=== PATIENT | female | born 1955 | race Caucasian/White ===

== ENCOUNTER → 2017-07-31 06:27 | Outpatient (CLI) | payer OTHER, SELFPAY ==
--- NOTE | 2017-07-31 10:40 | STRESSREP ---
Stress Test Report Exercise myocardial perfusion stress test. 61-year-old lady with a history of shortness of breath. Medications atorvastatin statin benazepril Stress protocol: Resting EKG demonstrates normal sinus rhythm with a rate of 71 bpm. Resting blood pressure is 130/84 mmHg. Patient exercised according to regular Augie protocol for total duration of 5 minutes and 30 seconds completing 2 minutes and 30 seconds to stage II of the Augie protocol the maximum heart rate attained was 1 36 bpm is 86% maximum predicted heart rate maximum workload attained was 7 metabolic equivalents. At rest there were no ST or T-wave changes no ischemia at peak exercise no ST or T-wave changes were noticed ischemia. No clinical angina was noted the test was terminated due to nausea. Resting blood pressure 730/84 with a peak blood pressure 180/76 rate pressure product was 24,000. Myocardial perfusion protocol. 11.3 mCi of technetium 99 sestamibi was injected at rest. She did exercised according to regular Augie protocol for total duration of 5-1/2 minutes. The maximum workload attained was 7 metabolic equivalents. At peak exercise 33.7 mCi of technetium 99 sestamibi was injected stress images were obtained stress and rest images were reconstructed and compared in the short axis vertical and horizontal Gated images were also obtained Perfusion SPECT analysis. Review of the stress images demonstrate normal uptake of tracer noted in all areas of the myocardium. The resting images demonstrate normal uptake of tracer noted in all areas of the myocardium. No areas of reversibility are noted suggest ischemia. Gated SPECT analysis. The gated ejection fraction is noted over 78%. Conclusion: Exercise myocardial perfusion stress test with no evidence of ischemia at a moderate workload. No clinical angina noted no ischemia present.
== END ==
PROVIDERS: Family Provider Family Medicine Geriatric Medicine; PCP Family Medicine Geriatric Medicine; Visit Provider Internal Medicine Cardiovascular Disease
DX: R07.9 Chest pain, unspecified (principal); G47.33 Obstructive sleep apnea (adult) (pediatric); E78.5 Hyperlipidemia, unspecified; I10 Essential (primary) hypertension; R94.31 Abnormal electrocardiogram [ECG] [EKG]
CPT/HCPCS: 78452; 93017; A9500; A4216

== ENCOUNTER → 2017-08-08 15:54 | Outpatient (CLI) | payer OTHER, SELFPAY ==
[2017-08-08 17:30] VITALS: BMI 32.8
== END ==
PROVIDERS: Family Provider Family Medicine Geriatric Medicine; PCP Family Medicine Geriatric Medicine; Visit Provider Nurse Practitioner Acute Care
DX: R20.2 Paresthesia of skin (principal); R06.83 Snoring; R53.83 Other fatigue
CPT/HCPCS: 98960; G0463

== ENCOUNTER → 2017-09-18 12:01 | Outpatient (CLI) | payer OTHER, SELFPAY ==
[2017-08-08 17:30] VITALS: BMI 32.8
[2017-09-18 17:23] LABS: Absolute Lymphocyte Count 1.75 X10^3/ul (0.83-4.51); Absolute Neutrophil Count 4.5 X10^3/uL (2.0-7.7); Basophil# 0.02 X10^3/uL; Basophil% 0.3 % (0-1); Eosinophil# 0.12 X10^3/uL; Eosinophils% 1.7 % (0-5); Hematocrit 41.3 % (37-47); Hemoglobin 14.6 g/dl (12.0-15.0); Lymphocyte # 1.75 X10^3/ul (4.0); Lymphocyte % 25.2 % (19-41); Mean Corp Hgb Conc 35.4 g/gl (32-36); Mean Corpuscular Hgb 32.6 pg (27.0-32.0); Mean Corpuscular Volume 92.2 fL (81-99); Mean Platelet Vol. 9.9 fl (6.2-12.0); Monocyte# 0.51 X10^3/uL; Monocyte% 7.3 % (0-10); Neutrophil # 4.54 X10^3/uL (2.7-7.7); Neutrophil % 65.4 % (47-70); POSITIVE COUNT NO; POSITIVE DIFFERENTIAL NO; POSITIVE MORPHOLOGY NO; Platelet Count 213 K/mm3 (150-450); RBC Distribution Width CV 11.5 % (11.6-14.6); RBC Distribution Width SD 38.6 fl (35.1-43.9); Red Blood Count 4.48 M/mm3 (4.2-5.4)
[2017-09-18 17:51] LABS: ALB/GLOB Ratio 1.2 RATIO (0.9-2.4); AST(SGOT) 25 U/L (15-37); Alanine Aminotransfer ALT/SGPT 41 U/L (13-56); Albumin, Serum 3.5 g/dL (3.2-5.0); Alkaline Phosphatase 68 U/L (45-117); Anion Gap 11 (5-15); BUN 16 mg/dL (7-18); BUN/Creat Ratio 18.8 RATIO (10-20); Calcium,Total 9.1 mg/dL (8.5-10.1); Chloride 107 mmol/L (98-107); Creatinine, Serum 0.85 mg/dL (0.55-1.02); EST Glomerular Filtration Rate 72 mL/min (>60); Est Glom Filt Rate - Afr Amer 87 mL/min (>60); Globulin 2.8 g/dL (2.2-4.2); Glucose 198 mg/dL (74-106); Potassium 4.3 mmol/L (3.5-5.1); Protein, Total 6.3 g/dL (6.4-8.2); Sodium Level 139 mmol/L (136-145); Thyroid Stim Hormone (TSH) 0.47 uIU/mL (0.358-3.74)
[2017-09-20 12:03] LABS: Hep C Antibodies <0.1 s/co ratio (0.0-0.9)
== END ==
PROVIDERS: Family Provider Family Medicine Geriatric Medicine; PCP Family Medicine Geriatric Medicine; Visit Provider Family Medicine Geriatric Medicine
DX: E11.9 Type 2 diabetes mellitus without complications (principal); I10 Essential (primary) hypertension; Z13.89 Encounter for screening for other disorder
CPT/HCPCS: 36415; 80053; 84443; 85025; 86803

== ENCOUNTER → 2017-11-04 17:43 | Outpatient (CLI) | payer OTHER, SELFPAY ==
[2017-08-08 17:30] VITALS: BMI 32.8
== END ==
PROVIDERS: Family Provider Family Medicine Geriatric Medicine; PCP Family Medicine Geriatric Medicine; Visit Provider Family Medicine Geriatric Medicine
DX: R50.9 Fever, unspecified (principal)
CPT/HCPCS: 87633

== ENCOUNTER → 2017-11-12 08:04 | Outpatient (CLI) | payer OTHER, SELFPAY ==
[2017-08-08 17:30] VITALS: BMI 32.8
--- NOTE | 2017-11-12 10:30 | NEURO ---
NCS and/or EMG Patient Report Ordering Doctor: Marlin Baez DATE OF SERVICE: 11/12/17 This is a bilateral lower extremity nerve conduction study in the left lower extremity EMG performed on this 62-year-old female with a history of insomnia for unclear reasons, sleep apnea, and restless leg syndrome. She also has pain in her left leg and hip. There is a history of diabetes, she indicates that her hemoglobin A1c is well controlled. Bilateral lower extremity sensory and motor nerve conduction studies performed. The sural sensory responses are preserved bilaterally. The common peroneal and tibial motor distal latencies, amplitudes, and conduction velocities are preserved bilaterally. The tibial and common peroneal F-wave latencies are bilaterally preserved. Tibial H reflexes are performed, and it is normal on the right, it is reduced on the left. Left lower extremity needle electromyography is performed. Muscles evaluated included the extensor digitorum brevis, abductor halitosis, medial gastrocnemius, anterior tibialis, vastus lateralis, and vastus medialis muscles. All muscles demonstrated normal insertional activity with absence of pathologic spontaneous activity. Motor unit potential recruitment pattern and amplitude was normal in all muscles tested. Impression: Normal EMG of the left lower extremity and nerve conduction study of the bilateral lower extremities.
--- NOTE | 2017-11-12 10:33 | NEURO_ITS ---
NCS and/or EMG Patient Report Ordering Doctor: Marlin Baez DATE OF SERVICE: 11/12/17 This is a bilateral lower extremity nerve conduction study in the left lower extremity EMG performed on this 62-year-old female with a history of insomnia for unclear reasons, sleep apnea, and restless leg syndrome. She also has pain in her left leg and hip. There is a history of diabetes, she indicates that her hemoglobin A1c is well controlled. Bilateral lower extremity sensory and motor nerve conduction studies performed. The sural sensory responses are preserved bilaterally. The common peroneal and tibial motor distal latencies, amplitudes, and conduction velocities are preserved bilaterally. The tibial and common peroneal F-wave latencies are bilaterally preserved. Tibial H reflexes are performed, and it is normal on the right, it is reduced on the left. Left lower extremity needle electromyography is performed. Muscles evaluated included the extensor digitorum brevis, abductor halitosis, medial gastrocnemius , anterior tibialis, vastus lateralis, and vastus medialis muscles. All muscles demonstrated normal insertional activity with absence of pathologic spontaneous activity. Motor unit potential recruitment pattern and amplitude was normal in all muscles tested. Impression: Normal EMG of the left lower extremity and nerve conduction study of the bilateral lower extremities.
== END ==
PROVIDERS: Family Provider Family Medicine Geriatric Medicine; PCP Family Medicine Geriatric Medicine; Visit Provider Nurse Practitioner Acute Care
DX: R20.2 Paresthesia of skin (principal); R53.83 Other fatigue; R06.83 Snoring
CPT/HCPCS: 95886; 95910

== ENCOUNTER → 2017-12-13 20:00 | Outpatient (CLI) | payer OTHER, SELFPAY ==
[2017-08-08 17:30] VITALS: BMI 32.8
== END ==
PROVIDERS: Family Provider Family Medicine Geriatric Medicine; PCP Family Medicine Geriatric Medicine; Visit Provider Nurse Practitioner Acute Care
DX: G47.33 Obstructive sleep apnea (adult) (pediatric) (principal)
CPT/HCPCS: 95811

== ENCOUNTER → 2017-12-31 15:56 | Outpatient (CLI) | payer OTHER, SELFPAY ==
[2017-08-08 17:30] VITALS: BMI 32.8
[2017-12-31 17:29] LABS: Absolute Neutrophil Count 4.9 X10^3/uL (2.0-7.7); Basophil# 0.02 X10^3/uL; Basophil% 0.3 % (0-1); Eosinophil# 0.08 X10^3/uL; Hemoglobin 13.8 g/dl (12.0-15.0); Lymphocyte % 28.2 % (19-41); Mean Corp Hgb Conc 32.9 g/gl (32-36); Mean Corpuscular Hgb 31.1 pg (27.0-32.0); Mean Corpuscular Volume 94.6 fL (81-99); Mean Platelet Vol. 9.6 fl (6.2-12.0); Monocyte# 0.62 X10^3/uL; Neutrophil # 4.86 X10^3/uL (2.7-7.7); Neutrophil % 62.4 % (47-70); Platelet Count 226 K/mm3 (150-450); RBC Distribution Width CV 12.3 % (11.6-14.6); Red Blood Count 4.44 M/mm3 (4.2-5.4); White Blood Count 7.8 K/mm3 (4.4-11.0)
[2017-12-31 17:33] LABS: POSITIVE COUNT NO; POSITIVE DIFFERENTIAL NO; POSITIVE MORPHOLOGY NO
[2017-12-31 17:43] LABS: ALB/GLOB Ratio 1.1 RATIO (0.9-2.4); AST(SGOT) 24 U/L (15-37); Alanine Aminotransfer ALT/SGPT 45 U/L (13-56); Albumin, Serum 3.4 g/dL (3.2-5.0); Alkaline Phosphatase 56 U/L (45-117); Anion Gap 8 (5-15); BUN 18 mg/dL (7-18); BUN/Creat Ratio 28.6 RATIO (10-20); Calcium,Total 8.9 mg/dL (8.5-10.1); Chloride 108 mmol/L (98-107); Creatinine, Serum 0.63 mg/dL (0.55-1.02); EST Glomerular Filtration Rate 102 mL/min (>60); Est Glom Filt Rate - Afr Amer 123 mL/min (>60); Glucose 118 mg/dL (74-106); Protein, Total 6.4 g/dL (6.4-8.2); Sodium Level 142 mmol/L (136-145); Thyroid Stim Hormone (TSH) 0.88 uIU/mL (0.358-3.74)
== END ==
PROVIDERS: Family Provider Family Medicine Geriatric Medicine; PCP Family Medicine Geriatric Medicine; Visit Provider Family Medicine Geriatric Medicine
DX: E11.9 Type 2 diabetes mellitus without complications (principal); I10 Essential (primary) hypertension
CPT/HCPCS: 36415; 80053; 84443; 85025

== ENCOUNTER → 2018-04-28 16:08 | Outpatient (CLI) | payer OTHER, SELFPAY ==
[2017-08-08 17:30] VITALS: BMI 32.8
[2018-02-17 15:55] VITALS: BMI 31.9
[2018-04-28 16:56] LABS: Absolute Neutrophil Count 3.8 X10^3/uL (2.0-7.7); Basophil# 0.02 X10^3/uL; Basophil% 0.3 % (0-1); Eosinophil# 0.12 X10^3/uL; Eosinophils% 1.9 % (0-5); Hematocrit 41.6 % (37-47); Hemoglobin 14.4 g/dl (12.0-15.0); Lymphocyte % 31.1 % (19-41); Mean Corp Hgb Conc 34.6 g/gl (32-36); Mean Corpuscular Hgb 32.1 pg (27.0-32.0); Mean Corpuscular Volume 92.7 fL (81-99); Mean Platelet Vol. 9.9 fl (6.2-12.0); Monocyte# 0.47 X10^3/uL; Monocyte% 7.3 % (0-10); Neutrophil # 3.81 X10^3/uL (2.7-7.7); Neutrophil % 59.2 % (47-70); Platelet Count 189 K/mm3 (150-450); RBC Distribution Width CV 11.9 % (11.6-14.6); RBC Distribution Width SD 39.8 fl (35.1-43.9); Red Blood Count 4.49 M/mm3 (4.2-5.4); White Blood Count 6.4 K/mm3 (4.4-11.0)
[2018-04-28 17:09] LABS: POSITIVE COUNT NO; POSITIVE DIFFERENTIAL NO; POSITIVE MORPHOLOGY NO
[2018-04-28 17:17] LABS: ALB/GLOB Ratio 1.2 RATIO (0.9-2.4); AST(SGOT) 18 U/L (15-37); Alanine Aminotransfer ALT/SGPT 41 U/L (13-56); Albumin, Serum 3.4 g/dL (3.2-5.0); Alkaline Phosphatase 63 U/L (45-117); Anion Gap 10 (5-15); BUN 24 mg/dL (7-18); BUN/Creat Ratio 27.4 RATIO (10-20); Calcium,Total 8.7 mg/dL (8.5-10.1); Chloride 107 mmol/L (98-107); Creatinine, Serum 0.88 mg/dL (0.55-1.02); EST Glomerular Filtration Rate 69 mL/min (>60); Est Glom Filt Rate - Afr Amer 84 mL/min (>60); Globulin 2.8 g/dL (2.2-4.2); Glucose 171 mg/dL (74-106); Potassium 4.2 mmol/L (3.5-5.1); Protein, Total 6.2 g/dL (6.4-8.2); Sodium Level 142 mmol/L (136-145); Thyroid Stim Hormone (TSH) 1.02 uIU/mL (0.358-3.74)
--- OUTSIDE RECORDS SUMMARY | 2018-06-15 01:04 | XMS RPT_ITS ---
:1955 Author Organization OHIP Support Name Relationship Address Phone GOOIN Unavailable [address] [phone] [place] [address] NOLT, ENRIQUE Unavailable [address] + [place] [address] SATIR, REZA Unavailable [address] + [place] [address] GOOIN Unavailable [address] [phone] [place] [address] NOLT, ENRIQUE Unavailable [address] + [place] [address] SATIR, REZA Unavailable [address] + [place] [address] GOOIN Unavailable [address] [phone] [place] [address] NOLT, ENRIQUE Unavailable [address] + [place] [address] SATIR, REZA Unavailable 1 + [place] [address] GOOIN Unavailable [address] [phone] [place] [address] NOLT, ENRIQUE Unavailable [address] + [place] [address] SATIR, REZA Unavailable 1 + [place] [address] GOOIN Unavailable [address] [phone] [place] [address] NOLT, ENRIQUE Unavailable [address] + [place] [address] SATIR REZA Unavailable Unavailable + [place] [address] GOOIN Unavailable [address] [phone] [place] [address] NOLT, ENRIQUE Unavailable [address] + [place] [address] REZA CARRILLO Unavailable Unavailable + [place] [address] GOOIN Unavailable [address] [phone] [place] [address] NOLT, ENRIQUE Unavailable [address] + [place] [address] REZA CARRILLO Unavailable Unavailable + [place] [address] GOOIN Unavailable [address] [phone] [place] [address] NOLT, ENRIQUE Unavailable [address] + [place] [address] GOOIN Unavailable [address] [phone] [place] [address] NOLT, ENRIQUE Unavailable [address] + [place] [address] REZA CARRILLO Unavailable Unavailable + [place] [address] GOOIN Unavailable [address] [phone] [place] [address] NOLT, ENRIQUE Unavailable [address] + [place] [address] GOOIN Unavailable [address] [phone] [place] [address] NOLT, ENRIQUE Unavailable [address] + [place] [address] GOOIN Unavailable [address] [phone] [place] [address] NOLT, ENRIQUE Unavailable [address] + [place] [address] GOOIN Unavailable [address] [phone] [place] [address] NOLT, ENRIQUE Unavailable [address] + [place] [address] GOOIN Unavailable [address] [phone] [place] [address] NOLT, ENRIQUE Unavailable [address] + [place] [address] GOOIN Unavailable [address] [phone] [place] [address] GOOIN Unavailable [address] [phone] [place] [address] NOLT, ENRIQUE Unavailable [address] + [place] [address] GOOIN Unavailable [address] [phone] [place] [address] NOLT, ENRIQUE Unavailable [address] + [place] [address] QUANMILADIS GUPTA Unavailable [address] + [place] [address] Care Team Providers Name Role Phone JANICE, JANNIE CHI Referring Unavailable Janice, Jannie Chi Attending Unavailable Janice, Jannie Chi Primary Care Unavailable Janice, Jannie Chi Attending Unavailable Janice, Jannie Chi Referring Unavailable Janice, Jannie Chi Primary Care Unavailable Janice, Jannie Chi Attending Unavailable Janice, Jannie Chi Referring Unavailable Janice, Jannie Chi Primary Care Unavailable Janice, Jannie Chi Attending Unavailable Janice, Jannie Chi Primary Care Unavailable Oseas Berman Attending Unavailable Janice, Jannie Chi Referring Unavailable Janice, Jannie Chi Primary Care Unavailable Oseas Berman Attending Unavailable Oseas Berman Referring Unavailable Janice, Jannie Chi Primary Care Unavailable NestorHoanga [employer]OCK AND WATCH ASSEMBLER-C Attending Unavailable Janice, Jannie Chi Primary Care Unavailable Augie Grimes Attending Unavailable Janice, Jannie Chi Referring Unavailable Janice, Jannie Chi Primary Care Unavailable Oseas Berman Attending Unavailable Shannon, Philip Referring Unavailable CornelioAugie brown Attending Unavailable Janice, Jannie Chi Referring Unavailable Janice, Jannie Chi Attending Unavailable Janice, Jannie Chi Primary Care Unavailable Janice, Jannie Chi Attending Unavailable Janice, Jannie Chi Referring Unavailable Janice, Jannie Chi Primary Care Unavailable NestorHoang burnhama CLOCK AND WATCH ASSEMBLER-C Attending Unavailable NestorHoanga CLOCK AND WATCH ASSEMBLER-C Referring Unavailable Jaince, Jannie Chi Primary Care Unavailable NestorHoanga CLOCK AND WATCH ASSEMBLER-C Attending Unavailable Janice, Jannie Chi Primary Care Unavailable Janice, Jannie Chi Attending Unavailable Janice, Jannie Chi Primary Care Unavailable Oseas Bermna Attending Unavailable Janice, Jannie Chi Referring Unavailable PROBLEMS PROBLEMS DATE TYPE CONDITION / CODE ATTENDING STATUS SOURCE 05/29/2018 Unknown R50.9 - Fever, Janice, Jannie Chi Active [place] unspecified / Community R50.9(ICD-10) Hospital Repository 05/15/2018 Unknown R19.7 - Diarrhea, Janice, Jannie Chi Active [facility] unspecified / Community R19.7(ICD-10) Hospital Repository 02/17/2018 Unknown E78.5 - Oseas Berman Active [place] Hyperlipidemia, Community unspecified / Hospital E78.5(ICD-10) Repository 11/12/2017 Unknown R20.2 - Paresthesia of Marlin Baez Active [facility] skin / R20.2(ICD-10) [facility] Repository 11/12/2017 Unknown R53.83 - Other fatigue NestorMarlin burnham Active [place] / R53.83(ICD-10) [facility] Repository 09/18/2017 Unknown I10 - Essential Janice, Jannie Chi Active [facility] (primary) hypertension Community / I10(ICD-10) Hospital Repository 09/18/2017 Unknown E11.9 - Type 2 Janice, Jannie Chi Active [place] diabetes mellitus [facility] without complications Hospital / E11.9(ICD-10) Repository 08/15/2017 Unknown G47.33 - Obstructive CornelioAugie brown Active [facility] sleep apnea (adult) Community (pediatric) / Hospital G47.33(ICD-10) Repository 08/15/2017 Unknown 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 / Community G47.61(ICD-10) Hospital Repository 08/15/2017 Unknown Z68.33 - Body mass Augie Grimes Active [facility] index (BMI) 33.0-33.9, [facility] adult / Z68.33(ICD-10) Hospital Repository 08/08/2017 Unknown R06.83 - Snoring / Marlin Baez Active [facility] R06.83(ICD-10) [facility] Repository 07/31/2017 Unknown R94.31 - Abnormal Oseas Berman Active [facility] electrocardiogram Community [ECG] [EKG] / Hospital R94.31(ICD-10) Repository 08/30/2017 Unknown R07.9 - Chest pain, Oseas Berman Active [facility] unspecified / Community R07.9(ICD-10) Hospital Repository 06/14/2017 Active Unknown / UNK(Unknown) NA Active [facility] Repository PROCEDURES PROCEDURES No Procedure Records FoundRESULTS RESULTS Observed: 05/29/2018 Status: F Source: [place] RESPIRATORY PANEL 5:13 PM [facility]LE[facility] REPOSITORY RP PANEL ADENOVIRUS Not Detected HUMAN METAPHNEUMO Not Detected INFLUENZA A Not Detected INFLUENZA A (SUBTYPE H1) Not Detected INFLUENZA A (SUBTYPE H3) Not Detected INFLUENZA B Not Detected PARAINFLUENZA 1 Not Detected PARAINFLUENZA 2 Not Detected PARAINFLUENZA 3 Not Detected PARAINFLUENZA 4 Not Detected RHINOVIRUS Not Detected RSV A Not Detected RSV B Not Detected NAAT METHOD Testing was performed using nucleic acid amplification Performed By: #### M100.638 #### [facility] [address] [place], [address] PROGRESS Observed: 05/25/2018 Status: COMPLETED Source: [place] 3:16 PM [facility] HNO ID: [id number] Author: Rosy (Jazmine) Rama Service: (none) Author Type: Nurse Practitioner Type: Progress Notes Filed: 05/25/2018 3:32 PM Note Text: Subjective The history is provided by the patient. No tail end rider was used. HPI Isabel Glass is a 62 year old female who presents today for CC of sinus pressure and congestion. This started with a sore throat and body aches. She has used coricidin HBP without relief. She works at [employer], co workers have been ill. She denies any custodial problems with sinuses. BP 122/88 Pulse 86 Temp 36.2 ?C (97.1 ?F) (Left Tympanic) Resp 20 Wt 81.6 kg (179 lb 12.8 oz) LMP 06/23/2005 SpO2 97% BMI 32.67 kg/m? 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 HENT: Positive for congestion and sinus pain. Negative for ear pain and sore throat. Post nasal drainage Respiratory: Positive for cough (mild ). Musculoskeletal: Negative for myalgias. Neurological: Negative for headaches. Objective Physical Exam Constitutional: She is well-developed, well-nourished, and in no distress. HENT: Head: Normocephalic and atraumatic. Right Ear: Tympanic membrane, external ear and ear canal normal. Tympanic membrane is not erythematous, not retracted and not bulging. No middle ear effusion. Left Ear: Tympanic membrane and ear canal normal. Tympanic membrane is not erythematous, not retracted and not bulging. No middle ear effusion. Nose: Mucosal edema and rhinorrhea present. Right sinus exhibits maxillary sinus tenderness and frontal sinus tenderness. Left sinus exhibits maxillary sinus tenderness and frontal sinus tenderness. Mouth/Throat: Uvula is midline and mucous membranes are normal. Posterior oropharyngeal erythema present. No oropharyngeal exudate, posterior oropharyngeal edema or tonsillar abscesses. A dry harsh cough was noted during this encounter. Talking in full sentences. Handling secretions without drooling. Lips and nailbeds are pink without cyanosis. Pulmonary/Chest: Breath sounds normal. She has no decreased breath sounds. She has no wheezes. She has no rhonchi. She has no rales. Lymphadenopathy: Head (right side): No submental, no submandibular and no tonsillar adenopathy present. Head (left side): No submental, no submandibular and no tonsillar adenopathy present. She has no cervical adenopathy. Neurological: She is alert. Skin: Skin is warm and dry. Psychiatric: Affect normal. Nursing note and vitals reviewed. ASSESSMENT/PLAN: 1. URI with cough and congestion - ICD9: 465.9, ICD10: J06.9 - Discussed viral etiology and rationale for treatment. Rest, increase water intake Tylenol as needed for fever or pain. Salt water gargles, chloraseptic spray or lozenges as needed for sore throat. Nasal spray as needed Cool mist humidifier at night A cold normally lasts 7-10 days. If your symptoms are lasting longer, develop fever, or worsening by that time instead of improving then return to clinic or follow up with PCP for re-evaluation. Tylenol (generic acetaminophen) 500 mg-2 tabs every 8 hrs. as needed for fever and aches -Mucinex (generic is fine) 1200 mg twice daily to help with cough and to thin out mucus Flonase 1 spray each nostril two times a day. * Seek medical care immediately, call 911, go to ER if you have chest pain, difficulty breathing, shortness of breath, inability to swallow. Diagnosis and treatment plan were discussed and questions were answered to the patient's satisfaction. Pt acknowledged understanding of concepts and follow up plan. Specific signs and symptoms that would indicate the need for higher level of care were discussed in detail warranting prompt ER evaluation. Rosy Ontiveros APRN.CNP CNOV Observed: 05/25/2018 Status: COMPLETED Source: [place] 3:15 PM [facility] REPOSITORY Office Visit ([facility]) ISABEL GLASS ([id number]) 1955 F CHT Date Time Provider Department 05/25/18 3:15 PM ROSY ONTIVEROS (JAZMINE) [facility] During your visit today, we recorded the following information about you: Temperature Pulse Respiration Blood pressure 97.1 degrees 86/minute 20/minute 122/88 Weight 81.6 kg Rosy Ontiveros APRN.CNP 05/25/2018 3:32 PM Signed Subjective The history is provided by the patient. No tail end rider was used. [facility] Isabel Richardson Quan is a 62 year old female who presents today for CC of sinus pressure and congestion. This started with a sore throat and body aches. She has used coricidin HBP without relief. She works at [employer], co workers have been ill. She denies any custodial problems with sinuses. BP 122/88 Pulse 86 Temp 36.2 ?C (97.1 ?F) (Left Tympanic) Resp 20 Wt 81.6 kg (179 lb 12.8 oz) LMP 06/23/2005 SpO2 97% BMI 32.67 kg/m? 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 HENT: Positive for congestion and sinus pain. Negative for ear pain and sore throat. Post nasal drainage Respiratory: Positive for cough (mild ). Musculoskeletal: Negative for myalgias. Neurological: Negative for headaches. Objective Physical Exam Constitutional: She is well-developed, well-nourished, and in no distress. HENT: Head: Normocephalic and atraumatic. Right Ear: Tympanic membrane, external ear and ear canal normal. Tympanic membrane is not erythematous, not retracted and not bulging. No middle ear effusion. Left Ear: Tympanic membrane and ear canal normal. Tympanic membrane is not erythematous, not retracted and not bulging. No middle ear effusion. Nose: Mucosal edema and rhinorrhea present. Right sinus exhibits maxillary sinus tenderness and frontal sinus tenderness. Left sinus exhibits maxillary sinus tenderness and frontal sinus tenderness. Mouth/Throat: Uvula is midline and mucous membranes are normal. Posterior oropharyngeal erythema present. No oropharyngeal exudate, posterior oropharyngeal edema or tonsillar abscesses. A dry harsh cough was noted during this encounter. Talking in full sentences. Handling secretions without drooling. Lips and nailbeds are pink without cyanosis. Pulmonary/Chest: Breath sounds normal. She has no decreased breath sounds. She has no wheezes. She has no rhonchi. She has no rales. Lymphadenopathy: Head (right side): No submental, no submandibular and no tonsillar adenopathy present. Head (left side): No submental, no submandibular and no tonsillar adenopathy present. She has no cervical adenopathy. Neurological: She is alert. Skin: Skin is warm and dry. Psychiatric: Affect normal. Nursing note and vitals reviewed. ASSESSMENT/PLAN: 1. URI with cough and congestion - ICD9: 465.9, ICD10: J06.9 - Discussed viral etiology and rationale for treatment. Rest, increase water intake Tylenol as needed for fever or pain. Salt water gargles, chloraseptic spray or lozenges as needed for sore throat. Nasal spray as needed Cool mist humidifier at night A cold normally lasts 7-10 days. If your symptoms are lasting longer, develop fever, or worsening by that time instead of improving then return to clinic or follow up with PCP for re-evaluation. Tylenol (generic acetaminophen) 500 mg-2 tabs every 8 hrs. as needed for fever and aches -Mucinex (generic is fine) 1200 mg twice daily to help with cough and to thin out mucus Flonase 1 spray each nostril two times a day. * Seek medical care immediately, call 911, go to ER if you have chest pain, difficulty breathing, shortness of breath, inability to swallow. Diagnosis and treatment plan were discussed and questions were answered to the patient's satisfaction. Pt acknowledged understanding of concepts and follow up plan. Specific signs and symptoms that would indicate the need for higher level of care were discussed in detail warranting prompt ER evaluation. Rosy Ontiveros APRN.JAZMINE Ontiveros APRN.CNP 05/25/2018 3:22 PM Signed ASSESSMENT/PLAN: 1. URI with cough and congestion - ICD9: 465.9, ICD10: J06.9 - Discussed viral etiology and rationale for treatment. Rest, increase water intake Tylenol as needed for fever or pain. Salt water gargles, chloraseptic spray or lozenges as needed for sore throat. Nasal spray as needed Cool mist humidifier at night A cold normally lasts 7-10 days. If your symptoms are lasting longer, develop fever, or worsening by that time instead of improving then return to clinic or follow up with PCP for re-evaluation. Tylenol (generic acetaminophen) 500 mg-2 tabs every 8 hrs. as needed for fever and aches -Mucinex (generic is fine) 1200 mg twice daily to help with cough and to thin out mucus Flonase 1 spray each nostril two times a day. * Seek medical care immediately, call 911, go to ER if you have chest pain, difficulty breathing, shortness of breath, inability to swallow. Referring Provider: SELF [[id number]] Allergies As of Date: 05/25/2018 Noted Allergy Reaction AMOXICILLIN 05/29/2005 LATEX 05/29/2005 Comments: became raw when she had a port for chemo, is not sensitive normally to gloves Date Reviewed: 05/25/2018 Reviewed by: Rosy ([facility]) Rama - Fully Assessed Reason for Visit: Sinusitis [127] Cmt: x 5 days Primary Visit Diagnosis:URI with cough and congestion [J06.9] Order(s):benzonatate (TESSALON PERLE) 100 mg capsuleTake 1- 2 capsules tid prnDisp: 40 capsuleRfl: 0 guaiFENesin (MUCINEX) 600 mg 12 hr tabletTake 2 tablets by mouth twice daily.Disp: 24 tabletRfl: 0 fluticasone (FLONASE) 50 mcg/actuation nasal sprayUse 2 Sprays in each nostril once daily. Rinse mouth after use.Disp: 1 BottleRfl: 0 Prescriptions as of 05/25/2018 Sig: METFORMIN ORAL Take 1,000 mg by mouth twice * D-HIST D ORAL Take 1 capsule by mouth once * FISH OIL ORAL Take 1 capsule by mouth once * CHOLECALCIFEROL (VITAMIN D3) * Take by mouth once daily. AMLODIPINE 5 MG-ATORVASTATIN * Take 1 tablet by mouth once d* EYE DROPS OPHTHALMIC Use 2 Drops in eyes once reymundo* ATORVASTATIN 40 MG TABLET Take 40 mg by mouth once reymunod* DOXYCYCLINE HYCLATE 50 MG CAP* Take 50 mg by mouth twice wilberto* CINNAMON ORAL Take 2,000 mg by mouth twice * * DICYCLOMINE 10 MG CAPSULE Take 1 capsule by mouth befor* * COMPOUNDED PRESCRIPTION Take 1 tablet by mouth once d* * CHOLECALCIFEROL (VITAMIN D3) * Take 1,000 Units by mouth onc* * MULTIVITAMIN TABLET Take 1 tablet by mouth once d* * CYANOCOBALAMIN (VIT B-12) 1,0* Take one(1) tablet daily. * VITAMIN C 500 MG TABLET Take one(2) tablet daily. * LOTREL 5 MG-10 MG CAPSULE Take one(1) tablet daily. 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*INVALID FOR*05/11/2016 Acute gastritis without mention of hemorrhage [*INVALID FOR*11/08/2011 Nonspecific abnormal finding in stool contents *INVALID FOR*05/11/2016 Abnormal mammogram, unspecified [R92.8] INVALID FOR*11/08/2011 Closed fracture of one or more phalanges of surinder*INVALID FOR*05/11/2016 Pain in limb [M79.609] INVALID FOR*05/11/2016 GENERAL OSTEOARTHROSIS [M15.9] INVALID FOR* Urinary incontinence, stress INVALID FOR*05/11/2016 History of malignant neoplasm of colon [Z85.038]INVALID FOR* Type 2 diabetes mellitus [E11.9] INVALID FOR* Osteopenia [M85.80] INVALID FOR* Other instructions from your clinician: ASSESSMENT/PLAN: 1. URI with cough and congestion - ICD9: 465.9, ICD10: J06.9 - Discussed viral etiology and rationale for treatment. Rest, increase water intake Tylenol as needed for fever or pain. Salt water gargles, chloraseptic spray or lozenges as needed for sore throat. Nasal spray as needed Cool mist humidifier at night A cold normally lasts 7-10 days. If your symptoms are lasting longer, develop fever, or worsening by that time instead of improving then return to clinic or follow up with PCP for re-evaluation. Tylenol (generic acetaminophen) 500 mg-2 tabs every 8 hrs. as needed for fever and aches -Mucinex (generic is fine) 1200 mg twice daily to help with cough and to thin out mucus Flonase 1 spray each nostril two times a day. * Seek medical care immediately, call 911, go to ER if you have chest pain, difficulty breathing, shortness of breath, inability to swallow. Prescriptions ordered this encounter Disp Refills Start End BENZONATATE 100 MG CAPSULE 40 c* 0 05/25/2018 Sig: Take 1-2 capsules tid prn GUAIFENESIN ER 600 MG TABLET, EXTEND* 24 t* 0 05/25/2018 Route: ORAL Sig: Take 2 tablets by mouth twice daily. FLUTICASONE 50 MCG/ACTUATION NASAL S* 1 Nacho* 0 05/25/2018 Route: EACH NOSTRIL Sig: Use 2 Sprays in each nostril once daily. Rinse mouth after use. Encounter Status:Closed by ROSY ONTIVEROS CNP on 05/25/18 ABD INC DECUB Observed: 05/15/2018 Status: F Source: [place] AND/OR ERECT 4:31 PM [facility] REPOSITORY [facility] [place] [address] Abd Inc Decub and/or Erect MR#: [id number] Acct: [id number] Name: ISABEL GLASS Rep #: [id number] : 1955 F 62 From: Barney Wright MD PCP: Jannie Dewey MD, Chi Status: REG CLI Study: Abd Inc Decub and/or Erect Date of Exam: 05/15/18 Exam# [id number] Ordering Dr: Jannie Dewey MD STUDY: X-RAY - ABDOMEN/PELVIS REASON FOR EXAM: Female, 62 years old. Diarrhea TECHNIQUE: 4 views COMPARISON: August 13, 2015 FINDINGS: There are degenerative changes involving the left hip and lower lumbosacral spine. There are no abnormal calcifications in the expected locations of the kidneys. There is no bowel distention or free intraperitoneal air. RAD/Abd Inc Decub and/or Erect IMPRESSION: No acute findings in the abdomen. Degenerative changes of the left hip and the lower lumbosacral spine Electronically Signed: Barney Wright MD at 6:14 EST Tel , Service support , CC: Jannie Dewey MD [employer] Teacher: Signed CBC W/DIFF, AUTOMATED Collected: 04/28/2018 Status: F Source: [place] 4:10 PM [facility] REPOSITORY TYPE CODE TESTS RESULT OUT OF RANGE REFERENCE UNITS LAB L100.1000 4.4-11.0 K/mm3 Normal WBC 6.4 LAB L100.1200 4.2-5.4 M/mm3 Normal RBC 4.49 LAB L100.1300 12.0-15.0 g/dl Normal HGB 14.4 LAB L100.1400 37-47 % Normal HCT 41.6 LAB L100.1500 81-99 fL Normal MCV 92.7 LAB L100.1600 27.0-32.0 pg High MCH 32.1 LAB L100.1700 32-36 g/gl Normal MCHC 34.6 LAB L100.1810 11.6-14.6 % Normal RDW CV 11.9 LAB L100.1820 35.1-43.9 fl Normal RDW SD 39.8 LAB L100.1900 150-450 K/mm3 Normal PLT 189 LAB L100.2000 6.2-12.0 fl Normal MPV 9.9 LAB L100.2100 47-70 % Normal NEUT% 59.2 LAB L100.2200 19-41 % Normal LY% 31.1 LAB L100.2300 0-10 % Normal MONO% 7.3 LAB L100.2400 0-5 % Normal EO% 1.9 LAB L100.2500 0-1 % Normal BASO% 0.3 LAB L100.2550 0.0-0.9 % Normal IM GRAN % 0.200 Result Comment: IG% - Immature Granulocytes (promyelocytes, myelocytes and metamyelocytes) > 1% indicates that a LEFT SHIFT is Present. LAB L100.2620 2.0-7.7 X10 3/uL Normal Absolute Neut 3.8 LAB L100.2720 0.83-4.51 X10 3/ul Normal Absolute Lymph 2.00 Performed By: #### L100.0100 #### [facility] [address] [place], [address] COMPREHENSIVE METABOLIC Collected: 04/28/2018 Status: F Source: [facility] 4:10 PM [facility] REPOSITORY TYPE CODE TESTS RESULT OUT OF RANGE REFERENCE UNITS LAB L501.0100 74-106 mg/dL High GLU 171 Result Comment: Fasting Glucose result greater than or equal to 126 mg/dL suggests DIABETES MELLITUS per A.D.A. criteria. Please note revised GLUCOSE reference range effective 2017. LAB L501.1000 7-18 mg/dL High BUN 24 LAB L501.1100 0.55-1.02 mg/dL Normal CREAT,SERUM 0.88 Result Comment: The validity of the calculated GFR AND GFRAA in patients over 70 years has not been determined. Clinical correlation is essential. LAB L501.1110 >60 mL/min Normal EST GFR 69 Result Comment: Non- GFR Calc LAB L501.1115 >60 mL/min Normal EST GFR - AA 84 Result Comment: GFR Calc LAB L501.1300 10-20 RATIO High BUN/CRE 27.4 LAB L501.1500 6.4-8.2 g/dL Low T PROT 6.2 LAB L501.1800 3.2-5.0 g/dL Normal ALB 3.4 LAB L501.1950 2.2-4.2 g/dL Normal GLOB 2.8 LAB L501.2000 0.9-2.4 RATIO Normal A/G 1.2 LAB L501.2200 8.5-10.1 mg/dL CA Normal 8.7 LAB L501.4100 15-37 U/L Normal AST 18 LAB L501.4305 45-117 U/L Normal ALK P 63 LAB L501.4405 13-56 U/L Normal ALT 41 LAB L501.4600 0.20-1.00 mg/dL T Normal BILI 0.70 LAB L501.5300 136-145 mmol/L NA Normal 142 LAB L501.5600 3.5-5.1 mmol/L K Normal 4.2 LAB L501.5900 98-107 mmol/L CL Normal 107 LAB L501.6100 21.0-32.0 mmol/L Normal CO2 25.0 LAB L501.6200 5-15 Normal GAP 10 Performed By: #### L500.4050, L501.9520 #### [facility] [address], [address] THYROID STIM HORMONE Collected: 04/28/2018 Status: F Source: ITA (TSH) 4:10 PM [facility] REPOSITORY TYPE CODE TESTS RESULT OUT OF RANGE REFERENCE UNITS LAB L501.9520 0.358-3.74 uIU/mL Normal TSH 1.02 Performed By: #### L500.4050, L501.9520 #### [facility] [address] [place], [address] CARDIOLOGY VISIT Observed: 02/17/2018 Status: F Source: ITA REPORT 4:08 PM [facility] REPOSITORY [facility] [address] [place] [address] OFFICE VISIT Date of Service: 02/17/18 MR#: [id number] Acct: [id number] Name: ISABEL GLASS Rep #: [id number] : 1955 Provider: Oseas Berman MD Age/Sex: 62/F [place] [facility] [place] Signed HPI HPI Chief Complaint: Routine f/u Details: Mrs. Glass is a very pleasant 62-year-old borderline diabetic female with history of hypertension, hypercholesterolemia, nonsmoker, on current medications for blood pressure and cholesterol, no previous known cardiac disease. She has a positive family history of coronary artery disease and an older brother who presented with a myocardial infarction in his early 60s. 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 However when she gets home and while she is standing only, she gets sharp knifelike atypical chest pain which originates in her left side of her chest and then radiates to the right breast. This lasts for approximately 1 minute's time, is nonradiating, and has no associated nausea, vomiting, shortness of breath, left neck pain or left arm pain. She has had no change in her exercise capacity. Patient recently had been helping her mother recover from a perforated ulcer which was compensated by several months of convalescence. Patient also states that she does not feel any better with her current BiPAP settings. Dr. Canela has left [facility] and requested guidance on BiPAP maintenance. I referred patient Dr. Grimes for her BiPAP maintenance. In addition she had an episode of left lower extremity edema apparently ultrasound 2 showed no evidence of DVT. She is wearing SOURAV hose stockings which are controlling her edema. patient underwent a stress echocardiogram on 06/16/14 which was negative for inducible ischemia. In addition she underwent a 2-D echo with Doppler 05/12/14 showed an EF of 65% and stage I diastolic dysfunction. Patient has a strong positive family history of coronary disease in multiple first-degree relatives. On 07/31/17 the patient underwent a repeat stress/MPI which was negative for inducible ischemia at adequate workload. She denies any chest pain, angina, shortness of breath or dyspnea on exertion. She is taking and tolerating her medicines well. Apparently she is waiting for a modified nose mask for her CPAP but has not heard yet back from pulmonary. In our office today her blood pressure is 130/70 pulse is 64 and regular. Her physical exam is as below. She has mild obesity. Her EKG as of 05/17/14 demonstrates normal sinus rhythm and left Fort axis, no previous myocardial infarction. An echocardiogram dated 05/12/14 demonstrated an EF of 65%, stage I diastolic dysfunction, RVSP of 10 mmHg, and negative intracavitary gradient with Valsalva. Her lipids as of 04/26/14 showed an HDL of 47 and an LDL of 66. Lipids as of 12/12/16 showed an HDL of 36 and an LDL of 19. Intake Vital Signs02/17/18 Height 5 ft 4 in 02/17/18 Weight: 186 lb 02/17/18 Body Mass Index (BMI) 31.9 02/17/18 Blood Pressure 130/70 H Intake Visit Reasons: 6 M FU Allergies amoxicillin Allergy (Mild, Verified 02/17/18 15:58) aspirin [From [employer] Aspirin] Allergy (Mild, Verified 02/17/18 15:58) Latex, Natural Rubber Allergy (Mild, Verified 02/17/18 15:58) Medications Lactobacillus acidophilus capsule 100 mg PO QDAY 05/03/17 [History Confirmed 02/17/18] atorvastatin 40 mg tablet 40 mg PO QDAY 05/03/17 [History Confirmed 02/17/18] benazepril 10 mg tablet 10 mg PO QDAY 05/03/17 [History Confirmed 02/17/18] cinnamon bark 500 mg capsule mg PO 05/03/17 [History Confirmed 02/17/18] glucosamine-chondroitin 250 mg-200 mg tablet 1 tab PO QAM tab 05/03/17 [History Confirmed 02/17/18] magnesium oxide 400 mg capsule 400 mg PO QDAY cap 05/03/17 [History Confirmed 02/17/18] mecobalamin (vitamin B12) 1,000 mcg disintegrating tablet,sublingual 1,000 mcg SUBLINGUAL QDAY 05/03/17 [History Confirmed 02/17/18] metformin 1,000 mg tablet 1,000 mg PO BID 05/03/17 [History Confirmed 02/17/18] multivitamin,ec-xuee-ojgpmodb tablet 1 tab PO QDAY 05/03/17 [History Confirmed 02/17/18] vitamin E 200 unit capsule 200 unit PO QDAY 05/03/17 [History Confirmed 02/17/18] doxycycline hyclate 100 mg capsule 100 mg PO QDAY PRN cap 07/15/17 [History Confirmed 02/17/18] pramipexole 0.25 mg tablet 0.25 mg PO TID #90 tab 08/15/17 [Rx Confirmed 02/17/18] diclofenac potassium 50 mg tablet 50 mg PO BID 02/13/18 [History Confirmed 02/17/18] cholecalciferol (vitamin D3) 1,000 unit capsule 2,000 unit PO DAILY cap 02/17/18 [History Confirmed 02/17/18] potassium 99 mg tablet 99 mg PO QDAY tab 02/17/18 [History Confirmed 02/17/18] [facility] Medical History Diabetes mellitus, type II (Chronic) History of colon cancer (Resolved) Chest pain, unspecified (Chronic) Abnormal electrocardiogram (Chronic) Hypertension (Chronic) Hyperlipidemia (Chronic) BMI 33.0-33.9,adult (Chronic) Daytime somnolence (Chronic) Obstructive sleep apnea (Chronic) Periodic limb movement disorder (Chronic) Surgical History Hx of breast biopsy (Resolved) History of bladder suspension procedure (Resolved) History of tubal ligation (Resolved) History of colectomy (Resolved) H/O arthroscopy of left knee (Resolved) History of carpal tunnel release of both wrists (Resolved) History of hysterectomy (Resolved) Family History Sister ZACHERY (obstructive sleep apnea) Brother , Age 62 from [place] CAD (coronary artery disease), Onset Age: 61 PCI and stents Myocardial infarction Father Pacemaker Cardiomyopathy Brother , of colon cancer Colon cancer Social History Smoking Status: Never smoker second hand exposure: No alcohol intake: current alcohol intake frequency: holidays/special occasions only Alcohol type: other substance use type: does not use caffeine: Yes (2/day) what type of physical activity do you participate in: none ROS Const Const: Negative for fatigue, weakness, body ache, fever(s), headache(s), chills, frequent falls, night sweats, daytime sleepiness, difficulty sleeping, excessive sweating, weight gain, weight loss, increased appetite, poor appetite, anorexia or other Eyes Eyes: Negative for blind spots, loss of peripheral vision, transient loss of vision, blurry vision, change in vision, double vision, floaters, tunnel vision or other ENT ENT: Negative for headache(s), dizziness, hearing loss, tinnitus, Nosebleed/epistaxis, balance problems, post nasal drip, lip swelling, tongue swelling, bleeding gums, hoarseness, neck pain, dry mouth or other Cardio Chest Pain: No Resp Respiratory: Negative for SOB with activity, SOB at rest, SOB orthopnea\SOB lying down, Coughing up blood/hemoptysis, chest congestion, pain on inspiration, snoring, stridor, wheezing, crackles, paroxysmal nocturnal dyspnea or other GI GI: Negative nausea, vomiting, heartburn, constipation, belching, bloating, cramping, vomiting blood/hematemesis, bright, red blood in stools, black,tarry stools, loose stools, Difficulty Swallowing or other : Negative for hematuria, frequent nighttime urination/ nocturia, erectile dysfunction or abnormal vaginal bleeding Musc Musc: Negative for balance problems, muscle aches/ myalgia, muscle weakness or joint pain Skin Skin: Negative redness, non-healing lesions, rash, unusual bruising, skin ulcer, wounds, jaundice or other Neuro Neuro: Negative for weakness, headache(s), frequent falls, blurry vision, double vision, dizziness, lightheadedness, near syncope, syncope, orthostatic symptoms, confusion, memory loss, restless legs, vertigo, seizures, lack of coordination or other Vu Hematologic/Lymphatic: Negative for easy bleeding, easy bruising, enlarged lymph nodes or other Endo Endo: Negative for fatigue, excessive sweating, cold intolerance, heat intolerance, flushing, increased thirst/drinking, increased hunger, hair loss, hair growth or other Psych Psych: Negative for anxiety, depression, thoughts of harming anyone, thoughts of harming yourself, visual hallucinations, panic attacks or audible hallucinations Allergy Allergy/Immunology: Negative for lip swelling, Negative for tongue swelling, Negative for rash, Negative for throat swelling, Negative for hives Cardiology Exam Const Appearance: cooperative, healthy appearing and no acute distress Nutritional Appearance: well nourished Orientation: alert, oriented x3 and oriented to person Head Head: normal to inspection, atraumatic and normocephalic Nose: external nose normal Face and Sinus: face symmetric Mouth: oral mucosae normal Eyes General: appearance normal, both eyes and all related structures Eyelids: eyelids normal Conjunctivae: conjunctivae normal Pupils: PERRL and normal by confrontation EOM: EOM intact bilaterally Neck Neck: normal visual inspection and full ROM Carotids: normal carotid upstroke Chest Chest inspection: normal inspection of the chest Auscultation: Bilateral: Clear to Auscultation Cardio Palpation: normal PMI Rate: regular rate Rhythm: regular rhythm Heart sounds: S1 normal and S2 normal GI GI: normal to inspection, no hepatosplenomegaly and bowel sounds present Neuro General: alert, oriented x3, awake, CN's II-XI intact bilaterally and moves all extremities Skin Skin: no rashes or lesions noted Extremities Pulses: Normal: Right Femoral Pulse, Left Femoral Pulse, Right Dorsalis Pedis Pulse, Left Dorsalis Pedis Pulse, Right Posterior Tibial Pulse, Left Posterior Tibial Pulse, Right Radial Pulse, Left Radial Pulse Lower Extremity Edema: None: Bilateral Psych Psychological: normal affect Assessment AND Plan 1. Hyperlipidemia E78.5 Plan 1. Hyperlipidemia: Her LDL and HDL cholesterol are at goal. Continue Lipitor. Her stress test is negative for inducible ischemia and she is asymptomatic at this time. No indication for any additional testing. I advised the patient to contact pulmonary to determine whether she is entitled to a special mask to assist with her obstructive sleep apnea. The patient is voiced understanding and will agree to do so. 2. Return office in 6 months. This note was generated using a voice recognition system and there may be incorrect words, spelling or punctuation that were not noted when reviewing the office note prior to saving. Plan Detail Other Medications Discontinued: C,E,zinc,copper 31-lcpos9m-whs 250-5-1 mg (Ocuvite Adult 50 Plus) Disco1 cap PO DAILY ntinued Reason: Pt no longer taking Follow Up +6M (Berman) Coding Level of Care Code Off vis,est,level 3 Diagnoses Hyperlipidemia E78.5 Coding Level of Care Code Off vis,est,level 3 Diagnoses Hyperlipidemia E78.5 02/17/18 1608 <Electronically signed by Oseas Berman MD> Date Oseas Berman MD Cosigner Signature: Date (if applicable) CC: Jannie Dewey MD CBC W/DIFF, AUTOMATED Collected: 12/31/2017 Status: F Source: ITA 3:57 PM [facility] REPOSITORY TYPE CODE TESTS RESULT OUT OF RANGE REFERENCE UNITS LAB L100.1000 4.4-11.0 K/mm3 Normal WBC 7.8 LAB L100.1200 4.2-5.4 M/mm3 Normal RBC 4.44 LAB L100.1300 12.0-15.0 g/dl Normal HGB 13.8 LAB L100.1400 37-47 % Normal HCT 42.0 LAB L100.1500 81-99 fL Normal MCV 94.6 LAB L100.1600 27.0-32.0 pg Normal MCH 31.1 LAB L100.1700 32-36 g/gl Normal MCHC 32.9 LAB L100.1810 11.6-14.6 % Normal RDW CV 12.3 LAB L100.1820 35.1-43.9 fl Normal RDW SD 42.0 LAB L100.1900 150-450 K/mm3 Normal PLT 226 LAB L100.2000 6.2-12.0 fl Normal MPV 9.6 LAB L100.2100 47-70 % Normal NEUT% 62.4 LAB L100.2200 19-41 % Normal LY% 28.2 LAB L100.2300 0-10 % Normal MONO% 8.0 LAB L100.2400 0-5 % Normal EO% 1.0 LAB L100.2500 0-1 % Normal BASO% 0.3 LAB L100.2550 0.0-0.9 % Normal IM GRAN % 0.100 Result Comment: IG% - Immature Granulocytes (promyelocytes, myelocytes and metamyelocytes) > 1% indicates that a LEFT SHIFT is Present. LAB L100.2620 2.0-7.7 X10 3/uL Normal Absolute Neut 4.9 LAB L100.2720 0.83-4.51 X10 3/ul Normal Absolute Lymph 2.20 Performed By: #### L100.0100 #### [facility] [address] [place], [address] COMPREHENSIVE METABOLIC Collected: 12/31/2017 Status: F Source: ITA FRANCO 3:57 PM [facility] REPOSITORY TYPE CODE TESTS RESULT OUT OF RANGE REFERENCE UNITS LAB L501.0100 74-106 mg/dL High GLU 118 Result Comment: Fasting Glucose result from 100 to 125 mg/dL suggests IMPAIRED HOMEOSTASIS per A.D.A. criteria. Please note revised GLUCOSE reference range effective 2017. LAB L501.1000 7-18 mg/dL Normal BUN 18 LAB L501.1100 0.55-1.02 mg/dL Normal CREAT,SERUM 0.63 Result Comment: The validity of the calculated GFR AND GFRAA in patients over 70 years has not been determined. Clinical correlation is essential. LAB L501.1110 >60 mL/min Normal EST GFR 102 Result Comment: Non- GFR Calc LAB L501.1115 >60 mL/min Normal EST GFR - AA 123 Result Comment: GFR Calc LAB L501.1300 10-20 RATIO High BUN/CRE 28.6 LAB L501.1500 6.4-8.2 g/dL T Normal PROT 6.4 LAB L501.1800 3.2-5.0 g/dL Normal ALB 3.4 LAB L501.1950 2.2-4.2 g/dL Normal GLOB 3.0 LAB L501.2000 0.9-2.4 RATIO Normal A/G 1.1 LAB L501.2200 8.5-10.1 mg/dL CA Normal 8.9 LAB L501.4100 15-37 U/L Normal AST 24 LAB L501.4305 45-117 U/L Normal ALK P 56 LAB L501.4405 13-56 U/L Normal ALT 45 LAB L501.4600 0.20-1.00 mg/dL T Normal BILI 0.80 LAB L501.5300 136-145 mmol/L NA Normal 142 LAB L501.5600 3.5-5.1 mmol/L K Normal 4.0 LAB L501.5900 98-107 mmol/L High CL 108 LAB L501.6100 21.0-32.0 mmol/L Normal CO2 26.0 LAB L501.6200 5-15 Normal GAP 8 Performed By: #### L500.4050, L501.9520 #### [facility] [address] [place], [address] THYROID STIM HORMONE Collected: 12/31/2017 Status: F Source: ITA (TSH) 3:57 PM [facility] REPOSITORY TYPE CODE TESTS RESULT OUT OF RANGE REFERENCE UNITS LAB L501.9520 0.358-3.74 uIU/mL Normal TSH 0.88 Performed By: #### L500.4050, L501.9520 #### [facility] [address] [place], [address] NCS AND/OR EMG Observed: 11/12/2017 Status: F Source: WALKER PATIENT 10:38 AM [facility] REPOSITORY [facility] Pulmonary Services/Neurology [address] [place] [address] MR#: [id number] Acct: [id number] Name: ISABEL GLASS Rep #: [id number] : 1955 62 From: Richard Chavez MD Referring Dr: Marlin Baez NP Status: REG CLI Ordering Dr: Date: Location: [facility] Sex: F C NCS and/or EMG Patient Report Ordering Doctor: Marlin Baez DATE OF SERVICE: 11/12/17 This is a bilateral lower extremity nerve conduction study in the left lower extremity EMG performed on this 62-year-old female with a history of insomnia for unclear reasons, sleep apnea, and restless leg syndrome. She also has pain in her left leg and hip. There is a history of diabetes, she indicates that her hemoglobin A1c is well controlled. Bilateral lower extremity sensory and motor nerve conduction studies performed. The sural sensory responses are preserved bilaterally. The common peroneal and tibial motor distal latencies, amplitudes, and conduction velocities are preserved bilaterally. The tibial and common peroneal F-wave latencies are bilaterally preserved. Tibial H reflexes are performed, and it is normal on the right, it is reduced on the left. Left lower extremity needle electromyography is performed. Muscles evaluated included the extensor digitorum brevis, abductor halitosis, medial gastrocnemius, anterior tibialis, vastus lateralis, and vastus medialis muscles. All muscles demonstrated normal insertional activity with absence of pathologic spontaneous activity. Motor unit potential recruitment pattern and amplitude was normal in all muscles tested. Impression: Normal EMG of the left lower extremity and nerve conduction study of the bilateral lower extremities. 11/12/17 1038 <Electronically signed by Richard Chavez MD> Date Richard Chavez MD CC: SALOMÓN Baez; Richard Chavez MD; Jannie Dewey MD Date Dictated: 11/12/17 1030 Date Transcribed: 11/12/17 1030 [employer] Teacher: NF Signed Observed: 11/04/2017 Status: F Source: WALKER RESPIRATORY PANEL 5:47 PM [facility] MOLECULAR REPOSITORY RP PANEL Normal Reference Range = Not Detected RESULTS CALLED TO /NURSE LINE 11/05/17 1101 Hermelinda Flores. Copy of report sent to Infection Control Printer [id number] 11/05/17 1104 DCANNON. ADENOVIRUS Not Detected HUMAN METAPHNEUMO Not Detected INFLUENZA A Not Detected INFLUENZA A (SUBTYPE H1) Not Detected INFLUENZA A (SUBTYPE H3) Not Detected INFLUENZA B Not Detected PARAINFLUENZA 1 Not Detected PARAINFLUENZA 2 Not Detected PARAINFLUENZA 3 Not Detected PARAINFLUENZA 4 Not Detected RHINOVIRUS Positive for RHINOVIRUS by NAAT technology RSV A Not Detected RSV B Not Detected NAAT METHOD Testing was performed using nucleic acid amplification ORGANISM 1: RHINOVIRUS Performed By: #### M100.638 #### [facility] [address] [place], [address] CBC W/DIFF, AUTOMATED Collected: 09/18/2017 Status: F Source: WALKER 3:50 PM [facility] REPOSITORY TYPE CODE TESTS RESULT OUT OF RANGE REFERENCE UNITS LAB L100.1000 4.4-11.0 K/mm3 Normal WBC 7.0 LAB L100.1200 4.2-5.4 M/mm3 Normal RBC 4.48 LAB L100.1300 12.0-15.0 g/dl Normal HGB 14.6 LAB L100.1400 37-47 % Normal HCT 41.3 LAB L100.1500 81-99 fL Normal MCV 92.2 LAB L100.1600 27.0-32.0 pg High MCH 32.6 LAB L100.1700 32-36 g/gl Normal MCHC 35.4 LAB L100.1810 11.6-14.6 % Low RDW CV 11.5 LAB L100.1820 35.1-43.9 fl Normal RDW SD 38.6 LAB L100.1900 150-450 K/mm3 Normal PLT 213 LAB L100.2000 6.2-12.0 fl Normal MPV 9.9 LAB L100.2100 47-70 % Normal NEUT% 65.4 LAB L100.2200 19-41 % Normal LY% 25.2 LAB L100.2300 0-10 % Normal MONO% 7.3 LAB L100.2400 0-5 % Normal EO% 1.7 LAB L100.2500 0-1 % Normal BASO% 0.3 LAB L100.2550 0.0-0.9 % Normal IM GRAN % 0.100 Result Comment: IG% - Immature Granulocytes (promyelocytes, myelocytes and metamyelocytes) > 1% indicates that a LEFT SHIFT is Present. LAB L100.2620 2.0-7.7 X10 3/uL Normal Absolute Neut 4.5 LAB L100.2720 0.83-4.51 X10 3/ul Normal Absolute Lymph 1.75 Performed By: #### L100.0100 #### [facility] [address] [place], [address] COMPREHENSIVE METABOLIC Collected: 09/18/2017 Status: F Source: [facility] 3:50 PM [facility] REPOSITORY TYPE CODE TESTS RESULT OUT OF RANGE REFERENCE UNITS LAB L501.0100 74-106 mg/dL High GLU 198 Result Comment: Fasting Glucose result greater than or equal to 126 mg/dL suggests DIABETES MELLITUS per A.D.A. criteria. Please note revised GLUCOSE reference range effective 2017. LAB L501.1000 7-18 mg/dL Normal BUN 16 LAB L501.1100 0.55-1.02 mg/dL Normal CREAT,SERUM 0.85 Result Comment: The validity of the calculated GFR AND GFRAA in patients over 70 years has not been determined. Clinical correlation is essential. LAB L501.1110 >60 mL/min Normal EST GFR 72 Result Comment: Non- GFR Calc LAB L501.1115 >60 mL/min Normal EST GFR - AA 87 Result Comment: GFR Calc LAB L501.1300 10-20 RATIO Normal BUN/CRE 18.8 LAB L501.1500 6.4-8.2 g/dL Low T PROT 6.3 LAB L501.1800 3.2-5.0 g/dL Normal ALB 3.5 LAB L501.1950 2.2-4.2 g/dL Normal GLOB 2.8 LAB L501.2000 0.9-2.4 RATIO Normal A/G 1.2 LAB L501.2200 8.5-10.1 mg/dL CA Normal 9.1 LAB L501.4100 15-37 U/L Normal AST 25 LAB L501.4305 45-117 U/L Normal ALK P 68 LAB L501.4405 13-56 U/L Normal ALT 41 LAB L501.4600 0.20-1.00 mg/dL T Normal BILI 0.90 LAB L501.5300 136-145 mmol/L NA Normal 139 LAB L501.5600 3.5-5.1 mmol/L K Normal 4.3 LAB L501.5900 98-107 mmol/L CL Normal 107 LAB L501.6100 21.0-32.0 mmol/L Normal CO2 21.0 LAB L501.6200 5-15 Normal GAP 11 Performed By: #### L500.4050, L501.9520 #### [facility] [address] [place], [address] THYROID STIM HORMONE Collected: 09/18/2017 Status: F Source: ITA (TSH) 3:50 PM [facility] REPOSITORY TYPE CODE TESTS RESULT OUT OF RANGE REFERENCE UNITS LAB L501.9520 0.358-3.74 uIU/mL Normal TSH 0.47 Performed By: #### L500.4050, L501.9520 #### [facility] [address] [place], [address] HEPATITIS C ANTIBODIES Collected: 09/18/2017 Status: F Source: WALKER 3:50 PM [facility] REPOSITORY TYPE CODE TESTS RESULT OUT OF RANGE REFERENCE UNITS LAB L3100.0650 0.0-0.9 s/co ratio Normal HEP C AB <0.1 Result Comment: Negative: < 0.8 Indeterminate: 0.8 - 0.9 Positive: > 0.9 The CDC recommends that a positive HCV antibody result be followed up with a HCV Nucleic Acid Amplification test (407269). Performed at: [facility] [address] [id number] [employer] Administrator: Darin Clarke PhD, Phone: [phone] Performed By: #### L3100.0625 #### [facility] (refer to report for specific site) refer to report for address and phone number PULMONARY VISIT REPORT Observed: 08/15/2017 Status: F Source: ITA 7:28 AM [facility] REPOSITORY [facility] [address] [place] [address] OFFICE VISIT Date of Service: 08/15/17 MR#: [id number] Acct: [id number] Name: ISABEL GLASS Rep #: [id number] : 1955 Provider: Augie Grimes MD Age/Sex: 61/F Location: [facility] [place].[facility] Status: Signed Assessment AND Plan 1. ZACHERY (obstructive sleep apnea) G47.33 Plan Compliance report is not available for review. Patient does report that she is using her water reservoir every evening just 5 hours of use. This may indicate significant leak. Patient has had CPAP education classes in the past that have not resulted in significant improvement in daytime hypersomnolence. Patient has also been initiated on Mirapex therapy to help with restless legs, which also has not resulted in significant improvement in daytime fatigue. Narcolepsy would be a consideration, but patient is not reporting any drop attacks. Patient would need a repeat titration to ensure adequate control of her obstructive sleep apnea followed by a multiple sleep latency test. This will be ordered. Patient understands that if narcolepsy is found, she will likely require a referral to a sleep specialist. Repeat titration study with possible multiple sleep latency test. Orders Orders: 2. Periodic limb movement disorder G47.61 Plan Patient's iron studies were within normal limits at the last visit. Patient has been placed on Mirapex therapy with little response in overall condition. Patient has elected to stay on Mirapex for now. We will continue to monitor clinically. Refill of Mirapex therapy Medications New: 3. BMI 33.0-33.9,adult Z68.33 Plan Yemi discussion with patient about the role of weight loss and the overall disease plan of care. Patient voiced understanding, but has no plans for active weight loss at this time. Encourage weight loss Plan Detail Follow Up 3 Months (BWA) HPI 3 M FU: Chief Complaint: Fatigue Details: Patient is a 61-year-old female, currently in the care of Dr. Dewey, who presents for evaluation secondary to fatigue. Patient does report that she had a stress test from her manager deli to see if the fatigue was secondary to coronary artery disease. This had come back negative. Patient has had iron studies that are within normal limits and therefore was initiated on Mirapex therapy. Patient states that she has been using her Mirapex, but this has resulted in a weird feeling in my left leg at night. Patient states that she can take a muscle relaxer with some improvement. Patient is also taken her Mirapex early with good response. Patient continues to report significant fatigue during the day. Patient states that she readily falls asleep while on the phone and in the middle of conversations. Patient states that she can fall asleep within seconds of sitting down on the couch following work. Patient does not report significantly strenuous work. Patient denies hypnagogic hallucinations or drop attacks. Patient does report that she has been using her BiPAP 5-6 hours per night. Patient uses [facility] for her BiPAP, so a compliance report is not available for review to assess leak or residual AHI. Patient denies any pain at the interface site or a perception of significant leak leading to decreased effectiveness. Patient does report that her water reservoir on his BiPAP is typically empty at the end of the night. Intake Vital Signs08/15/17 Height 5 ft 4 in 08/15/17 Weight: 87.543 kg Intake Visit Reasons: 3 M FU Chief Complaint: Routine f/u Allergies amoxicillin Allergy (Mild, Verified 07/15/17 15:47) aspirin [From Ar Aspirin] Allergy (Mild, Verified 07/15/17 15:47) Latex, Natural Rubber Allergy (Mild, Verified 07/15/17 15:47) Medications Lactobacillus acidophilus capsule 100 mg PO QDAY 05/03/17 [History Confirmed 07/15/17] atorvastatin 40 mg tablet 40 mg PO QDAY 05/03/17 [History Confirmed 07/15/17] benazepril 10 mg tablet 10 mg PO QDAY 05/03/17 [History Confirmed 07/15/17] cholecalciferol (vitamin D3) 1,000 unit capsule 1,000 unit PO ONCE 05/03/17 [History Confirmed 07/15/17] cinnamon bark 500 mg capsule mg PO 05/03/17 [History Confirmed 07/15/17] glucosamine-chondroitin 250 mg-200 mg tablet 1 tab PO QAM tab 05/03/17 [History Confirmed 07/15/17] magnesium oxide 400 mg capsule 400 mg PO QDAY cap 05/03/17 [History Confirmed 07/15/17] mecobalamin (vitamin B12) 1,000 mcg disintegrating tablet,sublingual 1,000 mcg SUBLINGUAL QDAY 05/03/17 [History Confirmed 07/15/17] metformin 1,000 mg tablet 1,000 mg PO BID 05/03/17 [History Confirmed 07/15/17] multivitamin,yh-ddac-nttrgmub tablet 1 tab PO QDAY 05/03/17 [History Confirmed 07/15/17] potassium 99 mg tablet 10 meq PO QDAY 05/03/17 [History Confirmed 07/15/17] vitamin E 200 unit capsule 200 unit PO QDAY 05/03/17 [History Confirmed 07/15/17] doxycycline hyclate 100 mg capsule 100 mg PO QDAY PRN cap 07/15/17 [History Confirmed 07/15/17] pramipexole 0.25 mg tablet 0.25 mg PO TID #90 tab 08/15/17 [Rx Confirmed 08/15/17] PFSH Medical History History of colon cancer (Resolved) Chest pain, unspecified (Chronic) Abnormal electrocardiogram (Chronic) Hypertension (Chronic) Hyperlipidemia (Chronic) Diabetes mellitus (Chronic) BMI 33.0-33.9,adult (Chronic) Daytime somnolence (Chronic) Obstructive sleep apnea (Chronic) Periodic limb movement disorder (Chronic) Surgical History Hx of breast biopsy (Resolved) History of bladder suspension procedure (Resolved) History of tubal ligation (Resolved) History of colectomy (Resolved) H/O arthroscopy of left knee (Suspected) History of carpal tunnel release of both wrists (Resolved) Family History Sister ZACHERY (obstructive sleep apnea) Brother Heart disease [place] Father Heart disease Brother Colon cancer Social History Smoking Status: Never smoker second hand exposure: No alcohol intake: current alcohol intake frequency: holidays/special occasions only Alcohol type: other substance use type: does not use caffeine: Yes (2/day) what type of physical activity do you participate in: none Review of Systems Const CONSTITUTIONAL: Positive night sweats and fatigue; negative anorexia, body ache, chills, daytime sleepiness, fever(s), oral thrush, stops breathing during sleep, weight loss, sleeping in chair, weight loss, weight gain, frequent colds, seasonal allergies, other, headache(s) or orthopnea EETM Ear Nose Throat Mouth: Positive hearing normal, dry mouth in morning and nasal discharge; negative hard of hearing, hoarseness, change in vision, itchy eyes, eye pain, swallowing Difficulty, ear pain, nose bleed, headache(s), mouth pain, nasal congestion, post nasal drip, sinus pain, sinus pressure, sore throat or other Cardio Cardiovascular: Negative chest pain, chest pain at rest, chest pain with activity, irregular heart rhythm, edema, shortness of breath when lying down, palpitations, murmur or other Resp Respiratory: Positive as per HPI; negative shortness of breath, pain with cough, wheezing, chest congestion, cough, chest tightness, pain on inspiration, inhalers, increase use of rescue inhalers, snoring, apnea or other Gastro Gastrointestional: Negative bloody stools, change in appetite, difficulty swallowing, reflux, hematemesis, melena stool, loose stool, constipation or other Genitourinary: Negative blood in urine, nocturia, pain with urination or other Musc Musculoskeletal: Negative body pain, back pain, neck pain or other Skin/Breast Skin/Breast: Negative dry skin, itching, rash, unusual bruising, breast lump or other Neuro Neurological: Negative restless legs, confusion, weakness or other Psych Psychocological: Negative abnormal sleep pattern, anxiety, thoughts of hurting self/others, hopelessness or other Lymph Lymphatic: Negative easy bleeding, easy bruising, swollen lymph nodes or other Exam Const Constitutional: Positive conversant, cooperative, in no acute respiratory distress, healthy appearing, well developed, well nourished, good hygiene and obese Head Head: Positive normocephalic and atraumatic; negative cyanosis of lips/distal nose, microcephalic or macrocephalic Eyes Eye: Positive clear conjunctiva; negative nystagmus or scleral abnormality Ears Ear: Positive hearing normal and external ears normal; negative hard of hearing Nose Nose: Positive external nose normal, septum normal and no nasal discharge; negative epistaxis or nasal polyp Mouth Mouth: Positive oral mucosae normal, no lesions, good dentition and crowded posterior oropharynx; negative post nasal drip or oral thrush present Mallampati Score: III: Mallampati Score Neck Neck: Positive normal visual inspection, thick neck, full ROM, trachea midline and female neck greater than 37 cm (15 in); negative lymphadenopathy or JVD Chest Wall Chest: Positive normal inspection of the chest; negative increased A/P diameter, symmetric chest movement, crepitus or tenderness Resp lung sounds: Positive clear to auscultation, good air exchange and normal expiratory time; negative wheezes, rhonchi, rales, wheeze present on forced exhalation or dullness to percussion Cardio Cardiac: Positive regular rate, regular rhythm, S1 normal and S2 normal; negative murmur, rub or gallop GI GI: Positive obese, normal to inspection and normal bowel sounds; negative distended or ascites Genitourinary: Positive deferred Musc Musculoskeletal: Positive steady gait and ROM normal; negative using an assistive device for ambulation, kyphosis or scoliosis Skin Pulmonary Skin Exam: Positive intact; negative rash, lesion, ulcers or dermal atrophy Pulses Pulse: Yes radial pulses present Extremities Extremities: Yes capillary refill normal, No clubbing, No cyanosis, No edema, No stasis dermatitis Neuro Neurologic: Yes conversant, Yes no focal neuro deficits, Yes cooperative, Yes normal cognition, Yes normal coordination, Yes understands questions, Yes normal concentration Lymph Lymphatic: No lymphadenopathy Psych Appearance: Positive grossly normal Mental Status: Positive mental status grossly normal Mood: Positive congruent mood Affect: Positive normal affect Coding Level of Care Code Off vis,est,level 3 Diagnoses ZACHERY (obstructive sleep apnea) G47.33 Periodic limb movement disorder G47.61 BMI 33.0-33.9,adult Z68.33 08/15/17 0728 <Electronically signed by Augie Grimes MD> Date Augie Grimes MD Cosigner Signature: Date (if applicable) CC: Jannie Dewey MD STRESS REPORT Observed: 07/31/2017 Status: F Source: [place] 10:46 AM [facility] REPOSITORY [facility] Cardiovascular Services [address] [place] [address] [place] [address] MR#: [id number] Acct: [id number] Name: ISABEL GLASS Rep #: [id number] : 1955 61 From: Philip Ortega MD Primary Care: Jannie Dewey MD, Chi Status: REG CLI Ordering Dr: Sex: F C Stress Test Report Exercise myocardial perfusion stress test. 61-year-old lady with a history of shortness of breath. Medications atorvastatin statin benazepril Stress protocol: Resting EKG demonstrates normal sinus rhythm with a rate of 71 bpm. Resting blood pressure is 130/84 mmHg. Patient exercised according to regular Augie protocol for total duration of 5 minutes and 30 seconds completing 2 minutes and 30 seconds to stage II of the Augie protocol the maximum heart rate attained was 1 36 bpm is 86% maximum predicted heart rate maximum workload attained was 7 metabolic equivalents. At rest there were no ST or T-wave changes no ischemia at peak exercise no ST or T-wave changes were noticed ischemia. No clinical angina was noted the test was terminated due to nausea. Resting blood pressure 730/84 with a peak blood pressure 180/76 rate pressure product was 24,000. Myocardial perfusion protocol. 11.3 mCi of technetium 99 sestamibi was injected at rest. She did exercised according to regular Augie protocol for total duration of 5-1/2 minutes. The maximum workload attained was 7 metabolic equivalents. At peak exercise 33.7 mCi of technetium 99 sestamibi was injected stress images were obtained stress and rest images were reconstructed and compared in the short axis vertical and horizontal Gated images were also obtained Perfusion SPECT analysis. Review of the stress images demonstrate normal uptake of tracer noted in all areas of the myocardium. The resting images demonstrate normal uptake of tracer noted in all areas of the myocardium. No areas of reversibility are noted suggest ischemia. Gated SPECT analysis. The gated ejection fraction is noted over 78%. Conclusion: Exercise myocardial perfusion stress test with no evidence of ischemia at a moderate workload. No clinical angina noted no ischemia present. 07/31/17 1046 <Electronically signed by Philip Ortega MD> Date Philip Ortega MD CC: Oseas Berman MD; Jannie Dewey MD Date Dictated: 07/31/171039 Date Transcribed: 07/31/171039 [employer] Teacher: [place] Signed CARDIOLOGY VISIT Observed: 07/15/2017 Status: F Source: [place]ALK[place] REPORT 4:07 PM [facility] REPOSITORY [facility] [address] [place] [address]. [address] [place] [address] OFFICE VISIT Date of Service: 07/15/17 MR#: [id number] Acct: [id number] Name: ISABEL GLASS Rep #: [id number] : 1955 Provider: Oseas Berman MD Age/Sex: 61/F [place] [facility] [place] Signed HPI HPI Chief Complaint: Routine f/u Details: HPI referring physician: Dr. Mares Mrs. Glass is a very pleasant 61-year-old borderline diabetic female with history of hypertension, hypercholesterolemia, nonsmoker, on current medications for blood pressure and cholesterol, no previous known cardiac disease. She has a positive family history of coronary artery disease and an older brother who presented with a myocardial infarction in his early 60s. 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 However when she gets home and while she is standing only, she gets sharp knifelike atypical chest pain which originates in her left side of her chest and then radiates to the right breast. This lasts for approximately 1 minute's time, is nonradiating, and has no associated nausea, vomiting, shortness of breath, left neck pain or left arm pain. She has had no change in her exercise capacity. Patient recently has been helping her mother recover from a perforated ulcer which was compensated by several months of convalescence. Patient also states that she does not feel any better with her current BiPAP settings. Dr. Canela has left town and requested guidance on BiPAP maintenance. I referred patient Dr. Grimes for her BiPAP maintenance. In addition she had an episode of left lower extremity edema apparently ultrasound 2 showed no evidence of DVT. She is wearing SOURAV hose stockings which are controlling her edema. patient underwent a stress echocardiogram on 06/16/14 which was negative for inducible ischemia. In addition she underwent a 2-D echo with Doppler 05/12/14 showed an EF of 65% and stage I diastolic dysfunction. At all of the above, compliance with BiPAP, antihypertensive medications, the patient's main complaint is dyspnea on exertion, substernal chest pressure, and fatigue. Patient has a strong positive family history of coronary disease in multiple first- degree relatives. In our office today her blood pressure is 130/78 pulse is 92 and regular. Her physical exam is as below. She has mild obesity. Her EKG as of 05/17/14 demonstrates normal sinus rhythm and left Fort axis, no previous myocardial infarction. An echocardiogram dated 05/12/14 demonstrated an EF of 65%, stage I diastolic dysfunction, RVSP of 10 mmHg, and negative intracavitary gradient with Valsalva. Her lipids as of 04/26/14 showed an HDL of 47 and an LDL of 66. Lipids as of 12/12/16 showed an HDL of 36 and an LDL of 19. Intake Vital Signs07/15/17 Height 5 ft 4 in Intake Visit Reasons: 6 M FU Allergies amoxicillin Allergy (Mild, Verified 07/15/17 15:47) aspirin [From Ar Aspirin] Allergy (Mild, Verified 07/15/17 15:47) Latex, Natural Rubber Allergy (Mild, Verified 07/15/17 15:47) Medications Lactobacillus acidophilus capsule 100 mg PO QDAY 05/03/17 [History Confirmed 07/15/17] atorvastatin 40 mg tablet 40 mg PO QDAY 05/03/17 [History Confirmed 07/15/17] benazepril 10 mg tablet 10 mg PO QDAY 05/03/17 [History Confirmed 07/15/17] cholecalciferol (vitamin D3) 1,000 unit capsule 1,000 unit PO ONCE 05/03/17 [History Confirmed 07/15/17] cinnamon bark 500 mg capsule mg PO 05/03/17 [History Confirmed 07/15/17] glucosamine-chondroitin 250 mg-200 mg tablet 1 tab PO QAM tab 05/03/17 [History Confirmed 07/15/17] magnesium oxide 400 mg capsule 400 mg PO QDAY cap 05/03/17 [History Confirmed 07/15/17] mecobalamin (vitamin B12) 1,000 mcg disintegrating tablet,sublingual 1,000 mcg SUBLINGUAL QDAY 05/03/17 [History Confirmed 07/15/17] metformin 1,000 mg tablet 1,000 mg PO BID 05/03/17 [History Confirmed 07/15/17] multivitamin,xv-rzza-vwksgxye tablet 1 tab PO QDAY 05/03/17 [History Confirmed 07/15/17] potassium 99 mg tablet 10 meq PO QDAY 05/03/17 [History Confirmed 07/15/17] pramipexole 0.25 mg tablet 0.25 mg PO TID 05/03/17 [History Confirmed 07/15/17] vitamin E 200 unit capsule 200 unit PO QDAY 05/03/17 [History Confirmed 07/15/17] doxycycline hyclate 100 mg capsule 100 mg PO QDAY PRN cap 07/15/17 [History Confirmed 07/15/17] PFSH Medical History History of colon cancer (Resolved) Chest pain, unspecified (Chronic) Abnormal electrocardiogram (Chronic) Hypertension (Chronic) Hyperlipidemia (Chronic) Diabetes mellitus (Chronic) BMI 33.0-33.9,adult (Chronic) Daytime somnolence (Chronic) Obstructive sleep apnea (Chronic) Periodic limb movement disorder (Chronic) Surgical History Hx of breast biopsy (Resolved) History of bladder suspension procedure (Resolved) History of tubal ligation (Resolved) History of colectomy (Resolved) H/O arthroscopy of left knee (Suspected) History of carpal tunnel release of both wrists (Resolved) Family History Sister ZACHERY (obstructive sleep apnea) Brother Heart disease [place] Father Heart disease Brother Colon cancer Social History Smoking Status: Never smoker second hand exposure: No alcohol intake: current alcohol intake frequency: holidays/special occasions only Alcohol type: other substance use type: does not use caffeine: Yes (2/day) what type of physical activity do you participate in: none ROS Const Const: Positive for fatigue; negative for weakness, difficulty sleeping, frequent falls, headache(s) or excessive sweating Eyes Eyes: Negative for loss of peripheral vision, transient loss of vision, blurry vision or double vision ENT ENT: Negative for Nosebleed/epistaxis, balance problems, dizziness or headache(s) Cardio Chest Pain: No Edema: None Muscle aches with walking: None Resp Respiratory: Negative for SOB with activity, SOB at rest, SOB orthopnea\SOB lying down or paroxysmal nocturnal dyspnea Additional Details: BI-PAP GI GI: Negative nausea or heartburn : Negative for hematuria Musc Musc: Negative for muscle aches/ myalgia, muscle weakness, joint pain or balance problems Skin Skin: Negative non-healing lesions, unusual bruising or rash Neuro Neuro: Positive for restless legs; negative for blurry vision, dizziness, lightheadedness, orthostatic symptoms, double vision, weakness, frequent falls or headache(s) Vu Hematologic/Lymphatic: Negative for easy bruising Endo Endo: Positive for fatigue; negative for excessive sweating or increased thirst/drinking Psych Psych: Negative for anxiety or depression Allergy Allergy/Immunology: Negative for hives, Negative for rash Cardiology Exam Const Appearance: cooperative, healthy appearing and no acute distress Nutritional Appearance: well nourished Orientation: alert, oriented x3 and oriented to person Head Head: normal to inspection, atraumatic and normocephalic Nose: external nose normal Face and Sinus: face symmetric Mouth: oral mucosae normal Eyes General: appearance normal, both eyes and all related structures Eyelids: eyelids normal Conjunctivae: conjunctivae normal Pupils: PERRL and normal by confrontation EOM: EOM intact bilaterally Neck Neck: normal visual inspection and full ROM Carotids: normal carotid upstroke Chest Chest inspection: normal inspection of the chest Auscultation: Bilateral: Clear to Auscultation Cardio Palpation: normal PMI Rate: regular rate Rhythm: regular rhythm Heart sounds: S1 normal and S2 normal GI GI: normal to inspection, no hepatosplenomegaly and bowel sounds present Neuro General: alert, oriented x3, awake, CN's II-XI intact bilaterally and moves all extremities Skin Skin: no rashes or lesions noted Extremities Pulses: Normal: Right Femoral Pulse, Left Femoral Pulse, Right Dorsalis Pedis Pulse, Left Dorsalis Pedis Pulse, Right Posterior Tibial Pulse, Left Posterior Tibial Pulse, Right Radial Pulse, Left Radial Pulse Lower Extremity Edema: None: Bilateral Psych Psychological: normal affect Assessment AND Plan 1. Chest pain, unspecified R07.9 Plan 1. Chest pain: The patient's symptoms are more concerning for dyspnea on exertion and shortness of breath which may be an anginal equivalent although the patient does occasionally have chest pain. This is her best efforts to optimize her blood pressure, she still continues to have fatigue and dyspnea on exertion. Given her strong positive family history of coronary disease I recommend that she undergo a treadmill/MPI to determine if she has any significant ischemia. If her stress test is even weekly abnormal and have a low threshold to proceed with left heart catheterization. Unfortunately she is allergic to baby aspirin. She would require Plavix twice daily if any intervention is reviewed required. In the meantime she will continue benazepril. Orders Orders: 2. Hyperlipidemia E78.5 Plan 2. Hyperlipidemia: Her LDL and HDL cholesterol are at goal. Continue Lipitor. Orders Orders: 3. Obstructive sleep apnea G47.33 Plan 3. Obstructive sleep apnea: The patient has teamed up with Dr. Grimes and is compliant with her BiPAP. Despite her BiPAP she still continues to have symptoms of dyspnea on exertion and fatigue. Stress test pending. 4. Return office in 6 months. This note was generated using a voice recognition system and there may be incorrect words, spelling or punctuation that were not noted when reviewing the office note prior to saving. Orders Orders: Plan Detail Other Orders Orders: Follow Up 6 Months ([place]) Coding Level of Care Code Off vis,est,level 3 Diagnoses Chest pain, unspecified R07.9 Hyperlipidemia E78.5 Obstructive sleep apnea G47.33 Coding Level of Care Code Off vis,est,level 3 Diagnoses Chest pain, unspecified R07.9 Hyperlipidemia E78.5 Obstructive sleep apnea G47.33 07/15/17 1607 <Electronically signed by Oseas Berman MD> Date Oseas Kraft Signature: Date (if applicable) CC: CNCO Observed: 06/14/2017 Status: COMPLETED Source: [place] 4:36 PM [facility] REPOSITORY HNO ID: [id number] Author: Mammography Coordinator Service: (none) Author Type: Physician Type: Letter Filed: 06/17/2017 11:34 PM Note Text: June 14, 2017 PID: [id number] Isabel Glass [address] [place] [address] Dear Ms. Glass, We are pleased to inform you that the results of your recent breast imaging exam on 06/14/2017 are normal. Early detection of cancer is very important. We also understand recommendations regarding breast cancer screening are controversial. Please discuss with your primary care provider which strategy is best for you and whether a mammogram is right for you. Your imaging studies and report will be kept on file at [facility] as part of your permanent medical record and are available for your continuing care. Thank you for allowing us to help in meeting your health care needs. Sincerely, Dr. Díaz Interpreting Radiologist [facility] (Normal over 40) [facility] SCREENING Observed: 06/14/2017 Status: F Source: [place] 4:13 PM [facility] REPOSITORY * * *Final Report* * * DATE OF EXAM: Jun 14 2017 4:13PM [facility] 0581 - [facility] SCREENING / PROCEDURE REASON: SCREENING MAMMOGRAM * * * * Physician Interpretation * * * * RESULT: #[id number] - [facility] SCREENING BILATERAL DIGITAL SCREENING MAMMOGRAM WITH CAD: 06/14/2017 HISTORY: Screening Mammogram\ Screening Mammogram - patient reports NO breast symptoms /priors available for comparison /SEE TECH NOTE. RESULT: TECHNIQUE: The study was acquired using full field digital technology and interpreted from soft copy. Current study was also evaluated with a Computer Aided Detection (CAD). Comparison is made to exams dated: 06/12/2016 mammogram - [facility], 05/11/2016 mammogram, and 01/27/2015 mammogram - [facility]. The tissue of both breasts is predominantly fatty. No significant masses, calcifications, or other findings are seen in either breast. There has been no significant interval change. IMPRESSION: NEGATIVE There is no mammographic evidence of malignancy.A 1 year screening mammogram is recommended. Denise Díaz M.D., jr/mary:06/14/2017 16:36:15 [employer]: Randi DEGROOT (R)(Mariela), [facility] letter sent: Normal over 40 Mammogram BI-RADS: 1 Negative [employer] Teacher: Mary Transcribe Date/Time: Jun 14 2017 4:14P Dictated by: DENISE DÍAZ MD This examination was interpreted and the report reviewed and electronically signed by: DENISE DÍAZ MD on Jun 14 2017 4:36PM EST [id number] CBC W/DIFF, AUTOMATED Collected: 06/13/2017 Status: F Source: [place] 4:14 PM [facility] REPOSITORY TYPE CODE TESTS RESULT OUT OF RANGE REFERENCE UNITS LAB L100.1000 4.4-11.0 K/mm3 Normal WBC 7.3 LAB L100.1200 4.2-5.4 M/mm3 Normal RBC 4.25 LAB L100.1300 12.0-15.0 g/dl Normal HGB 13.6 LAB L100.1400 37-47 % Normal HCT 39.4 LAB L100.1500 81-99 fL Normal MCV 92.7 LAB L100.1600 27.0-32.0 pg Normal MCH 32.0 LAB L100.1700 32-36 g/gl Normal MCHC 34.5 LAB L100.1810 11.6-14.6 % Normal RDW CV 12.0 LAB L100.1820 35.1-43.9 fl Normal RDW SD 40.4 LAB L100.1900 150-450 K/mm3 Normal PLT 181 LAB L100.2000 6.2-12.0 fl Normal MPV 9.8 LAB L100.2100 47-70 % Normal NEUT% 53.6 LAB L100.2200 19-41 % Normal LY% 37.0 LAB L100.2300 0-10 % Normal MONO% 7.1 LAB L100.2400 0-5 % Normal EO% 1.9 LAB L100.2500 0-1 % Normal BASO% 0.3 LAB L100.2550 0.0-0.9 % Normal IM GRAN % 0.100 Result Comment: IG% - Immature Granulocytes (promyelocytes, myelocytes and metamyelocytes) > 1% indicates that a LEFT SHIFT is Present. LAB L100.2620 2.0-7.7 X10 3/uL Normal Absolute Neut 3.9 LAB L100.2720 0.83-4.51 X10 3/ul Normal Absolute Lymph 2.70 Performed By: #### L100.0100 #### [facility] [address] [place], [place], [address] COMPREHENSIVE METABOLIC Collected: 06/13/2017 Status: F Source: [facility] 4:14 PM [facility] REPOSITORY TYPE CODE TESTS RESULT OUT OF RANGE REFERENCE UNITS LAB L501.0100 70-110 mg/dL High GLU 128 Result Comment: Fasting Glucose result greater than or equal to 126 mg/dL suggests DIABETES MELLITUS per A.D.A. criteria. LAB L501.1000 7-18 mg/dL High BUN 19 LAB L501.1100 0.55-1.02 mg/dL Normal CREAT,SERUM 0.71 Result Comment: The validity of the calculated GFR AND GFRAA in patients over 70 years has not been determined. Clinical correlation is essential. LAB L501.1110 >60 mL/min Normal EST GFR 89 Result Comment: Non- GFR Calc LAB L501.1115 >60 mL/min Normal EST GFR - AA 108 Result Comment: GFR Calc LAB L501.1300 10-20 RATIO High BUN/CRE 26.9 LAB L501.1500 6.4-8.2 g/dL Low T PROT 6.0 LAB L501.1800 3.4-5.0 g/dL Normal ALB 3.4 Result Comment: Please note revised Albumin AND Globulin reference range effective 2017. LAB L501.1950 2.2-4.2 g/dL Normal GLOB 2.6 LAB L501.2000 0.9-2.4 RATIO Normal A/G 1.3 LAB L501.2200 8.5-10.1 mg/dL Normal CA 8.7 LAB L501.4100 15-37 U/L Normal AST 22 LAB L501.4305 45-117 U/L Normal ALK P 67 LAB L501.4405 12-78 U/L Normal ALT 39 LAB L501.4600 0.20-1.00 mg/dL Normal T BILI 0.70 LAB L501.5300 136-145 mmol/L Normal NA 139 LAB L501.5600 3.5-5.1 mmol/L Normal K 4.1 LAB L501.5900 98-107 mmol/L Normal CL 103 LAB L501.6100 21.0-32.0 mmol/L Normal CO2 28.0 LAB L501.6200 5-15 Normal GAP 8 Performed By: #### L500.4050, L501.9520 #### [facility] [address] [place], [address] THYROID STIM HORMONE Collected: 06/13/2017 Status: F Source: [facility] ([facility]) 4:14 PM [facility] REPOSITORY TYPE CODE TESTS RESULT OUT OF RANGE REFERENCE UNITS LAB L501.9520 0.358-3.74 uIU/mL Normal TSH 0.71 Performed By: #### L500.4050, L501.9520 #### [facility] [address] [place], [address] ALLERGIES ALLERGIES DATE TYPE / CODE NAME / CODE REACTION SEVERITY SOURCE 02/17/2018 Drug Latex, Natural [place] Allergy/416 Rubber/[id number]( [facility] 007089[facility] Repository 02/17/2018 Drug aspirin/[id number] [place] Allergy/416 (RXNORM) [facility] 341746([facility] ED CT) Repository 02/17/2018 Drug amoxicillin/H42447 [place] Allergy/416 3675(RXNORM) [facility] 351166([facility] ED CT) Repository 05/29/2005 DRUG AMOXICILLIN [facility] INGREDI/[address] [place] 160637([facility] ED CT) 05/29/2005 Environ/420 LATEX [facility] 003095([facility] ED CT) Repository ENCOUNTERS ENCOUNTERS ADMIT/DISCHARGE ACCOUNT ADMITTING ENCOUNTER LOCATION SOURCE NUMBER CLASS 05/29/2018 [id number] Ambulatory [facility] ing:PSN Repository 05/25/2018/05/26/19 [id number] Ambulatory [address] Repository 05/15/2018 [id number] Ambulatory [facility] ing:RAD Repository 04/28/2018 [id number] Ambulatory [facility] Hospital ing:POLAB3 Repository 02/17/2018/02/18/20 [id number] Ambulatory BMSBuilding:B [place] [address] [facility] Repository 12/31/2017 [id number] Ambulatory [facility] Hospital ing:POLAB3 Repository 12/13/2017 [id number] Ambulatory [facility] ing:SL Repository 11/12/2017 [id number] Ambulatory [facility] Hospital ing:PSN Repository 11/06/2017 [id number] Ambulatory BMSBuilding:B [place] [facility] Repository 11/04/2017 [id number] Ambulatory [facility] ing:PSN Repository 09/18/2017 [id number] Ambulatory [facility] Hospital ing:POLAB3 Repository 08/15/2017/08/16/19 [id number] Ambulatory BMSBuilding:B [place] [address] [facility] Hospital Repository 08/08/2017 [id number] Ambulatory [facility] Hospital ing:SL Repository 07/31/2017 [id number] Ambulatory [facility] Hospital ing:[facility]S Repository 07/31/2017 [id number] Ambulatory BMSBuilding:[place] [facility] Hospital Repository 07/15/2017/07/15/19 [id number] Ambulatory BMSBuilding:B [place] [address] [facility] Repository 06/14/2017/06/14/19 [id number] Ambulatory [address] Repository 06/13/2017 [id number] Ambulatory [facility] Hospital ing:POLAB3 Repository PAYERS PAYERS ENCOUNTER GUARANTOR PAYER SUBSCRIBER SOURCE 05/29/2018 [place] K Primary [place] [id number] Insurance:SUMMA STUTZDOB: [facility] CAREPolicy Number: [id number], [place] [id number] Repository 56[address]Gxg: (330) Date:3111-41-40LK [phone] (HP) [place] [address]HR: 05/29/2018 Secondary NOT GIVENUNK [place] Insurance:SELF PAY [facility] Number: Effective Repository Date:2018-05-29 05/15/2018 ISABEL K Primary ISABEL K [place] [id number] Insurance:SUMMA STUTZDOB: [facility] CAREPolicy Number: [id number], [place] [id number] Repository [address]Pmt: (330) Date:0278-06-47YA [phone] (HP) [address] [address]QD: 05/15/2018 Secondary NOT GIVENUNK [place] Insurance:SELF PAY [facility] Number: Effective Repository Date:2018-05-15 04/28/2018 ISABEL K Primary IS[place]EL [place] [id number] Insurance:SUMMA STUTZDOB: [facility] Number: [id number], [place] [id number] Repository [address]Heq: (330) Date:3631-31-89WG [phone] (HP) [address] [place] [address]HY: 04/28/2018 Secondary NOT GIVENUNK [place] Insurance:SELF PAY [facility] Number: Effective Repository Date:2018-04-28 02/17/2018 ISABEL K Primary ISABEL K [place] [id number] Insurance:SUMMA STUTZDOB: [facility] Number: [id number], [place] [id number] Repository [address]Igw: (330) Date:6035-54-53RN [phone] (HP) [address] [address]VY: 02/17/2018 Secondary NOT GIVENUNK [place] Insurance:SELF PAY [facility] Number: Effective Repository Date:2018-02-17 12/31/2017 ISABEL K Primary [place] [id number] Insurance:SUMMA STUTZDOB: [facility] CAREPolicy Number: [id number], [place] [id number] Repository [address]Ndq: (330) Date:7047-59-58EI [phone] (HP) [address] [address]BB: 12/31/2017 Secondary NOT GIVENUNK [place] Insurance:SELF PAY [facility] Number: Effective Repository Date:2017-12-31 12/13/2017 ISABEL K Primary ISABEL K [place] [id number] Insurance:SUMMA STUTZDOB: [facility] Number: [id number], [place] [id number] Repository [address]Yop: (330) Date:4525-87-30SG [phone] (HP) [place] [address]HX: 12/13/2017 Secondary NOT GIVENUNK [place] Insurance:SELF PAY [facility] Number: Effective Repository Date:2017-11-19 11/12/2017 ISABEL K Primary ISABEL K [place] [id number] Insurance:SUMMA STUTZDOB: [facility] Number: [id number], [place] [id number] Repository [address]Ame: (330) Date:2946-20-89WK [phone] (HP) [place] [address]AX: 11/12/2017 Secondary NOT GIVENUNK [place] Insurance:SELF PAY [facility] Number: Effective Repository Date:2017-07-30 11/06/2017 ISABEL K Primary [place] [id number] Insurance:SUMMA STUTZDOB: [facility] CAREPolicy Number: [id number], [place] [id number] Repository [address]Sqh: (330) Date:9778-85-67VC [phone] (HP) [address] [address]PN: 11/06/2017 Secondary NOT GIVENUNK [place] Insurance:SELF PAY [facility] Number: Effective Repository Date:2017-08-15 11/04/2017 ISABEL K Primary ISABEL K [place] [id number] Insurance:SUMMA STUTZDOB: [facility] CAREPolicy Number: [id number], [place] [id number] Repository [address]Wen: (330) Date:8041-95-02CE [phone] (HP) [address] [address]SK: 11/04/2017 Secondary NOT GIVENUNK [place] Insurance:SELF PAY [facility] Number: Effective Repository Date:2017-11-04 09/18/2017 ISABEL K Primary ISABEL [place] [id number] Insurance:SUMMA STUTZDOB: [facility] Number: [id number], [place] [id number] Repository [address]Uzh: (330) Date:1650-32-06PP [phone] (HP) [address] [address]KJ: 09/18/2017 Secondary NOT GIVENUNK [place] Insurance:SELF PAY [facility] Number: Effective Repository Date:2017-09-18 08/15/2017 ISABEL K Primary ISABEL K [place] [id number] Insurance:SUMMA STUTZDOB: [facility] Number: [id number], [place] [id number] Repository [address]Ekn: (330) Date:9279-28-84IO [phone] (HP) [address] [address]GN: 08/15/2017 Secondary NOT GIVENUNK [place] Insurance:SELF PAY [facility] Number: Effective Repository Date:2017-08-13 08/08/2017 ISABEL K Primary ISABEL [place] [id number] Insurance:SUMMA STUTZDOB: [facility] Number: [id number], [place] [id number] Repository [address]Tds: (330) Date:4587-04-20AQ [phone] (HP) [address] [address]JH: 08/08/2017 Secondary NOT GIVENUNK [place] Insurance:SELF PAY [facility] Number: Effective Repository Date:2017-07-30 07/31/2017 ISABEL K Primary IS[place] [id number] Insurance:SUMMA STUTZDOB: [facility] Number: [id number], [place] [id number] Repository [address]Avd: (330) Date:3649-81-77YL [phone] (HP) [address] [facility] [place] [address]XT: 07/31/2017 Secondary NOT GIVENUNK [place] Insurance:SELF PAY [facility] Number: Effective Repository Date:2017-07-15 07/31/2017 ISABEL K Primary ISABEL K [place] [id number] Insurance:SUMMA STUTZDOB: [facility] Number: [id number], [place] [id number] Repository [address]Wgn: (330) Date:5571-42-76YP [phone] (HP) [address] [address]NZ: 07/31/2017 Secondary NOT GIVENUNK [place] Insurance:SELF PAY [facility] Number: Effective Repository Date:2017-07-31 07/15/2017 ISABEL K Primary ISABEL K [place] [id number] Insurance[facility] Number: [id number], [place] [id number] Repository [address]Udu: (330) Date:7115-76-42UV [phone] () [address] [address]UF: 07/15/2017 Secondary NOT GIVENUNK [place] Insurance:SELF PAY [facility] Number: Effective Repository Date:2017-04-25 06/13/2017 ISABEL K Primary ISABEL K [place] [id number] [facility] Number: [id number], [place] [id number] Repository [address]Eio: (330) Date:0689-94-27RR [phone] () [address] [address]XI: 06/13/2017 Secondary NOT GIVENUNK [place] Insurance:SELF PAY [facility] Number: Effective Repository Date:2017-06-13
== END ==
PROVIDERS: Family Provider Family Medicine Geriatric Medicine; PCP Family Medicine Geriatric Medicine; Visit Provider Family Medicine Geriatric Medicine
DX: E11.9 Type 2 diabetes mellitus without complications (principal); I10 Essential (primary) hypertension
CPT/HCPCS: 36415; 80053; 84443; 85025

== ENCOUNTER → 2018-05-15 15:59 | Outpatient (CLI) | payer OTHER, SELFPAY ==
[2017-08-08 17:30] VITALS: BMI 32.8
[2018-02-17 15:55] VITALS: BMI 31.9
--- NOTE | 2018-05-15 16:40 | RAD_ITS ---
STUDY: X-RAY - ABDOMEN/PELVIS REASON FOR EXAM: Female, 62 years old. Diarrhea TECHNIQUE: 4 views COMPARISON: August 13, 2015 FINDINGS: There are degenerative changes involving the left hip and lower lumbosacral spine. There are no abnormal calcifications in the expected locations of the kidneys. There is no bowel distention or free intraperitoneal air. RAD/Abd Inc Decub and/or Erect IMPRESSION: No acute findings in the abdomen. Degenerative changes of the left hip and the lower lumbosacral spine Electronically Signed: Barney Wright MD at 6:14 EST Tel , Service support ,
== END ==
PROVIDERS: Family Provider Family Medicine Geriatric Medicine; PCP Family Medicine Geriatric Medicine; Referring Provider Family Medicine Geriatric Medicine; Visit Provider Family Medicine Geriatric Medicine
DX: R19.7 Diarrhea, unspecified (principal)
CPT/HCPCS: 74019

== ENCOUNTER → 2018-05-29 17:08 | Outpatient (CLI) | payer OTHER, SELFPAY ==
[2017-08-08 17:30] VITALS: BMI 32.8
[2018-02-17 15:55] VITALS: BMI 31.9
== END ==
PROVIDERS: Family Provider Family Medicine Geriatric Medicine; PCP Family Medicine Geriatric Medicine; Referring Provider Family Medicine Geriatric Medicine; Visit Provider Family Medicine Geriatric Medicine
DX: R50.9 Fever, unspecified (principal)
CPT/HCPCS: 87633

== ENCOUNTER → 2018-07-30 16:43 | Outpatient (CLI) | payer OTHER, SELFPAY ==
[2017-08-08 17:30] VITALS: BMI 32.8
[2018-02-17 15:55] VITALS: BMI 31.9
[2018-07-30 17:21] LABS: Absolute Lymphocyte Count 2.28 X10^3/ul (0.83-4.51); Absolute Neutrophil Count 5.1 X10^3/uL (2.0-7.7); Basophil# 0.03 X10^3/uL; Basophil% 0.4 % (0-1); Eosinophil# 0.32 X10^3/uL; Eosinophils% 3.8 % (0-5); Hematocrit 40.8 % (37-47); Hemoglobin 13.8 g/dl (12.0-15.0); Lymphocyte # 2.28 X10^3/ul (4.0); Lymphocyte % 27.3 % (19-41); Mean Corp Hgb Conc 33.8 g/gl (32-36); Mean Corpuscular Hgb 32.5 pg (27.0-32.0); Mean Corpuscular Volume 96.2 fL (81-99); Mean Platelet Vol. 9.5 fl (6.2-12.0); Monocyte# 0.61 X10^3/uL; Monocyte% 7.3 % (0-10); Neutrophil # 5.09 X10^3/uL (2.7-7.7); Neutrophil % 61.1 % (47-70); Platelet Count 197 K/mm3 (150-450); RBC Distribution Width CV 12.3 % (11.6-14.6); RBC Distribution Width SD 42.9 fl (35.1-43.9); Red Blood Count 4.24 M/mm3 (4.2-5.4); White Blood Count 8.3 K/mm3 (4.4-11.0)
[2018-07-30 17:22] LABS: POSITIVE COUNT NO; POSITIVE DIFFERENTIAL NO; POSITIVE MORPHOLOGY NO
[2018-07-30 17:41] LABS: ALB/GLOB Ratio 1.4 RATIO (0.9-2.4); AST(SGOT) 18 U/L (15-37); Alanine Aminotransfer ALT/SGPT 44 U/L (13-56); Albumin, Serum 3.3 g/dL (3.2-5.0); Alkaline Phosphatase 53 U/L (45-117); Anion Gap 7 (5-15); BUN 20 mg/dL (7-18); BUN/Creat Ratio 26.7 RATIO (10-20); Calcium,Total 9.2 mg/dL (8.5-10.1); Chloride 104 mmol/L (98-107); Creatinine, Serum 0.75 mg/dL (0.55-1.02); EST Glomerular Filtration Rate 83 mL/min (>60); Est Glom Filt Rate - Afr Amer 100 mL/min (>60); Globulin 2.4 g/dL (2.2-4.2); Glucose 140 mg/dL (74-106); Protein, Total 5.7 g/dL (6.4-8.2); Sodium Level 139 mmol/L (136-145); Thyroid Stim Hormone (TSH) 0.67 uIU/mL (0.358-3.74)
== END ==
PROVIDERS: Family Provider Family Medicine Geriatric Medicine; PCP Family Medicine Geriatric Medicine; Visit Provider Family Medicine Geriatric Medicine
DX: E11.9 Type 2 diabetes mellitus without complications (principal); I10 Essential (primary) hypertension
CPT/HCPCS: 36415; 80053; 84443; 85025

== ENCOUNTER → 2018-09-23 | Outpatient (CLI) | payer OTHER, MEDICAID, SELFPAY ==
[2017-08-08 17:30] VITALS: BMI 32.8
[2018-09-04 16:06] VITALS: BMI 31.6
--- NOTE | 2018-09-23 13:35 | STEWCON_ITS ---
Reason For Study: DYSPNEA/SOB Stress Results Protocol: Stress Echocardiogram Maximum Predicted HR: 156 bpm Target HR: 133 bpm % Maximum Predicted HR: 81 % DurationHeart Rate Stage (mm:ss) (bpm) BP Comment BASELINE 79 118/70DILUTED DEFINITY 4 CC USED AUGIE PROTOCOL- STAGE 1 3:00 111 126/74 AUGIE PROTOCOL- STAGE 2 3:00 122 146/82 AUGIE PROTOCOL- STAGE 3 1:30 126 / FATIGUE, SL SOB RECOVERY 93 124/78 Stress Duration: 7:30 mm:ss Maximum Stress HR: 126 bpm Baseline Echocardiogram Findings The estimated ejection fraction is 65 %. Stress Echo Wall motion Data Resting WM Intermediate WM Stress WM Resting Wall Motion Wall Motion Stress No regional wall motion No regional wall motion abnormalities noted. abnormalities noted. EKG Data The baseline ECG displays normal sinus rhythm. The patient exercised according to the regular Augie protocol for a total duration of 7:30. The maximum heart rate attained was 126 beats per minute. This was 80% of maximum predicted heart rate. The patient exercised into stage 3 of the Augie protocol. During stress, there were no ST or T wave changes noted to suggest ischemia. No clinical angina was noted. No arrhythmias noted. Interpretation Summary The estimated ejection fraction is 65 %. Normal, adequate, treadmill echocardiogram. Negative for ischemia by EKG and echocardiographic criteria. No anginal symptoms noted. No arrhythmias noted. Appropriate blood pressure response to exercise. Below average exercise capacity for age. Although the patient did not reach target heart rate he had an adequate rate pressure product of 17,812. Decreased sensitivity due to poor echo windows requiring Definity agent. Final LVEF is 75%. Test terminated due to fatigue. No complications. The study was technically difficult. Contrast injection was performed. Ordering Physician: Cullen^Oseas^^^ Referring Physician: Oseas Berman Performed By: Yovana Esparza, RDCS, RVT
== END | disposition home or self-care (01) ==
LOC: CVS 13:34
PROVIDERS: Family Provider Family Medicine Geriatric Medicine; PCP Family Medicine Geriatric Medicine; Referring Provider Internal Medicine Cardiovascular Disease; Visit Provider Internal Medicine Cardiovascular Disease
DX: R07.9 Chest pain, unspecified (principal); E78.5 Hyperlipidemia, unspecified; R06.09 Other forms of dyspnea
CPT/HCPCS: 93017; 93350; Q9957; A4216; C8928

== ENCOUNTER → 2018-09-24 | Outpatient (CLI) | payer OTHER, MEDICAID, SELFPAY ==
[2017-08-08 17:30] VITALS: BMI 32.8
[2018-09-04 16:06] VITALS: BMI 31.6
[2018-09-24 16:59] LABS: Absolute Lymphocyte Count 2.06 X10^3/ul (0.83-4.51); Absolute Neutrophil Count 3.1 X10^3/uL (2.0-7.7); Basophil# 0.03 X10^3/uL; Basophil% 0.5 % (0-1); Eosinophil# 0.25 X10^3/uL; Eosinophils% 4.2 % (0-5); Hematocrit 39.9 % (37-47); Hemoglobin 13.5 g/dl (12.0-15.0); Lymphocyte # 2.06 X10^3/ul (4.0); Lymphocyte % 34.7 % (19-41); Mean Corp Hgb Conc 33.8 g/gl (32-36); Mean Corpuscular Hgb 32.1 pg (27.0-32.0); Mean Corpuscular Volume 94.8 fL (81-99); Mean Platelet Vol. 9.7 fl (6.2-12.0); Monocyte# 0.54 X10^3/uL; Monocyte% 9.1 % (0-10); Neutrophil # 3.06 X10^3/uL (2.7-7.7); Neutrophil % 51.5 % (47-70); Platelet Count 192 K/mm3 (150-450); RBC Distribution Width CV 11.9 % (11.6-14.6); RBC Distribution Width SD 40.7 fl (35.1-43.9); Red Blood Count 4.21 M/mm3 (4.2-5.4); White Blood Count 5.9 K/mm3 (4.4-11.0)
[2018-09-24 17:00] LABS: POSITIVE COUNT NO; POSITIVE DIFFERENTIAL NO; POSITIVE MORPHOLOGY NO
[2018-09-24 17:34] LABS: Vitamin D,25 Hydroxy 20.9 ng/mL (29.95-100.01)
[2018-09-24 17:35] LABS: ALB/GLOB Ratio 1.4 RATIO (0.9-2.4); AST(SGOT) 22 U/L (15-37); Alanine Aminotransfer ALT/SGPT 41 U/L (13-56); Albumin, Serum 3.7 g/dL (3.2-5.0); Alkaline Phosphatase 57 U/L (45-117); Anion Gap 3 (5-15); BUN 24 mg/dL (7-18); BUN/Creat Ratio 22.9 RATIO (10-20); Calcium,Total 8.9 mg/dL (8.5-10.1); Chloride 108 mmol/L (98-107); Creatinine, Serum 1.05 mg/dL (0.55-1.02); EST Glomerular Filtration Rate 56 mL/min (>60); Est Glom Filt Rate - Afr Amer 68 mL/min (>60); Globulin 2.7 g/dL (2.2-4.2); Glucose 150 mg/dL (74-106); Potassium 5.2 mmol/L (3.5-5.1); Protein, Total 6.4 g/dL (6.4-8.2); Sodium Level 136 mmol/L (136-145); Thyroid Stim Hormone (TSH) 0.63 uIU/mL (0.358-3.74)
== END | disposition home or self-care (01) ==
LOC: POLAB3 16:27
PROVIDERS: Family Provider Family Medicine Geriatric Medicine; PCP Family Medicine Geriatric Medicine; Visit Provider Family Medicine Geriatric Medicine
DX: E11.9 Type 2 diabetes mellitus without complications (principal); E55.9 Vitamin D deficiency, unspecified; I10 Essential (primary) hypertension
CPT/HCPCS: 36415; 80053; 82306; 84443; 85025

== ENCOUNTER → 2018-10-01 | Outpatient (CLI) | payer OTHER, MEDICAID, SELFPAY ==
[2017-08-08 17:30] VITALS: BMI 32.8
[2018-09-04 16:06] VITALS: BMI 31.6
[2018-10-01 16:58] LABS: Anion Gap 6 (5-15); BUN 20 mg/dL (7-18); Calcium,Total 8.6 mg/dL (8.5-10.1); Chloride 110 mmol/L (98-107); Creatinine, Serum 0.91 mg/dL (0.55-1.02); EST Glomerular Filtration Rate 66 mL/min (>60); Est Glom Filt Rate - Afr Amer 80 mL/min (>60); Glucose 160 mg/dL (74-106); Potassium 4.2 mmol/L (3.5-5.1); Sodium Level 141 mmol/L (136-145)
== END | disposition home or self-care (01) ==
LOC: POLAB3 15:48
PROVIDERS: Family Provider Family Medicine Geriatric Medicine; PCP Family Medicine Geriatric Medicine; Visit Provider Family Medicine Geriatric Medicine
DX: E87.6 Hypokalemia (principal)
CPT/HCPCS: 36415; 80048

== ENCOUNTER → 2018-12-23 | Outpatient (CLI) | payer OTHER, SELFPAY ==
[2017-08-08 17:30] VITALS: BMI 32.8
[2018-09-04 16:06] VITALS: BMI 31.6
[2018-12-23 17:22] LABS: Absolute Lymphocyte Count 2.17 X10^3/uL (0.83-4.51); Absolute Neutrophil Count 4.9 X10^3/uL (2.0-7.7); Basophil# 0.04 X10^3/uL; Basophil% 0.5 % (0-1); Eosinophil# 0.14 X10^3/uL; Eosinophils% 1.8 % (0-5); Hematocrit 45.1 % (37-47); Hemoglobin 15.2 g/dL (12.0-15.0); Lymphocyte # 2.17 X10^3/ul (4.0); Lymphocyte % 27.7 % (19-41); Mean Corp Hgb Conc 33.7 g/dL (32-36); Mean Corpuscular Hgb 31.1 pg (27.0-32.0); Mean Corpuscular Volume 92.2 fL (81-99); Mean Platelet Vol. 9.8 fl (6.2-12.0); Monocyte% 7.7 % (0-10); NRBC Flagged by Analyzer 0 % (0-5); Neutrophil # 4.87 X10^3/uL (2.7-7.7); Neutrophil % 62.2 % (47-70); Platelet Count 213 K/mm3 (150-450); RBC Distribution Width CV 11.5 % (11.6-14.6); RBC Distribution Width SD 38.7 fl (35.1-43.9); Red Blood Count 4.89 M/mm3 (4.2-5.4); White Blood Count 7.8 K/mm3 (4.4-11.0)
--- NOTE | 2018-12-23 17:25 | RAD_ITS ---
STUDY: X-RAY - ABDOMEN/PELVIS REASON FOR EXAM: Female, 63 years old. Abdominal pain, constipation TECHNIQUE: AP supine and upright views of the abdomen and pelvis. COMPARISON: None. FINDINGS: Normal visualized lung bases. There is an unremarkable bowel gas pattern. There is no demonstrated free abdominal air. The visualized liver, spleen and kidneys are grossly normal in size and morphology. Normal soft tissue structures. Normal visualized osseous structures. RAD/Abd Inc Decub and/or Erect IMPRESSION: Normal x-ray examination of the abdomen and pelvis. Electronically Signed: Bola Helms MD at 8:45 EDT Tel , Service support ,
[2018-12-23 17:32] LABS: ALB/GLOB Ratio 1.2 RATIO (0.9-2.4); AST(SGOT) 22 U/L (15-37); Alanine Aminotransfer ALT/SGPT 44 U/L (13-56); Albumin, Serum 3.8 g/dL (3.2-5.0); Alkaline Phosphatase 78 U/L (45-117); Anion Gap 9 (5-15); BUN 29 mg/dL (7-18); BUN/Creat Ratio 33.6 RATIO (10-20); Calcium,Total 9.5 mg/dL (8.5-10.1); Chloride 105 mmol/L (98-107); Creatinine, Serum 0.86 mg/dL (0.55-1.02); EST Glomerular Filtration Rate 70 mL/min (>60); Est Glom Filt Rate - Afr Amer 85 mL/min (>60); Globulin 3.2 g/dL (2.2-4.2); Glucose 141 mg/dL (74-106); Potassium 4.4 mmol/L (3.5-5.1); Sodium Level 140 mmol/L (136-145); Thyroid Stim Hormone (TSH) 0.62 uIU/mL (0.358-3.74)
== END | disposition home or self-care (01) ==
PROVIDERS: Family Provider Family Medicine Geriatric Medicine; PCP Family Medicine Geriatric Medicine; Referring Provider Family Medicine Geriatric Medicine; Visit Provider Family Medicine Geriatric Medicine
DX: K59.00 Constipation, unspecified (principal); E11.9 Type 2 diabetes mellitus without complications; I10 Essential (primary) hypertension
CPT/HCPCS: 36415; 74019; 80053; 84443; 85025

== ENCOUNTER → 2019-03-24 16:45 | Outpatient (CLI) | payer OTHER, SELFPAY ==
[2017-08-08 17:30] VITALS: BMI 32.8
[2018-09-04 16:06] VITALS: BMI 31.6
[2019-03-24 17:54] LABS: Absolute Lymphocyte Count 2.39 X10^3/uL (0.83-4.51); Basophil# 0.04 X10^3/uL; Basophil% 0.5 % (0-1); Eosinophil# 0.18 X10^3/uL; Eosinophils% 2.2 % (0-5); Hematocrit 38.4 % (37-47); Hemoglobin 13.1 g/dL (12.0-15.0); Lymphocyte # 2.39 X10^3/ul (4.0); Mean Corp Hgb Conc 34.1 g/dL (32-36); Mean Corpuscular Volume 96.7 fL (81-99); Mean Platelet Vol. 9.9 fl (6.2-12.0); Monocyte# 0.61 X10^3/uL; Monocyte% 7.4 % (0-10); NRBC Flagged by Analyzer 0 % (0-5); Neutrophil # 4.99 X10^3/uL (2.7-7.7); Neutrophil % 60.5 % (47-70); Platelet Count 198 K/mm3 (150-450); RBC Distribution Width CV 11.9 % (11.6-14.6); RBC Distribution Width SD 41.8 fl (35.1-43.9); Red Blood Count 3.97 M/mm3 (4.2-5.4); White Blood Count 8.2 K/mm3 (4.4-11.0)
[2019-03-24 18:10] LABS: Vitamin D,25 Hydroxy 19.3 ng/mL (29.95-100.01)
[2019-03-24 18:15] LABS: ALB/GLOB Ratio 1.3 RATIO (0.9-2.4); AST(SGOT) 21 U/L (15-37); Alanine Aminotransfer ALT/SGPT 42 U/L (13-56); Albumin, Serum 3.6 g/dL (3.2-5.0); Alkaline Phosphatase 74 U/L (45-117); Anion Gap 7 (5-15); BUN 19 mg/dL (7-18); BUN/Creat Ratio 22.9 RATIO (10-20); Calcium,Total 9.1 mg/dL (8.5-10.1); Chloride 108 mmol/L (98-107); Creatinine, Serum 0.83 mg/dL (0.55-1.02); EST Glomerular Filtration Rate 73 mL/min (>60); Est Glom Filt Rate - Afr Amer 89 mL/min (>60); Globulin 2.7 g/dL (2.2-4.2); Glucose 110 mg/dL (74-106); Potassium 4.3 mmol/L (3.5-5.1); Protein, Total 6.3 g/dL (6.4-8.2); Sodium Level 140 mmol/L (136-145); Thyroid Stim Hormone (TSH) 0.69 uIU/mL (0.358-3.74)
== END ==
PROVIDERS: Family Provider Family Medicine Geriatric Medicine; PCP Family Medicine Geriatric Medicine; Visit Provider Family Medicine Geriatric Medicine
DX: E11.9 Type 2 diabetes mellitus without complications (principal); E55.9 Vitamin D deficiency, unspecified; I10 Essential (primary) hypertension
CPT/HCPCS: 36415; 80053; 82306; 84443; 85025

== ENCOUNTER 2019-05-01 06:27 | Day surgery (SDC) | payer OTHER, MEDICAID, SELFPAY ==
[2017-08-08 17:30] VITALS: BMI 32.8
[2018-09-04 16:06] VITALS: BMI 31.6
[2019-03-30 15:56] VITALS: BMI 30.5
[2019-05-01] VITALS (7 sets, daily range): BP systolic 94–126; BP diastolic 54–105; PULSE 68–80; RESP 16; TEMP 36.1–36.6; O2SAT 86–100; BMI 31.8
[2019-05-01 07:01] LABS: Bedside Glucose 147 mg/dL (70-110)
[2019-05-01] MEDS: Lactated Ringers 1,000 ML 100 ML IV (07:18)
--- NOTE | 2019-05-01 07:30 | COLBX_PTH ---
PATIENT: ROSENDO GLASS LOC: EN U#:[id number] AGE/SX: 63/F ROOM: RE05/01/[address]: Dr. Edwar Clifton MD : 1955 BED: DIS: 05/01/2019 SPEC #: [id number] RECD: 05/01/19 12:25 STATUS: SEBASTIÁN ARIELLA #: [id number] DANIA: 05/01/19 07:[address]: Edwar Clifton DEPT: SURGICAL PATHOLOGY RECD BY: Omar Lane ENTERED: 05/01/19 13:55 SP TYPE: COLON BX OTHR DR: Dr. Nish Dewey MD Tissues: A - Rectum, NOS B - Rectum, NOS C - Rectum, NOS D - Rectum, NOS Procedures: Surgery Specimen Level IV HEADER OPERATION: Colonoscopy - open access (MOD) PRE-OP DIAGNOSIS: Screening TISSUE SUBMITTED: A - Rectal polyp biopsy #1, B - Rectal polyp biopsy #2, C - Rectal polyp biopsy?#3, D - Rectal polyp biopsy #4 MICROSCOPIC DIAGNOSIS A. Rectal polyp biopsy #1: A fragment of colonic mucosa with focal hyperplastic changes. B. Rectal polyp biopsy #2: A fragment of colonic mucosa with focal hyperplastic changes. C. Rectal polyp biopsy #3: Fragments of hyperplastic polyp. D. Rectal polyp biopsy #4: Fragments of hyperplastic polyp. SJ:karine 05/04/19 COMMENT Please make reference to previous specimen ([id number]) right colon with diagnosis of well differentiated adenocarcinoma. MICROSCOPIC DESCRIPTION Slides are reviewed. GROSS DESCRIPTION A - Received in fixative is one container labeled with the patient's name and designated rectal polyp biopsy #1. The specimen consists of one irregular fragment of light alexander soft tissue that measures 0.5 x 0.3 x 0.1 cm. The specimen is totally submitted in one cassette. B - Received in fixative is one container labeled with the patient's name and designated rectal polyp biopsy #2. The specimen consists of one irregular fragment of light alexander soft tissue that measures 0.3 x 0.2 x 0.1 cm. The specimen is totally submitted in one cassette. C - Received in fixative is one container labeled with the patient's name and designated rectal polyp biopsy #3. The specimen consists of two irregular fragments of light alexander soft tissue that in aggregate measure 0.7 x 0.3 x 0.1 cm. The specimen is totally submitted in one cassette. D - Received in fixative is one container labeled with the patient's name and designated rectal polyp biopsy #4. The specimen consists of two irregular fragments of light alexander soft tissue that in aggregate measure 0.5 x 0.2 x 0.1 cm. The specimen is totally submitted in one cassette. / AM:karine 05/01/19 TC:1 CPT: 44678 x4
--- NOTE | 2019-05-01 07:55 | HP.PCM_ITS ---
Problem List (1) Personal history of colonic polyps Status: Acute History of Present Illness Date of Admission: 05/01/19 The patient is a 63 year old F who has a personal history of colon polyps. She is not exactly sure when she had a previous colonoscopy. Somewhere between 3 a nd 5 years ago. She states that she has become diabetic type II in the interim. She has had a intentional 20 pound weight loss. She denies abdominal pain. No bright red blood per rectum or melena. She does use seat apnea support. Past Medical History Past Medical History (Chronic Problems): Chronic Problems (Last Updated 03/30/19 @ 15:57 by Yamilex Mendoza) Hypertension (Chronic) Hyperlipidemia (Chronic) BMI 33.0-33.9,adult (Chronic) Medical History: Medical History (Last Updated 03/30/19 @ 15:57 by Yamilex Mendoza) Hypertension (Chronic) I10 Hyperlipidemia (Chronic) E78.5 BMI 33.0-33.9,adult (Chronic) Z68.33 Daytime somnolence R40.0 Diabetes mellitus, type II E11.9 Obstructive sleep apnea G47.33 Periodic limb movement disorder G47.61 Chest pain, unspecified (Resolved) R07.9 History of colon cancer Z85.038 History of hysterectomy Z90.710 Abnormal electrocardiogram (Inactive) R94.31 Allergies amoxicillin Allergy (Mild, Verified 05/01/19 06:51) aspirin [From Ar Aspirin] Allergy (Mild, Verified 05/01/19 06:51) Latex, Natural Rubber Allergy (Mild, Verified 05/01/19 06:51) Home Medications: Ambulatory Orders Medication Instructions Recorded Lactobacillus acidophilus capsule 100 mg PO QDAY 05/03/17 atorvastatin 40 mg tablet 40 mg PO QDAY 05/03/17 benazepril 10 mg tablet 10 mg PO QDAY 05/03/17 cinnamon bark 500 mg capsule 1,000 mg PO DAILY 05/03/17 glucosamine-chondroitin 250 mg-200 1 tab PO QAM tab 05/03/17 mg tablet magnesium 400 mg (as magnesium 400 mg PO QDAY cap 05/03/17 oxide) capsule metformin 1,000 mg tablet 1,000 mg PO BID 05/03/17 multivitamin,gq-fxow-ibkzsiaa 1 tab PO QDAY 05/03/17 tablet vitamin E 200 unit capsule 200 unit PO QDAY 05/03/17 doxycycline hyclate 100 mg capsule 100 mg PO QDAY PRN cap 07/15/17 pramipexole 0.25 mg tablet 0.25 mg PO TID #90 tab 08/15/17 diclofenac potassium 50 mg tablet 50 mg PO BID 02/13/18 coenzyme Q10 100 mg capsule 100 mg PO DAILY 03/30/19 Surgical History: Surgical History (Last Reviewed 03/30/19 @ 15:57 by Yamilex Mendoza) H/O arthroscopy of left knee Z98.890 History of bladder suspension procedure Z92.89 History of carpal tunnel release of both wrists Z98.890 History of colectomy Z98.890, Z90.49 History of tubal ligation Z98.51 Hx of breast biopsy Z98.890 Smoking Status: Never smoker Tobacco Use: Non-smoker Review of Systems Constitutional: Denies: Anorexia HEENT: Denies: Difficulty Swallowing Cardiovascular: Denies: Chest Pain Respiratory: Denies: Cough Gastrointestinal: Denies: Abdominal Pain Endocrine: Reports: Change in Body Habitus, - - Intentional 20 pound weight loss VTE Information - Inpt Only VTE Present on Admission: No Patient Problems: Active and Suspected Problems (Last Updated 03/30/19 @ 15:57 by Yamilex Mendoza) Personal history of colonic polyps (Acute) - Physical Exam Vitals/I&O's: Vital Signs Temp Pulse Resp BP Pulse Ox 97.0 F L 77 16 122/86 H 97 05/01/19 06:52 05/01/19 06:52 05/01/19 06:52 05/01/19 06:52 05/01/19 06:52 Oxygen Delivery Method Room Air Weight: 173 lb 15.115 oz Body Mass Index (BMI) 31.8 General: Alert, Oriented x3, Cooperative, No apparent distress HEENT: Atraumatic Oral: Moist Mucosa Lungs: Clear to auscultation, Normal air movement Abdomen: Bowel Sounds Present, Soft, Non Tender Psych/Mental Status: Normal Affect Laboratory Results 05/01/19 06:57: POC Glucose 147 H Current Medications Lactated Ringer's () 1,000 mls @ 100 mls/hr IV .Q10H [place] Last Admin: 05/01/19 07:18 Dose: 100 mls/hr Documented by: Assessment/Plan All Active Problems (Last Updated 03/30/19 @ 15:57 by Yamilex Mendoza) Personal history of colonic polyps (Acute) Chest pain, unspecified (Resolved) The patient presents via open access today. I recommend to her a surveillance colonoscopy with possible biopsy or polypectomy is indicated. She has had an opportunity to ask and have questions answered. We will proceed as noted. Edwar Clifton M.D., F.A.C.S.
--- NOTE | 2019-05-01 08:24 | OP.COLON_ITS ---
Patient Name: Isabel Davies Procedure Date: 05/01/2019 7:56 AM Date of : 1955 Age: 63 Procedure: Colonoscopy Indications: High risk colon cancer surveillance: Personal history of colonic polyps Providers: Edwar Clifton MD Referring MD: Nish Dewey MD Medicines: Midazolam 3.5 mg IV, Meperidine 100 mg IV Patient Profile: Last Colonoscopy: 5 years ago. Complications: No immediate complications. Procedure: Pre-Anesthesia Assessment: - Prior to the procedure, a History and Physical was performed, and patient medications and allergies were reviewed. The patient's tolerance of previous anesthesia was also reviewed. The risks and benefits of the procedure and the sedation options and risks were discussed with the patient. All questions were answered, and informed consent was obtained. Prior Anticoagulants: The patient has taken no previous anticoagulant or antiplatelet agents. ASA Grade Assessment: II - A patient with mild systemic disease. After reviewing the risks and benefits, the patient was deemed in satisfactory condition to undergo the procedure. After I obtained informed consent, the scope was passed under direct vision. Throughout the procedure, the patient's blood pressure, pulse, and oxygen saturations were monitored continuously. The Colonoscope was introduced through the anus and advanced to the ileocolonic anastomosis. The colonoscopy was performed without difficulty. The patient tolerated the procedure well. The quality of the bowel preparation was good. Ileocolonic anastomosis were photographed. Moderate Sedation: Moderate (conscious) sedation was personally administered by the endoscopist. The following parameters were monitored: oxygen saturation, heart rate, blood pressure, and response to care. Total physician intraservice time was 15 minutes. Scope In: 8:03:54 AM Scope Withdrawal Time 0 hours 9 minutes 49 seconds Scope Out: 8:18:32 AM Total Procedure Duration Time 0 hours 14 minutes 38 seconds Findings: The digital rectal exam findings include non-thrombosed external hemorrhoids, non-thrombosed internal hemorrhoids and internal hemorrhoids that prolapse with straining, but spontaneously regress to the resting position (Grade II). There was evidence of a prior end-to-end ileo-colonic anastomosis at the hepatic flexure. This was patent and was characterized by healthy appearing mucosa. Four sessile polyps were found in the rectum. The polyps were small in size. These polyps were removed with a cold biopsy forceps. Resection and retrieval were complete. Impression: - Non-thrombosed external hemorrhoids, non-thrombosed internal hemorrhoids and internal hemorrhoids that prolapse with straining, but spontaneously regress to the resting position (Grade II) found on digital rectal exam. - Patent end-to-end ileo-colonic anastomosis, characterized by healthy appearing mucosa. - Four small polyps in the rectum, removed with a cold biopsy forceps. Resected and retrieved. Recommendation: - Await pathology results. - Repeat colonoscopy in 5 years for surveillance. - Telephone my office for pathology results in 1 week. - Continue present medications. Procedure Code(s): --- Professional --- 33701, Colonoscopy, flexible; with biopsy, single or multiple 15624, 59, Moderate sedation services provided by the same physician or other qualified health pediatric critical care nurse performing the diagnostic or therapeutic service that the sedation supports, requiring the presence of an independent trained observer to assist in the monitoring of the patient's level of consciousness and physiological status; initial 15 minutes of intraservice time, patient age 5 years or older Diagnosis Code(s): --- Professional --- Z86.010, Personal history of colonic polyps K64.1, Second degree hemorrhoids K64.4, Residual hemorrhoidal skin tags Z98.0, Intestinal bypass and anastomosis status K62.1, Rectal polyp CPT copyright 2017 [employer]. All rights reserved. The codes documented in this report are preliminary and upon fireworks assembler review may be revised to meet current compliance requirements. Edwar Clifton MD 05/01/2019 8:24:07 AM This report has been signed electronically. Number of Addenda: 0 Note Initiated On: 05/01/2019 7:56 AM
== END 2019-05-01 09:25 | disposition home or self-care (01) ==
LOC: EN 06:27 → AC 06:28
PROVIDERS: Family Provider Family Medicine Geriatric Medicine; PCP Family Medicine Geriatric Medicine; Referring Provider Family Medicine Geriatric Medicine; Visit Provider Surgery
PROC: 0DJD8ZZ Inspection of Lower Intestinal Tract, Via Natural or Artificial Opening Endoscopic (ICD-10-PCS; CPT 45378; principal; 2019-05-01 07:25)
DX: K62.1 Rectal polyp (principal); K64.1 Second degree hemorrhoids; K64.4 Residual hemorrhoidal skin tags; Z98.0 Intestinal bypass and anastomosis status; Z86.010 Personal history of colon polyps; I10 Essential (primary) hypertension; E78.5 Hyperlipidemia, unspecified; E11.9 Type 2 diabetes mellitus without complications; G47.33 Obstructive sleep apnea (adult) (pediatric); G47.61 Periodic limb movement disorder; Z85.038 Personal history of other malignant neoplasm of large intestine; Z90.49 Acquired absence of other specified parts of digestive tract; Z79.84 Long term (current) use of oral hypoglycemic drugs; Z79.899 Other long term (current) drug therapy
CPT/HCPCS: 45380; 82962; 88305; 99152; 99153; J7120

== ENCOUNTER → 2019-05-27 16:07 | Outpatient (CLI) | payer OTHER, MEDICAID, SELFPAY ==
[2019-05-07 15:40] VITALS: BMI 32.8
[2019-05-19 13:05] VITALS: BMI 31.8
--- NOTE | 2019-05-27 16:09 | MRI_ITS ---
STUDY: MR PELVIS WITH T WITHOUT CONTRAST REASON FOR EXAM: Female, 63 years old. LEFT BUTTOCK MASS marked with beads TECHNIQUE: Standardized fat and water weighted pulse sequences were obtained in all 3 orthogonal planes, pre-and post contrast administration. iv Dotarem 15cc was administered for the contrast portion of the examination. COMPARISON: None. FINDINGS: Normal urinary bladder. Visualized hollow viscus structures are unremarkable. There is no pelvic fluid. There is no pelvic mass lesion or lymphadenopathy. Normal visualized pelvic arteries. There are degenerative changes of the bilateral hips and sacroiliac joints. No bone marrow edema identified. Grade 1 spondylolisthesis of L4-L5 is due to facet arthropathy. There is a least moderate degree of canal narrowing (image 29 series 9). In the posterior left buttock subcutaneous fat, there is an oval-shaped T2 bright, T1 dark collection measuring 2.3 x 1.7 x 2.6 cm with at least one intracystic septation (coronal image 6 of series 5). There is moderate amount of adjacent edema/stranding. Following IV contrast, there is moderate intensity enhancement involving the collection wall (image 11 series 10). MRI/Pelvis W/WO Contrast IMPRESSION: 1. 2.3 x 1.7 x 2.6 cm peripherally enhancing, mildly septated fluid collection of the left buttock with adjacent stranding. Differential considerations include small hematoma (correlate with history of injury/surgery/injection) or abscess. Collection should be easily amenable to aspiration. 2. Degenerative changes of the lumbar spine with acquired canal narrowing. 3. No pelvic adenopathy or bone marrow edema. Electronically Signed: Herb Oates MD ([place]) at 8:35 EST , Service support ,
[2019-05-27 17:45] LABS: CREATININE FINGERSTICK 0.6 mg/dL (0.55-1.02); EGFR FINGERSTICK > 60.0000 mL/min (>60)
== END ==
PROVIDERS: Family Provider Family Medicine Geriatric Medicine; PCP Family Medicine Geriatric Medicine; Referring Provider Surgery; Visit Provider Surgery
DX: R22.42 Localized swelling, mass and lump, left lower limb (principal)
CPT/HCPCS: 72197; A9575

== ENCOUNTER → 2019-05-29 16:47 | Outpatient (CLI) | payer OTHER, SELFPAY ==
[2019-05-07 15:40] VITALS: BMI 32.8
[2019-05-29 16:22] VITALS: BMI 31.8
== END ==
PROVIDERS: Family Provider Family Medicine Geriatric Medicine; PCP Family Medicine Geriatric Medicine; Referring Provider Surgery; Visit Provider Surgery
DX: R22.42 Localized swelling, mass and lump, left lower limb (principal)
CPT/HCPCS: 87070; 87205

== ENCOUNTER → 2019-06-23 16:39 | Outpatient (CLI) | payer OTHER, MEDICAID, SELFPAY ==
[2019-05-07 15:40] VITALS: BMI 32.8
[2019-05-29 16:22] VITALS: BMI 31.8
[2019-06-23 17:47] LABS: Absolute Lymphocyte Count 2.12 X10^3/uL (0.83-4.51); Absolute Neutrophil Count 4.8 X10^3/uL (2.0-7.7); Basophil# 0.03 X10^3/uL; Basophil% 0.4 % (0-1); Eosinophil# 0.23 X10^3/uL; Hematocrit 40.4 % (37-47); Hemoglobin 13.6 g/dL (12.0-15.0); Lymphocyte # 2.12 X10^3/ul (4.0); Lymphocyte % 27.2 % (19-41); Mean Corp Hgb Conc 33.7 g/dL (32-36); Mean Corpuscular Hgb 31.8 pg (27.0-32.0); Mean Corpuscular Volume 94.4 fL (81-99); Monocyte# 0.56 X10^3/uL; Monocyte% 7.2 % (0-10); NRBC Flagged by Analyzer 0 % (0-5); Neutrophil # 4.83 X10^3/uL (2.7-7.7); Neutrophil % 62.1 % (47-70); Platelet Count 182 K/mm3 (150-450); RBC Distribution Width CV 11.6 % (11.6-14.6); RBC Distribution Width SD 39.9 fl (35.1-43.9); Red Blood Count 4.28 M/mm3 (4.2-5.4); White Blood Count 7.8 K/mm3 (4.4-11.0)
[2019-06-23 17:52] LABS: ALB/GLOB Ratio 1.2 RATIO (0.9-2.4); AST(SGOT) 22 U/L (15-37); Alanine Aminotransfer ALT/SGPT 44 U/L (13-56); Albumin, Serum 3.6 g/dL (3.2-5.0); Alkaline Phosphatase 86 U/L (45-117); Anion Gap 3 (5-15); BUN 24 mg/dL (7-18); BUN/Creat Ratio 26.5 RATIO (10-20); Calcium,Total 9.4 mg/dL (8.5-10.1); Chloride 105 mmol/L (98-107); Creatinine, Serum 0.91 mg/dL (0.55-1.02); EST Glomerular Filtration Rate 66 mL/min (>60); Est Glom Filt Rate - Afr Amer 80 mL/min (>60); Glucose 155 mg/dL (74-106); Potassium 4.6 mmol/L (3.5-5.1); Protein, Total 6.6 g/dL (6.4-8.2); Sodium Level 137 mmol/L (136-145); Thyroid Stim Hormone (TSH) 0.57 uIU/mL (0.358-3.74)
== END ==
PROVIDERS: PCP Family Medicine Geriatric Medicine; Visit Provider Family Medicine Geriatric Medicine
DX: E11.9 Type 2 diabetes mellitus without complications (principal); I10 Essential (primary) hypertension
CPT/HCPCS: 36415; 80053; 84443; 85025

== ENCOUNTER → 2019-07-30 17:03 | Outpatient (CLI) | payer OTHER, MEDICAID, SELFPAY ==
[2019-05-07 15:40] VITALS: BMI 32.8
[2019-05-29 16:22] VITALS: BMI 31.8
== END ==
PROVIDERS: PCP Family Medicine Geriatric Medicine; Referring Provider Family Medicine Geriatric Medicine; Visit Provider Family Medicine Geriatric Medicine
DX: R68.83 Chills (without fever) (principal)
CPT/HCPCS: 87633

== ENCOUNTER → 2019-09-29 15:55 | Outpatient (CLI) | payer MEDICARE, SELFPAY ==
[2019-05-07 15:40] VITALS: BMI 32.8
[2019-05-29 16:22] VITALS: BMI 31.8
[2019-09-29 17:32] LABS: Vitamin D,25 Hydroxy 28.8 ng/mL
[2019-09-29 17:34] LABS: Absolute Lymphocyte Count 2.09 X10^3/uL (0.83-4.51); Absolute Neutrophil Count 6.5 X10^3/uL (2.0-7.7); Basophil# 0.04 X10^3/uL; Basophil% 0.4 % (0-1); Eosinophil# 0.17 X10^3/uL; Eosinophils% 1.8 % (0-5); Hemoglobin 13.4 g/dL (12.0-15.0); Lymphocyte # 2.09 X10^3/ul (4.0); Lymphocyte % 21.8 % (19-41); Mean Corp Hgb Conc 33.5 g/dL (32-36); Mean Corpuscular Hgb 32.3 pg (27.0-32.0); Mean Corpuscular Volume 96.4 fL (81-99); Mean Platelet Vol. 9.6 fl (6.2-12.0); Monocyte# 0.77 X10^3/uL; NRBC Flagged by Analyzer 0 % (0-5); Neutrophil # 6.48 X10^3/uL (2.7-7.7); Neutrophil % 67.6 % (47-70); Platelet Count 199 K/mm3 (150-450); RBC Distribution Width SD 41.9 fl (35.1-43.9); Red Blood Count 4.15 M/mm3 (4.2-5.4); White Blood Count 9.6 K/mm3 (4.4-11.0)
[2019-09-29 17:42] LABS: ALB/GLOB Ratio 1.2 RATIO (0.9-2.4); AST(SGOT) 38 U/L (15-37); Alanine Aminotransfer ALT/SGPT 70 U/L (13-56); Albumin, Serum 3.6 g/dL (3.2-5.0); Alkaline Phosphatase 78 U/L (45-117); Anion Gap 9 (5-15); BUN 26 mg/dL (7-18); BUN/Creat Ratio 27.8 RATIO (10-20); Calcium,Total 9.2 mg/dL (8.5-10.1); Chloride 105 mmol/L (98-107); Creatinine, Serum 0.94 mg/dL (0.55-1.02); EST Glomerular Filtration Rate 64 mL/min (>60); Est Glom Filt Rate - Afr Amer 77 mL/min (>60); Glucose 121 mg/dL (74-106); Potassium 4.7 mmol/L (3.5-5.1); Protein, Total 6.6 g/dL (6.4-8.2); Sodium Level 139 mmol/L (136-145); Thyroid Stim Hormone (TSH) 0.88 uIU/mL (0.358-3.74)
== END ==
PROVIDERS: PCP Family Medicine Geriatric Medicine; Visit Provider Family Medicine Geriatric Medicine
DX: E11.9 Type 2 diabetes mellitus without complications (principal); E55.9 Vitamin D deficiency, unspecified; I10 Essential (primary) hypertension
CPT/HCPCS: 36415; 80053; 82306; 84443; 85025

== ENCOUNTER → 2019-10-22 16:03 | Outpatient (CLI) | payer MEDICARE, SELFPAY ==
[2019-05-07 15:40] VITALS: BMI 32.8
[2019-05-29 16:22] VITALS: BMI 31.8
--- NOTE | 2019-10-22 16:12 | BD_ITS ---
STUDY: DUAL ENERGY X-RAY ABSORPTIOMETRY / DXA REASON FOR EXAM: Female, 64 years old. 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 COMPARISON: Comparison is made with prior study dated February 08, 2009. FINDINGS: Lumbar Spine (L1-L4): g/cm2 (0.935) / T-score (-2.0) / Z-score (-0.4) Findings are suggestive of osteopenia with a moderate fracture risk. Left Femur Total: g/cm2 (0.807) / T-score (-1.6) / Z-score (-0.4) Left Femoral Neck: g/cm2 (0.769) / T-score (-1.9) / Z-score (-0.5) Right Femur Total: g/cm2 (0.870) / T-score (-1.1) / Z-score (0.1) Right Femoral Neck: g/cm2 (0.758) / T-score (-2.0) / Z-score (-0.6) The T-Scores on the most recent prior examination were: Lumbar Spine (L1-L4): There has been worsening of bone density since the previous examination. Left Femur Total: which represents a worsening of 22.3%. Right Femur Total: which represents a worsening of 18.6%. BD/Dexa Bone Density Study IMPRESSION: The patient is considered osteopenic as outlined below according to World [place] Organization (WHO) criteria with a moderate fracture risk. There has been worsening of bone density since the previous examination. Reference Information: The T-score is the number of standard deviations above or below the standard which is normal for young adults at their peak bone mineral density. The World Health Organization (WHO) interprets the T-scores as follows: Above -1 Normal bone density Between -1 and -2.5 Osteopenia Equal to / or below -2.5 Osteoporosis As a practical clinical guideline, osteopenia may be graded as follows: Mild -1 through -1.5 Moderate -1.6 through -2.0 Severe -2.1 through -2.4 The Z-score is the number of standard deviations above or below age-matched controls. A Z-score of less than -1.5 would be considered abnormal. References: 1. NIH Osteoporosis and Related Bone Diseases http://www.osteo.org 2. International Society for Clinical Densitometry http://www.iscd.org 3. National Osteoporosis Foundation http://www.nof.org Electronically Signed: Isael Rizzo, at 10:07 EDT , Service support ,
== END ==
PROVIDERS: PCP Family Medicine Geriatric Medicine; Referring Provider Family Medicine Geriatric Medicine; Visit Provider Family Medicine Geriatric Medicine
DX: Z78.0 Asymptomatic menopausal state (principal)
CPT/HCPCS: 77080

== ENCOUNTER → 2019-10-28 16:17 | Outpatient (CLI) | payer MEDICARE, SELFPAY ==
[2019-05-07 15:40] VITALS: BMI 32.8
[2019-05-29 16:22] VITALS: BMI 31.8
[2019-10-28 17:22] LABS: ALB/GLOB Ratio 1.1 RATIO (0.9-2.4); AST(SGOT) 15 U/L (15-37); Alanine Aminotransfer ALT/SGPT 34 U/L (13-56); Albumin, Serum 3.2 g/dL (3.2-5.0); Alkaline Phosphatase 58 U/L (45-117); Anion Gap 7 (5-15); BUN 24 mg/dL (7-18); BUN/Creat Ratio 24.5 RATIO (10-20); Calcium,Total 8.7 mg/dL (8.5-10.1); Chloride 106 mmol/L (98-107); Creatinine, Serum 0.98 mg/dL (0.55-1.02); EST Glomerular Filtration Rate 61 mL/min (>60); Est Glom Filt Rate - Afr Amer 73 mL/min (>60); Globulin 2.8 g/dL (2.2-4.2); Glucose 131 mg/dL (74-106); Potassium 4.4 mmol/L (3.5-5.1); Sodium Level 137 mmol/L (136-145)
== END ==
PROVIDERS: PCP Family Medicine Geriatric Medicine; Visit Provider Family Medicine Geriatric Medicine
DX: R74.8 Abnormal levels of other serum enzymes (principal)
CPT/HCPCS: 36415; 80053

== ENCOUNTER → 2019-12-08 06:01 | Outpatient (CLI) | payer MEDICARE, SELFPAY ==
[2019-05-07 15:40] VITALS: BMI 32.8
[2019-05-29 16:22] VITALS: BMI 31.8
[2019-12-08 06:57] LABS: AST(SGOT) 20 U/L (15-37); Alanine Aminotransfer ALT/SGPT 33 U/L (13-56); Albumin, Serum 3.5 g/dL (3.2-5.0); Alkaline Phosphatase 79 U/L (45-117); Bilirubin, Direct 0.11 mg/dL (0.00-0.30); Cholesterol 196 mg/dL (200); High Density Lipoprotein 43 mg/dL; Protein, Total 6.5 g/dL (6.4-8.2); Triglycerides 306 mg/dL; Very Low Density Lipoprotein 61 mg/dL (5-40)
== END ==
PROVIDERS: PCP Family Medicine Geriatric Medicine; Referring Provider Internal Medicine Cardiovascular Disease; Visit Provider Internal Medicine Cardiovascular Disease
DX: E78.5 Hyperlipidemia, unspecified (principal)
CPT/HCPCS: 36415; 80061; 80076

== ENCOUNTER → 2019-12-28 15:58 | Outpatient (CLI) | payer MEDICARE, SELFPAY ==
[2019-05-07 15:40] VITALS: BMI 32.8
[2019-12-08 15:49] VITALS: BMI 31.8
[2019-12-28 16:52] LABS: Absolute Lymphocyte Count 1.86 X10^3/uL (0.83-4.51); Absolute Neutrophil Count 2.7 X10^3/uL (2.0-7.7); Basophil# 0.02 X10^3/uL; Basophil% 0.4 % (0-1); Eosinophil# 0.18 X10^3/uL; Eosinophils% 3.4 % (0-5); Hematocrit 39.3 % (37-47); Hemoglobin 13.3 g/dL (12.0-15.0); Lymphocyte # 1.86 X10^3/ul (4.0); Lymphocyte % 34.8 % (19-41); Mean Corp Hgb Conc 33.8 g/dL (32-36); Mean Corpuscular Hgb 32.2 pg (27.0-32.0); Mean Corpuscular Volume 95.2 fL (81-99); Monocyte# 0.59 X10^3/uL; NRBC Flagged by Analyzer 0 % (0-5); Neutrophil # 2.67 X10^3/uL (2.7-7.7); Platelet Count 238 K/mm3 (150-450); RBC Distribution Width CV 11.4 % (11.6-14.6); RBC Distribution Width SD 39.2 fl (35.1-43.9); Red Blood Count 4.13 M/mm3 (4.2-5.4); White Blood Count 5.3 K/mm3 (4.4-11.0)
[2019-12-28 17:19] LABS: ALB/GLOB Ratio 1.2 RATIO (0.9-2.4); AST(SGOT) 17 U/L (15-37); Alanine Aminotransfer ALT/SGPT 34 U/L (13-56); Albumin, Serum 3.7 g/dL (3.2-5.0); Alkaline Phosphatase 84 U/L (45-117); Anion Gap 8 (5-15); BUN 32 mg/dL (7-18); BUN/Creat Ratio 31.4 RATIO (10-20); Calcium,Total 9.2 mg/dL (8.5-10.1); Chloride 108 mmol/L (98-107); Creatinine, Serum 1.02 mg/dL (0.55-1.02); EST Glomerular Filtration Rate 58 mL/min (>60); Est Glom Filt Rate - Afr Amer 70 mL/min (>60); Glucose 115 mg/dL (74-106); Potassium 4.8 mmol/L (3.5-5.1); Protein, Total 6.7 g/dL (6.4-8.2); Sodium Level 139 mmol/L (136-145); Thyroid Stim Hormone (TSH) 1.01 uIU/mL (0.358-3.74)
[2019-12-28 18:15] LABS: Vitamin D,25 Hydroxy 32.8 ng/mL
== END ==
PROVIDERS: PCP Family Medicine Geriatric Medicine; Visit Provider Family Medicine Geriatric Medicine
DX: E11.9 Type 2 diabetes mellitus without complications (principal); E55.9 Vitamin D deficiency, unspecified; I10 Essential (primary) hypertension
CPT/HCPCS: 36415; 80053; 82306; 84443; 85025

== ENCOUNTER → 2020-03-28 16:55 | Outpatient (CLI) | payer MEDICARE, SELFPAY ==
[2019-05-07 15:40] VITALS: BMI 32.8
[2019-12-08 15:49] VITALS: BMI 31.8
[2020-03-28 17:45] LABS: Absolute Lymphocyte Count 2.61 X10^3/uL (0.83-4.51); Absolute Neutrophil Count 4.8 X10^3/uL (2.0-7.7); Basophil# 0.04 X10^3/uL; Basophil% 0.5 % (0-1); Eosinophil# 0.15 X10^3/uL; Eosinophils% 1.8 % (0-5); Hematocrit 42.2 % (37-47); Hemoglobin 13.7 g/dL (12.0-15.0); Lymphocyte # 2.61 X10^3/ul (4.0); Lymphocyte % 31.7 % (19-41); Mean Corp Hgb Conc 32.5 g/dL (32-36); Mean Corpuscular Hgb 31.3 pg (27.0-32.0); Mean Corpuscular Volume 96.3 fL (81-99); Mean Platelet Vol. 9.5 fl (6.2-12.0); Monocyte# 0.57 X10^3/uL; Monocyte% 6.9 % (0-10); NRBC Flagged by Analyzer 0 % (0-5); Neutrophil # 4.83 X10^3/uL (2.7-7.7); Neutrophil % 58.7 % (47-70); Platelet Count 193 K/mm3 (150-450); RBC Distribution Width CV 11.8 % (11.6-14.6); RBC Distribution Width SD 42.1 fl (35.1-43.9); Red Blood Count 4.38 M/mm3 (4.2-5.4); White Blood Count 8.2 K/mm3 (4.4-11.0)
[2020-03-28 18:18] LABS: Vitamin D,25 Hydroxy 25.3 ng/mL
[2020-03-28 18:25] LABS: ALB/GLOB Ratio 1.3 RATIO (0.9-2.4); AST(SGOT) 21 U/L (15-37); Alanine Aminotransfer ALT/SGPT 35 U/L (13-56); Albumin, Serum 3.7 g/dL (3.2-5.0); Alkaline Phosphatase 79 U/L (45-117); Anion Gap 6 (5-15); BUN 18 mg/dL (7-18); BUN/Creat Ratio 22.8 RATIO (10-20); Calcium,Total 9.3 mg/dL (8.5-10.1); Chloride 104 mmol/L (98-107); Creatinine, Serum 0.79 mg/dL (0.55-1.02); EST Glomerular Filtration Rate 78 mL/min (>60); Est Glom Filt Rate - Afr Amer 94 mL/min (>60); Globulin 2.9 g/dL (2.2-4.2); Glucose 122 mg/dL (74-106); Potassium 4.6 mmol/L (3.5-5.1); Protein, Total 6.6 g/dL (6.4-8.2); Sodium Level 138 mmol/L (136-145); Thyroid Stim Hormone (TSH) 1.36 uIU/mL (0.358-3.74)
== END ==
PROVIDERS: PCP Family Medicine Geriatric Medicine; Referring Provider Family Medicine Geriatric Medicine; Visit Provider Family Medicine Geriatric Medicine
DX: I10 Essential (primary) hypertension (principal); E11.9 Type 2 diabetes mellitus without complications; E55.9 Vitamin D deficiency, unspecified
CPT/HCPCS: 36415; 80053; 82306; 84443; 85025

== ENCOUNTER → 2020-06-27 14:09 | Outpatient (CLI) | payer MEDICARE, SELFPAY ==
[2019-05-07 15:40] VITALS: BMI 32.8
[2019-12-08 15:49] VITALS: BMI 31.8
[2020-06-27 16:49] LABS: Absolute Lymphocyte Count 2.28 X10^3/uL (0.83-4.51); Absolute Neutrophil Count 4.6 X10^3/uL (2.0-7.7); Basophil# 0.04 X10^3/uL; Basophil% 0.5 % (0-1); Eosinophil# 0.22 X10^3/uL; Eosinophils% 2.8 % (0-5); Hematocrit 37.9 % (37-47); Hemoglobin 12.8 g/dL (12.0-15.0); Lymphocyte # 2.28 X10^3/ul (4.0); Lymphocyte % 29.4 % (19-41); Mean Corp Hgb Conc 33.8 g/dL (32-36); Mean Corpuscular Volume 91.8 fL (81-99); Mean Platelet Vol. 9.8 fl (6.2-12.0); Monocyte# 0.64 X10^3/uL; Monocyte% 8.2 % (0-10); NRBC Flagged by Analyzer 0 % (0-5); Neutrophil # 4.56 X10^3/uL (2.7-7.7); Neutrophil % 58.8 % (47-70); Platelet Count 198 K/mm3 (150-450); RBC Distribution Width CV 11.8 % (11.6-14.6); RBC Distribution Width SD 38.7 fl (35.1-43.9); Red Blood Count 4.13 M/mm3 (4.2-5.4); White Blood Count 7.8 K/mm3 (4.4-11.0)
[2020-06-27 17:11] LABS: Vitamin D,25 Hydroxy 20.7 ng/mL
[2020-06-27 17:20] LABS: ALB/GLOB Ratio 1.3 RATIO (0.9-2.4); AST(SGOT) 22 U/L (15-37); Alanine Aminotransfer ALT/SGPT 38 U/L (13-56); Albumin, Serum 3.8 g/dL (3.2-5.0); Alkaline Phosphatase 80 U/L (45-117); Anion Gap 5 (5-15); BUN 19 mg/dL (7-18); Calcium,Total 9.4 mg/dL (8.5-10.1); Chloride 106 mmol/L (98-107); Creatinine, Serum 0.95 mg/dL (0.55-1.02); EST Glomerular Filtration Rate 63 mL/min (>60); Est Glom Filt Rate - Afr Amer 76 mL/min (>60); Glucose 170 mg/dL (74-106); Potassium 4.2 mmol/L (3.5-5.1); Protein, Total 6.8 g/dL (6.4-8.2); Sodium Level 138 mmol/L (136-145)
== END ==
PROVIDERS: PCP Family Medicine Geriatric Medicine; Visit Provider Family Medicine Geriatric Medicine
DX: E11.9 Type 2 diabetes mellitus without complications (principal); E55.9 Vitamin D deficiency, unspecified; I10 Essential (primary) hypertension
CPT/HCPCS: 36415; 80053; 82306; 84443; 85025

== ENCOUNTER → 2020-10-03 16:25 | Outpatient (CLI) | payer MEDICARE, SELFPAY ==
[2019-05-07 15:40] VITALS: BMI 32.8
[2019-12-08 15:49] VITALS: BMI 31.8
[2020-10-03 16:47] LABS: Absolute Lymphocyte Count 2.66 X10^3/uL (0.83-4.51); Absolute Neutrophil Count 4.3 X10^3/uL (2.0-7.7); Basophil# 0.04 X10^3/uL; Basophil% 0.5 % (0-1); Eosinophil# 0.15 X10^3/uL; Eosinophils% 1.9 % (0-5); Hematocrit 41.5 % (37-47); Hemoglobin 13.9 g/dL (12.0-15.0); Lymphocyte # 2.66 X10^3/ul (0.83-4.51); Lymphocyte % 33.8 % (19-41); Mean Corp Hgb Conc 33.5 g/dL (32-36); Mean Corpuscular Hgb 30.3 pg (27.0-32.0); Mean Corpuscular Volume 90.6 fL (81-99); Mean Platelet Vol. 9.8 fl (6.2-12.0); Monocyte# 0.67 X10^3/uL; Monocyte% 8.5 % (0-10); NRBC Flagged by Analyzer 0 % (0-5); Neutrophil # 4.32 X10^3/uL (2.7-7.7); Platelet Count 234 K/mm3 (150-450); RBC Distribution Width CV 11.8 % (11.6-14.6); RBC Distribution Width SD 38.8 fl (35.1-43.9); Red Blood Count 4.58 M/mm3 (4.2-5.4); White Blood Count 7.9 K/mm3 (4.4-11.0)
[2020-10-03 17:09] LABS: ALB/GLOB Ratio 1.2 RATIO (0.9-2.4); AST(SGOT) 20 U/L (15-37); Alanine Aminotransfer ALT/SGPT 39 U/L (13-56); Albumin, Serum 3.8 g/dL (3.2-5.0); Alkaline Phosphatase 92 U/L (45-117); Anion Gap 9 (5-15); BUN 24 mg/dL (7-18); BUN/Creat Ratio 25.2 RATIO (10-20); Calcium,Total 9.3 mg/dL (8.5-10.1); Chloride 103 mmol/L (98-107); Creatinine, Serum 0.95 mg/dL (0.55-1.02); EST Glomerular Filtration Rate 62 mL/min (>60); Est Glom Filt Rate - Afr Amer 75 mL/min (>60); Globulin 3.3 g/dL (2.2-4.2); Glucose 157 mg/dL (74-106); Potassium 4.2 mmol/L (3.5-5.1); Protein, Total 7.1 g/dL (6.4-8.2); Sodium Level 135 mmol/L (136-145); Thyroid Stim Hormone (TSH) 1.18 uIU/mL (0.358-3.74)
[2020-10-03 19:01] LABS: Vitamin D,25 Hydroxy 21.4 ng/mL
== END ==
PROVIDERS: PCP Family Medicine Geriatric Medicine; Visit Provider Family Medicine Geriatric Medicine
DX: E11.9 Type 2 diabetes mellitus without complications (principal); E55.9 Vitamin D deficiency, unspecified; I10 Essential (primary) hypertension
CPT/HCPCS: 36415; 80053; 82306; 84443; 85025

== ENCOUNTER → 2020-11-25 09:47 | Outpatient (CLI) | payer MEDICARE, SELFPAY ==
[2019-05-07 15:40] VITALS: BMI 32.8
[2019-12-08 15:49] VITALS: BMI 31.8
--- NOTE | 2020-11-25 09:51 | BI_ITS ---
MAMMOGRAPHY - BILATERAL SCREENING REASON FOR EXAM: Female, 65 years old. Routine annual screening examination. PERTINENT HISTORY: Non-contributory. Remote left excisional breast biopsy. TECHNIQUE: Digital bilateral breast nadege (3D mammographic acquisition) in the CC and MLO projections. 2-D mediolateral oblique (MLO) and craniocaudad (CC) views of both breasts were obtained. CAD: Full Field Digital Mammography with Computer Added Detection was performed. COMPARISON: Comparison is made with prior outside study dated 11/28/2018. FINDINGS: Breast Composition: The breasts are almost entirely fatty. There are no dominant masses or suspicious calcifications. No other significant abnormalities are identified. There has been no significant change since the prior study. BI/SCRN MAMM (CAD)W/NADEGE BILAT IMPRESSION: Stable bilateral screening mammogram. Yearly follow-up mammogram recommended. (A) ASSESSMENT CATEGORY: BIRADS Category 1: Negative. A letter regarding these results will be sent to the patient by the facility within 30 days. Approximately 10% of breast cancers are not detected by mammography. A normal mammogram should not delay biopsy of a clinically suspicious abnormality. [id number] Electronically Signed: Isael Rizzo MD at 10:44 EDT , Service support ,
== END ==
PROVIDERS: PCP Family Medicine Geriatric Medicine; Referring Provider Family Medicine Geriatric Medicine; Visit Provider Family Medicine Geriatric Medicine
DX: Z12.31 Encounter for screening mammogram for malignant neoplasm of breast (principal)
CPT/HCPCS: 77063; 77067

== ENCOUNTER → 2021-01-04 14:01 | Outpatient (CLI) | payer MEDICARE, SELFPAY ==
[2019-05-07 15:40] VITALS: BMI 32.8
[2021-01-04 17:15] LABS: Absolute Lymphocyte Count 1.71 X10^3/uL (0.83-4.51); Absolute Neutrophil Count 4.1 X10^3/uL (2.0-7.7); Basophil# 0.03 X10^3/uL; Basophil% 0.5 % (0-1); Eosinophil# 0.21 X10^3/uL; Eosinophils% 3.2 % (0-5); Hematocrit 41.4 % (37-47); Hemoglobin 13.5 g/dL (12.0-15.0); Lymphocyte # 1.71 X10^3/ul (0.83-4.51); Lymphocyte % 25.9 % (19-41); Mean Corp Hgb Conc 32.6 g/dL (32-36); Mean Corpuscular Hgb 29.9 pg (27.0-32.0); Mean Corpuscular Volume 91.8 fL (81-99); Mean Platelet Vol. 10.3 fl (6.2-12.0); Monocyte# 0.52 X10^3/uL; Monocyte% 7.9 % (0-10); NRBC Flagged by Analyzer 0 % (0-5); Neutrophil # 4.12 X10^3/uL (2.7-7.7); Neutrophil % 62.3 % (47-70); Platelet Count 228 K/mm3 (150-450); RBC Distribution Width CV 12.3 % (11.6-14.6); RBC Distribution Width SD 41.3 fl (35.1-43.9); Red Blood Count 4.51 M/mm3 (4.2-5.4); White Blood Count 6.6 K/mm3 (4.4-11.0)
[2021-01-04 17:39] LABS: ALB/GLOB Ratio 1.2 RATIO (0.9-2.4); AST(SGOT) 19 U/L (15-37); Alanine Aminotransfer ALT/SGPT 46 U/L (13-56); Albumin, Serum 3.8 g/dL (3.2-5.0); Alkaline Phosphatase 102 U/L (45-117); Anion Gap 7 (5-15); BUN 12 mg/dL (7-18); Calcium,Total 9.2 mg/dL (8.5-10.1); Chloride 107 mmol/L (98-107); EST Glomerular Filtration Rate 59 mL/min (>60); Est Glom Filt Rate - Afr Amer 71 mL/min (>60); Globulin 3.1 g/dL (2.2-4.2); Glucose 183 mg/dL (74-106); Potassium 4.6 mmol/L (3.5-5.1); Protein, Total 6.9 g/dL (6.4-8.2); Sodium Level 139 mmol/L (136-145); Thyroid Stim Hormone (TSH) 0.82 uIU/mL (0.358-3.74)
== END ==
PROVIDERS: PCP Family Medicine Geriatric Medicine; Visit Provider Family Medicine Geriatric Medicine
DX: E11.9 Type 2 diabetes mellitus without complications (principal); E55.9 Vitamin D deficiency, unspecified; I10 Essential (primary) hypertension
CPT/HCPCS: 36415; 80053; 82306; 84443; 85025

== ENCOUNTER → 2021-04-04 14:13 | Outpatient (CLI) | payer MEDICARE, SELFPAY ==
[2019-05-07 15:40] VITALS: BMI 32.8
[2021-04-04 17:22] LABS: Absolute Lymphocyte Count 2.48 X10^3/uL (0.83-4.51); Absolute Neutrophil Count 6.1 X10^3/uL (2.0-7.7); Basophil# 0.04 X10^3/uL; Basophil% 0.4 % (0-1); Eosinophils% 3.1 % (0-5); Hematocrit 38.4 % (37-47); Hemoglobin 12.7 g/dL (12.0-15.0); Lymphocyte # 2.48 X10^3/ul (0.83-4.51); Lymphocyte % 25.8 % (19-41); Mean Corp Hgb Conc 33.1 g/dL (32-36); Mean Corpuscular Hgb 30.6 pg (27.0-32.0); Mean Corpuscular Volume 92.5 fL (81-99); Mean Platelet Vol. 10.5 fl (6.2-12.0); Monocyte# 0.71 X10^3/uL; Monocyte% 7.4 % (0-10); NRBC Flagged by Analyzer 0 % (0-5); Neutrophil # 6.05 X10^3/uL (2.7-7.7); Platelet Count 225 K/mm3 (150-450); RBC Distribution Width CV 13.2 % (11.6-14.6); Red Blood Count 4.15 M/mm3 (4.2-5.4); White Blood Count 9.6 K/mm3 (4.4-11.0)
[2021-04-04 17:43] LABS: AST(SGOT) 15 U/L (15-37); Alanine Aminotransfer ALT/SGPT 34 U/L (13-56); Albumin, Serum 3.5 g/dL (3.2-5.0); Alkaline Phosphatase 84 U/L (45-117); Anion Gap 7 (5-15); BUN 22 mg/dL (7-18); BUN/Creat Ratio 29.5 RATIO (10-20); Calcium,Total 9.4 mg/dL (8.5-10.1); Chloride 106 mmol/L (98-107); Creatinine, Serum 0.75 mg/dL (0.55-1.02); EST Glomerular Filtration Rate 82 mL/min (>60); Est Glom Filt Rate - Afr Amer 100 mL/min (>60); Globulin 3.4 g/dL (2.2-4.2); Glucose 122 mg/dL (74-106); Potassium 4.3 mmol/L (3.5-5.1); Protein, Total 6.9 g/dL (6.4-8.2); Sodium Level 137 mmol/L (136-145); Thyroid Stim Hormone (TSH) 0.85 uIU/mL (0.358-3.74)
[2021-04-04 17:50] LABS: Vitamin D,25 Hydroxy 21.6 ng/mL
== END ==
PROVIDERS: PCP Family Medicine Geriatric Medicine; Visit Provider Family Medicine Geriatric Medicine
DX: E11.9 Type 2 diabetes mellitus without complications (principal); E55.9 Vitamin D deficiency, unspecified; I10 Essential (primary) hypertension
CPT/HCPCS: 36415; 80053; 82306; 84443; 85025

== ENCOUNTER 2021-07-05 14:00 | Outpatient (CLI) | payer MEDICARE, SELFPAY ==
[2019-05-07 15:40] VITALS: BMI 32.8
[2021-07-05 15:32] LABS: Absolute Lymphocyte Count 1.73 X10^3/uL (0.83-4.51); Absolute Neutrophil Count 3.8 X10^3/uL (2.0-7.7); Basophil# 0.03 X10^3/uL; Basophil% 0.5 % (0-1); Eosinophil# 0.21 X10^3/uL; Eosinophils% 3.3 % (0-5); Hematocrit 41.5 % (37-47); Hemoglobin 14.1 g/dL (12.0-15.0); Lymphocyte # 1.73 X10^3/ul (0.83-4.51); Lymphocyte % 27.5 % (19-41); Mean Corpuscular Hgb 31.5 pg (27.0-32.0); Mean Corpuscular Volume 92.8 fL (81-99); Monocyte# 0.47 X10^3/uL; Monocyte% 7.5 % (0-10); NRBC Flagged by Analyzer 0 % (0-5); Neutrophil # 3.82 X10^3/uL (2.7-7.7); Neutrophil % 60.7 % (47-70); Platelet Count 191 K/mm3 (150-450); RBC Distribution Width CV 12.5 % (11.6-14.6); RBC Distribution Width SD 42.5 fl (35.1-43.9); Red Blood Count 4.47 M/mm3 (4.2-5.4); White Blood Count 6.3 K/mm3 (4.4-11.0)
[2021-07-05 15:44] LABS: Vitamin D,25 Hydroxy 18.9 ng/mL
[2021-07-05 15:55] LABS: ALB/GLOB Ratio 1.2 RATIO (0.9-2.4); AST(SGOT) 17 U/L (15-37); Alanine Aminotransfer ALT/SGPT 33 U/L (13-56); Albumin, Serum 3.6 g/dL (3.2-5.0); Alkaline Phosphatase 87 U/L (45-117); Anion Gap 5 (5-15); BUN 24 mg/dL (7-18); BUN/Creat Ratio 24.1 RATIO (10-20); Calcium,Total 9.1 mg/dL (8.5-10.1); Chloride 112 mmol/L (98-107); Creatinine, Serum 0.99 mg/dL (0.55-1.02); EST Glomerular Filtration Rate 59 mL/min (>60); Est Glom Filt Rate - Afr Amer 72 mL/min (>60); Globulin 3.1 g/dL (2.2-4.2); Glucose 169 mg/dL (74-106); Potassium 4.4 mmol/L (3.5-5.1); Protein, Total 6.7 g/dL (6.4-8.2); Sodium Level 142 mmol/L (136-145); Thyroid Stim Hormone (TSH) 0.75 uIU/mL (0.358-3.74)
== END 2021-07-05 23:59 | disposition home or self-care (01) ==
LOC: POLAB3 14:02
PROVIDERS: PCP Family Medicine Geriatric Medicine; Visit Provider Family Medicine Geriatric Medicine
DX: E11.65 Type 2 diabetes mellitus with hyperglycemia (principal); E55.9 Vitamin D deficiency, unspecified; I10 Essential (primary) hypertension
CPT/HCPCS: 36415; 80053; 82306; 84443; 85025

== ENCOUNTER → 2021-10-23 | Outpatient (CLI) | payer MEDICARE, SELFPAY ==
[2019-05-07 15:40] VITALS: BMI 32.8
[2021-10-23 13:32] LABS: Absolute Lymphocyte Count 2.08 X10^3/uL (0.83-4.51); Absolute Neutrophil Count 3.5 X10^3/uL (2.0-7.7); Basophil# 0.04 X10^3/uL; Basophil% 0.6 % (0-1); Eosinophil# 0.24 X10^3/uL; Eosinophils% 3.7 % (0-5); Hemoglobin 13.4 g/dL (12.0-15.0); Lymphocyte # 2.08 X10^3/ul (0.83-4.51); Lymphocyte % 32.2 % (19-41); Mean Corp Hgb Conc 32.7 g/dL (32-36); Mean Corpuscular Hgb 30.7 pg (27.0-32.0); Mean Platelet Vol. 10.1 fl (6.2-12.0); Monocyte# 0.58 X10^3/uL; NRBC Flagged by Analyzer 0 % (0-5); Neutrophil % 54.2 % (47-70); Platelet Count 189 K/mm3 (150-450); RBC Distribution Width CV 12.2 % (11.6-14.6); RBC Distribution Width SD 42.2 fl (35.1-43.9); Red Blood Count 4.36 M/mm3 (4.2-5.4); White Blood Count 6.5 K/mm3 (4.4-11.0)
[2021-10-23 14:31] LABS: ALB/GLOB Ratio 1.3 RATIO (0.9-2.4); AST(SGOT) 24 U/L (15-37); Alanine Aminotransfer ALT/SGPT 37 U/L (13-56); Alkaline Phosphatase 92 U/L (45-117); Anion Gap 4 (5-15); BUN 24 mg/dL (7-18); BUN/Creat Ratio 27.9 RATIO (10-20); Calcium,Total 9.3 mg/dL (8.5-10.1); Chloride 106 mmol/L (98-107); Creatinine, Serum 0.86 mg/dL (0.55-1.02); EST Glomerular Filtration Rate 70 mL/min (>60); Est Glom Filt Rate - Afr Amer 85 mL/min (>60); Globulin 3.1 g/dL (2.2-4.2); Glucose 163 mg/dL (74-106); Potassium 4.5 mmol/L (3.5-5.1); Protein, Total 7.1 g/dL (6.4-8.2); Sodium Level 137 mmol/L (136-145); Thyroid Stim Hormone (TSH) 0.71 uIU/mL (0.358-3.74)
== END | disposition home or self-care (01) ==
LOC: LAB 12:34
PROVIDERS: PCP Family Medicine Geriatric Medicine; Referring Provider Family Medicine Geriatric Medicine; Visit Provider Family Medicine Geriatric Medicine
DX: I10 Essential (primary) hypertension (principal); E11.9 Type 2 diabetes mellitus without complications; E55.9 Vitamin D deficiency, unspecified
CPT/HCPCS: 36415; 80053; 82306; 84443; 85025

== ENCOUNTER → 2021-11-27 | Outpatient (CLI) | payer MEDICARE, SELFPAY ==
[2019-05-07 15:40] VITALS: BMI 32.8
--- NOTE | 2021-11-27 09:27 | BI_ITS ---
MAMMOGRAPHY - BILATERAL SCREENING REASON FOR EXAM: Female, 66 years old. Routine annual screening examination. PERTINENT HISTORY: Non-contributory. Prior left excisional breast biopsy. TECHNIQUE: Digital bilateral breast nadege (3D mammographic acquisition) in the CC and MLO projections. 2-D mediolateral oblique (MLO) and craniocaudad (CC) views of both breasts were obtained. CAD: Full Field Digital Mammography with Computer Added Detection was performed. COMPARISON: Comparison is made with prior study dated 11/25/2020 FINDINGS: Breast Composition: The breasts are almost entirely fatty. There are no dominant masses or suspicious calcifications. No other significant abnormalities are identified. There has been no significant change since the prior study. BI/SCRN MAMM (CAD)W/NADEGE BILAT IMPRESSION: Stable bilateral screening mammogram. Yearly follow-up mammogram recommended. (A) ASSESSMENT CATEGORY: BIRADS Category 1: Negative. A letter regarding these results will be sent to the patient by the facility within 30 days. Approximately 10% of breast cancers are not detected by mammography. A normal mammogram should not delay biopsy of a clinically suspicious abnormality. [id number] Electronically Signed: Isael Rizzo MD at 10:42 EDT ,
== END | disposition home or self-care (01) ==
LOC: OPBI 09:26
PROVIDERS: PCP Family Medicine Geriatric Medicine; Referring Provider Family Medicine Geriatric Medicine; Visit Provider Family Medicine Geriatric Medicine
DX: Z12.31 Encounter for screening mammogram for malignant neoplasm of breast (principal)
CPT/HCPCS: 77063; 77067

== ENCOUNTER → 2021-12-27 | Outpatient (CLI) | payer MEDICARE, MEDICAID, SELFPAY ==
[2019-05-07 15:40] VITALS: BMI 32.8
--- NOTE | 2021-12-27 06:53 | ECHOD_ITS ---
Reason For Study: HTN Procedure This was a 2D Doppler, Color Flow transthoracic echocardiogram. The exam was of adequate technical quality. Exam performed in department. Left Ventricle Normal LV size. Left ventricular systolic function is normal. The estimated ejection fraction is 65 %. No evidence for diastolic dysfunction. No regional wall motion abnormalities noted. Right Ventricle Normal RV size. Normal systolic function. Atria The left atrium is mildly enlarged. Normal right atrium. No doppler evidence for ASD. Mitral Valve There is no mitral annular calcification. Normal mitral valve. Mild-Moderate (1-2+) mitral valve insufficiency. Tricuspid Valve Normal tricuspid valve. Trivial tricuspid valve insufficiency. Unable to estimate RV systolic pressure due to insufficient tricuspid regurgitant envelope. Aortic Valve Trisinus/trileaflet aortic valve. Mild focal aortic valve calcification. Mild (1+) aortic valve insufficiency. Pulmonic Valve The pulmonic valve is not well visualized. Trivial pulmonic valve insufficiency. Great Vessels Normal sized aortic root. Pericardium/Pleural No pericardial effusion. MMode/2D Measurements & Calculations LVIDd: 4.1 cm IVSd: 1.2 cm Ao root diam: 2.9 cm LVIDs: 3.0 cm LVPWd: 0.99 cm FS: 26.2 % LAV(MOD-bp): 46.2 ml LVAd ap4: 21.2 cm2 SV(MOD-sp4): 37.2 ml LAV(MOD-bp) Indexed: 25.6 ml/m2 LVLd ap4: 7.3 cm LAV(MOD-sp2): 35.6 ml EDV(MOD-sp4): 49.8 ml LAV(MOD-sp4): 45.7 ml EDV(sp4-el): 52.2 ml LVAs ap4: 9.5 cm2 LVLs ap4: 6.0 cm ESV(MOD-sp4): 12.5 ml ESV(sp4-el): 12.9 ml EF(MOD-sp4): 74.8 % EF(sp4-el): 75.3 % SV(sp4-el): 39.3 ml LA A4 area: 19.4 cm2 LA dimension(2D): 4.5 cm RA A4 area: 18.8 cm2 Time Measurements MV dec time: 0.20 sec Doppler Measurements & Calculations MV E max jose d: 114.1 cm/sec Lat Peak E' Jose D: 9.0 cm/sec Med Peak E' Jose D: 9.6 cm/sec MV A max jose d: 96.3 cm/sec E/E' lat: 12.7 E/E' med: 11.9 MV E/A: 1.2 MV V2 max: 125.4 cm/sec Ao V2 max: 194.7 cm/sec MV max P.3 mmHg MV dec slope: 579.4 cm/sec2 Ao max P.2 mmHg MV V2 mean: 61.1 cm/sec Ao V2 mean: 128.7 cm/sec MV mean P.0 mmHg Ao mean P.7 mmHg MV V2 VTI: 39.4 cm Ao V2 VTI: 48.5 cm LV V1 max: 112.7 cm/sec PA V2 max: 101.1 cm/sec LV V1 max P.1 mmHg PA max PG (full): 1.0 mmHg LV V1 mean P.0 mmHg PA V2 mean: 78.9 cm/sec LV V1 mean: 82.4 cm/sec LV V1 VTI: 29.5 cm ECHO/Echo Complete Interpretation Summary Left ventricular systolic function is normal. The estimated ejection fraction is 65 %. The left atrium is mildly enlarged. Mild-Moderate (1-2+) mitral valve insufficiency. Trivial tricuspid valve insufficiency. Mild focal aortic valve calcification. Trivial pulmonic valve insufficiency. Unable to estimate RV systolic pressure due to insufficient tricuspid regurgita nt envelope. No evidence for diastolic dysfunction. Ordering Physician: Blake Huggins Referring Physician: Blake Huggins Performed By: Evelia Parrish RCS
--- NOTE | 2021-12-27 09:58 | STRESSREP ---
Stress Test Report Date: 12-27-2021 Procedure: Exercise tolerance test/imaging study Indications: Fatigue; hyperlipidemia; hypertension; diabetes mellitus Consent: Per the patient Procedure: The patient exercised on a Augie protocol for 6 minutes completing Stage II achieving a peak heart rate of 164 bpm (107% predicted maximal heart rate) with a peak blood pressure 210/70 mmHg and a peak MET capacity of 7 METs. The baseline ECG demonstrated sinus bradycardia. The peak exercise ECG demonstrated somatic/motion artifact with no obvious ECG changes. There was a rare PAC during recovery. The functional capacity was considered good. There was no complaint of chest discomfort during exercise or recovery. The examination was discontinued secondary to dyspnea and fatigue. Impression: 1. Technically adequate (percent predicted maximal heart rate greater than 85%) exercise tolerance test 2. Peak exercise ECG with somatic/motion artifact with no obvious ECG changes 3. There was a rare PAC during recovery 4. Nuclear images pending Myocardial perfusion imaging study: Technique: The patient was injected with 11.8 mCi of technetium 99m Cardiolite and subsequently rest SPECT Cardiolite nuclear imaging was obtained in the horizontal long, vertical long, and short axis views. The patient exercised on a Augie protocol for 6 minutes completing Stage II achieving a peak heart rate of 164 bpm (107% predicted maximal heart rate) with a peak blood pressure 210/70 mmHg and a peak MET capacity of 7 METs. The patient was injected with 33.6 mCi of technetium 99m Cardiolite and subsequently stress SPECT Cardiolite nuclear imaging was obtained in the horizontal long, vertical long, and short axis views. A gated Cardiolite study at peak stress was obtained. Interpretation: Rest and stress SPECT Cardiolite nuclear imaging status post realignment, normalization, and attenuation correction, demonstrates the appearance of relative uniform tracer uptake and myocardial perfusion appearing within normal limits. There is end systolic thickening and brightening. The gated Cardiolite study demonstrates myocardial thickening and inward wall motion. The reported LVEF is 75%. Impression: 1. Rest and stress SPECT Cardiolite nuclear imaging demonstrate relative uniform tracer uptake and myocardial perfusion appearing within normal limits. 2. The gated Cardiolite study reports an LVEF of 75%. This note was generated with [employer] software. It may contain incorrect words, spelling, and punctuation that were not noted in checking the note before signing.
== END | disposition home or self-care (01) ==
PROVIDERS: PCP Family Medicine Geriatric Medicine; Referring Provider Internal Medicine Cardiovascular Disease; Visit Provider Internal Medicine Cardiovascular Disease
DX: R94.31 Abnormal electrocardiogram [ECG] [EKG] (principal); I10 Essential (primary) hypertension
CPT/HCPCS: 78452; 93017; 93306; A9500; A4216

== ENCOUNTER 2022-04-24 10:28 | Outpatient (CLI) | payer MEDICARE, MEDICAID, SELFPAY ==
[2019-05-07 15:40] VITALS: BMI 32.8
[2022-04-24 13:14] LABS: Absolute Lymphocyte Count 2.37 X10^3/uL (0.83-4.51); Absolute Neutrophil Count 4.3 X10^3/uL (2.0-7.7); Basophil# 0.03 X10^3/uL; Basophil% 0.4 % (0-1); Eosinophil# 0.22 X10^3/uL; Eosinophils% 2.9 % (0-5); Hemoglobin 14.7 g/dL (12.0-15.0); Lymphocyte # 2.37 X10^3/ul (0.83-4.51); Lymphocyte % 31.4 % (19-41); Mean Corp Hgb Conc 33.4 g/dL (32-36); Mean Corpuscular Hgb 31.3 pg (27.0-32.0); Mean Corpuscular Volume 93.8 fL (81-99); Monocyte# 0.58 X10^3/uL; Monocyte% 7.7 % (0-10); NRBC Flagged by Analyzer 0 % (0-5); Neutrophil # 4.32 X10^3/uL (2.7-7.7); Neutrophil % 57.3 % (47-70); Platelet Count 194 K/mm3 (150-450); RBC Distribution Width CV 11.8 % (11.6-14.6); RBC Distribution Width SD 40.2 fl (35.1-43.9); Red Blood Count 4.69 M/mm3 (4.2-5.4); White Blood Count 7.5 K/mm3 (4.4-11.0)
[2022-04-24 13:29] LABS: Vitamin D,25 Hydroxy 20.7 ng/mL
[2022-04-24 13:44] LABS: ALB/GLOB Ratio 1.3 RATIO (0.9-2.4); AST(SGOT) 16 U/L (15-37); Alanine Aminotransfer ALT/SGPT 36 U/L (13-56); Albumin, Serum 3.9 g/dL (3.2-5.0); Alkaline Phosphatase 88 U/L (45-117); Anion Gap 5 (5-15); BUN 30 mg/dL (7-18); BUN/Creat Ratio 37.7 RATIO (10-20); Calcium,Total 10.2 mg/dL (8.5-10.1); Chloride 104 mmol/L (98-107); EST Glomerular Filtration Rate 77 mL/min (>60); Est Glom Filt Rate - Afr Amer 93 mL/min (>60); Glucose 199 mg/dL (74-106); Potassium 4.1 mmol/L (3.5-5.1); Protein, Total 6.9 g/dL (6.4-8.2); Sodium Level 137 mmol/L (136-145); Thyroid Stim Hormone (TSH) 2.07 uIU/mL (0.358-3.74)
== END 2022-04-24 23:59 | disposition home or self-care (01) ==
LOC: POLAB3 10:31
PROVIDERS: PCP Family Medicine Geriatric Medicine; Visit Provider Family Medicine Geriatric Medicine
DX: I10 Essential (primary) hypertension (principal); E11.65 Type 2 diabetes mellitus with hyperglycemia; E55.9 Vitamin D deficiency, unspecified
CPT/HCPCS: 36415; 80053; 82306; 84443; 85025

== ENCOUNTER → 2022-07-16 | Outpatient (CLI) | payer MEDICARE, SELFPAY ==
[2019-05-07 15:40] VITALS: BMI 32.8
== END | disposition home or self-care (01) ==
LOC: PSN 11:48
PROVIDERS: PCP Family Medicine Geriatric Medicine; Referring Provider Family Medicine Geriatric Medicine; Visit Provider Family Medicine Geriatric Medicine
DX: R68.83 Chills (without fever) (principal)
CPT/HCPCS: 87635; 87804; 87807; C9803; U0003; U0005

== ENCOUNTER → 2022-10-26 | Outpatient (CLI) | payer MEDICARE, SELFPAY ==
[2019-05-07 15:40] VITALS: BMI 32.8
[2022-10-26 17:06] LABS: Amphetamine Urine VISTA NEGATIVE (<1000 ng/mL); Barbiturate Urine VISTA NEGATIVE (< 200 ng/mL); Benzodiazepine Urine VISTA NEGATIVE (< 200 ng/mL); Cocaine Urine VISTA NEGATIVE (< 300 ng/mL); Ecstacy Urine VISTA NEGATIVE (< 500 ng/mL); Methadone Urine VISTA NEGATIVE (< 300 ng/mL); PCP Urine VISTA NEGATIVE (< 25 ng/mL); THC Urine VISTA NEGATIVE (< 50 ng/mL); Vista UDS pH Range 4
== END | disposition home or self-care (01) ==
LOC: LAB 15:40
PROVIDERS: PCP Family Medicine Geriatric Medicine; Visit Provider Internal Medicine Pulmonary Disease
DX: G47.10 Hypersomnia, unspecified (principal)
CPT/HCPCS: 80307

== ENCOUNTER → 2022-10-29 | Outpatient (CLI) | payer MEDICARE, SELFPAY ==
[2019-05-07 15:40] VITALS: BMI 32.8
[2022-10-29 10:29] LABS: Bacteria 0 SEEN /hpf (None Seen); Mucous, Urine 0 SEEN /hpf (<or=2+); Red Blood Cells-Urine 0 SEEN /hpf (0-5)
[2022-10-29 10:52] LABS: Absolute Lymphocyte Count 1.79 X10^3/uL (0.83-4.51); Absolute Neutrophil Count 3.7 X10^3/uL (2.0-7.7); Basophil# 0.04 X10^3/uL; Basophil% 0.6 % (0-1); Eosinophil# 0.33 X10^3/uL; Eosinophils% 5.1 % (0-5); Hematocrit 40.5 % (37-47); Hemoglobin 13.4 g/dL (12.0-15.0); Lymphocyte # 1.79 X10^3/ul (0.83-4.51); Lymphocyte % 27.8 % (19-41); Mean Corp Hgb Conc 33.1 g/dL (32-36); Mean Corpuscular Hgb 32.9 pg (27.0-32.0); Mean Corpuscular Volume 99.5 fL (81-99); Mean Platelet Vol. 9.6 fl (6.2-12.0); Monocyte# 0.57 X10^3/uL; Monocyte% 8.8 % (0-10); NRBC Flagged by Analyzer 0 % (0-5); Neutrophil % 57.4 % (47-70); Platelet Count 160 K/mm3 (150-450); RBC Distribution Width CV 12.5 % (11.6-14.6); RBC Distribution Width SD 45.8 fl (35.1-43.9); Red Blood Count 4.07 M/mm3 (4.2-5.4); White Blood Count 6.5 K/mm3 (4.4-11.0)
[2022-10-29 11:07] LABS: Color, Urine Yellow (Yellow); Glucose, Dipstick Normal (Normal); Ketone-Dipstick Negative (Negative); Leukocyte Esterase-Dipstick 500 /ul (Negative); Nitrite-Dipstick Negative (Negative); Occult Blood-Urine Negative /ul (Negative); Protein-Dipstick 15 mg/dl (Negative); Specific Gravity, Urine 1.025 (1.002-1.030); Urine Bilirubin Dipstick Negative (Negative); Urine Clarity Sl. Cloudy (Clear); Urine Urobilinogen Normal (Normal)
[2022-10-29 11:22] LABS: Vitamin D,25 Hydroxy 43.6 ng/mL
[2022-10-29 11:24] LABS: Squamous Epithelial Cells - UA 0-5 SEEN /hpf (5-10); White Blood Cells 25-50 SEEN /hpf (0-5)
[2022-10-29 11:26] LABS: ALB/GLOB Ratio 1.3 RATIO (0.9-2.4); AST(SGOT) 21 U/L (15-37); Alanine Aminotransfer ALT/SGPT 45 U/L (13-56); Albumin, Serum 3.8 g/dL (3.2-5.0); Alkaline Phosphatase 91 U/L (45-117); Anion Gap 5 (5-15); BUN 29 mg/dL (7-18); BUN/Creat Ratio 29.9 RATIO (10-20); Calcium,Total 9.3 mg/dL (8.5-10.1); Chloride 112 mmol/L (98-107); Creatinine, Serum 0.97 mg/dL (0.55-1.02); EST Glomerular Filtration Rate 61 mL/min (>60); Est Glom Filt Rate - Afr Amer 73 mL/min (>60); Globulin 2.9 g/dL (2.2-4.2); Glucose 215 mg/dL (74-106); Potassium 4.8 mmol/L (3.5-5.1); Protein, Total 6.7 g/dL (6.4-8.2); Sodium Level 140 mmol/L (136-145)
== END | disposition home or self-care (01) ==
LOC: LAB 10:23
PROVIDERS: PCP Family Medicine Geriatric Medicine; Referring Provider Family Medicine Geriatric Medicine; Visit Provider Family Medicine Geriatric Medicine
DX: E11.65 Type 2 diabetes mellitus with hyperglycemia (principal); I10 Essential (primary) hypertension; E55.9 Vitamin D deficiency, unspecified
CPT/HCPCS: 36415; 80053; 81001; 82306; 84443; 85025

== ENCOUNTER → 2022-12-14 | Outpatient (CLI) | payer MEDICARE, SELFPAY ==
[2019-05-07 15:40] VITALS: BMI 32.8
[2022-12-14 09:53] LABS: Microalbumin,Random Urine 6.9 mg/L (NO RANGE EST.); Microalbumin:Creatinine Ratio 12.9 mg/g CRE (<30 mg/g CRE)
[2022-12-14 09:56] LABS: Cholesterol 131 mg/dL (200); High Density Lipoprotein 35 mg/dL; Triglycerides 378 mg/dL; Very Low Density Lipoprotein 76 mg/dL (5-40)
== END | disposition home or self-care (01) ==
LOC: LAB 08:36
PROVIDERS: PCP Family Medicine; Referring Provider Nurse Practitioner Family; Visit Provider Nurse Practitioner Family
DX: E11.9 Type 2 diabetes mellitus without complications (principal); E78.5 Hyperlipidemia, unspecified
CPT/HCPCS: 36415; 80061; 82043; 82570

== ENCOUNTER → 2023-02-05 | Outpatient (CLI) | payer MEDICARE, SELFPAY ==
[2019-05-07 15:40] VITALS: BMI 32.8
[2023-02-05 17:46] LABS: Absolute Lymphocyte Count 1.93 X10^3/uL (0.83-4.51); Basophil# 0.03 X10^3/uL; Basophil% 0.4 % (0-1); Eosinophils% 2.6 % (0-5); Hematocrit 40.3 % (37-47); Hemoglobin 13.7 g/dL (12.0-15.0); Lymphocyte # 1.93 X10^3/ul (0.83-4.51); Lymphocyte % 24.9 % (19-41); Mean Corpuscular Hgb 32.9 pg (27.0-32.0); Mean Corpuscular Volume 96.9 fL (81-99); Mean Platelet Vol. 10.2 fl (6.2-12.0); Monocyte# 0.58 X10^3/uL; Monocyte% 7.5 % (0-10); NRBC Flagged by Analyzer 0 % (0-5); Neutrophil # 4.98 X10^3/uL (2.7-7.7); Neutrophil % 64.2 % (47-70); Platelet Count 197 K/mm3 (150-450); RBC Distribution Width CV 11.6 % (11.6-14.6); RBC Distribution Width SD 41.1 fl (35.1-43.9); Red Blood Count 4.16 M/mm3 (4.2-5.4); White Blood Count 7.8 K/mm3 (4.4-11.0)
[2023-02-05 18:09] LABS: Erythrocyte Sedimentation Rate 4 mm/hr (0-30)
[2023-02-05 18:33] LABS: Vitamin B12 1555 pg/mL (211-911)
[2023-02-05 19:14] LABS: ALB/GLOB Ratio 1.2 RATIO (0.9-2.4); AST(SGOT) 28 U/L (15-37); Alanine Aminotransfer ALT/SGPT 55 U/L (13-56); Albumin, Serum 3.8 g/dL (3.2-5.0); Alkaline Phosphatase 112 U/L (45-117); Anion Gap 9 (5-15); BUN 21 mg/dL (7-18); BUN/Creat Ratio 23.4 RATIO (10-20); CRP < 2.90 mg/L (0.0-3.0); Chloride 108 mmol/L (98-107); EST Glomerular Filtration Rate 66 mL/min (>60); Est Glom Filt Rate - Afr Amer 80 mL/min (>60); Ferritin 71 ng/mL (8-252); Globulin 3.2 g/dL (2.2-4.2); Glucose 143 mg/dL (74-106); Potassium 4.5 mmol/L (3.5-5.1); Sodium Level 138 mmol/L (136-145); Thyroid Stim Hormone (TSH) 0.67 uIU/mL (0.358-3.74)
[2023-02-07 12:09] LABS: ANTINUCLEAR ANTIBODIES DIRECT Negative (Negative)
== END | disposition home or self-care (01) ==
LOC: MFPLAB 14:48
PROVIDERS: PCP Family Medicine; Visit Provider Family Medicine
DX: R53.83 Other fatigue (principal); E11.69 Type 2 diabetes mellitus with other specified complication; G25.81 Restless legs syndrome
CPT/HCPCS: 36415; 80053; 82607; 82728; 82746; 84443; 85025; 85652; 86038; 86140

== ENCOUNTER → 2023-07-30 | Outpatient (CLI) | payer MEDICARE, SELFPAY ==
[2019-05-07 15:40] VITALS: BMI 32.8
[2023-07-30 18:51] LABS: ALB/GLOB Ratio 1.1 RATIO (0.9-2.4); AST(SGOT) 17 U/L (15-37); Alanine Aminotransfer ALT/SGPT 30 U/L (13-56); Albumin, Serum 3.6 g/dL (3.2-5.0); Alkaline Phosphatase 69 U/L (45-117); Anion Gap 7 (5-15); BUN 20 mg/dL (7-18); BUN/Creat Ratio 21.5 RATIO (10-20); Chloride 111 mmol/L (98-107); Creatinine, Serum 0.93 mg/dL (0.55-1.02); EST Glomerular Filtration Rate 64 mL/min (>60); Est Glom Filt Rate - Afr Amer 77 mL/min (>60); Ferritin 49 ng/mL (8-252); Globulin 3.2 g/dL (2.2-4.2); Glucose 149 mg/dL (74-106); Potassium 4.4 mmol/L (3.5-5.1); Protein, Total 6.8 g/dL (6.4-8.2); Sodium Level 139 mmol/L (136-145)
[2023-07-30 20:59] LABS: Hemoglobin A1c 6.8 % (3.8-5.6)
== END | disposition home or self-care (01) ==
LOC: MFPLAB 09:37
PROVIDERS: PCP Family Medicine; Visit Provider Family Medicine
DX: Z52.008 Unspecified donor, other blood (principal); E11.69 Type 2 diabetes mellitus with other specified complication
CPT/HCPCS: 36415; 80053; 82728; 83036

== ENCOUNTER → 2023-12-30 | Outpatient (CLI) | payer MEDICARE, SELFPAY ==
[2019-05-07 15:40] VITALS: BMI 32.8
[2023-12-30 10:01] LABS: Absolute Lymphocyte Count 2.11 X10^3/uL (0.83-4.51); Absolute Neutrophil Count 4.3 X10^3/uL (2.0-7.7); Basophil# 0.03 X10^3/uL; Basophil% 0.4 % (0-1); Eosinophil# 0.29 X10^3/uL; Eosinophils% 3.9 % (0-5); Hematocrit 37.7 % (37-47); Hemoglobin 12.7 g/dL (12.0-15.0); Lymphocyte # 2.11 X10^3/ul (0.83-4.51); Lymphocyte % 28.7 % (19-41); Mean Corp Hgb Conc 33.7 g/dL (32-36); Mean Corpuscular Volume 97.9 fL (81-99); Mean Platelet Vol. 9.8 fl (6.2-12.0); Monocyte% 8.2 % (0-10); NRBC Flagged by Analyzer 0 % (0-5); Neutrophil # 4.29 X10^3/uL (2.7-7.7); Neutrophil % 58.4 % (47-70); Platelet Count 170 K/mm3 (150-450); RBC Distribution Width SD 46.1 fl (35.1-43.9); Red Blood Count 3.85 M/mm3 (4.2-5.4); White Blood Count 7.4 K/mm3 (4.4-11.0)
[2023-12-30 10:24] LABS: Microalbumin,Random Urine 62.4 mg/L (NO RANGE EST.)
[2023-12-30 10:37] LABS: Vitamin D,25 Hydroxy 47.9 ng/mL
[2023-12-30 10:38] LABS: Cholesterol 109 mg/dL (200); High Density Lipoprotein 39 mg/dL; Thyroid Stim Hormone (TSH) 2.28 uIU/mL (0.358-3.74); Triglycerides 313 mg/dL; Very Low Density Lipoprotein 63 mg/dL (5-40)
[2023-12-30 11:55] LABS: ALB/GLOB Ratio 1.2 RATIO (0.9-2.4); AST(SGOT) 37 U/L (15-37); Alanine Aminotransfer ALT/SGPT 43 U/L (13-56); Albumin, Serum 3.6 g/dL (3.2-5.0); Alkaline Phosphatase 56 U/L (45-117); Anion Gap 7 (5-15); BUN 22 mg/dL (7-18); BUN/Creat Ratio 22.8 RATIO (10-20); Calcium,Total 9.5 mg/dL (8.5-10.1); Chloride 108 mmol/L (98-107); Creatinine, Serum 0.96 mg/dL (0.55-1.02); EST Glomerular Filtration Rate 61 mL/min (>60); Est Glom Filt Rate - Afr Amer 74 mL/min (>60); Ferritin 77 ng/mL (8-252); Globulin 2.9 g/dL (2.2-4.2); Glucose 146 mg/dL (74-106); Potassium 4.3 mmol/L (3.5-5.1); Protein, Total 6.5 g/dL (6.4-8.2); Sodium Level 138 mmol/L (136-145)
== END | disposition home or self-care (01) ==
PROVIDERS: PCP Family Medicine; Referring Provider Nurse Practitioner Family; Visit Provider Nurse Practitioner Family
DX: G25.81 Restless legs syndrome (principal); E11.69 Type 2 diabetes mellitus with other specified complication; E11.65 Type 2 diabetes mellitus with hyperglycemia; E55.9 Vitamin D deficiency, unspecified
CPT/HCPCS: 36415; 80053; 80061; 82043; 82306; 82570; 82728; 83036; 84443; 85025

== ENCOUNTER → 2024-04-08 | Outpatient (CLI) | payer MEDICARE, SELFPAY ==
[2019-05-07 15:40] VITALS: BMI 32.8
== END | disposition home or self-care (01) ==
LOC: OPBD 09:48
PROVIDERS: PCP Family Medicine; Referring Provider Family Medicine; Visit Provider Family Medicine
DX: Z12.31 Encounter for screening mammogram for malignant neoplasm of breast (principal); N95.9 Unspecified menopausal and perimenopausal disorder
CPT/HCPCS: 77063; 77067; 77080

== ENCOUNTER 2024-04-24 06:18 | Day surgery (SDC) | payer MEDICARE, SELFPAY ==
[2019-05-07 15:40] VITALS: BMI 32.8
[2024-04-24] VITALS (8 sets, daily range): BP systolic 100–136; BP diastolic 59–87; PULSE 82–105; RESP 16–18; TEMP 36.1–36.3; O2SAT 94–99; BMI 27.8
--- NOTE | 2024-04-24 | COLBX_PTH ---
PATIENT: ROSENDO GLASS LOC: EN U#:[id number] AGE/SX: 68/F ROOM: RE04/24/[address]: Dr. Michael Whaley MD : 1955 BED: DIS: 04/24/2024 SPEC #: [id number] RECD: 04/24/24 12:27 STATUS: SEBASTIÁN KRISHNAN #: [id number] DANIA: 04/24/24 00:[address]: Michael Whaley DEPT: SURGICAL PATHOLOGY RECD BY: Reymundo Murguia ENTERED: 04/24/24 12:28 SP TYPE: COLON BX OTHR DR: Dr. Chintan Saucedo MD Tissues: A - Transverse colon B - Rectum, NOS Procedures: Surgery Specimen Level IV HEADER OPERATION: Colonoscopy PRE-OP DIAGNOSIS: Personal history of colonic polyps TISSUE SUBMITTED: A- Transverse colon polyp, B- Rectal polyp MICROSCOPIC DIAGNOSIS A. Transverse colon polyp, biopsy: Fragments of inflammatory polyp. B. Rectal polyp, biopsy: Inflammatory polyp. AM. 04/27/2024 MICROSCOPIC DESCRIPTION Slides are reviewed. GROSS DESCRIPTION A. Received in fixative is one container labeled with the patient's name and designated Transverse colon polyps. The specimen consists of two irregular fragments of light alexander soft tissue that in aggregate measure 0.9 x 0.6 x 0.1 cm. The specimen is totally submitted in one cassette. B. Received in fixative is one container labeled with the patient's name and designated Rectal polyp. The specimen consists of one irregular fragment of light alexander soft tissue that measures 0.5 x 0.5 x 0.1 cm. The specimen is totally submitted in one cassette. AM. 04/24/2024 TC:5 CPT:[id number]
--- NOTE | 2024-04-24 07:10 | H&P.OPEN ---
HPI - General HPI Narrative ROSENDO GLASS, is a 68 F who presents for surveillance colonoscopy. Her last colonoscopy was in 2019. She had 2 polyps removed. She has a history of colon cancer and had a partial colectomy in 1998. Patient also has family history of colon cancer in her brother and FAP in her brother and sister. Patient also had countless polyps at one time requiring colectomy. Currently the patient denies any abdominal pain or blood in the stool. [facility] Medical History (Updated 04/23/24 @ 09:59 by Jabier Walker) Wears glasses History of echocardiogram History of stress test Cardiology follow-up encounter ZACHERY treated with BiPAP Family history of malignant neoplasm of colon in relative diagnosed when younger than 50 years of age Essential hypertension Diabetes mellitus type II, controlled Hematoma Mass of soft tissue of left lower extremity Diabetes mellitus, type II History of colon cancer Chest pain, unspecified Abnormal electrocardiogram Hyperlipidemia BMI 33.0-33.9,adult Daytime somnolence Obstructive sleep apnea Periodic limb movement disorder Home Medications ?Medication ?Instructions ?Recorded ?Last Taken ?Type benazepril 10 mg tablet 10 mg PO QDAY 05/03/17 05/01/19 History cinnamon bark 500 mg capsule 1,000 mg PO DAILY 05/03/17 Unknown History (Cinnamon) magnesium oxide 400 mg PO QDAY 05/03/17 Unknown History multivitamin,ub-mcvk-kzntqbio 1 tab PO QDAY 05/03/17 Unknown History (Complete Multivitamin tablet) doxycycline hyclate 100 mg capsule 100 mg PO QDAY PRN FACE BREAKOUT 07/15/17 Unknown History hyzqkrbg-svv-LG 200 mcg-vit K 15 2 tab PO DAILY 11/22/21 Unknown History mcg-lycope 150 ujy-mqpdfx-boht tablet (Ocuvite Eye Plus Multi) cholecalciferol (vitamin D3) 50 50 mcg PO DAILY #90 caps 07/09/22 Unknown Rx mcg (2,000 unit) capsule lactobacillus combination no.9 4 4,000 mmu cells PO DAILY 07/09/22 Unknown History billion cell capsule (Adult 50 Plus Probiotic) blood-glucose sensor (FreeStyle #2 ea 07/11/22 Unknown Rx Brennan 3 Sensor device) coenzyme Q10 100 mg capsule (Co 600 mg PO DAILY 07/25/22 Unknown History Q-10) elderberry fruit 350 mg capsule 350 mg PO DAILY 07/25/22 04/22/24 History methylphenidate HCl 20 mg biphasic 20 mg PO DAILY 07/01/23 Unknown History 50-50 capsule,extended release blood sugar diagnostic (Accu-Chek #100 ea 07/31/23 Unknown Rx SmartView Test Strips) lysine 500 mg tablet 1,000 mg PO DAILY 12/30/23 Unknown History metformin 1,000 mg tablet 1,000 mg PO BID #180 tabs 02/24/24 Unknown Rx ascorbic acid (vitamin C) 500 mg 1,000 mg PO DAILY 03/10/24 Unknown History tablet biotin 400 mcg tablet 400 mcg PO DAILY 03/10/24 Unknown History carboxymethylcellulose sodium 1 % 1 drp ophthalmic (eye) BID 03/10/24 Unknown History eye liquid gel drops (Refresh Liquigel) coffee extract 100 mg-phosphatidyl 1 cap PO DAILY 03/10/24 Unknown History serine 100 mg capsule (Neuriva Original) cyanocobalamin (vitamin B-12) 1,000 mcg PO QDAY 03/10/24 Unknown History 1,000 mcg tablet (Vitamin B-12) diclofenac potassium 50 mg tablet 50 mg PO BID PRN pain 03/10/24 Unknown History ferrous sulfate 325 mg (65 mg 325 mg PO QDAY 03/10/24 04/15/24 History iron) tablet (FeroSul) nystatin 100,000 unit/gram topical 1 applic topical BID PRN REDNESS 03/10/24 Unknown History ointment psyllium husk 0.4 gram capsule 0.8 g PO DAILY 03/10/24 04/22/24 History (Metamucil) atorvastatin 10 mg tablet 10 mg PO MOWEFR 03/30/24 Unknown History semaglutide 1 mg/dose (4 mg/3 mL) 1 mg (0.75 mL) subcut QWEEK #3 mL 03/30/24 04/13/24 Rx subcutaneous pen injector (Ozempic) ketotifen fumarate 0.025 % (0.035 1 drp EACH EYE BID 04/23/24 Unknown History %) eye drops (Allergy Eye (ketotifen)) Allergy/AdvReac Type Severity Reaction Status Date / Time amoxicillin Allergy Mild YEAST Verified 04/24/24 06:48 aspirin (From Ar Aspirin) Allergy Mild Bleeding Verified 04/24/24 06:48 Latex, Natural Rubber Allergy Mild RASH Verified 04/24/24 06:48 Family History Sister ZACHERY (obstructive sleep apnea) Brother , Age 62 from [place] CAD (coronary artery disease), Onset Age: 61 PCI and stents Myocardial infarction Father Pacemaker Cardiomyopathy Brother , of colon cancer Colon cancer, Onset Age: 33 at 36yrs Surgical History (Updated 04/23/24 @ 09:59 by Jabier Walker) Hx of appendectomy History of hysterectomy Hx of breast biopsy History of bladder suspension procedure History of tubal ligation History of colectomy H/O arthroscopy of left knee History of carpal tunnel release of both wrists Social History household members: none current occupational status: retired Smoking Status: Never smoker second hand exposure: No alcohol intake: current alcohol intake frequency: holidays/special occasions only Alcohol type: other substance use type: does not use caffeine: Yes (2/day) what type of physical activity do you participate in: none Past Medical/Surgical History Planned Operation Planned Operative Procedure(s): COLONOSCOPY S.O.S: No Previous Hospitalizations/Surgeries HX Hospitalizations: No HX of Surgeries: HYSTERECTOMY COLON CA-COLECTOMY KNEE CTR KAREEN PORT INSERTED THEN D/C'D Any Problems With Anesthesia: No You/Your Family Experience Fever (Hyperthermia) With Anes: No Cholinesterase deficiency: No Cardiovascular Hx Chest Pain within Last 2 months: No Hx of Irregular Heartbeat and/or Afib: No Hx Heart Attack: No Hx Congestive Heart Failure: No Hx Rheumatic Fever: No Hx Hypertension: Yes (CONTROLLED WITH MEDS) Hx Internal Defibrillator: No Hx Pacemaker: No Hx Cardiac Catheterization: No Hx Cardiac Surgery/Stents/Etc.: No Hx Stress Test: Yes (STRESS ECHO 2019, ECHO 2014) Hx Pain in Legs when Walking/Leg Cramps: Yes Respiratory Chronic Cough: No HX of Shortness of Breath: No Hoarseness: No Hx Chronic Obstructive Pulmonary Disease (COPD): No Hx Asthma: No Hx Emphysema: No Hx Sleep Apnea: Yes CPAP: No BIPAP: Yes Hx Respiratory Tract Infection/Cold (presently): No Result (for STOP score): Positive Hx Smoking: Yes Smoking Status: Never smoker Gastrointestinal Controlled With Meds: No Hx Gastrointestinal Disorders: Yes (IBS) Hx Gastrointestinal Bleed: Yes Hx Ulcer: Yes Hx Hiatal Hernia: No Difficulty Chewing/Swallowing: No Special diet followed at home: No Hx Unplanned Weight Loss of 20#: No HX Unplanned Weight Gain of 20#: No Neurological Hx Seizures: No HX Syncope/Blackout Spells/Unconsciousness: No Hx Transient Ischemic Attacks (TIA): No Hx Multiple Sclerosis: No Hx Parkinson's Disease: No Hx Head/Neck Injury: No Hx Headaches: No Hx Back Injury/Pain: Yes Recent Onset of Speech Difficulty: No Restless Legs: Yes Does patient have nerve stimulator: No Blood Disorder Hx Leukemia: No Bleeding Tendencies: No Hx Deep Vein Thrombosis: No Hx High Cholesterol: Yes (ON MED) Blood Transmitted Disease: No Hx Hepatitis: No Hx Cirrhosis: No Hx Anemia: No Hx Blood Disorders: No Reproduction Is Patient Lactating: No Hx Hysterectomy: Yes Hx Tubal Ligation: No Are You Post Menopause: Yes Genitourinary Hx Renal Disease: No Musculoskeletal Hx Arthritis: Yes Hx Rheumatoid Arthritis: No Hx Gout: No Recent Onset of an Orthopedic Problem: No Endocrine Hx Diabetes: Yes Insulin: No Thyroid Disease: No Hx Steroid Therapy: No Psycho/Social Hx Substance Use: No Hx Alcohol Use: No Hx Anxiety: No Hx Depression: No Mental Illness: No Hx Dementia: No Miscellaneous Hx Cancer: Yes (COLON) Recent Exposure to Contagious Disease: No Hx of C-Diff: No Any Loose Teeth: No Allergies amoxicillin Allergy (Mild, Verified 04/24/24 06:48) YEAST Yeast infection aspirin (From Ar Aspirin) Allergy (Mild, Verified 04/24/24 06:48) Bleeding Bleeding ulcers Latex, Natural Rubber Allergy (Mild, Verified 04/24/24 06:48) RASH Discharge After D/C, Where Do you Plan to Go: Return Home From the PAT History Number of Risk Factors: 6 Vital Signs Vital Signs Vital Signs: 04/24/24 06:51 04/24/24 06:51 Temperature 96.9 F L Temperature Source Temporal Pulse Rate 105 H Respiratory Rate 16 Respiratory Pattern Normal Blood Pressure 136/87 H Blood Pressure Mean 103 Blood Pressure Source Monitor Blood Pressure Position Sitting Blood Pressure Location Left Arm Pulse Ox 99 Oxygen Delivery Method Room Air Weight Weight: 162 lb 7.691 oz Body Mass Index (BMI) 27.8 Physical Exam Const alert and oriented x3 HEENT normocephalic Eyes PERRL Resp normal respiratory effort and normal air movement Cardio regular rate and regular rhythm GI soft to palpation, non-tender and non-distended Extremity normal to inspection Assessment & Plan Assessment/Plan (1) Personal history of colonic polyps: PLAN: I explained endoscopy in detail to the patient. I explained the risks including but not limited to stroke or heart attack with anesthesia, perforation of the GI tract, bleeding, infection. I explained that any of these could necessitate further emergency surgery. The patient understands and all questions were answered sufficiently. The patient wishes to proceed with procedure. Michael Whaley MD Pager: [facility] [address] [place] [address], [address] [place] [address] Office: Surgery Risks - Colonoscopy Risks Include but are not Limited To: Risks include but are not limited to: Bleeding, perforation requiring further surgery, inability to complete colonoscopy requiring barium enema.
--- NOTE | 2024-04-24 07:12 | PRE.ANES_ITS ---
ASA Classification* ASA Classification ASA Classification: 3 Assessment & Plan Anesthesia* Anesthesia Assessment Anesthesia Assessment: Discussed sedation and/or anesthesia options, risks, benefits, and alternatives with patient/parents/legal guardian/POA. Questions invited. The patient/parents/legal guardian/POA seems to understand and agrees to proceed with anesthesia plan. Reviewed the physical assessment, medical history, allergy history and patient home medications list prior to surgery/procedure/anesthetic and documented any changes. Performed airway and anesthesia risk assessments. Anesthesia Type Anesthesia Type: MAC Anesthesia Focused Assessment* Temperature: 96.9 F Pulse Rate: 105 Blood Pressure: 136/87 Respiratory Rate: 16 Pulse Ox: 99 Airway Assessment Mouth opens: >3 cm Mallampati Score: II Focused Labs Anesthesia Preop lab: CBC WBC 7.4 K/mm3 (4.4-11.0) 12/30/23 09:06 RBC 3.85 M/mm3 (4.2-5.4) L 12/30/23 09:06 Hgb 12.7 g/dL (12.0-15.0) 12/30/23 09:06 Hct 37.7 % (37-47) 12/30/23 09:06 Plt Count 170 K/mm3 (150-450) 12/30/23 09:06 CHEMISTRY Potassium 4.3 mmol/L (3.5-5.1) 12/30/23 09:06 Sodium 138 mmol/L (136-145) 12/30/23 09:06 Magnesium 1.7 mg/dL (1.8-2.4) L 08/14/16 17:09 Phosphorus 3.4 mg/dL (2.5-4.9) 08/14/16 17:09 BUN 22 mg/dL (7-18) H 12/30/23 09:06 Creatinine 0.96 mg/dL (0.55-1.02) 12/30/23 09:06 Glucose 146 mg/dL (74-106) H 12/30/23 09:06 POC Glucose 147 mg/dL (70-110) H 05/01/19 06:57 TSH 2.28 uIU/mL (0.358-3.74) 12/30/23 09:06 COAG Pre-Assessment Diagnosis/Proposed Procedure Planned Operative Procedure(s): COLONOSCOPY Anesthesia History 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 When Was Last Pacemaker Check QUESTION #4 FULL TEXT: You/Your Family Experience fever (hyperthermia) with Anesthesia Last Oral Intake Last Oral intake: Last Oral Intake NPO since 03:00 04/24/24 06:51 Meds taken in AM with sips of No 04/24/24 06:51 water? Meds patient instructed to take am of surgery PONV PONV - industrial photographer: PONV - industrial photographer Female No 04/23/24 09:51 HX of Motion Sickness No 04/23/24 09:51 HX of N/V After Surgery No 04/23/24 09:51 Non-Smoker Yes 04/23/24 09:51 Duration of Surgery greater No 04/23/24 09:51 than 60 minutes Number of Risk Factors 1 04/23/24 09:51 PONV Score Low Risk 04/23/24 09:51 Height & Weight Height & Weight: Anesthesia: Height & Weight Height 5 ft 4 in 04/24/24 06:51 Weight: 73.7 kg 04/24/24 06:51 Body Mass Index (BMI) 27.8 04/24/24 06:51 Respiratory Assessment Respiratory Assessment - industrial photographer: Respiratory Tract Infection Hx - industrial photographer Hx Respiratory Tract Infection No 04/24/24 07:12 STOP Sleep Apnea STOP Sleep Apnea - industrial photographer: STOP Sleep Apnea - industrial photographer Hx Hypertension Yes: CONTROLLED WITH MEDS 04/24/24 07:12 Hx Sleep Apnea Yes 04/24/24 07:12 CPAP No 04/24/24 07:12 BIPAP Yes 04/24/24 07:12 Do you snore loudly (louder than talking or can be heard Do you often feel tired/ fatigued/ sleepy during daytime? Has anyone observed you stop breathing during sleep? STOP Results Positive 04/24/24 07:12 QUESTION #5 FULL TEXT : Do you snore loudly (louder than talking or can be heard through closed doors)? 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 Specify any problems Hx of Preganancy in last 3 No 04/23/24 09:51 Months Nurse Filling Out Transfusion [email or web address] 04/23/24 09:51 & Questions: Date: 04/23/24 04/23/24 09:51 Time: 09:53 04/23/24 09:51 Patient unable to answer at this time (ie. confused, unrespo /Reproduction History /Reproductive History - industrial photographer: /Reproductive Hx- industrial photographer Hx Now Gestational Age (in weeks): EDC: Hx Hx Para Hx Section SAB PFSH Medical History Wears glasses History of echocardiogram History of stress test Cardiology follow-up encounter ZACHERY treated with BiPAP Family history of malignant neoplasm of colon in relative diagnosed when younger than 50 years of age Essential hypertension Diabetes mellitus type II, controlled Hematoma Mass of soft tissue of left lower extremity Diabetes mellitus, type II History of colon cancer Chest pain, unspecified Abnormal electrocardiogram Hyperlipidemia BMI 33.0-33.9,adult Daytime somnolence Obstructive sleep apnea Periodic limb movement disorder Home Medications ?Medication ?Instructions ?Recorded ?Last Taken ?Type benazepril 10 mg tablet 10 mg PO QDAY 05/03/17 05/01/19 History cinnamon bark 500 mg capsule 1,000 mg PO DAILY 05/03/17 Unknown History (Cinnamon) magnesium oxide 400 mg PO QDAY 05/03/17 Unknown History multivitamin,lz-fgmk-ymdwidbu 1 tab PO QDAY 05/03/17 Unknown History (Complete Multivitamin tablet) doxycycline hyclate 100 mg capsule 100 mg PO QDAY PRN FACE BREAKOUT 07/15/17 Unknown History erijumhb-wfd-BO 200 mcg-vit K 15 2 tab PO DAILY 11/22/21 Unknown History mcg-lycope 150 vuv-wrpkvu-xipn tablet (Ocuvite Eye Plus Multi) cholecalciferol (vitamin D3) 50 50 mcg PO DAILY #90 caps 07/09/22 Unknown Rx mcg (2,000 unit) capsule lactobacillus combination no.9 4 4,000 mmu cells PO DAILY 07/09/22 Unknown History billion cell capsule (Adult 50 Plus Probiotic) blood-glucose sensor (FreeStyle #2 ea 07/11/22 Unknown Rx Brennan 3 Sensor device) coenzyme Q10 100 mg capsule (Co 600 mg PO DAILY 07/25/22 Unknown History Q-10) elderberry fruit 350 mg capsule 350 mg PO DAILY 07/25/22 04/22/24 History methylphenidate HCl 20 mg biphasic 20 mg PO DAILY 07/01/23 Unknown History 50-50 capsule,extended release blood sugar diagnostic (Accu-Chek #100 ea 07/31/23 Unknown Rx SmartView Test Strips) lysine 500 mg tablet 1,000 mg PO DAILY 12/30/23 Unknown History metformin 1,000 mg tablet 1,000 mg PO BID #180 tabs 02/24/24 Unknown Rx ascorbic acid (vitamin C) 500 mg 1,000 mg PO DAILY 03/10/24 Unknown History tablet biotin 400 mcg tablet 400 mcg PO DAILY 03/10/24 Unknown History carboxymethylcellulose sodium 1 % 1 drp ophthalmic (eye) BID 03/10/24 Unknown History eye liquid gel drops (Refresh Liquigel) coffee extract 100 mg-phosphatidyl 1 cap PO DAILY 03/10/24 Unknown History serine 100 mg capsule (Neuriva Original) cyanocobalamin (vitamin B-12) 1,000 mcg PO QDAY 03/10/24 Unknown History 1,000 mcg tablet (Vitamin B-12) diclofenac potassium 50 mg tablet 50 mg PO BID PRN pain 03/10/24 Unknown History ferrous sulfate 325 mg (65 mg 325 mg PO QDAY 03/10/24 04/15/24 History iron) tablet (FeroSul) nystatin 100,000 unit/gram topical 1 applic topical BID PRN REDNESS 03/10/24 Unknown History ointment psyllium husk 0.4 gram capsule 0.8 g PO DAILY 03/10/24 04/22/24 History (Metamucil) atorvastatin 10 mg tablet 10 mg PO MOWEFR 03/30/24 Unknown History semaglutide 1 mg/dose (4 mg/3 mL) 1 mg (0.75 mL) subcut QWEEK #3 mL 03/30/24 04/13/24 Rx subcutaneous pen injector (Ozempic) ketotifen fumarate 0.025 % (0.035 1 drp EACH EYE BID 04/23/24 Unknown History %) eye drops (Allergy Eye (ketotifen)) Allergy/AdvReac Type Severity Reaction Status Date / Time amoxicillin Allergy Mild YEAST Verified 04/24/24 06:48 aspirin (From Ar Aspirin) Allergy Mild Bleeding Verified 04/24/24 06:48 Latex, Natural Rubber Allergy Mild RASH Verified 04/24/24 06:48 Family History Sister ZACHERY (obstructive sleep apnea) Brother , Age 62 from [place] CAD (coronary artery disease), Onset Age: 61 PCI and stents Myocardial infarction Father Pacemaker Cardiomyopathy Brother , of colon cancer Colon cancer, Onset Age: 33 at 36yrs Surgical History Hx of appendectomy History of hysterectomy Hx of breast biopsy History of bladder suspension procedure History of tubal ligation History of colectomy H/O arthroscopy of left knee History of carpal tunnel release of both wrists Social History household members: none current occupational status: retired Smoking Status: Never smoker second hand exposure: No alcohol intake: current alcohol intake frequency: holidays/special occasions only Alcohol type: other substance use type: does not use caffeine: Yes (2/day) what type of physical activity do you participate in: none Review of Systems (Anesthesia) ROS Narrative System reviewed and no additional complaints, except as documented.
[2024-04-24 07:19] LABS: Bedside Glucose 198 mg/dL (74-106)
--- NOTE | 2024-04-24 07:51 | OP.CCLET_ITS ---
04/24/2024 Chintan Saucedo [address] [place] [address] Re : Colonoscopy procedure for Isabel Davies Dear Dr. Saucedo This procedure was performed on Wednesday, April 24, 2024. My impressions and recommendations are as follows: Impressions : - Three small polyps in the rectum and in the transverse colon, removed with a hot snare. Resected and retrieved. Recommendations : - Discharge patient to home. - Resume previous diet. - Continue present medications. - Await pathology results. - Repeat colonoscopy in 3 years for surveillance. My findings are described in the full procedure note, which is enclosed. If I can be of further assistance, please feel free to contact me at Doctor phone number(s): , Work: . Sincerely, Michael Whaley MD 04/24/2024 7:50:22 AM This report has been signed electronically.
--- NOTE | 2024-04-24 07:51 | OP.COLON_ITS ---
Patient Name: Isabel Davies Procedure Date: 04/24/2024 7:11 AM Date of : 1955 Age: 68 Procedure: Colonoscopy Indications: High risk colon cancer surveillance: Personal history of familial adenomatous polyposis Providers: Michael Whaley MD Referring MD: Chintan Saucedo Medicines: Propofol per Anesthesia Patient Profile: Last Colonoscopy: 5 years ago. Complications: No immediate complications. Estimated blood loss: Minimal. Procedure: Pre-Anesthesia Assessment: - Prior to the procedure, a History and Physical was performed, and patient medications and allergies were reviewed. The patient's tolerance of previous anesthesia was also reviewed. The risks and benefits of the procedure and the sedation options and risks were discussed with the patient. All questions were answered, and informed consent was obtained. Prior Anticoagulants: The patient has taken no anticoagulant or antiplatelet agents. After reviewing the risks and benefits, the patient was deemed in satisfactory condition to undergo the procedure. After I obtained informed consent, the scope was passed under direct vision. Throughout the procedure, the patient's blood pressure, pulse, and oxygen saturations were monitored continuously. The Colonoscope was introduced through the anus and advanced to the cecum, identified by appendiceal orifice and ileocecal valve. The colonoscopy was performed without difficulty. The patient tolerated the procedure well. The quality of the bowel preparation was adequate. Anatomical landmarks were photographed. Scope In: 7:27:49 AM Scope Withdrawal Time 0 hours 16 minutes 17 seconds Scope Out: 7:46:30 AM Total Procedure Duration Time 0 hours 18 minutes 41 seconds Findings: Three polyps were found in the rectum and transverse colon. The polyps were small in size. These polyps were removed with a hot snare. Resection and retrieval were complete. Impression: - Three small polyps in the rectum and in the transverse colon, removed with a hot snare. Resected and retrieved. Recommendation: - Discharge patient to home. - Resume previous diet. - Continue present medications. - Await pathology results. - Repeat colonoscopy in 3 years for surveillance. Procedure Code(s): --- Professional --- 25593, Colonoscopy, flexible; with removal of tumor(s), polyp(s), or other lesion(s) by snare technique Diagnosis Code(s): --- Professional --- Z86.010, Personal history of colonic polyps Z15.09, Genetic susceptibility to other malignant neoplasm D12.8, Benign neoplasm of rectum D12.3, Benign neoplasm of transverse colon (hepatic flexure or splenic flexure) CPT copyright 2021 [employer]. All rights reserved. The codes documented in this report are preliminary and upon bulkhead carpenter review may be revised to meet current compliance requirements. Michael Whaley MD 04/24/2024 7:50:22 AM This report has been signed electronically. Number of Addenda: 0 Note Initiated On: 04/24/2024 7:11 AM
--- NOTE | 2024-04-24 07:59 | PCM.POST.ANE ---
Anesthesia: Postop Eval I Current Vital Signs Temperature: 97.3 F Pulse Rate: 96 Blood Pressure: 120/77 Respiratory Rate: 16 Pulse Ox: 98 Oxygen Delivery Method: Room Air Assessment Airway patent: Yes Spontaneous unlabored respirations: Yes Mental status: Awake and Calm nausea: No Vomiting: No Anesthesia Complication: No Fluid Hydration Crystalloid volume administer (ml): 75 Total IV fluid infused: 75 Progress Note Anesthesia document: Postop Eval 1 completed: Yes
--- NOTE | 2024-04-24 08:09 | PCM.POSTANE2 ---
Anesthesia Postop Eval I Sum Postop Eval Completion status Anesthesia document: Postop Eval 1 completed: Yes Anesthesia Postop Eval I Summary Anesthesia Postop Eval I Summary: Anesthesia Postop Eval I: Assessment Summary Airway patent Yes 04/24/24 08:02 [email or web address] Spontaneous unlabored Yes 04/24/24 08:02 [email or web address] respirations Mental status Awake,Calm 04/24/24 08:02 [email or web address] nausea No 04/24/24 08:02 [email or web address] Vomiting No 04/24/24 08:02 [email or web address] Anesthesia Postop Eval I: Fluid Summary Crystalloid volume administer 75 04/24/24 08:02 [email or web address] (ml) Colloids volume administered ( ml) Blood Product volume administered (ml) Total IV fluid infused 75 04/24/24 08:02 [email or web address] Anesthesia Postop Eval I: Summary Notes Anesthesia Complication No 04/24/24 08:02 [email or web address] Anesthesia Complication Comment: Post-operative progress note Anesthesia: Postop Eval II Evaluation Mental status: Awake Pain Level: 0 nausea: No Vomiting: No
== END 2024-04-24 08:36 | disposition home or self-care (01) ==
LOC: EN 06:18 → AC 06:18
PROVIDERS: PCP Family Medicine; Referring Provider Family Medicine; Visit Provider Surgery
PROC: 0DJD8ZZ Inspection of Lower Intestinal Tract, Via Natural or Artificial Opening Endoscopic (ICD-10-PCS; CPT 45378; principal; 2024-04-24 07:25)
DX: Z12.11 Encounter for screening for malignant neoplasm of colon (principal); E11.9 Type 2 diabetes mellitus without complications; Z80.0 Family history of malignant neoplasm of digestive organs; Z90.49 Acquired absence of other specified parts of digestive tract; Z79.84 Long term (current) use of oral hypoglycemic drugs; Z79.85 Long-term (current) use of injectable non-insulin antidiabetic drugs; E78.5 Hyperlipidemia, unspecified; Z86.0100 Personal history of colon polyps, unspecified; I10 Essential (primary) hypertension; Z85.038 Personal history of other malignant neoplasm of large intestine; Z79.899 Other long term (current) drug therapy; K63.5 Polyp of colon; K62.1 Rectal polyp
CPT/HCPCS: 45385; 82962; 88305; A4216; J2405

== ENCOUNTER → 2024-06-17 | Outpatient (CLI) | payer MEDICARE, SELFPAY ==
[2019-05-07 15:40] VITALS: BMI 32.8
[2024-06-17 08:33] LABS: Absolute Lymphocyte Count 2.97 X10^3/uL (0.83-4.51); Absolute Neutrophil Count 5.3 X10^3/uL (2.0-7.7); Basophil# 0.05 X10^3/uL; Basophil% 0.5 % (0-1); Eosinophil# 0.17 X10^3/uL; Eosinophils% 1.8 % (0-5); Hematocrit 39.6 % (37-47); Hemoglobin 14.1 g/dL (12.0-15.0); Lymphocyte # 2.97 X10^3/ul (0.83-4.51); Lymphocyte % 32.1 % (19-41); Mean Corp Hgb Conc 35.6 g/dL (32-36); Mean Corpuscular Volume 92.7 fL (81-99); Mean Platelet Vol. 9.1 fl (6.2-12.0); Monocyte# 0.74 X10^3/uL; NRBC Flagged by Analyzer 0 % (0-5); Neutrophil # 5.26 X10^3/uL (2.7-7.7); Platelet Count 213 K/mm3 (150-450); RBC Distribution Width CV 11.7 % (11.6-14.6); RBC Distribution Width SD 39.3 fl (35.1-43.9); Red Blood Count 4.27 M/mm3 (4.2-5.4); White Blood Count 9.3 K/mm3 (4.4-11.0)
[2024-06-17 09:05] LABS: Vitamin B12 1485 pg/mL (211-911)
[2024-06-17 09:49] LABS: ALB/GLOB Ratio 1.1 RATIO (0.9-2.4); AST(SGOT) 15 U/L (15-37); Alanine Aminotransfer ALT/SGPT 29 U/L (13-56); Albumin, Serum 3.7 g/dL (3.2-5.0); Alkaline Phosphatase 68 U/L (45-117); Anion Gap 11 (5-15); BUN 23 mg/dL (7-18); BUN/Creat Ratio 27.3 RATIO (10-20); Calcium,Total 9.1 mg/dL (8.5-10.1); Chloride 105 mmol/L (98-107); Creatinine, Serum 0.84 mg/dL (0.55-1.02); EST Glomerular Filtration Rate 71 mL/min (>60); Est Glom Filt Rate - Afr Amer 86 mL/min (>60); Globulin 3.3 g/dL (2.2-4.2); Glucose 135 mg/dL (74-106); Potassium 4.7 mmol/L (3.5-5.1); Sodium Level 138 mmol/L (136-145)
[2024-06-17 13:42] LABS: Microalbumin:Creatinine Ratio 85.7 mg/g CRE (<30 mg/g CRE)
== END | disposition home or self-care (01) ==
PROVIDERS: PCP Family Medicine; Referring Provider Family Medicine; Visit Provider Family Medicine
DX: R53.83 Other fatigue (principal); E11.69 Type 2 diabetes mellitus with other specified complication
CPT/HCPCS: 36415; 80053; 82043; 82570; 82607; 82746; 85025

== ENCOUNTER → 2024-12-07 | Outpatient (CLI) | payer MEDICARE, SELFPAY ==
[2019-05-07 15:40] VITALS: BMI 32.8
[2024-12-07 10:42] LABS: Hematocrit 41.4 % (37-47); Hemoglobin 14.5 g/dL (12.0-15.0); Immature Granulocytes Count 0.020 X10^3/uL (0.0-0.0); Mean Corp Hgb Conc 35.0 g/dL (32-36); Mean Corpuscular Volume 96.1 fL (81-99); Mean Platelet Vol. 9.4 fl (6.2-12.0); NRBC Flagged by Analyzer 0 % (0-5); Platelet Count 179 K/mm3 (150-450); RBC Distribution Width CV 11.9 % (11.6-14.6); RBC Distribution Width SD 41.7 fl (35.1-43.9); Red Blood Count 4.31 M/mm3 (4.2-5.4); White Blood Count 7.3 K/mm3 (4.4-11.0)
[2024-12-07 12:02] LABS: AST(SGOT) 20 U/L (<=31); Alanine Aminotransfer ALT/SGPT 21 U/L (<=34); Albumin, Serum 4.5 g/dL (3.4-4.8); Alkaline Phosphatase 62 U/L (35-104); Anion Gap 14 (5-15); BUN 25 mg/dL (4-19); BUN/Creat Ratio 28.8 RATIO (10-20); Calcium,Total 9.9 mg/dL (7.6-11.0); Carbon Dioxide 20.8 mmol/L (21.0-32.0); Chloride 104 mmol/L (98-108); Cholesterol 141 mg/dL (<=200); Globulin 2.5 g/dL (2.2-4.2); Glucose 104 mg/dL (70-99); Potassium 4.4 mmol/L (3.3-5.1)
[2024-12-07 13:05] LABS: Creatinine, Urine (random) 153.00 mg/dL (28.00-217.00); Microalbumin,Random Urine 52.0 mg/L (<20 mg/L)
--- OUTSIDE RECORDS SUMMARY | 2024-12-07 19:32 | XMS RPT_ITS | CCD ---
Author Organization [facility] Care Team Providers Care Controlled [employer]razer Name Role Phone Koby, Isaias Y Unavailable Unavailable Boyle, Zamzam Unavailable Unavailable Lilli Luo Unavailable Unavailable Yensho OBSTETRICS AND GYNECOLOGY PROFESSOR, Pastora A Unavailable Unavailab le Jensen OBSTETRICS AND GYNECOLOGY PROFESSOR, Lilli Ruizin Unavailable Unavaila ble Yensho OBSTETRICS AND GYNECOLOGY PROFESSOR, Pastora A Unavailable Unavailab Dr. Nish Gillette Chi Primary Care Provider 1([facility])[phone] Maco, Dr. Nish Edge Referring Provider 1([facility])[phone] Blake Huggins Attending Provider 1([facility]) -[phone] Unavailable Unavailable Unavailable WINSTON WOODS Attending Unavailable WINSTON WOODS Admitting Unavailable Dr. Blake Huggins Referring Provider 1([facility]) -[phone] Dr. Blake Huggins Other Provider 1([facility])[phone] Nish Camacho Chi Primary Care Provider 1([facility])[phone] Dr. Blake Huggins Attending Provider 1([facility])[phone] Dr. Blake Huggins Referring Provider 1([facility])[phone] Dr. Blake Huggins Other Provider 1([facility])[phone] Nish Camacho Chi Primary Care Provider 1([facility])[phone] Dr. Nish Camacho Chi Referring Provider 1([facility])[phone] GERARD Orr Attending Provider 1([facility])[phone] Edita Foster Attending Provider Unavailable Dr. Nish Camacho Chi Primary Care Provider 1([facility])[phone] Dr. Nish Camacho Chi Referring Provider 1([facility])[phone] GERARD Orr Attending Provider Edita Foster Attending Provider Unavailable Dr. Blake Huggins Attending Provider Nish Camacho Chi Primary Care Provider NISH CAMACHO CHI Primary Care Unavailable Dr. Nish Camacho Chi Primary Care Provider Dr. Nish Camacho Chi Referring Provider GERARD Orr Attending Provider Dr. Chintan Saucedo Primary Care Provider Dr. Chintan Saucedo Referring Provider SALOMÓN Orr-Alden Ma Attending Provider Saucedo, Chintan Primary Care Unavailable Saucedo, Chintan Referring Unavailable Saucedo, Chintan Attending Unavailable Kirby, Francesca Referring Unavailable KirbyFrancesca Attending Unavailable Saucedo, Chintan Primary Care Unavailable KirbyFrancesca Attending Unavailable Saucedo, Chintan Primary Care Unavailable Saucedo, Chintan Referring Unavailable Saucedo, Chintan Referring Unavailable Francesca Orr Attending Unavailable Saucedo, Chintan Primary Care Unavailable Saucedo, Chintan Primary Care Unavailable Saucedo, Chintan Referring Unavailable Michael Whaley Attending Unavailable Saucedo, Chintan Primary Care Unavailable Saucedo, Chintan Referring Unavailable Michael Whaley Attending Unavailable Michael Whaley Consulting Unavailable Dea Elaine Attending Unavailable Saucedo, Chintan Primary Care Unavailable KirbyFrancesca Attending Unavailable Saucedo, Chintan Primary Care Unavailable Saucedo, Chintan Referring Unavailable Saucedo, Chintan Primary Care Unavailable Saucedo, Chintan Referring Unavailable Sacuedo, Chintan Attending Unavailable Allergies Allergy Classification Reported Allergen(s) Allergy Type Date of Onset Reaction(s) Facility (20 sources) Amoxicillin; Translations: [AMOXICILLIN] Drug Allergy 6 yeast infection [facility] Work Phone: (2 sources) Aspirin Drug Allergy 5 bleeding ulcers [facility] Work Phone: (2 sources) Latex rubber gloves drug allergy 5 skin gets raw [facility] Work Phone: (11 sources) Aspirin; Translations: [ASPIRIN] Drug Allergy 5 Other: See Comments [facility] (9 sources) natural latex rubber; Translations: [Latex, Natural Rubber] Allergy to substance 9 [facility] (3 sources) Latex; Translations: [LATEX] Propensity to adverse reactions 6 [facility] Work Phone: (1 source) Aspirin Drug Allergy 5 [facility] Repository Medications Current Medications Medication Drug Class(es) Dates Sig (Normalized) Sig (Original) ascorbic acid 500 mg oral tablet (17 sources) Vitamin C Start: 11-22-2021 take 500 mg by mouth once daily Ascorbic Acid (Vitamin C) Active 500 MG PO DAILY November 22, 2021 12:00am Start: 12-05-2009 End: 02-11-2017 take 500 mg by mouth once daily Ascorbic Acid (Vitamin C) Active 500 MG PO DAILY November 22, 2021 12:00am Comment on above: Take one(2) tablet d aily. benazepril hydrochloride 10 mg oral tablet (18 sources) Angiotensin Converting Enzyme Inhibitor Start: 12-27-2016 benazepril (LOTENSIN) 10 mg tablet q 24 HR. 0 12/27/2016 Active Start: 12-27-2016 take 1 tablet by florencio th once daily benazepril 10 mg tablet Active 10 MG PO daily May 03, 2017 1:00am Comment on above: q 24 HR. Blood-Glucose Sensor (Freestyle Brennan 3 Sensor) device (8 sources) Start: 07-11-2022 Blood-Glucose Sensor (Freestyle Brennan 3 Sensor) device Active 0 .Route 2 July 11, 2022 1:00am 1 sensor q 14 days Start: 07-11-2022 Blood-Glucose Sensor (Freestyle Brennan 3 Sensor) device Active 0 .Route 2 July 11, 2022 12:00am 1 sensor q 14 days Start: 07-09-2022 End: 07-09-2022 Blood-Glucose Sensor (Freest yle Brennan 3 Sensor) device Discontinued 0 .Route 2 July 09, 2022 1:00am July 09, 2022 4:32pm 1 sensor q 14 days Start: 07-09-2022 End: 07-09-2022 Blood-Glucose Sensor (Freest yle Brennan 3 Sensor) device Discontinued 0 .Route 2 July 09, 2022 12:00am February 20th, 2023 3:32pm 1 sensor q 14 days cholecalciferol 0.05 mg oral capsule (20 sources) Vitamin D Start: 07-09-2022 take 50 ug by mouth once daily Cholecalciferol (Vitamin D3) Active 50 MCG PO DAILY July 09, 2022 1:00am Start: 07-09-2022 End: 07-25-2022 take 1250 ug by mouth every week Cholecalciferol (Vitamin D3) Discontinued 1250 MCG PO EVERY WEEK July 09, 2022 1:00am July 25, 2022 2:04pm Start: 02-13-2018 End: 02-17-2018 take 2000 [IU] by mouth twice daily Cholecalciferol (Vitamin D3) Discontinued 2000 UNIT PO TWICE A DAY February 13, 2018 5:44pm February 17, 2018 4:00pm Start: 05-03-2017 End: 02-13-2018 take 1000 [IU] by mouth once Cholecalciferol (Vitamin D3) Discontinued 1000 UNIT PO ONCE May 03, 2017 1:00am February 13, 2018 5:47pm Start: 02-11-2017 take 2 tablets by mo uth once daily VITAMIN D3 2000 UNIT CAPS Two tablets by mouth daily CHOLECALCIFEROL [id number] Augie Grimes take 1 capsule by mo uth once daily Cholecalciferol, Vitamin D3, (VITAMIN D) 1,000 unit ORAL Cap Take 1,000 Units by mouth once daily. 0 Active Cholecalciferol, Vitamin D3, 2,000 unit cap Take by mouth once daily. 0 Active Comment on above: Take 1,000 Units by mouth once daily. Take by mouth once d aily. Wrtwkl-Ghwlbbex-Tyb eroxide Dis (Neuriva De-Stress) 100-200-10 mg capsule (7 sources) Start: 07-25-2022 take 1 capsule by mouth once daily Vyodob-Tkwroysl-Tz peroxide Dis (Neuriva De-Stress) 100-200-10 mg capsule Active 1 CAP PO DAILY July 25, 2022 2:05pm Start: 07-09-2022 End: 07-25-2022 Qivmlx-Fzogqayp-Kalxmfgrzk D is (Neuriva De-Stress) 100-200-10 mg capsule Discontinued CAP PO July 09, 2022 1:00am July 25, 2022 2:07pm Start: 07-09-2022 Coffee-Theanin e-Superoxide Dis (Neuriva De-Stress) 100-200-10 mg capsule Active CAP PO July 09, 2022 12:00am dexamethasone 1 mg/ml / neomycin 3.5 mg/ml / polymyxin b 20633 unt/ml ophthalmic suspension (1 source) Aminoglycoside Antibacterial, Polymyxin-class Antibacterial, Corticosteroid take 1 drop(s) into the eye(s) three times daily qjfggsnm-reulavvoq-qrenwmtx 3.5 mg/mL-10,000 unit/mL-0.1% eye drops INSTILL 1 DROP INTO RIGHT EYE THREE TIMES DAILY FOR 10 DAYS active doxycycline hyclate 100 mg oral capsule (20 sources) Tetracycline-class Drug Start : 07-15 take 100 mg by mouth once daily Doxycycline Hyclate Active 100 MG PO daily July 15, 2017 1:00am Start: 05-25-2014 take 1 tablet by florencio once daily DOXYCYCLINE HYCLATE 50 MG CAPS One tablet by mouth daily DOXYCYCLINE HYCLATE [id number] Yamilex Mendoza RN Start: 05-25-2014 DOXYCYCLINE HY CLATE 100 MG TABS One tablet by mouth twice DOXYCYCLINE HYCLATE [id number] Augie Grimes take 1 capsule by mo [facility] twice daily as needed doxycycline 50 mg capsule Take 50 mg by mouth twice daily. as needed 0 Active Comment on above: Take 50 mg by mouth twice daily. as needed ELDERBERRY FRUIT (7 sources) Start: 07-25-2022 take 350 mg by mouth once daily Elderberry Fruit Active 350 MG PO DAILY July 25, 2022 2:06pm Start: 07-09-2022 End: 07-25-2022 Elderberry Fruit Discontinue d MG PO July 09, 2022 1:00am July 25, 2022 2:07pm Start: 07-09-2022 Elderberry Fru it Active MG PO July 09, 2022 12:00am hydrOXYzine hydrochloride 25 mg oral tablet (1 source) Antihistamine Start: 12-20-2021 take 1 tablet by mouth four times daily as needed hydroxyzine HCl 25 mg tablet Take 1 tablet 4 times a day by oral route as needed. 12/20/2021 active Lactobacillus Combination No.9 (Adult 50 Plus Probiotic) 4 billion cell capsule (4 sources) Start: 07-09-2022 take 4 capsules by mouth once daily Lactobacillus Combination No.9 (Adult 50 Plus Probiotic) 4 billion cell capsule Active 4000 MMU CELLS PO DAILY July 09, 2022 1:00am administer with a meal Start: 07-09-2022 take 4 capsules by m outh once daily Lactobacillus Combination No.9 (Adult 50 Plus Probiotic) 4 billion cell capsule Active 4000 MMU CELLS PO DAILY July 09, 2022 12:00am administer with a meal lysine 500 mg oral tablet (10 sources) Start: 07-25-2022 take 1000 mg by mouth once daily Lysine Active 1000 MG PO DAILY July 25, 2022 2:06pm Start: 11-22-2021 End: 07-25-2022 take 500 mg by mouth once daily Lysine Discontinued 500 MG PO DAILY November 22, 2021 12:00am July 25, 2022 2:07pm magnesium oxide 400 mg oral capsule (10 sources) Start: 05-03-2017 take 1 capsule by mouth once daily magnesium oxide 400 mg capsule Active 400 MG PO daily May 03, 2017 1:00am Comment on above: Magnesium Oxide magn esium oxide 400 mg capsule 400 MG PO daily May 03, 2017 Active 05-03-2017 [facility] ([id number]) metFORMIN hydrochloride 1000 mg oral tablet (20 sources) Biguanide Start: 06-13-2015 End: 03-18-2023 take 1000 mg by mouth twice daily Metformin Active 1000 MG PO TWICE A DAY March 18, 2023 9:50am Start: 06-13-2015 take 2 tablets by mo [facility] once daily METFORMIN HCL 500 MG TABS Two tablets by mouth daily METFORMIN HCL [id number] Oseas Berman MD Comment on above: Take 1,000 mg by florencio twice daily. 50/50 release 24 hr methylphenidate hydrochloride 20 mg extended release oral capsule (1 source) Central Nervous System Stimulant Start: 2023 take 20 mg by mouth once daily Methylphenidate Hcl Active 20 MG PO DAILY July 01, 2023 1:00am methylPREDNISolone 125 mg injection (1 source) Corticosteroid Start: 2021 Solu-Medrol (PF) 125 mg/2 mL solution for injection Take 125 mg by injection route. 12/20/2021 active multivitamin,cx-wihd-khat rals tablet (8 sources) Start: 2016 take 1 tablet by mouth once daily multivitamin,tx-iron- minerals tablet Active 1 TABLET PO daily May 03, 2017 10:44am Start: 05-03-2017 take 1 tablet by florencio once daily multivitamin,lz-hlic-usuqcmnz tablet Act cynthia 1 TABLET PO daily May 03, 2017 12:00am Start: 05-03-2017 take 1 tablet by florencio once daily multivitamin,gi-pqcf-rrbkioaj tablet Act cynthia 1 TABLET PO daily May 03, 2017 1:00am Nd-Om-Bx-Vit I-Mdkyt-Ivho-Zeax (Ocuvite Eye Plus Multi) 200-15-150 mcg tablet (7 sources) Start: 11-22-2021 take 2 tablets by mouth once daily Zz-Zi-Ml-Vit I-Hgtnl-Xety-Zeax (Ocuvite Eye Plus Multi) 200-15-150 mcg tablet Active 2 TABLET PO DAILY November 21, 2021 11:00pm administer with a meal and a large glass of water Start: 11-22-2021 take 2 tablets by mo [facility] once daily Jk-Ms-Ax-Vit A-Iknyv-Iwqe-Zeax (Ocuvite Eye Plus Multi) 200-15-150 mcg tablet Active 2 TABLET PO DAILY November 22, 2021 12:00am administer with a meal and a large glass of water predniSONE 10 mg oral tablet (1 source) Start: 12-20-2021 take 6 tablets by mouth once daily, then take 4 tablets by mouth once daily, then take 2 tablets by mouth once daily prednisone 10 mg tablet 6 TABS PO QD X 7 DAYS, 4 TAB PO QD X 7 DAYS, 2 TAB PO QD X 7 DAYS 12/20/2021 active Turmeric-Turmeric Root Extract (8 sources) Start: 12-08-2019 Turmeric-Turme kylah Root Extract Active CAP PO December 08, 2019 3:56pm Start: 12-08-2019 End: 11-22-2021 Turmeric-Turmeric Root Extra ct Discontinued CAP PO December 07, 2019 11:00pm November 22, 2021 2:30pm Start: 12-08-2019 End: 11-22-2021 Turmeric-Turmeric Root Extra ct Discontinued CAP PO December 08, 2019 12:00am November 22, 2021 3:30pm ubidecarenone 100 mg oral ca psule (11 sources) Start: 07-25-2022 Coenzyme Q10 ( Co Q-10) 100 mg capsule Active 600 MG PO DAILY July 25, 2022 2:05pm Start: 03-30-2019 End: 07-25-2022 Coenzyme Q10 (Co Q-10) 100 m g capsule Discontinued 100 MG PO DAILY March 30, 2019 1:00am July 25, 2022 2:07pm Completed/Discontinued Medications Medication Drug Class(es) Dates Sig (Normalized) Sig (Original) amLODIPine 5 mg / atorvastatin 10 mg oral tablet (2 sources) Dihydropyridine Calcium Channel Elayne, HMG-CoA Reductase Inhibitor take 1 tablet by mouth once daily amLODIPine-Atorva statin 5-10 mg per tablet Take 1 tablet by mouth once daily. 0 Active Comment on above: Take 1 tablet by florencio th once daily. amLODIPine 5 mg / benazepril hydrochloride 10 mg oral capsule (13 sources) Dihydropyridine Calcium Channel Elayne, Angiotensin Converting Enzyme Inhibitor Start: 11-14-2005 End: 12-27-2016 LOTREL 5 MG-10 MG CAP Take one(1) tablet daily. 0 11/14/2005 Active Comment on above: Take one(1) tablet d aily. atorvastatin 40 mg oral tablet (20 sources) HMG-CoA Reductase Inhibitor Start: 03-18-2023 End: 03-18-2023 take 40 mg by mouth every other day Atorvastatin Discontinued 40 MG PO .qod March 18, 2023 9:36am March 18, 2023 9:49am Start: 03-18-2023 take 20 mg by mouth once daily Atorvastatin Active 20 MG PO DAILY 90 March 18, 2023 12:00am Start: 11-22-2021 End: 03-18-2023 take 40 mg by mouth at bedtime Atorvastatin Discontinu ed 40 MG PO AT BEDTIME November 22, 2021 12:00am March 18, 2023 9:36am Start: 05-25-2014 End: 10-26-2019 take 40 mg by mouth once daily Atorvastatin Discontinu ed 40 MG PO daily May 03, 2017 1:00am October 26, 2019 9:19am Comment on above: Take 40 mg by mouth once daily. benzonatate 100 mg oral capsule (4 sources) Non-narcotic Antitussive Start: take 2 capsules by mouth three times daily as needed benzonatate (TESSALON PERLE) 100 mg capsule Indications: URI with cough and congestion Take 2 capsules by mouth three times daily as needed. 30 capsule 0 09/21/2018 Active Start: 05-25-2018 benzonatate (T ESSALON PERLE) 100 mg capsule Take 1-2 capsules tid prn 40 capsule 0 05/25/2018 Active Comment on above: Take 1-2 capsules ti d prn Take 2 capsules by m outh three times daily as needed. C,E,Zinc,Copper 28-[id number] (Ocuvite Adult 50 Plus) 250-5-1 mg capsule (8 sources) Start: 02-13-2018 End: 02-17-2018 C,E,Zinc,Copper 14-[id number]-Khf (Ocuvite Adult 50 Plus) 250-5-1 mg capsule Discontinued 1 CAP PO DAILY February 13, 2018 5:46pm February 17, 2018 4:01pm Start: 02-13-2018 End: 02-17-2018 C,E,Zinc,Copper 45-Kdjwl1n-T ut (Ocuvite Adult 50 Plus) 250-5-1 mg capsule Discontinued 1 CAP PO DAILY February 12, 2018 11:00pm February 17, 2018 3:01pm Start: 02-13-2018 End: 02-17-2018 C,E,Zinc,Copper 73-Fwhjt3y-E ut (Ocuvite Adult 50 Plus) 250-5-1 mg capsule Discontinued 1 CAP PO DAILY February 13, 2018 12:00am February 17, 2018 4:01pm Calcium Carbonate (12 sources) Start: 05-31-2014 End: 06-13-2015 CALCIUM CARBONATE TABS 750mg daily CALCIUM CARBONATE TABS [id number] Oseas Berman MD Start: 05-31-2014 CALCIUM CARBON ATE TABS 750mg daily CALCIUM CARBONATE TABS [id number] Oseas Berman MD chondroitin sulfates 200 mg / glucosamine hydrochloride 250 mg oral tablet (14 sources) Start: 05-03-2017 End: 12-08-2019 take 1 tablet by mouth once daily in the morning glucosamine-chondroitin 250 mg-200 mg tablet Discontinued 1 TABLET PO EVERY MORNING May 03, 2017 1:00am December 08, 2019 3:56pm Start: 05-31-2014 take 1 tablet by florencio th once daily OSTEO BI-FLEX REGULAR STRENGTH TABS One tablet by mouth daily GLUCOSAMINE-CHONDROITIN TABS [id number] Oseas Berman MD cinnamon bark 500 mg oral capsule (20 sources) Start: 05-03-2017 End: 07-25-2022 take 1 capsule by mouth once daily Cinnamon Bark (Cinnamon) 500 mg capsule Discontinued 500 MG PO DAILY July 09, 2022 1:00am July 25, 2022 2:05pm Start: 05-31-2014 take 1 tablet by florencio th once daily CINNAMON 500 MG CAPS One tablet by mouth daily CINNAMON [id number] Oseas Berman MD Start: 05-31-2014 take 4 capsules by m out twice daily CINNAMON 500 MG CAPS 4 capsults PO twice daily CINNAMON [id number] Augie Grimes take 2000 mg by mout h twice daily CINNAMON BARK (CINNAMON ORAL) Take 2,000 mg by mouth twice daily. 0 Active Comment on above: Take 2,000 mg by florencio th twice daily. COMPOUNDED PRESCRIPTION (2 sources) Start: 1 take 1 tablet by mouth once daily COMPOUNDED PRESCRIPTION Take 1 tablet by mouth once daily. Coq 10 600mg 0 08/11/2010 Active Comment on above: Take 1 tablet by florencio th once daily. Coq 10 600mg Cranberry (15 sources) Non-Standardized Food Allergenic Extract, Non-Standardized Plant Allergenic Extract Start: 2 End: 3 take 400 mg by mouth once daily Cranberry Discontinued 400 MG PO DAILY November 22, 2021 12:00am July 25, 2022 2:06pm administer with a meal Start: 11-22-2021 take 400 mg by mouth once reymundo y Cranberry Active 400 MG PO DAILY November 21, 2021 11:00pm administer with a meal Start: 11-22-2021 take 400 mg by mouth once reymundo y Cranberry Active 400 MG PO DAILY November 22, 2021 12:00am administer with a meal Start: 06-13-2015 End: 02-11-2017 take 1 tablet by mouth once daily CRANBERRY CAPS One tablet by mouth daily CRANBERRY CAPS [id number] Augie Grimes DEXCHLORPH/P-EPHED HC/METHSCOP (D-HIST D ORAL) (2 sources) take 1 capsule by mouth once daily DEXCHLORPH/P-EPHED HC/METHSCOP (D-HIST D ORAL) Take 1 capsule by mouth once daily. 0 Active Comment on above: Take 1 capsule by mo [facility] once daily. diclofenac potassium 50 mg oral tablet (19 sources) Nonsteroidal Anti-inflammatory Drug Start: 2017 End: 2021 take 50 mg by mouth twice daily Diclofenac Potassium Discontinued 50 MG PO TWICE A DAY February 13, 2018 12:00am November 22, 2021 3:30pm Start: 02-11-2017 End: 07-15-2017 take 50 mg by mouth twice daily Diclofenac Sodium Discontinued 50 MG PO TWICE A DAY May 03, 2017 1:00am July 15, 2017 4:50pm dicyclomine hydrochloride 10 mg oral capsule (2 sources) Anticholinergic Start: 07-18-2011 take 1 capsule by mouth at bedtime, then take 1 capsule by mouth at bedtime dicyclomine (BENTYL) 10 mg ORAL capsule Indications: Abdominal pain, left lower quadrant Take 1 capsule by mouth before meals and at bedtime. TAKE ONE (1) PO BEFORE MEALS AND AT BEDTIME 120 capsule 2 07/18/2011 Active Comment on above: Take 1 capsule by mo [facility] before meals and at bedtime. TAKE ONE (1) PO BEFORE MEALS AND AT BEDTIME DOCOSAHEXANOIC ACID/EPA (FISH OIL ORAL) (2 sources) take 1 capsule by mouth once daily DOCOSAHEXANOIC ACID/EPA (FISH OIL ORAL) Take 1 capsule by mouth once daily. omega red 0 Active Comment on above: Take 1 capsule by [facility] once daily. omega red Fish Oils (8 sources) Start: 05-31-2014 End: 02-11-2017 take 1 tablet by mouth once daily FISH OIL CAPS One tablet by mouth daily OMEGA-3 FATTY ACIDS CAPS [id number] Augie Grimes Start: 05-31-2014 take 1 tablet by florencio once daily FISH OIL CAPS One tablet by mouth daily OMEGA-3 FATTY ACIDS CAPS [id number] Oseas Berman MD Flash Glucose Sensor (Freest yle Brennan 2 Sensor) kit (4 sources) Start: 07-09-2022 End: 07-11-2022 Flash Glucose Sensor (Freest yle Brennan 2 Sensor) kit Discontinued 0 .Route 2 July 09, 2022 1:00am July 11, 2022 12:05pm 1 sensor q 14 days Start: 07-09-2022 End: 07-11-2022 Flash Glucose Sensor (Freest yle Brennan 2 Sensor) kit Discontinued 0 .Route 2 July 09, 2022 12:00am July 11, 2022 11:05am 1 sensor q 14 days fluticasone propionate 0.05 mg/actuat metered dose nasal spray (4 sources) Corticosteroid Start: 05-25-2018 take 2 spray(s) by mouth once daily fluticasone (FLONASE) 50 mcg/actuation nasal spray Indications: URI with cough and congestion Use 2 Sprays in each nostril once daily. Rinse mouth after use. 1 Bottle 0 09/21/2018 Active Comment on above: Use 2 Sprays in each nostril once daily. Rinse mouth after use. garlic preparation 400 mg oral tablet (12 sources) Non-Standardized Food Allergenic Extract Start: 05-31-2014 End: 06-13-2015 take 1 tablet by mouth once daily GARLIC 400 MG TABS One tablet by mouth daily GARLIC-CALCIUM [id number] Oseas Berman MD gemfibrozil 600 mg oral tablet (8 sources) Peroxisome Proliferator Receptor alpha Agonist Start: 10-26-2019 End: 11-22-2021 take 600 mg by mouth twice daily Gemfibrozil Discontinued 600 MG PO TWICE A DAY 60 October 26, 2019 12:00am November 22, 2021 3:30pm 12 hr guaiFENesin 600 mg extended release oral tablet (2 sources) Start: 05-25-2018 take 2 tablets by mouth twice daily guaiFENesin (MUCINEX) 600 mg 12 hr tablet Take 2 tablets by mouth twice daily. 24 tablet 0 05/25/2018 Active Comment on above: Take 2 tablets by [facility] twice daily. lactobacillus acidophilus 100 mg oral capsule (16 sources) Start: 05-03-2017 End: 11-22-2021 take 100 mg by mouth once daily Lactobacillus Acidophilus Discontinued 100 MG PO daily May 03, 2017 1:00am November 22, 2021 3:30pm Start: 05-31-2014 Lactobacillus acidophilus (ACIDOPHILUS ORAL) Lactobacillus acidophilus Lactobacillus Acidophilus 100 MG PO daily May 03, 2017 Active 05-03-2017 [facility] ([id number]) 0 05/31/2014 Active Start: 05-31-2014 take 1 tablet by florencio th once daily ACIDOPHILUS CAPS One tablet by mouth daily LACTOBACILLUS CAPS [id number] Oseas Berman MD Comment on above: Lactobacillus acidop hilus Lactobacillus Acidophilus 100 MG PO daily May 03, 2017 Active 05-03-2017 [facility] ([id number]) Magnesium (6 sources) Start: 5 take 1 tablet by mouth once daily MAGNESIUM CAPS with zinc One tablet by mouth daily MAGNESIUM CAPS [id number] Oseas Berman MD mecobalamin 1 mg sublingual tablet (8 sources) Start: 7 End: 9 Mecobalamin (Vitamin B12) Discontinued 1000 MCG SL daily May 03, 2017 1:00am March 30, 2019 5:05pm meloxicam 7.5 mg oral tablet (20 sources) Nonsteroidal Anti-inflammatory Drug Start: 5 End: 7 take 1 tablet by mouth once daily MELOXICAM 7.5 MG TABS One tablet by mouth daily MELOXICAM [id number] Oseas Berman MD take 2 tablets by mouth once wilberto ly meloxicam 7.5 mg tablet TAKE 2 TABLETS BY MOUTH ONCE DAILY active MULTIPLE VITAMIN (8 sources) Start: 05-31-2014 take 1 tablet by mouth once daily MULTIVITAMINS TABS One tablet by mouth daily MULTIPLE VITAMIN Augie Grimes Start: 05-31-2014 take 1 tablet by florencio th once daily MULTIVITAMINS TABS One tablet by mouth daily MULTIPLE VITAMIN Oseas Berman MD MULTIPLE VITAMINS-MINERALS (2 sources) Start: 02-11-2017 take 1 tablet by mouth once daily OCUVITE ADULT 50+ CAPS One tablet by mouth daily MULTIPLE VITAMINS-MINERALS [id number] Augie Grimes multivitamin ORAL tablet (2 sources) take 1 tablet by mouth once daily multivitamin ORAL tablet Take 1 tablet by mouth once daily. 0 Active Comment on above: Take 1 tablet by florencio once daily. omeprazole 20 mg delayed release oral capsule (12 sources) Proton Pump Inhibitor Start: 05-25-2014 End: 06-18-2016 take 1 tablet by mouth once daily OMEPRAZOLE 20 MG CPDR One tablet by mouth daily OMEPRAZOLE [id number] Yamilex Mendoza RN potassium gluconate 2.5 meq oral tablet (8 sources) Start: 05-03-2017 End: 02-17-2018 take 10 mEq by mouth once daily Potassium Discontinued 10 MEQ PO daily May 03, 2017 1:00am February 17, 2018 4:00pm potassium,chelated 99 mg oral tablet (6 sources) Start: 05-31-2014 take 1 tablet by mouth once daily as needed POTASSIUM 99 MG TABS One tablet by mouth daily as needed POTASSIUM [id number] Osesa Berman MD pramipexole dihydrochloride 0.25 mg oral tablet (18 sources) Nonergot Dopamine Agonist Start: 05-03-2017 End: 12-08-2019 take 1 tablet by mouth three times daily Pramipexole (Mirapex) 0.25 mg tablet Discontinued 0.25 MG PO THREE TIMES A DAY August 15, 2017 7:17am December 08, 2019 3:57pm Start: 02-11-2017 MIRAPEX 0.25 M G TABS 1 tablet PO prior to sleep PRAMIPEXOLE DIHYDROCHLORIDE [id number] Augie Grimes TETRAHYDROZOLINE HCL/ZN SULF (EYE DROPS OPHTHALMIC) (2 sources) take 2 drop(s) into the eye(s) once daily TETRAHYDROZOLINE HCL/ZN SULF (EYE DROPS OPHTHALMIC) Use 2 Drops in eyes once daily. both eyes 0 Active Comment on above: Use 2 Drops in eyes once daily. both eyes traMADol hydrochloride 50 mg oral tablet (7 sources) Opioid Agonist Start: 12-28-19 17 End: 02-12-20 17 take 1 tablet by mouth once daily TRAMADOL HCL 50 MG TABS One tablet by mouth daily TRAMADOL HCL [id number] Zamzam Boyle vitamin b 12 1 mg oral tablet (10 sources) Vitamin B12 Start: 05-31-19 15 take 3 tablets by mouth once daily VITAMIN B-12 1000 MCG TABS Three tablets by mouth daily CYANOCOBALAMIN [id number] Augie Grimes Start: 12-05-2009 CYANOCOBALAMIN 1,000 MCG TAB Take one(1) tablet daily. 0 12/05/2009 Active Comment on above: Take one(1) tablet d aily. vitamin e 90 mg oral capsule (14 sources) Start: 05-03-2017 End: 11-22-2021 take 200 [IU] by mouth once daily Vitamin E Discontinued 200 UNIT PO daily May 03, 2017 1:00am November 22, 2021 3:30pm Start: 05-31-2014 take 1 tablet by florencio th once daily VITAMIN E 400 UNIT CAPS One tablet by mouth daily VITAMIN E [id number] Oseas Berman MD Problems Active Problems Problem Classification Problem Date Documented Date Episodic/Chronic Allergic reactions (2 sources) Contact dermatitis due to poison qasim; Translations: [Unspecified contact dermatitis due to plants, except food] Onset: 12-20-2021 Resolved: 12-20-2021 Episodic Diabetes mellitus with complications (1 source) Type 2 diabetes mellitus with hyperglycemia; Translations: [Type 2 diabetes mellitus with hyperglycemia] Onset: 08-12-2024 Chronic Diabetes mellitus without complication (20 sources) Diabetes mellitus; Translations: [Type 2 diabetes mellitus] Onset: 11-11-2012 05-25-2014 Chronic Disorders of lipid metabolism (19 sources) Hyperlipidemia; Translations: [Hyperlipidemia, unspecified] Onset: 05-25-2014 05-25-2014 Chronic Essential hypertension (19 sources) Hypertensive disorder; Translations: [Essential hypertension] Onset: 05-25-2014 05-25-2014 Chronic Genitourinary symptoms and ill-defined conditions (1 source) Proteinuria, unspecified; Translations: [Proteinuria, unspecified] Onset: 08-12-2024 Episodic Heart valve disorders (4 sources) Mitral valve regurgitation; Translations: [Nonrheumatic mitral (valve) insufficiency] 07-25-2022 Chronic Malaise and fatigue (10 sources) Fatigue; Translations: [Other fatigue] Onset: 07-03-2024 Episodic Nonspecific chest pain (14 sources) Chest pain, unspecified; Translations: [Chest pain] Onset: 05-25-2014 05-25-2014 Episodic Nutritional deficiencies (7 sources) Vitamin D deficiency; Translations: [Vitamin D deficiency, unspecified] Onset: 08-12-2024 07-09-2022 Chronic Osteoarthritis (2 sources) Degenerative joint disease involving multiple joints; Translations: [Polyosteoarthritis, unspecified] Onset: 06-04-2007 06-04-2007 Chronic Other and unspecified benign neoplasm (8 sources) History of polyp of colon; Translations: [Personal history of colonic polyps] 05-01-2019 Episodic Other connective tissue disease (8 sources) Mass of soft tissue of left lower limb; Translations: [Other specified soft tissue disorders] 05-19-2019 Episodic Other hereditary and degenerative nervous system conditions (1 source) Restless legs syndrome; Translations: [Restless legs syndrome] Onset: 01-22-2024 Chronic Other injuries and conditions due to external causes (8 sources) Hematoma; Translations: [Other injury of unspecified body region, initial encounter] 05-29-2019 Episodic Other nutritional; endocrine; and metabolic disorders (6 sources) Body mass index (BMI) 31.0-31.9, adult; Translations: [Body mass index (BMI) 31.0-31.9, adult] Onset: 05-31-2014 05-31-2014 Chronic Other nutritional; endocrine; and metabolic disorders (5 sources) Body mass index (BMI) 33.0-33.9, adult; Translations: [Body mass index (BMI) 33.0-33.9, adult] Onset: 05-31-2014 12-27-2016 Chronic Other nutritional; endocrine; and metabolic disorders (8 sources) Body mass index 30+ - obesity; Translations: [Body mass index (BMI) 33.0-33.9, adult] 07-09-2022 Chronic Other nutritional; endocrine; and metabolic disorders (2 sources) Obese class I; Translations: [Obesity, unspecified] 12-12-2022 Chronic Other nutritional; endocrine; and metabolic disorders (1 source) Obesity, unspecified; Translations: [Obesity, unspecified] 12-12-2022 Chronic Other nutritional; endocrine; and metabolic disorders (4 sources) Body mass index 25-29 - overweight; Translations: [Overweight] 07-09-2022 Episodic Other nutritional; endocrine; and metabolic disorders (4 sources) Overweight; Translations: [Overweight] Onset: 08-12-2024 07-09-2022 Episodic Other screening for suspected conditions (not mental disorders or infectious disease) (16 sources) Electrocardiogram abnormal; Translations: [Abnormal electrocardiogram [ECG] [EKG]] Onset: 05-25-2014 05-25-2014 Episodic Residual codes; unclassified (2 sources) Periodic limb movement disorder; Translations: [Periodic limb movement disorder] Onset: 02-11-2017 02-11-2017 Chronic Residual codes; unclassified (2 sources) Obstructive sleep apnea of adult; Translations: [Obstructive sleep apnea (adult) (pediatric)] Onset: 02-11-2017 02-11-2017 Chronic Past or Other Problems Problem Classification Problem Date Documented Da te Episodic/Chronic Cancer of colon (2 sources) History of malignant neoplasm of colon; Translations: [Personal history of other malignant neoplasm of large intestine] Onset: 11-08-2011 11-08-2011 Episodic Coma; stupor; and brain damage (6 sources) Daytime somnolence; Translations: [Somnolence] Onset: 06-13-2015 06-13-2015 Episodic Other bone disease and musculoskeletal deformities (2 sources) Osteopenia; Translations: [Other specified disorders of bone density and structure, unspecified site] Onset: 11-25-2013 11-25-2013 Episodic Results Test Name Value Interpretation Reference Range Facility Endocrinology Visit Reporton 07-01-2024 Endocrinology Visit Report [facility] [address] [facility] [address] [place] [address] OFFICE VISIT Date of Service: 07/01/24 MR#: [id number] Acct: [id number] Name: ISABEL GLASS Rep #: [id number] : 1955 Provider: GERARD evans Age/Sex: 68/F Location: [facility] [place] Status: Signed Intake Vital Signs 03/30/24 09:41 04/24/24 06:51 07/01/24 10:06 Height 5 ft 4 in 5 ft 4 in 5 ft 4 in Weight: 167 lb BMI 28.6 BP 146/84 H Blood Pressure Location Lt brachial Position Sitting Pulse 94 Pulse Source Monitor Pulse Oximetry (%) 97 Oxygen Delivery Method room air Intake Visit Reasons: 3 M FU Chief Complaint: f/u diabetes 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: No Accompanied by: Self Is patient in pain?: No Allergies amoxicillin Allergy (Mild, Verified 07/01/24 10:05) YEAST aspirin (From Ar Aspirin) Allergy (Mild, Verified 07/01/24 10:05) Bleeding Latex, Natural Rubber Allergy (Mild, Verified 07/01/24 10:05) RASH Medications ???Medication ???Instructions ???Recorded ???Confirmed ???Type benazepril 10 mg tablet 10 mg PO QDAY 05/03/17 07/01/24 Hi story cinnamon bark 500 mg capsule 1,000 mg PO DAILY 05/03/17 5 History (Cinnamon) magnesium oxide 400 mg PO QDAY 05/03/17 07/01/24 H istory multivitamin,tx-iron-min erals 1 tab PO QDAY 05/03/17 07/01/24 Hi story (Complete Multivitamin tablet) doxycycline hyclate 100 mg capsule 100 mg PO QDAY PRN FACE BREAKOUT 07/15/17 07/01/24 History uwrtueed-bhg-RQ 200 mcg-vit K 15 2 tab PO DAILY 11/22/21 07/01/24 H istory mcg-lycope 150 xzn-lryvho-jxkf tablet (Ocuvite Eye Plus Multi) cholecalciferol (vitamin D3) 50 50 mcg PO DAILY #90 caps 07/09/22 07/01/24 Rx mcg (2,000 unit) capsule lactobacillus combination no.9 4 4,000 mmu cells PO DAILY 07/09/22 07/01/24 History billion cell capsule (Adult 50 Plus Probiotic) blood-glucose sensor (FreeStyle #2 ea 07/11/22 07/01/24 Rx Brennan 3 Sensor device) coenzyme Q10 100 mg capsule (Co 600 mg PO DAILY 07/25/22 07/01/24 History Q-10) elderberry fruit 350 mg capsule 350 mg PO DAILY 07/25/22 07/01/24 History methylphenidate HCl 20 mg biphasic 20 mg PO DAILY 07/01/23 07/01/24 History 50-50 capsule,extended release blood sugar diagnostic (Accu-Chek #100 ea 07/31/23 07/01/24 Rx SmartView Test Strips) lysine 500 mg tablet 1,000 mg PO DAILY 12/30/23 5 History ascorbic acid (vitamin C) 500 mg 1,000 mg PO DAILY 03/10/24 5 History tablet biotin 400 mcg tablet 400 mcg PO DAILY 03/10/24 07/01/24 History carboxymethylcellulose sodium 1 % 1 drp ophthalmic (eye) BID 07/01/24 History eye liquid gel drops (Refresh Liquigel) coffee extract 100 mg-phosphatidyl 1 cap PO DAILY 03/10/24 07/01/24 History serine 100 mg capsule (Neuriva Original) cyanocobalamin (vitamin B-12) 1,000 mcg PO QDAY 03/10/24 5 History 1,000 mcg tablet (Vitamin B-12) diclofenac potassium 50 mg tablet 50 mg PO BID PRN pain 03/10/24 History ferrous sulfate 325 mg (65 mg 325 mg PO QDAY 03/10/24 07/01/24 H istory iron) tablet (FeroSul) nystatin 100,000 unit/gram topical 1 applic topical BID PRN REDNESS 03/10/24 07/01/24 History ointment psyllium husk 0.4 gram capsule 0.8 g PO DAILY 03/10/24 07/01/24 H istory (Metamucil) ketotifen fumarate 0.025 % (0.035 1 drp EACH EYE BID 04/23/2407/01 History %) eye drops (Allergy Eye (ketotifen)) metformin 1,000 mg tablet 1,000 mg PO BID #180 tabs 07/01/24 07/01/24 Rx rosuvastatin 10 mg tablet 10 mg PO 3XW 07/01/24 07/01/24 His tory semaglutide 2 mg/dose (8 mg/3 mL) 2 mg (0.75 mL) subcut QWEEK #3 mL 07/01/24 07/01/24 Rx subcutaneous pen injector (Ozempic) Have you fallen in the past year?: No PFSH Medical History Wears glasses History of echocardiogram History of stress test Cardiology follow-up encounter ZACHERY treated with BiPAP Family history of malignant neoplasm of colon in relative diagnosed when younger than 50 years of age Essential hypertension Diabetes mellitus type II, controlled Hematoma Mass of soft tissue of left lower extremity Diabetes mellitus, type II History of colon cancer Chest pain, unspecified Abnormal electrocardiogram Hyperlipidemia BMI 33.0-33.9,adult Daytime somnolence Obstructive sleep apnea Periodic limb movement disorder Surgical History Hx of appendectomy History of hysterectomy Hx of breast biopsy History of bladder suspension procedure History of tubal ligation History of colectomy H/O arthroscopy of left knee History of carpal tunnel release of both wrists Family Histo (more content not included)... Normal [facility] CBC W/Diff, Automatedon 05-21 Absolute Lymph 2.97 X10 3/uL Normal 0.83-4.51 [facility] Comment on above: Order Comment: Order Date: 06/08/24Order Info: 0184-1 - CBCD Performed By: #### L 502.0250, L100.0100, L500.4050, L503.0105, L506.0250 ####[facility] [address] [place], [address] Absolute Neut 5.3 X10 3/uL Normal 2.0-7.7 [facility] Comment on above: Order Comment: Order Date: 06/08/24Order Info: 0184-1 - CBCD Performed By: #### L 502.0250, L100.0100, L500.4050, L503.0105, L506.0250 ####[facility] [address] [place], [address] Basophils/100 WBC (Bld) 0.5 % Normal 0-1 [facility] Comment on above: Order Comment: Order Date: 06/08/24Order Info: 0184-1 - CBCD Performed By: #### L 502.0250, L100.0100, L500.4050, L503.0105, L506.0250 ####[facility] [address] [place], [address] Eosinophils/100 WBC (Bld) 1.8 % Normal 0-5 [facility] Comment on above: Order Comment: Order Date: 06/08/24Order Info: 0184-1 - CBCD Performed By: #### L 502.0250, L100.0100, L500.4050, L503.0105, L506.0250 ####[facility] [address] [place], [address] Erythrocyte distribution width (RBC) [Ratio] 11.7 % Normal 11.6-14.6 [facility] Comment on above: Order Comment: Order Date: 06/08/24Order Info: 0184-1 - CBCD Performed By: #### L 502.0250, L100.0100, L500.4050, L503.0105, L506.0250 ####[facility] [address] [place], [address] Hematocrit (Bld) [Volume fraction] 39.6 % Normal 37-47 [facility] Comment on above: Order Comment: Order Date: 06/08/24Order Info: 0184-1 - CBCD Performed By: #### L 502.0250, L100.0100, L500.4050, L503.0105, L506.0250 ####[facility] [address] [facility] [place], [address] Hemoglobin (Bld) [Mass/Vol] 14.1 g/dL Normal 12.0-15.0 [facility] Comment on above: Order Comment: Order Date: 06/08/24Order Info: 0184-1 - CBCD Performed By: #### L 502.0250, L100.0100, L500.4050, L503.0105, L506.0250 ####[facility] [address] [place], [address] IG% 0.600 Normal 0.0-0.9 [facility] Comment on above: Order Comment: Order Date: 06/08/24Order Info: 0184-1 - CBCD Result Comment: IG% - Immature Granulocytes (promyelocytes, myelocytes and metamyelocytes) > 1% indicates that a LEFT SHIFT is Present. Performed By: #### L 502.0250, L100.0100, L500.4050, L503.0105, L506.0250 ####[facility] [address] [place], [address] Lymphocytes/100 WBC (Bld) 32.1 % Normal 19-41 [facility] Comment on above: Order Comment: Order Date: 06/08/24Order Info: 0184-1 - CBCD Performed By: #### L 502.0250, L100.0100, L500.4050, L503.0105, L506.0250 ####[facility] [address] [place], [address] MCH (RBC) [Entitic mass] 33.0 pg High 27.0-32.0 [facility] Comment on above: Order Comment: Order Date: 06/08/24Order Info: 0184-1 - CBCD Performed By: #### L 502.0250, L100.0100, L500.4050, L503.0105, L506.0250 ####[facility] [address] [place], [address] MCHC (RBC) [Mass/Vol] 35.6 g/dL Normal 32-36 [facility] Comment on above: Order Comment: Order Date: 06/08/24Order Info: 0184-1 - CBCD Performed By: #### L 502.0250, L100.0100, L500.4050, L503.0105, L506.0250 ####[facility] [address] [place], [address] MCV (RBC) [Entitic vol] 92.7 fL Normal 81-[address] [facility] Comment on above: Order Comment: Order Date: 06/08/24Order Info: 0184-1 - CBCD Performed By: #### L 502.0250, L100.0100, L500.4050, L503.0105, L506.0250 ####[facility] [address] [place], [address] Monocytes/100 WBC (Bld) 8.0 % Normal 0-[address] [facility] Comment on above: Order Comment: Order Date: 06/08/24Order Info: 0184-1 - CBCD Performed By: #### L 502.0250, L100.0100, L500.4050, L503.0105, L506.0250 ####[facility] [address] [place], [address] Neutrophils/100 WBC (Bld) 57.0 % Normal 47-70 [facility] Comment on above: Order Comment: Order Date: 06/08/24Order Info: 0184-1 - CBCD Performed By: #### L 502.0250, L100.0100, L500.4050, L503.0105, L506.0250 ####[facility] [address] [place], [address] Nucleated RBC (Bld) [#/Vol] 0 10*3/uL Normal 0-5 [facility] Comment on above: Order Comment: Order Date: 06/08/24Order Info: 0184-1 - CBCD Performed By: #### L 502.0250, L100.0100, L500.4050, L503.0105, L506.0250 ####[facility] [address] [place], [address] Platelet mean volume (Bld) [Entitic vol] 9.1 fL Normal 6.2-12.0 [facility] Comment on above: Order Comment: Order Date: 06/08/24Order Info: 0184-1 - CBCD Performed By: #### L 502.0250, L100.0100, L500.4050, L503.0105, L506.0250 ####[facility] [address] [place], [address] Platelets (Bld) [#/Vol] 213 10*3/uL Normal 150-450 [facility] Comment on above: Order Comment: Order Date: 06/08/24Order Info: 0184-1 - CBCD Performed By: #### L 502.0250, L100.0100, L500.4050, L503.0105, L506.0250 ####[facility] [address] [place], [address] RBC (Bld) [#/Vol] 4.27 10*6/uL Normal 4.2-5.4 [facility] Comment on above: Order Comment: Order Date: 06/08/24Order Info: 0184-1 - CBCD Performed By: #### L 502.0250, L100.0100, L500.4050, L503.0105, L506.0250 ####[facility] [address] [place], [address] RDW SD 39.3 fl Normal 35.1-43.9 [facility] Comment on above: Order Comment: Order Date: 06/08/24Order Info: 0184-1 - CBCD Performed By: #### L 502.0250, L100.0100, L500.4050, L503.0105, L506.0250 ####[facility] [address] [place], [address] WBC (Bld) [#/Vol] 9.3 10*3/uL Normal 4.4-11.0 [facility] Comment on above: Order Comment: Order Date: 06/08/24Order Info: 0184-1 - CBCD Performed By: #### L 502.0250, L100.0100, L500.4050, L503.0105, L506.0250 ####[facility] [address] [place], [address] Comprehensive Metabolic Prof ilon 06-17-2024 Albumin [Mass/Vol] 3.7 g/dL Normal 3.2-5.0 [facility] Comment on above: Order Comment: Order Date: 06/08/24Order Info: [id number] - CMPOrder Info: [id number] - FOLSN Performed By: #### L 502.0250, L100.0100, L500.4050, L503.0105, L506.0250 ####[facility] [address] [place], [address] Albumin/Globulin [Mass ratio] 1.1 {ratio} Normal 0.9-2.4 [facility] Comment on above: Order Comment: Order Date: 06/08/24Order Info: [id number] - CMPOrder Info: [id number] - FOLSN Performed By: #### L 502.0250, L100.0100, L500.4050, L503.0105, L506.0250 ####[facility] [address] [place], [address] ALK P 68 U/L Normal 45-117 [facility] Comment on above: Order Comment: Order Date: 06/08/24Order Info: [id number] - CMPOrder Info: [id number] - FOLSN Performed By: #### L 502.0250, L100.0100, L500.4050, L503.0105, L506.0250 ####[facility] [address] [place], [address] ALT [Catalytic activity/Vol] 29 U/L Normal 13-56 [facility] Comment on above: Order Comment: Order Date: 06/08/24Order Info: [id number] - CMPOrder Info: [id number] - FOLSN Performed By: #### L 502.0250, L100.0100, L500.4050, L503.0105, L506.0250 ####[facility] [address] [place], [address] AST [Catalytic activity/Vol] 15 U/L Normal 15-37 [facility] Comment on above: Order Comment: Order Date: 06/08/24Order Info: [id number] - CMPOrder Info: [id number] - FOLSN Performed By: #### L 502.0250, L100.0100, L500.4050, L503.0105, L506.0250 ####[facility] [address] [place], [address] Bilirubin [Mass/Vol] 0.80 mg/dL Normal 0.20-1.00 [facility] Comment on above: Order Comment: Order Date: 06/08/24Order Info: [id number] - CMPOrder Info: [id number] - FOLSN Result Comment: For patients on eltrombopag therapy, use of Dimension [place] TBIL is not recommended. Performed By: #### L 502.0250, L100.0100, L500.4050, L503.0105, L506.0250 ####[facility] [address] [place], [address] BUN/CRE 27.3 RATIO High 10-20 [facility] Comment on above: Order Comment: Order Date: 06/08/24Order Info: [id number] - CMPOrder Info: 228- - FOLSN Performed By: #### L 502.0250, L100.0100, L500.4050, L503.0105, L506.0250 ####[facility] [address] [place], [address] CA,Total 9.1 mg/dL Normal 8.5-10.1 [facility] Comment on above: Order Comment: Order Date: 06/08/24Order Info: [id number] - CMPOrder Info: [id number] - FOLSN Performed By: #### L 502.0250, L100.0100, L500.4050, L503.0105, L506.0250 ####[facility] [address] [place], [address] Chloride [Moles/Vol] 105 mmol/L Normal 98-107 [facility] Comment on above: Order Comment: Order Date: 06/08/24Order Info: [id number] - CMPOrder Info: [id number] - FOLSN Performed By: #### L 502.0250, L100.0100, L500.4050, L503.0105, L506.0250 ####[facility] [address] [place], [address] CO2 [Moles/Vol] 23.0 mmol/L Normal 21.0-32.0 [facility] Comment on above: Order Comment: Order Date: 06/08/24Order Info: [id number] - CMPOrder Info: [id number] - FOLSN Performed By: #### L 502.0250, L100.0100, L500.4050, L503.0105, L506.0250 ####[facility] [address] [place], [address] Creatinine [Mass/Vol] 0.84 mg/dL Normal 0.55-1.02 [facility] Comment on above: Order Comment: Order Date: 06/08/24Order Info: [id number] - CMPOrder Info: [id number] - FOLSN Result Comment: The validity of the calculated GFR GFRAA in patients over 70 years has not been determined. Clinical correlation is essential. Performed By: #### L 502.0250, L100.0100, L500.4050, L503.0105, L506.0250 ####[facility] [address] [place], [address] EST GFR - AA 86 mL/min Normal >60 [facility] Comment on above: Order Comment: Order Date: 06/08/24Order Info: [id number] - CMPOrder Info: [id number] - FOLSN Result Comment: Afri can [place] GFR Calc Performed By: #### L 502.0250, L100.0100, L500.4050, L503.0105, L506.0250 ####[facility] [address] [place], [place], [address] GAP 11 Normal 5-15 [facility] Comment on above: Order Comment: Order Date: 06/08/24Order Info: [id number] - CMPOrder Info: [id number] - FOLSN Performed By: #### L 502.0250, L100.0100, L500.4050, L503.0105, L506.0250 ####[facility] [address] [place], [address] GFR/1.73 sq M.predicted among non-blacks MDRD (S/P/Bld) [Vol rate/Area] 71 mL/min/{1.73_m2} Normal >60 [facility] Comment on above: Order Comment: Order Date: 06/08/24Order Info: [id number] - CMPOrder Info: [id number] - FOLSN Result Comment: Non- GFR Calc Performed By: #### L 502.0250, L100.0100, L500.4050, L503.0105, L506.0250 ####[facility] [address] [place], [address] Globulin (S) [Mass/Vol] 3.3 g/dL Normal 2.2-4.2 [facility] Comment on above: Order Comment: Order Date: 06/08/24Order Info: [id number] - CMPOrder Info: [id number] - FOLSN Performed By: #### L 502.0250, L100.0100, L500.4050, L503.0105, L506.0250 ####[facility] [address] [place], [address] Glucose [Mass/Vol] 135 mg/dL High 74-106 [facility] Comment on above: Order Comment: Order Date: 06/08/24Order Info: 0786-1 - CMPOrder Info: 2288 - FOLSN Result Comment: Fast ing Glucose result greater than or equal to 126 mg/dL suggests DIABETES MELLITUS per A.D.A. criteria. Performed By: #### L 502.0250, L100.0100, L500.4050, L503.0105, L506.0250 ####[facility] [address] [place], [address] Potassium [Moles/Vol] 4.7 mmol/L Normal 3.5-5.1 [facility] Comment on above: Order Comment: Order Date: 06/08/24Order Info: 0786-1 - CMPOrder Info: 228-8 - FOLSN Performed By: #### L 502.0250, L100.0100, L500.4050, L503.0105, L506.0250 ####[facility] [address] [place], [address] Sodium [Moles/Vol] 138 mmol/L Normal 136-145 [facility] Comment on above: Order Comment: Order Date: 06/08/24Order Info: 0786-1 - CMPOrder Info: 8 - FOLSN Performed By: #### L 502.0250, L100.0100, L500.4050, L503.0105, L506.0250 ####[facility] [address] [place], [address] T PROT 7.0 g/dL Normal 6.4-8.2 [facility] Comment on above: Order Comment: Order Date: 06/08/24Order Info: 0786-1 - CMPOrder Info: 2288 - FOLSN Performed By: #### L 502.0250, L100.0100, L500.4050, L503.0105, L506.0250 ####[facility] [address] [place], [address] Urea nitrogen [Mass/Vol] 23 mg/dL High 7-18 [facility] Comment on above: Order Comment: Order Date: 06/08/24Order Info: 0786-1 - CMPOrder Info: 228-8 - FOLSN Performed By: #### L 502.0250, L100.0100, L500.4050, L503.0105, L506.0250 ####[facility] [address] [place], [address] Folates, (Folic Acid)on 05-21 FOLATES 37.10 ng/mL Normal 3.1-55.4 [facility] Comment on above: Order Comment: Order Date: 06/08/24Order Info: 0786-1 - CMPOrder Info: 2284-8 - FOLSN Performed By: #### L 502.0250, L100.0100, L500.4050, L503.0105, L506.0250 ####[facility] [address] [place], [address] Microalb:Creat Ratio,Random URon 06-17-2024 Creatinine [Mass/Vol] 105.00 mg/dL Normal NO RAN GE EST. [facility] Comment on above: Order Comment: Order Date: 06/08/24Order Info: 2161-8 - CREATUOrder Info: 0779-1 - MIACREOrder Info: 98199-6 - ALBU Performed By: #### L 502.0250, L100.0100, L500.4050, L503.0105, L506.0250 ####[facility] [address] [place], [address] MALB:CRE 85.7 mg/g CRE High <30 mg/g CRE [facility] Comment on above: Order Comment: Order Date: 06/08/24Order Info: 2161-8 - CREATUOrder Info: 0779-1 - MIACREOrder Info: 14245-2 - ALBU Performed By: #### L 502.0250, L100.0100, L500.4050, L503.0105, L506.0250 ####[facility] [address] [place], [address] MICROALBUMIN,UR 90.0 mg/L Normal NO RANGE EST. [facility] Comment on above: Order Comment: Order Date: 06/08/24Order Info: 2161-8 - CREATUOrder Info: 0779-1 - MIACREOrder Info: 92893-6 - ALBU Performed By: #### L 502.0250, L100.0100, L500.4050, L503.0105, L506.0250 ####[facility] [address] [place], [address] Vitamin B12on 06-17-2024 Cobalamin (Vitamin B12) [Mass/Vol] 1485 pg/mL High 211-911 [facility] Comment on above: Order Comment: Order Date: 06/08/24Order Info: 2132-9 - B12 Performed By: #### L 502.0250, L100.0100, L500.4050, L503.0105, L506.0250 ####[facility] [address] [place], [address] Bedside Glucoseon 04-24-2024 FINGERSTICK GLU 198 mg/dL High 74-106 [facility] Comment on above: Result Comment: AMIRAH VALERIO OF PATIENT CARE PER NURSING PROTOCOL Performed By: #### L 501.080 #### [facility] Laboratory [address] [place], [address] Colonoscopy Reporton 024 Colonoscopy Report [facility] Medical Records Department [address] [place] [address] Colonoscopy Report MR#: [id number] Acct: [id number] Name: ISABEL GLASS Rep #: [id number] : 1955 68 From: Michael Whaley MD PCP: Dr. Chintan Saucedo MD Status:[facility] Patient Name: Isabel Glass Procedure Date: 04/24/2024 7:11 AM Date of : 1955 Age: 68 Procedure: Colonoscopy Indications: High risk colon cancer surveillance: Personal history of familial adenomatous polyposis Providers: Michael Whaley MD Referring MD: Chintan Saucedo Medicines: Propofol per Anesthesia Patient Profile: Last Colonoscopy: 5 years ago. Complications: No immediate complications. Estimated blood loss: Minimal. Procedure: Pre-Anesthesia Assessment: - Prior to the procedure, a History and Physical was performed, and patient medications and allergies were reviewed. The patient's tolerance of previous anesthesia was also reviewed. The risks and benefits of the procedure and the sedation options and risks were discussed with the patient. All questions were answered, and informed consent was obtained. Prior Anticoagulants: The patient has taken no anticoagulant or antiplatelet agents. After reviewing the risks and benefits, the patient was deemed in satisfactory condition to undergo the procedure. After I obtained informed consent, the scope was passed under direct vision. Throughout the procedure, the patient's blood pressure, pulse, and oxygen saturations were monitored continuously. The Colonoscope was introduced through the anus and advanced to the cecum, identified by appendiceal orifice and ileocecal valve. The colonoscopy was performed without difficulty. The patient tolerated the procedure well. The quality of the bowel preparation was adequate. Anatomical landmarks were photographed. Scope In: 7:27:49 AM Scope Withdrawal Time 0 hours 16 minutes 17 seconds Scope Out: 7:46:30 AM Total Procedure Duration Time 0 hours 18 minutes 41 seconds Findings: Three polyps were found in the rectum and transverse colon. The polyps were small in size. These polyps were removed with a hot snare. Resection and retrieval were complete. Impression: - Three small polyps in the rectum and in the transverse colon, removed with a hot snare. Resected and retrieved. Recommendation: - Discharge patient to home. - Resume previous diet. - Continue present medications. - Await pathology results. - Repeat colonoscopy in 3 years for surveillance. Procedure Code(s): --- Professional --- 63488, Colonoscopy, flexible; with removal of tumor(s), polyp(s), or other lesion(s) by snare technique Diagnosis Code(s): --- Professional --- Z86.010, Personal history of colonic polyps Z15.09, Genetic susceptibility to other malignant neoplasm D12.8, Benign neoplasm of rectum D12.3, Benign neoplasm of transverse colon (hepatic flexure or splenic flexure) CPT copyright 2021 [employer]. All rights reserved. The codes documented in this report are preliminary and upon accounting assistant review may be revised to meet current compliance requirements. Michael Whaley MD 04/24/2024 7:50:22 AM This report has been signed electronically. Number of Addenda: 0 Note Initiated On: 04/24/2024 7:11 AM 04/24/24750 Date Michael Kraft Signature: Date (if indicated) CC: Dr. Michael Whaley MD; Dr. Chintan Saucedo MD Date Dictated: 04/24/24710 Date Transcribed: [employer]: JAM [facility] MR/POSTOP.[facility] 04-24-2024 MR/POSTOP.[facility] Medical Records Department [address] [place] [address] Anesthesia Postop Eval I 04/24/24758 MR#: [id number] Acct: [id number] Name: ISABEL GLASS Rep #: [id number] : 1955 68 From: Manoj Leone PCP: Dr. Chintan Saucedo MD Status:REG SD Y Race: C Location: [place] [address] Anesthesia: Postop Eval I Current Vital Signs Temperature: 97.3 F Pulse Rate: 96 Blood Pressure: 120/77 Respiratory Rate: 16 Pulse Ox: 98 Oxygen Delivery Method: Room Air Assessment Airway patent: Yes Spontaneous unlabored respirations: Yes Mental status: Awake and Calm nausea: No Vomiting: No Anesthesia Complication: No Fluid Hydration Crystalloid volume administer (ml): 75 Total IV fluid infused: 75 Progress Note Anesthesia document: Postop Eval 1 completed: Yes 04/24/24801 Date Manoj Kraft Signature: Date CC: Signed Normal [facility] MR/MENEPMQE0jf 04-24-2024 MR/POSTOPAN2 [facility] Medical Records Department [address] [place] [address] Anesthesia Postop Eval II 04/24/24808 MR#: [id number] Acct: [id number] Name: ISABEL GLASS Rep #: [id number] : 1955 68 From: Alok Noonan MD PCP: Dr. Chintan Saucedo MD Status:REG SDC Y Race: C Location: [place] [address] Anesthesia Postop Eval I Sum Postop Eval Completion status Anesthesia document: Postop Eval 1 completed: Yes Anesthesia Postop Eval I Summary Anesthesia Postop Eval I Summary: Anesthesia Postop Eval I: Assessment Summary Airway patent Yes 04/24/24 08:02 [email or web address] Spontaneous unlabored Yes 04/24/24 08:02 [email or web address] respirations Mental status Awake,Calm 04/24/24 08:02 [email or web address] nausea No 04/24/24 08:02 [email or web address] Vomiting No 04/24/24 08:02 [email or web address] Anesthesia Postop Eval I: Fluid Summary Crystalloid volume administer 75 04/24/24 08:02 [email or web address] (ml) Colloids volume administered ( ml) Blood Product volume administered (ml) Total IV fluid infused 75 04/24/24 08:02 [email or web address] Anesthesia Postop Eval I: Summary Notes Anesthesia Complication No 04/24/24 08:02 [email or web address] Anesthesia Complication Comment: Post-operative progress note Anesthesia: Postop Eval II Evaluation Mental status: Awake Pain Level: 0 nausea: No Vomiting: No 04/24/24 08 Date Alok Noonan MD Cosigner Signature: Date CC: Signed Normal [facility] Surgery Specimen Level Calderon 04-24-2024 Surgery Specimen Level IV Patient Age/Sex Location Account Attending Physician ISABEL GLASS 68/F EN [id number] Dr. Michael Whaley MD Specimen: [id number] Received: 04/24/24 Status: SEBASTIÁN Brantley Num: [id number] Spec Type: COLON BX Subm Dr: Dr. Michael Whaley MD HEADER OPERATION: Colonoscopy PRE-OP DIAGNOSIS: Personal history of colonic polyps TISSUE SUBMITTED: A- Transverse colon polyp, B- Rectal polyp MICROSCOPIC DIAGNOSIS A. Transverse colon polyp, biopsy: Fragments of inflammatory polyp. B. Rectal polyp, biopsy: Inflammatory polyp. AM.mr 04/27/2024 MICROSCOPIC DESCRIPTION Slides are reviewed. GROSS DESCRIPTION A. Received in fixative is one container labeled with the patient's name and designated Transverse colon polyps. The specimen consists of two irregular fragments of light alexander soft tissue that in aggregate measure 0.9 x 0.6 x 0.1 cm. The specimen is totally submitted in one cassette. B. Received in fixative is one container labeled with the patient's name and designated Rectal polyp. The specimen consists of one irregular fragment of light alexander soft tissue that measures 0.5 x 0.5 x 0.1 cm. The specimen is totally submitted in one cassette. AM. 04/24/2024 TC:5 [facility]:[id number] Patient Age/Sex Location Account Attending Physician ISABEL GLASS 68/F EN [id number] Dr. Michael Whaley MD Signed (signature on file) Dr. Lonnie Meyers DO 04/27/24 1207 Normal [facility] Comment on above: Performed By: #### P SUIV ####[facility] [address] [facility] [place], [place], [id number] Dexa Bone Density Studyon Dexa Bone Density Study [facility] Imaging Services [address] [place], [place] [address] Dexa Bone Density Study MR#: [id number] Acct: [id number] Name: ISABEL GLASS Rep #: [id number] : 1955 F 68 From: Isael crain MD PCP: Dr. Chintan Saucedo MD Status: [facility] Study: Dexa Bone Density Study Date of Exam: 04/08/24 Exam# [id number] Ordering Dr: Chintan Saucedo MD [id number] STUDY: DUAL ENERGY X-RAY ABSORPTIOMETRY / DXA REASON FOR EXAM: Female, 68 years old. N959 TECHNIQUE: Bone Mineral Density (BMD) measurements of lumbar spine and bilateral hips were obtained. COMPARISON: Comparison is made with prior study October 22, 2019. FINDINGS: Lumbar Spine (L1-L4): g/cm2 (0.832) / T-score (-2.1) / Z-score (0.0) Findings are suggestive of osteopenia with a high fracture risk. Left Femur Total: g/cm2 (0.674) / T-score (-2.2) / Z-score (-0.7) Left Femoral Neck: g/cm2 (0.569) / T-score (-2.5) / Z-score (-0.8) Right Femur Total: g/cm2 (0.754) / T-score (-1.5) / Z-score (-0.1) Right Femoral Neck: g/cm2 (0.598) / T-score (-2.3) / Z-score (-0.5) The T-Scores on the most recent prior examination were: Lumbar Spine (L1-L4): There has been improvement of bone density since the previous examination. Left Femur Total: which represents a worsening of 9.7%. Right Femur Total: which represents a worsening of 6.7%. BD/Dexa Bone Density Study IMPRESSION: The patient is considered osteoporotic as outlined below according to [employer] [place] Organization (WHO) criteria with a high fracture risk. There has been worsening of bone density since the previous examination. Reference Information: The T-score is the number of standard deviations above or below the standard which is normal for young adults at their peak bone mineral density. The World Health Organization (WHO) interprets the T-scores as follows: Above -1 Normal bone density Between -1 and -2.5 Osteopenia Equal to / or below -2.5 Osteoporosis As a practical clinical guideline, osteopenia may be graded as follows: Mild -1 through -1.5 Moderate -1.6 through -2.0 Severe -2.1 through -2.4 The Z-score is the number of standard deviations above or below age-matched controls. A Z-score of less than -1.5 would be considered abnormal. References: 1. NIH Osteoporosis and Related Bone Diseases www osteo.org 2. International Society for Clinical Densitometry www iscd.org 3. National Osteoporosis Foundation www nof.org Electronically Signed: Isael Rizzo MD at 15:18 EST , CC: Dr. Chintan Saucedo MD [employer]: Signed Normal [facility] SCRN MAMM (CAD)W/NADEGE BILATo n 04-08-2024 SCRN MAMM (CAD)W/NADEGE BILAT [facility] Imaging Services [address] [place], [place] [address] SCRN MAMM (CAD)W/NADEGE BILAT MR#: [id number] Acct: [id number] Name: ISABEL GLASS Rep #: [id number] : 1955 F 68 From: Isael crain MD PCP: Dr. Chintan Saucedo MD Status: [facility] Study: SCRN MAMM (CAD)W/NADEGE BILAT Date of Exam: 03/21 Exam# [id number] Ordering Dr: Chintan Saucedo MD [id number] MAMMOGRAPHY - BILATERAL SCREENING REASON FOR EXAM: Female, 68 years old. Routine annual screening examination. PERTINENT HISTORY: Non-contributory. Left excisional breast biopsy. TECHNIQUE: Digital bilateral breast nadege (3D mammographic acquisition) in the CC and MLO projections. 2-D mediolateral oblique (MLO) and craniocaudad (CC) views of both breasts were obtained. CAD: Full Field Digital Mammography with Computer Added Detection was performed. COMPARISON: Comparison is made with prior study dated November 27, 2021 and November 25, 2020. FINDINGS: Breast Composition: The breasts are almost entirely fatty. There are no dominant masses or suspicious calcifications. No other significant abnormalities are identified. There has been no significant change since the prior study. BI/SCRN MAMM (CAD)W/NADEGE BILAT IMPRESSION: Stable bilateral screening mammogram. Yearly follow-up mammogram recommended. (A) ASSESSMENT CATEGORY: BIRADS Category 1: Negative. A letter regarding these results will be sent to the patient by the facility within 30 days. Approximately 10% of breast cancers are not detected by mammography. A normal mammogram should not delay biopsy of a clinically suspicious abnormality. [id number] Electronically Signed: Isael Rizzo MD at 11:37 EST Reading Location ID and State: [facility] / [place] , Service support , CC: Dr. Chintan Saucedo MD [employer]: Signed Normal [facility] Endocrinology Visit Reporton 03-30-2024 Endocrinology Visit Report [facility] [address] [facility] [address] [place] [address] OFFICE VISIT Date of Service: 03/30/24 MR#: [id number] Acct: [id number] Name: ISABEL GLASS Rep #: [id number] : 1955 Provider: GERARD evans Age/Sex: 68/F Location: [facility] [place] Status: Signed Intake Vital Signs 12/30/23 08:13 03/10/24 09:17 03/30/24 09:41 Height 5 ft 3 in 5 ft 4 in 5 ft 4 in Weight: 175 lb 165 lb BMI 30.9 28.3 BP 157/86 H 118/80 Blood Pressure Location Lt brachial Lt brachial Position Sitting Sitting Pulse 75 87 Pulse Source Monitor Monitor Pulse Oximetry (%) 96 95 Oxygen Delivery Method room air room air Intake Visit Reasons: 3 M FU Chief Complaint: f/u diabetes Is patient in pain?: No Allergies amoxicillin Allergy (Mild, Verified 03/10/24 09:00) YEAST aspirin (From Ar Aspirin) Allergy (Mild, Verified 03/10/24 09:00) Bleeding Latex, Natural Rubber Allergy (Mild, Verified 03/10/24 09:00) RASH Medications ???Medication ???Instructions ???Recorded ???Confirmed ???Type benazepril 10 mg tablet 10 mg PO QDAY 05/03/17 03/30/24 History cinnamon bark 500 mg capsule 1,000 mg PO DAILY 05/03/17 03/30/24 History (Cinnamon) magnesium oxide 400 mg PO QDAY 05/03/17 03/30/24 History multivitamin,tx-iron-min erals 1 tab PO QDAY 05/03/17 03/30/24 History (Complete Multivitamin tablet) doxycycline hyclate 100 mg capsule 100 mg PO QDAY PRN FACE BREAKOUT 07/15/17 03/30/24 History rupqzvvk-isq-XM 200 mcg-vit K 15 2 tab PO DAILY 11/22/21 03/30/24 History mcg-lycope 150 xji-pmzsqe-grmt tablet (Ocuvite Eye Plus Multi) cholecalciferol (vitamin D3) 50 50 mcg PO DAILY #90 caps 07/09/22 03/30/24 Rx mcg (2,000 unit) capsule lactobacillus combination no.9 4 4,000 mmu cells PO DAILY 07/09/22 03/30/24 History billion cell capsule (Adult 50 Plus Probiotic) blood-glucose sensor (FreeStyle #2 ea 07/11/22 03/10/24 Rx Brennan 3 Sensor device) coenzyme Q10 100 mg capsule (Co 600 mg PO DAILY 07/25/22 03/30/24 History Q-10) elderberry fruit 350 mg capsule 350 mg PO DAILY 07/25/22 03/30/24 History methylphenidate HCl 20 mg biphasic 20 mg PO DAILY 07/01/23 03/30/24 History 50-50 capsule,extended release blood sugar diagnostic (Accu-Chek #100 ea 07/31/23 03/10/24 Rx SmartView Test Strips) lysine 500 mg tablet 1,000 mg PO DAILY PRN 12/30/23 03/30/24 History metformin 1,000 mg tablet 1,000 mg PO BID #180 tabs 02/24/24 03/30/24 Rx ascorbic acid (vitamin C) 500 mg 1,000 mg PO DAILY 03/10/24 03/10/24 History tablet biotin 400 mcg tablet mcg PO .QD 03/10/24 03/30/24 History carboxymethylcellulose sodium 1 % 1 drp ophthalmic (eye) BID 03/10/24 03/30/24 History eye liquid gel drops (Refresh Liquigel) coffee extract 100 mg-phosphatidyl cap PO .QD 03/10/24 03/30/24 History serine 100 mg capsule (Neuriva Original) cyanocobalamin (vitamin B-12) 1,000 mcg PO QDAY 03/10/24 03/30/24 History 1,000 mcg tablet (Vitamin B-12) diclofenac potassium 50 mg tablet 50 mg PO BID PRN 03/10/24 03/10/24 History ferrous sulfate 325 mg (65 mg 325 mg PO QDAY 03/10/24 03/30/24 History iron) tablet (FeroSul) fluconazole 150 mg tablet 150 mg PO ONCE PRN 03/10/24 03/30/24 History nystatin 100,000 unit/gram topical 1 applic topical BID PRN 03/10/24 03/30/24 History ointment psyllium husk 0.4 gram capsule 0.8 g PO ONCE 03/10/24 03/30/24 History (Metamucil) atorvastatin 10 mg tablet 10 mg PO .MonWedFri 03/30/24 History semaglutide 1 mg/dose (4 mg/3 mL) 1 mg (0.75 mL) subcut QWEEK #3 mL 03/30/24 03/30/24 Rx subcutaneous pen injector (Ozempic) Have you fallen in the past year?: No PFSH Medical History ZACHERY treated with BiPAP Family history of malignant neoplasm of colon in relative diagnosed when younger than 50 years of age Essential hypertension Diabetes mellitus type II, controlled Hematoma Mass of soft tissue of left lower extremity Diabetes mellitus, type II History of colon cancer Chest pain, unspecified Abnormal electrocardiogram Hyperlipidemia BMI 33.0-33.9,adult Daytime somnolence Obstructive sleep apnea Periodic limb movement disorder Surgical History History of hysterectomy Hx of breast biopsy History of bladder suspension procedure History of tubal ligation History of colectomy H/O arthroscopy of left knee History of carpal tunnel release of both wrists Family History Sister ZACHERY (obstructive sleep apnea) Brother , Age 62 from [place] CAD (coronary artery disease), Onset Age: 61 PCI and stents Myocardial infarction Father Pacemaker Cardiomyopathy (more content not included)... Normal [facility] CBC W/Diff, Automatedon 12-18-2023 Absolute Lymph 2.11 X10 3/uL Normal 0.83-4.51 [facility] Comment on above: Order Comment: Order Date: 08/06/23 Order Info: 018- - CBCD Performed By: #### L 100.0100, L501.9985, L502.0250, L500.4050, L503.6550 #### [facility] Laboratory [address] [place], [address] Absolute Neut 4.3 X10 3/uL Normal 2.0-7.7 [facility] Comment on above: Order Comment: Order Date: 08/06/23 Order Info: 018- - CBCD Performed By: #### L 100.0100, L501.9985, L502.0250, L500.4050, L503.6550 #### [facility] Laboratory [address] [place], [address] Basophils/100 WBC (Bld) 0.4 % Normal 0-[address] [facility] Comment on above: Order Comment: Order Date: 08/06/23 Order Info: 018- - CBCD Performed By: #### L 100.0100, L501.9985, L502.0250, L500.4050, L503.6550 #### [facility] [address] [place], [address] Eosinophils/100 WBC (Bld) 3.9 % Normal 0-5 [facility] Comment on above: Order Comment: Order Date: 08/06/23 Order Info: 018- - CBCD Performed By: #### L 100.0100, L501.9985, L502.0250, L500.4050, L503.6550 #### [facility] [address] [place], [address] Erythrocyte distribution width (RBC) [Ratio] 13.0 % Normal 11.6-14.6 [facility] Comment on above: Order Comment: Order Date: 08/06/23 Order Info: 0184-1 - CBCD Performed By: #### L 100.0100, L501.9985, L502.0250, L500.4050, L503.6550 #### [facility] [address] [place], [address] Hematocrit (Bld) [Volume fraction] 37.7 % Normal 37-47 [facility] Comment on above: Order Comment: Order Date: 08/06/23 Order Info: 0184-1 - CBCD Performed By: #### L 100.0100, L501.9985, L502.0250, L500.4050, L503.6550 #### [facility] [address] [place], [address] Hemoglobin (Bld) [Mass/Vol] 12.7 g/dL Normal 12.0-15.0 [facility] Comment on above: Order Comment: Order Date: 08/06/23 Order Info: 0184-1 - CBCD Performed By: #### L 100.0100, L501.9985, L502.0250, L500.4050, L503.6550 #### [facility] [address] [place], [address] IG% 0.400 Normal 0.0-0.9 [facility] Comment on above: Order Comment: Order Date: 08/06/23 Order Info: 0184-1 - CBCD Result Comment: IG% - Immature Granulocytes (promyelocytes, myelocytes and metamyelocytes) > 1% indicates that a LEFT SHIFT is Present. Performed By: #### L 100.0100, L501.9985, L502.0250, L500.4050, L503.6550 #### [facility] [facility] [address] [place], [address] Lymphocytes/100 WBC (Bld) 28.7 % Normal 19-41 [facility] Comment on above: Order Comment: Order Date: 08/06/23 Order Info: 0184-1 - CBCD Performed By: #### L 100.0100, L501.9985, L502.0250, L500.4050, L503.6550 #### [facility] [address] [place], [address] MCH (RBC) [Entitic mass] 33.0 pg High 27.0-32.0 [facility] Comment on above: Order Comment: Order Date: 08/06/23 Order Info: 0184- - CBCD Performed By: #### L 100.0100, L501.9985, L502.0250, L500.4050, L503.6550 #### [facility] [address] [place], [address] MCHC (RBC) [Mass/Vol] 33.7 g/dL Normal 32-36 [facility] Comment on above: Order Comment: Order Date: 08/06/23 Order Info: 0184- - CBCD Performed By: #### L 100.0100, L501.9985, L502.0250, L500.4050, L503.6550 #### [facility] [address] [place], [address] MCV (RBC) [Entitic vol] 97.9 fL Normal 81-[address] [facility] Comment on above: Order Comment: Order Date: 08/06/23 Order Info: 0184- - CBCD Performed By: #### L 100.0100, L501.9985, L502.0250, L500.4050, L503.6550 #### [facility] [address] [place], [address] Monocytes/100 WBC (Bld) 8.2 % Normal 0-10 [facility] Comment on above: Order Comment: Order Date: 08/06/23 Order Info: 0184-1 - CBCD Performed By: #### L 100.0100, L501.9985, L502.0250, L500.4050, L503.6550 #### [facility] [address] [place], [address] Neutrophils/100 WBC (Bld) 58.4 % Normal 47-70 [facility] Comment on above: Order Comment: Order Date: 08/06/23 Order Info: 0184-1 - CBCD Performed By: #### L 100.0100, L501.9985, L502.0250, L500.4050, L503.6550 #### [facility] [address] [place], [address] Nucleated RBC (Bld) [#/Vol] 0 10*3/uL Normal 0-5 [facility] Comment on above: Order Comment: Order Date: 08/06/23 Order Info: 0184-1 - CBCD Performed By: #### L 100.0100, L501.9985, L502.0250, L500.4050, L503.6550 #### [facility] [address] [place], [address] Platelet mean volume (Bld) [Entitic vol] 9.8 fL Normal 6.2-12.0 [facility] Comment on above: Order Comment: Order Date: 08/06/23 Order Info: 0184-1 - CBCD Performed By: #### L 100.0100, L501.9985, L502.0250, L500.4050, L503.6550 #### [facility] [address] [place], [address] Platelets (Bld) [#/Vol] 170 10*3/uL Normal 150-450 [facility] Comment on above: Order Comment: Order Date: 08/06/23 Order Info: 0184-1 - CBCD Performed By: #### L 100.0100, L501.9985, L502.0250, L500.4050, L503.6550 #### [facility] [address] [place], [place], [id number] RBC (Bld) [#/Vol] 3.85 10*6/uL Low 4.2-5.4 [facility] Comment on above: Order Comment: Order Date: 08/06/23 Order Info: 0184-1 - CBCD Performed By: #### L 100.0100, L501.9985, L502.0250, L500.4050, L503.6550 #### [facility] [address] [place], [place], [id number] RDW SD 46.1 fl High 35.1-43.9 [facility] Comment on above: Order Comment: Order Date: 08/06/23 Order Info: 0184-1 - CBCD Performed By: #### L 100.0100, L501.9985, L502.0250, L500.4050, L503.6550 #### [facility] [address] [place], [place], [address] WBC (Bld) [#/Vol] 7.4 10*3/uL Normal 4.4-11.0 [facility] Comment on above: Order Comment: Order Date: 08/06/23 Order Info: 0184-1 - CBCD Performed By: #### L 100.0100, L501.9985, L502.0250, L500.4050, L503.6550 #### [facility] [address] [place], [place], [id number] Comprehensive Metabolic Prof [facility] 12-30-2023 Albumin [Mass/Vol] 3.6 g/dL Normal 3.2-5.0 [facility] Comment on above: Order Comment: Order Date: 08/06/23 Order Info: 0786-1 - CMP Order Info: 2276-4 - KAREN Performed By: #### L 100.0100, L501.9985, L502.0250, L500.4050, L503.6550 #### [facility] [address] [place], [place], [address] Albumin/Globulin [Mass ratio] 1.2 {ratio} Normal 0.9-2.4 [facility] Comment on above: Order Comment: Order Date: 08/06/23 Order Info: 0786 - CMP Order Info: 2275-08 KAREN Performed By: #### L 100.0100, L501.9985, L502.0250, L500.4050, L503.6550 #### [facility] [address] [place], [address] ALK P 56 U/L Normal 45-117 [facility] Comment on above: Order Comment: Order Date: 08/06/23 Order Info: 0786 - CMP Order Info: 2275-08 - KAREN Performed By: #### L 100.0100, L501.9985, L502.0250, L500.4050, L503.6550 #### [facility] [address] [place], [address] ALT [Catalytic activity/Vol] 43 U/L Normal 13-56 [facility] Comment on above: Order Comment: Order Date: 08/06/23 Order Info: 0786- - CMP Order Info: 2275-08 - KAREN Performed By: #### L 100.0100, L501.9985, L502.0250, L500.4050, L503.6550 #### [facility] [address] [place], [address] AST [Catalytic activity/Vol] 37 U/L Normal 15-37 [facility] Comment on above: Order Comment: Order Date: 08/06/23 Order Info: 0786- - CMP Order Info: 2275-08 KAREN Result Comment: Slig ht Hemolysis, Result may be falsely increased. Performed By: #### L 100.0100, L501.9985, L502.0250, L500.4050, L503.6550 #### [facility] [address] [place], [address] Bilirubin [Mass/Vol] 0.80 mg/dL Normal 0.20-1.00 [facility] Comment on above: Order Comment: Order Date: 08/06/23 Order Info: 0786-1 - CMP Order Info: 2275-08 - KAREN Result Comment: For patients on eltrombopag therapy, use of Dimension [place] TBIL is not recommended. Performed By: #### L 100.0100, L501.9985, L502.0250, L500.4050, L503.6550 #### [facility] [address] [place], [address] BUN/CRE 22.8 RATIO High 10-20 [facility] Comment on above: Order Comment: Order Date: 08/06/23 Order Info: 0786-1 - CMP Order Info: 2275-08 - KAREN Performed By: #### L 100.0100, L501.9985, L502.0250, L500.4050, L503.6550 #### [facility] [address] [place], [address] CA,Total 9.5 mg/dL Normal 8.5-10.1 [facility] Comment on above: Order Comment: Order Date: 08/06/23 Order Info: 0786-1 - CMP Order Info: 2275-08 - KAREN Performed By: #### L 100.0100, L501.9985, L502.0250, L500.4050, L503.6550 #### [facility] [address] [place], [address] Chloride [Moles/Vol] 108 mmol/L High 98-107 [facility] Comment on above: Order Comment: Order Date: 08/06/23 Order Info: 0786-1 - CMP Order Info: 2275-08 - KAREN Performed By: #### L 100.0100, L501.9985, L502.0250, L500.4050, L503.6550 #### [facility] [address] [place], [address] CO2 [Moles/Vol] 23.0 mmol/L Normal 21.0-32.0 [facility] Comment on above: Order Comment: Order Date: 08/06/23 Order Info: 0786-1 - [facility] Order Info: 2275-08 KAREN Performed By: #### L 100.0100, L501.9985, L502.0250, L500.4050, L503.6550 #### [facility] [address] [place], [address] Creatinine [Mass/Vol] 0.96 mg/dL Normal 0.55-1.02 [facility] Comment on above: Order Comment: Order Date: 08/06/23 Order Info: 0786-1 - [facility] Order Info: 2275-08 KAREN Result Comment: The validity of the calculated GFR GFRAA in patients over 70 years has not been determined. Clinical correlation is essential. Performed By: #### L 100.0100, L501.9985, L502.0250, L500.4050, L503.6550 #### [facility] [address] [place], [address] EST GFR - AA 74 mL/min Normal >60 [facility] Comment on above: Order Comment: Order Date: 08/06/23 Order Info: 0786-1 - [facility] Order Info: 2275-08 KAREN Result Comment: Afri can [place] GFR Calc Performed By: #### L 100.0100, L501.9985, L502.0250, L500.4050, L503.6550 #### [facility] [address] [place], [address] GAP 7 Normal 5-15 [facility] Comment on above: Order Comment: Order Date: 08/06/23 Order Info: 0786-1 - CMP Order Info: 2275-08 KAREN Performed By: #### L 100.0100, L501.9985, L502.0250, L500.4050, L503.6550 #### [facility] [address] [place], [address] GFR/1.73 sq M.predicted among non-blacks MDRD (S/P/Bld) [Vol rate/Area] 61 mL/min/{1.73_m2} Normal >60 [facility] Comment on above: Order Comment: Order Date: 08/06/23 Order Info: 0786-1 - [facility] Order Info: 2275-08 - KAREN Result Comment: Non- GFR Calc Performed By: #### L 100.0100, L501.9985, L502.0250, L500.4050, L503.6550 #### [facility] [address] [place], [address] Globulin (S) [Mass/Vol] 2.9 g/dL Normal 2.2-4.2 [facility] Comment on above: Order Comment: Order Date: 08/06/23 Order Info: 0786-1 - [facility] Order Info: 2275-08 - KAREN Performed By: #### L 100.0100, L501.9985, L502.0250, L500.4050, L503.6550 #### [facility] [address] [place], [address] Glucose [Mass/Vol] 146 mg/dL High 74-106 [facility] Comment on above: Order Comment: Order Date: 08/06/23 Order Info: 0786-1 - [facility] Order Info: 2275-08 - KAREN Result Comment: Fast ing Glucose result greater than or equal to 126 mg/dL suggests DIABETES MELLITUS per A.D.A. criteria. Performed By: #### L 100.0100, L501.9985, L502.0250, L500.4050, L503.6550 #### [facility] [address] [place], [address] Potassium [Moles/Vol] 4.3 mmol/L Normal 3.5-5.1 [facility] Comment on above: Order Comment: Order Date: 08/06/23 Order Info: 0786-1 - CMP Order Info: 2275-08 - KAREN Result Comment: Slig ht Hemolysis, Result may be falsely increased. Performed By: #### L 100.0100, L501.9985, L502.0250, L500.4050, L503.6550 #### [facility] [address] [place], [address] Sodium [Moles/Vol] 138 mmol/L Normal 136-145 [facility] Comment on above: Order Comment: Order Date: 08/06/23 Order Info: 0786-1 - CMP Order Info: 2275-08 - KAREN Performed By: #### L 100.0100, L501.9985, L502.0250, L500.4050, L503.6550 #### [facility] [address] [place], [place], [address] T PROT 6.5 g/dL Normal 6.4-8.2 [facility] Comment on above: Order Comment: Order Date: 08/06/23 Order Info: 0786-1 - [facility] Order Info: 2275-08 - KAREN Performed By: #### L 100.0100, L501.9985, L502.0250, L500.4050, L503.6550 #### [facility] [address] [place], [address] Urea nitrogen [Mass/Vol] 22 mg/dL High 7-18 [facility] Comment on above: Order Comment: Order Date: 08/06/23 Order Info: 0786-1 - CMP Order Info: 2275-08 - KAREN Performed By: #### L 100.0100, L501.9985, L502.0250, L500.4050, L503.6550 #### [facility] [address] [place], [address] Endocrinology Visit Reporton 12-30-2023 Endocrinology Visit Report [facility] [address] [place] [address]. [address] [place] [address] OFFICE VISIT Date of Service: 12/30/23 MR#: [id number] Acct: [id number] Name: ISABEL GLASS Rep #: [id number] : 1955 Provider: GERARD evans Age/Sex: 68/F Location: [facility] Status: Signed Intake Vital Signs 07/01/23 09:45 08/09/23 09:22 12/30/23 08:13 Height 5 ft 3 in 5 ft 3 in 5 ft 3 in Weight: 175 lb BMI 30.9 BP 157/86 H Blood Pressure Location Lt brachial Position Sitting Pulse 75 Pulse Source Monitor Pulse Oximetry (%) 96 Oxygen Delivery Method room air Intake Visit Reasons: 6 M FU Chief Complaint: f/u diabetes 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: No Accompanied by: Self Is patient in pain?: No Allergies amoxicillin Allergy (Mild, Verified 08/09/23 09:23) aspirin (From [email or web address] Aspirin) Allergy (Mild, Verified 08/09/23 09:23) Latex, Natural Rubber Allergy (Mild, Verified 08/09/23 09:23) Medications ???Medication ???Instructions ???Recorded ???Confirmed ???Type benazepril 10 mg tablet 10 mg PO QDAY 05/03/17 12/30/23 History cinnamon bark 500 mg capsule 1,000 mg PO DAILY 05/03/17 12/30/23 History (Cinnamon) magnesium oxide 400 mg PO QDAY 05/03/17 12/30/23 History multivitamin,tx-iron-min erals 1 tab PO QDAY 05/03/17 12/30/23 History (Complete Multivitamin tablet) doxycycline hyclate 100 mg capsule 100 mg PO QDAY PRN FACE BREAKOUT 07/15/17 12/30/23 History ascorbic acid (vitamin C) 500 mg 500 mg PO DAILY 11/22/21 12/30/23 History tablet xqvikzbf-fnk-TY 200 mcg-vit K 15 2 tab PO DAILY 11/22/21 12/30/23 History mcg-lycope 150 owh-rkwtqb-vtsy tablet (Ocuvite Eye Plus Multi) cholecalciferol (vitamin D3) 50 50 mcg PO DAILY #90 caps 07/09/22 12/30/23 Rx mcg (2,000 unit) capsule lactobacillus combination no.9 4 4,000 mmu cells PO DAILY 07/09/22 12/30/23 History billion cell capsule (Adult 50 Plus Probiotic) blood-glucose sensor (FreeStyle #2 ea 07/11/22 12/30/23 Rx Brennan 3 Sensor device) coenzyme Q10 100 mg capsule (Co 600 mg PO DAILY 07/25/22 12/30/23 History Q-10) elderberry fruit 350 mg capsule 350 mg PO DAILY 07/25/22 12/30/23 History metformin 1,000 mg tablet 1,000 mg PO BID #180 tabs 03/18/23 12/30/23 Rx methylphenidate HCl 20 mg biphasic 20 mg PO DAILY 07/01/23 12/30/23 History 50-50 capsule,extended release blood sugar diagnostic (Accu-Chek #100 ea 07/31/23 12/30/23 Rx SmartView Test Strips) atorvastatin 20 mg tablet 10 mg (1/2 x 20 mg) PO DAILY #90 09/24/23 12/30/23 Rx tabs lysine 500 mg tablet 1,000 mg PO DAILY PRN 12/30/23 12/30/23 History semaglutide 0.25 mg or 0.5 mg (2 0.5 mg (0.736 mL) subcut QWEEK #3 12/30/23 12/30/23 Rx mg/3 mL) subcutaneous pen injector mL (Ozempic) Have you fallen in the past year?: No PFSH Medical History (Updated 12/30/23 @ 09:27 by GERARD Bran) Essential hypertension Diabetes mellitus type II, controlled Hematoma Mass of soft tissue of left lower extremity Diabetes mellitus, type II History of colon cancer Chest pain, unspecified Abnormal electrocardiogram Hyperlipidemia BMI 33.0-33.9,adult Daytime somnolence Obstructive sleep apnea Periodic limb movement disorder Surgical History History of hysterectomy Hx of breast biopsy History of bladder suspension procedure History of tubal ligation History of colectomy H/O arthroscopy of left knee History of carpal tunnel release of both wrists Family History Sister ZACHERY (obstructive sleep apnea) Brother , Age 62 from [place] CAD (coronary artery disease), Onset Age: 61 PCI and stents Myocardial infarction Father Pacemaker Cardiomyopathy Brother , of colon cancer Colon cancer Social History Smoking Status: Never smoker second hand exposure: No alcohol intake: current alcohol intake frequency: holidays/special occasions only Alcohol type: other substance use type: does not use caffeine: Yes (2/day) what type of physical activity do you participate in: none HPI HPI Chief Complaint: f/u diabetes Details: ISABEL GLASS, is a 68 F who presents to the office today for evaluation and management of diabetes. A1C today is 7.4%, increased from 07/01/23 at 7.0%. She has gained 7 lbs since that time. Currently taking metformin 1 gm BID with food and PCP placed her on Januvia 100 mg earlier this spring. Reports compliance with medication. She admits that she has been somewhat off track with her diet. BP elevated today at 157/82. Currently taking benazepril 10 mg once daily. She is due for labs. Denies any acute concerns. (more content not included)... Normal [facility] Ferritinon 12-30-2023 Ferritin [Mass/Vol] 77 ng/mL Normal 8-252 [facility] Comment on above: Order Comment: Order Date: 08/06/23 Order Info: 0786-1 - CMP Order Info: 2276-4 - KAREN Performed By: #### L 100.0100, L501.9985, L502.0250, L500.4050, L503.6550 #### [facility] [address] [place], [address] Hemoglobin A1con 12-30-2023 HbA1c (Bld) [Mass fraction] 7.0 % High 3.8-5.6 [facility] Comment on above: Order Comment: Order Date: 08/06/23 Order Info: [id number] - A1C Result Comment: Norm al < 5.7 % Prediabetic 5.7 - 6.4 % Diabetic >or= 6.5 % Please note range changes. Performed By: #### L 100.0100, L501.9985, L502.0250, L500.4050, L503.6550 #### [facility] [address] [place], [address] Lipid Profileon 12-30-2023 Cholesterol [Mass/Vol] 109 mg/dL Normal 200 [facility] Comment on above: Result Comment: <200 mg/dL Desirable 200-240 mg/dL Borderline >240 mg/dL High Risk Performed By: #### L 506.1000, L501.9520, L500.4100 #### [facility] [address] [place], [address] Cholesterol in HDL [Mass/Vol] 39 mg/dL Low [facility] Comment on above: Result Comment: The drugs N-Acetylcysteine and Metamizole may falsely depress this assay. Reference Range HDL <40 mg/dL Low HDL Cholesterol HDL >or= 60 mg/dL High HDL Cholesterol Performed By: #### L 506.1000, L501.9520, L500.4100 #### [facility] [address] [place], [address] Cholesterol in LDL [Mass/Vol] 7 mg/dL Normal 0-130 [facility] Comment on above: Performed By: #### L 506.1000, L501.9520, L500.4100 #### [facility] [address] [place], [address] Cholesterol in VLDL [Mass/Vol] 63 mg/dL High 5-40 [facility] Comment on above: Performed By: #### L 506.1000, L501.9520, L500.4100 #### [facility] [address] [place], [address] Triglyceride [Mass/Vol] 313 mg/dL High [facility] Comment on above: Result Comment: The drugs N-Acetylcysteine and Metamizole may falsely depress this assay. Serum Triglycerides Reference Interval Normal <150 mg/dL Borderline high 150 - 199 mg/dL High 200 - 499 mg/dL Very High > or = 500 mg/dL Performed By: #### L 506.1000, L501.9520, L500.4100 #### [facility] [address] [place], [address] Microalb:Creat Ratio,Random URon 12-30-2023 Creatinine [Mass/Vol] 67.80 mg/dL Normal NO RAN GE EST. [facility] Comment on above: Order Comment: Order Date: 08/06/23 Order Info: 0779-1 - [facility] Performed By: #### L 100.0100, L501.9985, L502.0250, L500.4050, L503.6550 #### [facility] [address] [place], [address] MALB:CRE 92.0 mg/g CRE High <30 mg/g CRE [facility] Comment on above: Order Comment: Order Date: 08/06/23 Order Info: 0779-1 - [facility] Performed By: #### L 100.0100, L501.9985, L502.0250, L500.4050, L503.6550 #### [facility] [address] [place], [address] MICROALBUMIN,UR 62.4 mg/L Normal NO RANGE EST. [facility] Comment on above: Order Comment: Order Date: 08/06/23 Order Info: 0779-1 - [facility] Performed By: #### L 100.0100, L501.9985, L502.0250, L500.4050, L503.6550 #### [facility] [address] [place], [address] Thyroid Stim Hormone (TSH)on 12-30-2023 TSH 2.28 uIU/mL Normal 0.358-3.74 [facility] Comment on above: Performed By: #### L 506.1000, L501.9520, L500.4100 ####[facility] [address] [place], [address] Vitamin D,25 Hydroxyon 12-29 Vitamin D 25-OH 47.9 ng/mL Normal [facility] Comment on above: Result Comment: Lisa min D 25(OH) Status Range Deficiency <20 ng/mL (50nmol/L) Insufficiency 20 - 30 ng/mL (50 - 75 nmol/L) Sufficiency 30 - 100 ng/mL (75 - 250 nmol/L) Toxicity >100 ng/mL (>250 nmol/L) Performed By: #### L 506.1000, L501.9520, L500.4100 #### [facility] [address] [place], [address] Basophil percentageOrdered B y: Chintan Saucedo on 07-30-2023 Bilirubin [Mass/Vol] 0.70 mg/dL 0.20-1.00 [facility] Comment on above: For patients on eltr ombopag therapy, use of Dimension [place] TBIL is not recommended. Chloride [Moles/Vol] 111 mmol/L 98-107 [facility] Glucose [Mass/Vol] 149 mg/dL 74-106 [facility] Comment on above: Fasting Glucose resu lt greater than or equal to 126 mg/dL suggests DIABETES MELLITUS per A.D.A. criteria. Potassium [Moles/Vol] 4.4 mmol/L 3.5-5.1 [facility] Protein [Mass/Vol] 6.8 g/dL 6.4-8.2 [facility] Sodium [Moles/Vol] 139 mmol/L 136-145 [facility] - Chemistry and C hemistry - challengeOrdered By: Chintan Saucedo on 07-30-2023 Albumin/Globulin [Mass ratio] 1.1 {ratio} 0.9-2.4 [facility] ALP [Catalytic activity/Vol] 69 U/L 45-117 [facility] ALT [Catalytic activity/Vol] 30 U/L 13-56 [facility] CO2 [Moles/Vol] 21.0 mmol/L 21.0-32.0 [facility] Ferritin [Mass/Vol] 49 ng/mL 8-252 [facility] Globulin (S) [Mass/Vol] 3.2 g/dL 2.2-4.[address] [facility] Urea nitrogen/Creatinine [Mass ratio] 21.5 mg/mg 10-20 [facility] No Panel InformationOrdered By: Chintan Saucedo on 07-30-2023 Estimated GFR (MDRD) Amer 77 mL/min >60 [facility] Comment on above: GFR Calc Estimated GFR (MDRD) Non-Af Amer 64 mL/min >60 [facility] Comment on above: Non- GFR Calc Serum or plasma calcium carol urement (mass/volume)Ordered By: Chintan Saucedo on 07-30-2023 Calcium [Mass/Vol] 9.0 mg/dL 8.5-10.1 [facility] Serum or plasma creatinine m easurement (mass/volume)Ordered By: Chintan Saucedo on 07-30-2023 Creatinine [Mass/Vol] 0.93 mg/dL 0.55-1.02 [facility] Comment on above: The validity of the calculated GFR & GFRAA in patients over 70 years has not been determined. Clinical correlation is essential. Serum or plasma urea nitroge n measurement (mass/volume)Ordered By: Chintan Saucedo on 07-30-2023 Urea nitrogen [Mass/Vol] 20 mg/dL 7-18 [facility] Thin prep Papanicolaou smear with manual screeningOrdered By: Chintan Saucedo on 07-30-2023 Thin prep Papanicolaou smear with manual screening 3.6 g/dL 3.2-5.0 [facility] Thin prep Papanicolaou smear with manual screening 17 U/L 15-37 [facility] Thin prep Papanicolaou smear with manual screening 7 5-15 [facility] Whole blood hemoglobin A1c/t otal hemoglobin ratio (mass fraction)Ordered By: Chintan Saucedo on 07-30-2023 HbA1c (Bld) [Mass fraction] 6.8 % 3.8-5.6 [facility] Comment on above: Normal < 5.7 % Predi abetic 5.7 - 6.4 % Diabetic >or= 6.5 % Please note range changes. Laboratory - Hematology and Cell countson 07-01-2023 HbA1c (Bld) [Mass fraction] 7.0 % 4.2-6.3 [facility] Absolute lymphocyte countOrd ered By: Chintan Saucedo on 02-05-2023 Lymphocytes Auto (Unsp spec) [#/Vol] 1.93 10*3/uL 0.83-4.51 [facility] Basophil percentageOrdered B y: Chintan Saucedo on 02-05-2023 Basophils/100 WBC (Bld) 0.4 % 0-[address] [facility] Bilirubin [Mass/Vol] 0.80 mg/dL 0.20-1.00 [facility] Comment on above: For patients on eltr ombopag therapy, use of Dimension [place] TBIL is not recommended. Chloride [Moles/Vol] 108 mmol/L 98-107 [facility] Eosinophils/100 WBC (Bld) 2.6 % 0-5 [facility] Glucose [Mass/Vol] 143 mg/dL 74-106 [facility] Comment on above: Fasting Glucose resu lt greater than or equal to 126 mg/dL suggests DIABETES MELLITUS per A.D.A. criteria. Neutrophils (Bld) [#/Vol] 5.0 10*3/uL 2.0-7.7 [facility] Neutrophils/100 WBC (Bld) 64.2 % 47-70 [facility] Potassium [Moles/Vol] 4.5 mmol/L 3.5-5.1 [facility] Protein [Mass/Vol] 7.0 g/dL 6.4-8.2 [facility] Sodium [Moles/Vol] 138 mmol/L 136-145 [facility] WBC (Bld) [#/Vol] 7.8 10*3/uL 4.4-11.0 [facility] Blood erythrocytes count (nu mber/volume)Ordered By: Chintan Saucedo on 02-05-2023 RBC (Bld) [#/Vol] 4.16 10*6/uL 4.2-5.4 [facility] Blood hemoglobin measurement (mass/volume)Ordered By: Chintan Saucedo on 02-05-2023 Hemoglobin (Bld) [Mass/Vol] 13.7 g/dL 12.0-15.0 [facility] Blood lymphocytes/100 leukoc ytesOrdered By: Chintan Saucedo on 02-05-2023 Lymphocytes/100 WBC (Bld) 24.9 % 19-41 [facility] Blood monocytes/100 leukocyt esOrdered By: Chintan Saucedo on 02-05-2023 Monocytes/100 WBC (Bld) 7.5 % 0-[address] [facility] Blood platelet mean volumeOr dered By: Chintan Saucedo on 02-05-2023 Platelet mean volume (Bld) [Entitic vol] 10.2 fL 6.2-12.0 [facility] Determination of erythrocyte mean corpuscular volume (MCV)Ordered By: Chintan Saucedo on 02-05-2023 MCV (RBC) [Entitic vol] 96.9 fL 81-[address] [facility] Erythrocyte sedimentation ra teOrdered By: Chintan Saucedo on 02-05-2023 ESR (Bld) [Velocity] 4 mm/h 0-30 [facility] Hematocrit Auto (Bld) [Volum e fraction]Ordered By: Chintan Saucedo on 02-05-2023 Hematocrit (Bld) [Volume fraction] 40.3 % 37-47 [facility] Laboratory - Chemistry and C hemistry - challengeOrdered By: Chintan Saucedo on 02-05-2023 ALP [Catalytic activity/Vol] 112 U/L 45-117 [facility] ALT [Catalytic activity/Vol] 55 U/L 13-56 [facility] CO2 [Moles/Vol] 21.0 mmol/L 21.0-32.0 [facility] Cobalamin (Vitamin B12) [Mass/Vol] 1555 pg/mL 211-911 [facility] Globulin (S) [Mass/Vol] 3.2 g/dL 2.2-4.[address] [facility] Urea nitrogen/Creatinine [Mass ratio] 23.4 mg/mg 10-20 [facility] Laboratory - Hematology and Cell countsOrdered By: Chintan Saucedo on 02-05-2023 Erythrocyte distribution width (RBC) [Entitic vol] 41.1 fL 35.1-43.9 [facility] Erythrocyte distribution width (RBC) [Ratio] 11.6 % 11.6-14.6 [facility] Immature granulocytes/100 WBC (Bld) 0.400 % 0.0-0.9 [facility] Comment on above: IG% - Immature Granu locytes (promyelocytes, myelocytes and metamyelocytes) > 1% indicates that a LEFT SHIFT is Present. MCH (RBC) [Entitic mass] 32.9 pg 27.0-32.0 [facility] Nucleated RBC/100 WBC (Bld) [Ratio] 0 % 0-5 [facility] MCHC Auto (RBC) [Mass/Vol]Or dered By: Chintan Saucedo on 02-05-2023 MCHC (RBC) [Mass/Vol] 34.0 g/dL 32-36 [facility] No Panel InformationOrdered By: Chintan Saucedo on 02-05-2023 Anti-Nuclear Antibody Screen Negative Negative [facility] Comment on above: Performed at: [facility] [place] [id number] Director: Darin Clarke PhD, Phone: [phone] Estimated GFR (MDRD) Amer 80 mL/min >60 [facility] Comment on above: GFR Calc Estimated GFR (MDRD) Non-Af Amer 66 mL/min >60 [facility] Comment on above: Non- GFR Calc Thyroid Stimulating Hormone (TSH) 0.67 uIU/mL 0.358-3.74 [facility] Platelets bldOrdered By: Selena Saucedo on 02-05-2023 Platelets (Bld) [#/Vol] 197 10*3/uL 150-450 [facility] Serum or plasma C reactive p rotein measurement (mass/volume)Ordered By: Chintan Saucedo on 02-05-2023 CRP [Mass/Vol] mg/L 0.0-3.0 [facility] Comment on above: C-Reactive Protein ( CRP) provides useful information for thediagnosis, therapy and monitoring of inflammatory processesand associated diseases. For the evaluation of Relative Riskfor Cardiovascular Disease, a High Sensitivity CRP (HSCRP)should be ordered. Serum or plasma albumin carol urement (mass/volume)Ordered By: Chintan Saucedo on 02-05-2023 Albumin [Mass/Vol] 3.8 g/dL 3.2-5.0 [facility] Serum or plasma albumin/glob ulin mass ratioOrdered By: Chintan Saucedo on 02-05-2023 Albumin/Globulin [Mass ratio] 1.2 {ratio} 0.9-2.4 [facility] Serum or plasma calcium carol urement (mass/volume)Ordered By: Chintan Saucedo on 02-05-2023 Calcium [Mass/Vol] 9.0 mg/dL 8.5-10.1 [facility] Serum or plasma creatinine m easurement (mass/volume)Ordered By: Chintan Saucedo on 02-05-2023 Creatinine [Mass/Vol] 0.90 mg/dL 0.55-1.02 [facility] Comment on above: The validity of the calculated GFR & GFRAA in patients over 70 years has not been determined. Clinical correlation is essential. Serum or plasma ferritin rosa surement (mass/volume)Ordered By: Chintan Saucedo on 02-05-2023 Ferritin [Mass/Vol] 71 ng/mL 8-252 [facility] Serum or plasma folate measu rement (mass/volume)Ordered By: Chintan Saucedo on 02-05-2023 Folate [Mass/Vol] 32.10 ng/mL 3.1-55.4 [facility] Comment on above: Slight Hemolysis, Re sult may be falsely increased. Serum or plasma urea nitroge n measurement (mass/volume)Ordered By: Chintan Saucedo on 02-05-2023 Urea nitrogen [Mass/Vol] 21 mg/dL 7-18 [facility] Thin prep Papanicolaou smear with manual screeningOrdered By: Chintan Saucedo on 02-05-2023 Thin prep Papanicolaou smear with manual screening 28 U/L 15-37 [facility] Thin prep Papanicolaou smear with manual screening 9 5-15 [facility] Basophil percentageOrdered B y: Francesca Orr on 12-14-2022 Cholesterol [Mass/Vol] 131 mg/dL <200 [facility] Comment on above: <200 mg/dL Desirable 200-240 mg/dL Borderline >240 mg/dL High Risk Triglyceride [Mass/Vol] 378 mg/dL <[address] [facility] Comment on above: The drugs N-Acetylcy steine and Metamizole may falsely depress this assay.Serum Triglycerides Reference Interval Normal <150 mg/dL Borderline high 150 - 199 mg/dL High 200 - 499 mg/dL Very High > or = 500 mg/dL No Panel InformationOrdered By: Francesca Orr on 12-14-2022 Urine Microalbumin/Creatinine Ratio 12.9 mg/g CRE <30 [facility] Serum or plasma cholesterol in HDL measurement (mass/volume)Ordered By: Francesca Orr on 12-14-2022 Cholesterol in HDL [Mass/Vol] 35 mg/dL >40 [facility] Comment on above: The drugs N-Acetylcy steine and Metamizole may falsely depress this assay. Reference Range HDL <40 mg/dL Low HDL Cholesterol HDL >or= 60 mg/dL High HDL Cholesterol Serum or plasma cholesterol in VLDL measurement (mass/volume)Ordered By: Francesca Orr on 12-14-2022 Cholesterol in VLDL [Mass/Vol] 76 mg/dL 5-40 [facility] Serum or plasma low density lipoprotein (LDL) cholesterol measurement (mass/volume)Ordered By: Francesca Orr on 12-14-2022 Cholesterol in LDL [Mass/Vol] 20 mg/dL 0-130 [facility] Thin prep Papanicolaou smear with manual screeningOrdered By: Francesca Orr on 12-14-2022 Thin prep Papanicolaou smear with manual screening 6.9 mg/L NO RANGE EST. [facility] Urine creatinine measurement (mass/volume)Ordered By: Francesca Orr on 12-14-2022 Creatinine (U) [Mass/Vol] 53.90 mg/dL NO RANGE EST. [facility] Laboratory - Hematology and Cell countson 12-12-2022 HbA1c (Bld) [Mass fraction] 7.5 % 4.2-6.3 [facility] CNCOon 11-12-2022 CNCO HNO ID: [id number] Author: Mammography Coordinator Service: ? Author Type: Physician Type: Letter Filed: 11/13/2022 11:31 PM Note Text: November 12, 2022 PID: [id number] Isabel Glass [address] [place] [address] Dear Ms. Glass, We are pleased to inform you that the results of your recent breast imaging exam on 11/09/2022 are normal. Early detection of cancer is very important. We also understand recommendations regarding breast cancer screening are controversial. Please discuss with your primary care provider which strategy is best for you and whether a mammogram is right for you. Your imaging studies and report will be kept on file at [facility] as part of your permanent medical record and are available for your continuing care. Thank you for allowing us to help in meeting your health care needs. Sincerely, Dr. Hill Interpreting Radiologist [facility] (Normal over 40) Normal [facility] SCREENING W TOMOon 11-09 ALICE SCREENING W NADEGE * * *Final Report* * * DATE OF EXAM: Nov 09 2022 8:27AM [id number] - ALICE SCREENING W NADEGE / PROCEDURE REASON: z12.39 * * * * Physician Interpretation * * * * RESULT: #[id number] - ALICE SCREENING W NADEGE BILATERAL DIGITAL SCREENING MAMMOGRAM TOMOSYNTHESIS WITH CAD: 11/09/2022 HISTORY: Z12.39 / Screening Mammogram-Patient reports NO symptoms. /priors available for comparison. RESULT: TECHNIQUE: The study was acquired using full field digital technology and interpreted from soft copy. Digital Breast Tomosynthesis (DBT) images were obtained and used to assist in the interpretation of this examination. Current study was also evaluated with a Computer Aided Detection (CAD). Comparison is made to exams dated: 11/28/2018 mammogram and 06/14/2017 mammogram - [facility]. The tissue of both breasts is predominantly fatty. No significant masses, calcifications, or other findings are seen in either breast. There has been no significant interval change. IMPRESSION: NEGATIVE There is no mammographic evidence of malignancy. A 1 year screening mammogram is recommended. Kimmy molina/penrad:11/12/2022 07:54:21 Installer Helper(s): Dayanna Max, [facility] letter sent: Normal over 40 Mammogram BI-RADS: 1 Negative Multiple national specialty organizations have released breast cancer screening guidelines for women at average risk for developing breast cancer - guidelines that are based on both evidence and opinion, yet differ on when to start and how often to screen for breast cancer. With representation from Breast Imaging, Internal Medicine, Women's Health, Family Medicine, and Medical/Surgical Oncology, the [facility] has carefully reviewed the data and reached the following consensus: 1) All women should engage in shared decision-making with their providers to decide when to start and how often to screen; 2) All women should have the opportunity to start screening mammography at age 40; 3) For women ages 45-55, we recommend annual screening mammograms; 4) For women ages 55 and over, we support both the transition from an annual to a biennial interval if this aligns more with patient's values and preferences, or continuation with annual screening; 5) All women should discuss with their providers when to stop screening mammograms. [employer]: Christoph Transcribe Date/Time: Nov 09 2022 2:11P Dictated by: KIMMY HILL MD This examination was interpreted and the report reviewed and electronically signed by: KIMMY HILL MD on Nov 12 2022 7:54AM EST [id number] Normal [facility] Absolute lymphocyte countOrd ered By: Dr. Camacho on 10-29-2022 Lymphocytes Auto (Unsp spec) [#/Vol] 1.79 10*3/uL 0.83-4.51 [facility] Basophil percentageOrdered B y: Dr. Camacho on 10-29-2022 Basophil percentage 25-50 SEEN /hpf 0-5 [facility] Basophils/100 WBC (Bld) 0.6 % 0-1 [facility] Bilirubin [Mass/Vol] 0.90 mg/dL 0.20-1.00 [facility] Comment on above: For patients on eltr ombopag therapy, use of Dimension [place] TBIL is not recommended. Chloride [Moles/Vol] 112 mmol/L 98-107 [facility] Eosinophils/100 WBC (Bld) 5.1 % 0-5 [facility] Glucose [Mass/Vol] 215 mg/dL 74-106 [facility] Comment on above: Glucose result great er than or equal to 200 mg/dLsuggests DIABETES MELLITUS per A.D.A. criteria. Neutrophils (Bld) [#/Vol] 3.7 10*3/uL 2.0-7.7 [facility] Neutrophils/100 WBC (Bld) 57.4 % 47-70 [facility] Potassium [Moles/Vol] 4.8 mmol/L 3.5-5.1 [facility] Protein [Mass/Vol] 6.7 g/dL 6.4-8.2 [facility] Sodium [Moles/Vol] 140 mmol/L 136-145 [facility] WBC (Bld) [#/Vol] 6.5 10*3/uL 4.4-11.0 [facility] Bilirubin Test strip Ql (U)O rdered By: Dr. Camacho on 10-29-2022 Bilirubin Ql (U) Negative Negative [facility] Blood erythrocytes count (nu mber/volume)Ordered By: Dr. Camacho on 10-29-2022 RBC (Bld) [#/Vol] 4.07 10*6/uL 4.2-5.4 [facility] Blood hemoglobin measurement (mass/volume)Ordered By: Dr. Camacho on 10-29-2022 Hemoglobin (Bld) [Mass/Vol] 13.4 g/dL 12.0-15.0 [facility] Blood lymphocytes/100 leukoc ytesOrdered By: Dr. Camacho on 10-29-2022 Lymphocytes/100 WBC (Bld) 27.8 % 19-41 [facility] Blood monocytes/100 leukocyt esOrdered By: Dr. Camacho on 10-29-2022 Monocytes/100 WBC (Bld) 8.8 % 0-[address] [facility] Blood platelet mean volumeOr dered By: Dr. Camacho on 10-29-2022 Platelet mean volume (Bld) [Entitic vol] 9.6 fL 6.2-12.0 [facility] Determination of erythrocyte mean corpuscular volume (MCV)Ordered By: Dr. Camacho on 10-29-2022 MCV (RBC) [Entitic vol] 99.5 fL 81-[address] [facility] Hematocrit Auto (Bld) [Volum e fraction]Ordered By: Dr. Camacho on 10-29-2022 Hematocrit (Bld) [Volume fraction] 40.5 % 37-47 [facility] Ketones Test strip Ql (U)Ord ered By: Dr. Camacho on 10-29-2022 Ketones Ql (U) Negative Negative [facility] Laboratory - Chemistry and C hemistry - challengeOrdered By: Dr. Camacho on 10-29-2022 ALP [Catalytic activity/Vol] 91 U/L 45-117 [facility] ALT [Catalytic activity/Vol] 45 U/L 13-56 [facility] CO2 [Moles/Vol] 23.0 mmol/L 21.0-32.0 [facility] Globulin (S) [Mass/Vol] 2.9 g/dL 2.2-4.[address] [facility] Urea nitrogen/Creatinine [Mass ratio] 29.9 mg/mg 10-20 [facility] Laboratory - Hematology and Cell countsOrdered By: Dr. Camacho on 10-29-2022 Erythrocyte distribution width (RBC) [Entitic vol] 45.8 fL 35.1-43.9 [facility] Erythrocyte distribution width (RBC) [Ratio] 12.5 % 11.6-14.6 [facility] Immature granulocytes/100 WBC (Bld) 0.300 % 0.0-0.9 [facility] Comment on above: IG% - Immature Granu locytes (promyelocytes, myelocytes and metamyelocytes) > 1% indicates that a LEFT SHIFT is Present. MCH (RBC) [Entitic mass] 32.9 pg 27.0-32.0 [facility] Nucleated RBC/100 WBC (Bld) [Ratio] 0 % 0-5 [facility] MCHC Auto (RBC) [Mass/Vol]Or dered By: Dr. Camacho on 10-29-2022 MCHC (RBC) [Mass/Vol] 33.1 g/dL 32-36 [facility] Mucus LM Ql (Urine sed)Order ed By: Dr. Camacho on 10-29-2022 Mucus Ql (Urine sed) 0 SEEN /hpf [facility] Nitrite Test strip Ql (U)Ord ered By: Dr. Camacho on 10-29-2022 Nitrite Ql (U) Negative Negative [facility] No Panel InformationOrdered By: Dr. Camacho on 10-29-2022 Estimated GFR (MDRD) Amer 73 mL/min >60 [facility] Comment on above: GFR Calc Estimated GFR (MDRD) Non-Af Amer 61 mL/min >60 [facility] Comment on above: Non- GFR Calc Thyroid Stimulating Hormone (TSH) 0.70 uIU/mL 0.358-3.74 [facility] Vitamin D 25-Hydroxy 43.6 ng/mL [facility] Comment on above: Vitamin D 25(OH) Sta tus Range Deficiency <20 ng/mL (50nmol/L) Insufficiency 20 - 30 ng/mL (50 - 75 nmol/L) Sufficiency 30 - 100 ng/mL (75 - 250 nmol/L) Toxicity >100 ng/mL (>250 nmol/L) Platelets bldOrdered By: Dr. Camacho on 10-29-2022 Platelets (Bld) [#/Vol] 160 10*3/uL 150-450 [facility] Protein Test strip Ql (U)Ord ered By: Dr. Camacho on 10-29-2022 Protein Ql (U) 15 mg/dl Negative [facility] Serum or plasma albumin carol urement (mass/volume)Ordered By: Dr. Camacho on 10-29-2022 Albumin [Mass/Vol] 3.8 g/dL 3.2-5.0 [facility] Serum or plasma albumin/glob ulin mass ratioOrdered By: Dr. Camacho on 10-29-2022 Albumin/Globulin [Mass ratio] 1.3 {ratio} 0.9-2.4 [facility] Serum or plasma calcium carol urement (mass/volume)Ordered By: Dr. Camacho on 10-29-2022 Calcium [Mass/Vol] 9.3 mg/dL 8.5-10.1 [facility] Serum or plasma creatinine m easurement (mass/volume)Ordered By: Dr. Camacho on 10-29-2022 Creatinine [Mass/Vol] 0.97 mg/dL 0.55-1.02 [facility] Comment on above: The validity of the calculated GFR & GFRAA in patients over 70 years has not been determined. Clinical correlation is essential. Serum or plasma urea nitroge n measurement (mass/volume)Ordered By: Dr. Camacho on 10-29-2022 Urea nitrogen [Mass/Vol] 29 mg/dL 7-18 [facility] Squamous epithelial cells de tection in urine sediment by light microscopyOrdered By: Dr. Camacho on 10-29-2022 Epithelial cells.squamous LM Ql (Urine sed) 0-5 SEEN /hpf 5-10 [facility] Thin prep Papanicolaou smear with manual screeningOrdered By: Dr. Camacho on 10-29-2022 Thin prep Papanicolaou smear with manual screening 21 U/L 15-37 [facility] Thin prep Papanicolaou smear with manual screening 5 5-15 [facility] Urine blood detectionOrdered By: Dr. Camacho on 10-29-2022 RBC Ql (U) Negative Negative [facility] RBC Ql (U) 0 SEEN /hpf 0-5 [facility] Urine clarityOrdered By: Dr. Camacho on 10-29-2022 Clarity (U) Sl. Cloudy Clear [facility] Urine color determinationOrd ered By: Dr. Camacho on 10-29-2022 Color (U) Yellow Yellow [facility] Urine glucose detectionOrder ed By: Dr. Camacho on 10-29-2022 Glucose Ql (U) Normal mg/dl Normal [facility] Urine leukocyte esterase det ection by dipstickOrdered By: Dr. Camacho on 10-29-2022 Leukocyte esterase Test strip Ql (U) 500 /ul Negative [facility] Urine pHOrdered By: Dr. Camacho on 10-29-2022 pH (U) 5.0 [pH] 5.0 - 8.0 [facility] Urine sediment bacteria coun t by microscopy (number/high power field)Ordered By: Dr. Camacho on 10-29-2022 Bacteria LM.HPF (Urine sed) [#/Area] 0 /[HPF] None Seen [facility] Urine specific gravity measu rementOrdered By: Dr. Camacho on 10-29-2022 Specific gravity (U) [Rel density] 1.025 1.002-1.030 [facility] Urobilinogen Auto test strip Ql (U)Ordered By: Dr. Camacho on 10-29-2022 Urobilinogen Ql (U) Normal mg/dl Normal [facility] Laboratory - Drug toxicology Ordered By: Dr. Lee on 10-26-2022 Amphetamines Ql (U) Negative <1000 ng/mL [facility] Benzodiazepines Ql (U) Negative < 200 ng/mL [facility] Cannabinoids Screen Ql (U) Negative < 50 ng/mL [facility] Cocaine Ql (U) Negative < 300 ng/mL [facility] Opiates Ql (U) Negative < 300 ng/mL [facility] No Panel InformationOrdered By: Dr. Lee on 10-26-2022 MDMA (Ecstasy) Screen Negative < 500 ng/mL [facility] Urine Barbiturates Screen Negative < 200 ng/mL [facility] Urine Drug Screen Comment [facility] Comment on above: CONFIRMATORY TESTING FOR ALL POSITIVE URINE DRUG SCREENRESULTS WILL ONLY BE SENT OUT UPON PHYSICIAN ORDER. VIST[facility] Urine Drug Screen methods provide only preliminaryanalytical test results. A more specific alternate chemicalmethod must be used in order to obtain a confirmedanalytical result. Gas chromatography/mass spectrometery(GC/MS) is the preferred confirmatory method. Clinicalconsideration and professional judgement should be appliedto any drug of abuse test result, particularly whenpreliminary positive results are used. URINE TCA TESTING MUST BE ORDERED SEPARATELY. USE TESTMNEMONIC: [facility] Urine Methadone Screen Negative < 300 ng/mL [facility] Urine phencyclidine (PCP) de tectionOrdered By: Dr. Lee on 10-26-2022 Phencyclidine Ql (U) Negative < 25 ng/mL [facility] COVID-19 virus antigen assay Ordered By: Dr. Camacho on 07-16-2022 SARS-CoV-2 (COVID-19) Ag IA.rapid Ql (Resp) Not detected Not Detect [facility] Comment on above: Normal Reference Ran ge: Not DetectedMethod:(RT-PCR) real-time reverse transcriptase PCRLuminex LESLIE Instrument*The Food and Drug Administration (FDA) has issued an Emergency Use Authorization (EAU) for the LESLIE SARS-CoV-2 Assay for the rapid detection of the virus that causes COVID-19. This test has been validated, but the FDAs independent review of this validation is pending.*Negative results do not preclude infection and should not be used as the sole basis for treatment or patient management. Optimum specimen types and timing for peak viral levels during infections caused by SARS-CoV-2 have not been determined. Collection of multiple specimens from the same patient may be necessary to detect the virus. The possibility of a false negative result should be considered if the patient has clinical presentation or has had recent exposure. No Panel InformationOrdered By: Dr. Camacho on 07-16-2022 Influenza Types A,B Direct FA (RYAN) [facility] RSV Ag EIAOrdered By: Dr. Alyssa forrester on 07-16-2022 RSV Ag Immune stain Ql (Tiss) [facility] Laboratory - Hematology and Cell countson 07-09-2022 HbA1c (Bld) [Mass fraction] 7.1 % [facility] Absolute lymphocyte countOrd ered By: Dr. Camacho on 04-24-2022 Lymphocytes Auto (Unsp spec) [#/Vol] 2.37 10*3/uL 0.83-4.51 [facility] Basophil percentageOrdered B y: Dr. Camacho on 04-24-2022 Basophils/100 WBC (Bld) 0.4 % 0-[address] [facility] Bilirubin [Mass/Vol] 0.80 mg/dL 0.20-1.00 [facility] Comment on above: For patients on eltr ombopag therapy, use of Dimension [place] TBIL is not recommended. Chloride [Moles/Vol] 104 mmol/L 98-107 [facility] Eosinophils/100 WBC (Bld) 2.9 % 0-5 [facility] Glucose [Mass/Vol] 199 mg/dL 74-106 [facility] Comment on above: Fasting Glucose resu lt greater than or equal to 126 mg/dL suggests DIABETES MELLITUS per A.D.A. criteria. Neutrophils (Bld) [#/Vol] 4.3 10*3/uL 2.0-7.7 [facility] Neutrophils/100 WBC (Bld) 57.3 % 47-70 [facility] Potassium [Moles/Vol] 4.1 mmol/L 3.5-5.1 [facility] Protein [Mass/Vol] 6.9 g/dL 6.4-8.2 [facility] Sodium [Moles/Vol] 137 mmol/L 136-145 [facility] WBC (Bld) [#/Vol] 7.5 10*3/uL 4.4-11.0 [facility] Blood erythrocytes count (nu mber/volume)Ordered By: Dr. Camacho on 04-24-2022 RBC (Bld) [#/Vol] 4.69 10*6/uL 4.2-5.4 [facility] Blood hemoglobin measurement (mass/volume)Ordered By: Dr. Camacho on 04-24-2022 Hemoglobin (Bld) [Mass/Vol] 14.7 g/dL 12.0-15.0 [facility] Blood lymphocytes/100 leukoc ytesOrdered By: Dr. Camacho on 04-24-2022 Lymphocytes/100 WBC (Bld) 31.4 % 19-41 [facility] Blood monocytes/100 leukocyt esOrdered By: Dr. Camacho on 04-24-2022 Monocytes/100 WBC (Bld) 7.7 % 0-[address] [facility] Blood platelet mean volumeOr dered By: Dr. Camacho on 04-24-2022 Platelet mean volume (Bld) [Entitic vol] 10.0 fL 6.2-12.0 [facility] Determination of erythrocyte mean corpuscular volume (MCV)Ordered By: Dr. Camacho on 04-24-2022 MCV (RBC) [Entitic vol] 93.8 fL 81-[address] [facility] Hematocrit Auto (Bld) [Volum e fraction]Ordered By: Dr. Camacho on 04-24-2022 Hematocrit (Bld) [Volume fraction] 44.0 % 37-47 [facility] Laboratory - Chemistry and C hemistry - challengeOrdered By: Dr. Camacho on 04-24-2022 ALP [Catalytic activity/Vol] 88 U/L 45-117 [facility] ALT [Catalytic activity/Vol] 36 U/L 13-56 [facility] CO2 [Moles/Vol] 28.0 mmol/L 21.0-32.0 [facility] Globulin (S) [Mass/Vol] 3.0 g/dL 2.2-4.[address] [facility] Urea nitrogen/Creatinine [Mass ratio] 37.7 mg/mg 10-20 [facility] Laboratory - Hematology and Cell countsOrdered By: Dr. Camacho on 04-24-2022 Erythrocyte distribution width (RBC) [Entitic vol] 40.2 fL 35.1-43.9 [facility] Erythrocyte distribution width (RBC) [Ratio] 11.8 % 11.6-14.6 [facility] Immature granulocytes/100 WBC (Bld) 0.300 % 0.0-0.9 [facility] Comment on above: IG% - Immature Granu locytes (promyelocytes, myelocytes and metamyelocytes) > 1% indicates that a LEFT SHIFT is Present. MCH (RBC) [Entitic mass] 31.3 pg 27.0-32.0 [facility] Nucleated RBC/100 WBC (Bld) [Ratio] 0 % 0-5 [facility] Auto (RBC) [Mass/Vol]Or dered By: Dr. Camacho on 04-24-2022 MCHC (RBC) [Mass/Vol] 33.4 g/dL 32-36 [facility] No Panel InformationOrdered By: Dr. Camacho on 04-24-2022 Estimated GFR (MDRD) Amer 93 mL/min >60 [facility] Comment on above: GFR Calc Estimated GFR (MDRD) Non-Af Amer 77 mL/min >60 [facility] Comment on above: Non- GFR Calc Thyroid Stimulating Hormone (TSH) 2.07 uIU/mL 0.358-3.74 [facility] Vitamin D 25-Hydroxy 20.7 ng/mL [facility] Comment on above: Vitamin D 25(OH) Sta tus Range Deficiency <20 ng/mL (50nmol/L) Insufficiency 20 - 30 ng/mL (50 - 75 nmol/L) Sufficiency 30 - 100 ng/mL (75 - 250 nmol/L) Toxicity >100 ng/mL (>250 nmol/L) Platelets bldOrdered By: Dr. Camacho on 04-24-2022 Platelets (Bld) [#/Vol] 194 10*3/uL 150-450 [facility] Serum or plasma albumin carol urement (mass/volume)Ordered By: Dr. Camacho on 04-24-2022 Albumin [Mass/Vol] 3.9 g/dL 3.2-5.0 [facility] Serum or plasma albumin/glob ulin mass ratioOrdered By: Dr. Camacho on 04-24-2022 Albumin/Globulin [Mass ratio] 1.3 {ratio} 0.9-2.4 [facility] Serum or plasma calcium carol urement (mass/volume)Ordered By: Dr. Camacho on 04-24-2022 Calcium [Mass/Vol] 10.2 mg/dL 8.5-10.1 [facility] Serum or plasma creatinine m easurement (mass/volume)Ordered By: Dr. Camacho on 04-24-2022 Creatinine [Mass/Vol] 0.80 mg/dL 0.55-1.02 [facility] Comment on above: The validity of the calculated GFR & GFRAA in patients over 70 years has not been determined. Clinical correlation is essential. Serum or plasma urea nitroge n measurement (mass/volume)Ordered By: Dr. Camacho on 04-24-2022 Urea nitrogen [Mass/Vol] 30 mg/dL 7-18 [facility] Thin prep Papanicolaou smear with manual screeningOrdered By: Dr. Camacho on 04-24-2022 Thin prep Papanicolaou smear with manual screening 16 U/L 15-37 [facility] Thin prep Papanicolaou smear with manual screening 5 5-15 [facility] Absolute lymphocyte counton 10-23-2021 Lymphocytes Auto (Unsp spec) [#/Vol] 2.08 10*3/uL 0.83-4.51 [facility] Work Phone: Basophil percentageon 2021 Basophils/100 WBC (Bld) 0.6 % 0-[address] [facility] Work Phone: Bilirubin [Mass/Vol] 0.80 mg/dL 0.20-1.00 [facility] Work Phone: Comment on above: For patients on eltr ombopag therapy, use of Dimension [place] TBIL is not recommended. Chloride [Moles/Vol] 106 mmol/L 98-107 [facility] Work Phone: Eosinophils/100 WBC (Bld) 3.7 % 0-5 [facility] Work Phone: Glucose [Mass/Vol] 163 mg/dL 74-106 [facility] Work Phone: Comment on above: Fasting Glucose resu lt greater than or equal to 126 mg/dL suggests DIABETES MELLITUS per A.D.A. criteria. Neutrophils (Bld) [#/Vol] 3.5 10*3/uL 2.0-7.7 [facility] Work Phone: Neutrophils/100 WBC (Bld) 54.2 % 47-70 [facility] Work Phone: Potassium [Moles/Vol] 4.5 mmol/L 3.5-5.1 [facility] Work Phone: Protein [Mass/Vol] 7.1 g/dL 6.4-8.2 [facility] Work Phone: Sodium [Moles/Vol] 137 mmol/L 136-145 [facility] Work Phone: WBC (Bld) [#/Vol] 6.5 10*3/uL 4.4-11.0 [facility] Work Phone: Blood erythrocytes count (nu mber/volume)on 10-23-2021 RBC (Bld) [#/Vol] 4.36 10*6/uL 4.2-5.4 [facility] Blood hemoglobin measurement (mass/volume)on 10-23-2021 Hemoglobin (Bld) [Mass/Vol] 13.4 g/dL 12.0-15.0 [facility] Work Phone: Blood lymphocytes/100 leukoc yteson 10-23-2021 Lymphocytes/100 WBC (Bld) 32.2 % 19-41 [facility] Work Phone: [phone] Blood monocytes/100 leukocyt eson 10-23-2021 Monocytes/100 WBC (Bld) 9.0 % 0-[address] [facility] Work Phone: Blood platelet mean volumeon 10-23-2021 Platelet mean volume (Bld) [Entitic vol] 10.1 fL 6.2-12.0 [facility] Work Phone: Determination of erythrocyte mean corpuscular volume (MCV)on 10-23-2021 MCV (RBC) [Entitic vol] 94.0 fL 81-[address] [facility] Work Phone: Hematocrit Auto (Bld) [Volum e fraction]on 10-23-2021 Hematocrit (Bld) [Volume fraction] 41.0 % 37-47 [facility] Work Phone: Laboratory - Chemistry and C hemistry - challengeon 10-23-2021 ALP [Catalytic activity/Vol] 92 U/L 45-117 [facility] Work Phone: ALT [Catalytic activity/Vol] 37 U/L 13-56 [facility] Work Phone: CO2 [Moles/Vol] 27.0 mmol/L 21.0-32.0 [facility] Work Phone: Globulin (S) [Mass/Vol] 3.1 g/dL 2.2-4.[address] [facility] Work Phone: Urea nitrogen/Creatinine [Mass ratio] 27.9 mg/mg 10-20 [facility] Work Phone: Laboratory - Hematology and Cell countson 10-23-2021 Erythrocyte distribution width (RBC) [Entitic vol] 42.2 fL 35.1-43.9 [facility] Work Phone: Erythrocyte distribution width (RBC) [Ratio] 12.2 % 11.6-14.6 [facility] Work Phone: Immature granulocytes/100 WBC (Bld) 0.300 % 0.0-0.9 [facility] Work Phone: Comment on above: IG% - Immature Granu locytes (promyelocytes, myelocytes and metamyelocytes) > 1% indicates that a LEFT SHIFT is Present. MCH (RBC) [Entitic mass] 30.7 pg 27.0-32.0 [facility] Work Phone: Nucleated RBC/100 WBC (Bld) [Ratio] 0 % 0-5 [facility] Work Phone: MCHC Auto (RBC) [Mass/Vol]on 10-23-2021 MCHC (RBC) [Mass/Vol] 32.7 g/dL 32-36 [facility]: No Panel Informationon 10-23 Estimated GFR (MDRD) Amer 85 mL/min >60 [facility] Work Phone: Comment on above: GFR Calc Estimated GFR (MDRD) Non-Af Amer 70 mL/min >60 [facility] Work Phone: Comment on above: Non- GFR Calc Thyroid Stimulating Hormone (TSH) 0.71 uIU/mL 0.358-3.74 [facility] Work Phone: Vitamin D 25-Hydroxy 21.0 ng/mL [facility] Work Phone: Comment on above: Vitamin D 25(OH) Sta tus Range Deficiency <20 ng/mL (50nmol/L) Insufficiency 20 - 30 ng/mL (50 - 75 nmol/L) Sufficiency 30 - 100 ng/mL (75 - 250 nmol/L) Toxicity >100 ng/mL (>250 nmol/L) Platelets bldon 10-23-2021 Platelets (Bld) [#/Vol] 189 10*3/uL 150-450 [facility] Work Phone: Serum or plasma albumin carol urement (mass/volume)on 10-23-2021 Albumin [Mass/Vol] 4.0 g/dL 3.2-5.0 [facility] Work Phone: Serum or plasma albumin/glob ulin mass ratioon 10-23-2021 Albumin/Globulin [Mass ratio] 1.3 {ratio} 0.9-2.4 [facility] Work Phone: Serum or plasma calcium carol urement (mass/volume)on 10-23-2021 Calcium [Mass/Vol] 9.3 mg/dL 8.5-10.1 [facility] Work Phone: Serum or plasma creatinine m easurement (mass/volume)on 10-23-2021 Creatinine [Mass/Vol] 0.86 mg/dL 0.55-1.02 [facility] Work Phone: Comment on above: The validity of the calculated GFR & GFRAA in patients over 70 years has not been determined. Clinical correlation is essential. Serum or plasma urea nitroge n measurement (mass/volume)on 10-23-2021 Urea nitrogen [Mass/Vol] 24 mg/dL 7-18 [facility] Work Phone: Thin prep Papanicolaou smear with manual screeningon 10-23-2021 Thin prep Papanicolaou smear with manual screening 24 U/L 15-37 [facility] Work Phone: Thin prep Papanicolaou smear with manual screening 4 5-15 [facility] Work Phone: Absolute lymphocyte counton 07-05-2021 Lymphocytes Auto (Unsp spec) [#/Vol] 1.73 10*3/uL 0.83-4.51 [facility] Work Phone: [phone] Basophil percentageon 2021 Basophils/100 WBC (Bld) 0.5 % 0-[address] [facility] Work Phone: Bilirubin [Mass/Vol] 0.60 mg/dL 0.20-1.00 [facility] Work Phone: Comment on above: For patients on eltr ombopag therapy, use of Dimension [place] TBIL is not recommended. Chloride [Moles/Vol] 112 mmol/L 98-107 [facility] Work Phone: Eosinophils/100 WBC (Bld) 3.3 % 0-5 [facility] Work Phone: Glucose [Mass/Vol] 169 mg/dL 74-106 [facility] Work Phone: [phone] Comment on above: Fasting Glucose resu lt greater than or equal to 126 mg/dL suggests DIABETES MELLITUS per A.D.A. criteria. Neutrophils (Bld) [#/Vol] 3.8 10*3/uL 2.0-7.7 [facility] Work Phone: Neutrophils/100 WBC (Bld) 60.7 % 47-70 [facility] Work Phone: Potassium [Moles/Vol] 4.4 mmol/L 3.5-5.1 [facility] Work Phone: Protein [Mass/Vol] 6.7 g/dL 6.4-8.2 [facility] Work Phone: Sodium [Moles/Vol] 142 mmol/L 136-145 [facility] Work Phone: WBC (Bld) [#/Vol] 6.3 10*3/uL 4.4-11.0 [facility] Work Phone: Blood erythrocytes count (nu mber/volume)on 07-05-2021 RBC (Bld) [#/Vol] 4.47 10*6/uL 4.2-5.4 [facility]: Blood hemoglobin measurement (mass/volume)on 07-05-2021 Hemoglobin (Bld) [Mass/Vol] 14.1 g/dL 12.0-15.0 [facility] Work Phone: Blood lymphocytes/100 leukoc yteson 07-05-2021 Lymphocytes/100 WBC (Bld) 27.5 % 19-41 [facility] Work Phone: Blood monocytes/100 leukocyt eson 07-05-2021 Monocytes/100 WBC (Bld) 7.5 % 0-[address] [facility] Work Phone: Blood platelet mean volumeon 07-05-2021 Platelet mean volume (Bld) [Entitic vol] 10.0 fL 6.2-12.0 [facility] Work Phone: Determination of erythrocyte mean corpuscular volume (MCV)on 07-05-2021 MCV (RBC) [Entitic vol] 92.8 fL 81-[address] [facility] Work Phone: Hematocrit Auto (Bld) [Volum e fraction]on 07-05-2021 Hematocrit (Bld) [Volume fraction] 41.5 % 37-47 [facility] Work Phone: Laboratory - Chemistry and C hemistry - challengeon 07-05-2021 ALP [Catalytic activity/Vol] 87 U/L 45-117 [facility] Work Phone: ALT [Catalytic activity/Vol] 33 U/L 13-56 [facility] Work Phone: CO2 [Moles/Vol] 25.0 mmol/L 21.0-32.0 [facility] Work Phone: Globulin (S) [Mass/Vol] 3.1 g/dL 2.2-4.[address] [facility] Work Phone: Urea nitrogen/Creatinine [Mass ratio] 24.1 mg/mg 10-20 [facility] Work Phone: Laboratory - Hematology and Cell countson 07-05-2021 Erythrocyte distribution width (RBC) [Entitic vol] 42.5 fL 35.1-43.9 [facility] Work Phone: Erythrocyte distribution width (RBC) [Ratio] 12.5 % 11.6-14.6 [facility] Work Phone: Immature granulocytes/100 WBC (Bld) 0.500 % 0.0-0.9 [facility] Work Phone: Comment on above: IG% - Immature Granu locytes (promyelocytes, myelocytes and metamyelocytes) > 1% indicates that a LEFT SHIFT is Present. MCH (RBC) [Entitic mass] 31.5 pg 27.0-32.0 [facility] Work Phone: Nucleated RBC/100 WBC (Bld) [Ratio] 0 % 0-5 [facility] Work Phone: MCHC Auto (RBC) [Mass/Vol]on 07-05-2021 MCHC (RBC) [Mass/Vol] 34.0 g/dL 32-36 [facility] Work Phone: No Panel Informationon 07-05 Estimated GFR (MDRD) Amer 72 mL/min >60 [facility] Work Phone: Comment on above: GFR Calc Estimated GFR (MDRD) Non-Af Amer 59 mL/min >60 [facility] Work Phone: Comment on above: Non- GFR Calc Thyroid Stimulating Hormone (TSH) 0.75 uIU/mL 0.358-3.74 [facility] Work Phone: Vitamin D 25-Hydroxy 18.9 ng/mL [facility] Work Phone: Comment on above: Vitamin D 25(OH) Sta tus Range Deficiency <20 ng/mL (50nmol/L) Insufficiency 20 - 30 ng/mL (50 - 75 nmol/L) Sufficiency 30 - 100 ng/mL (75 - 250 nmol/L) Toxicity >100 ng/mL (>250 nmol/L) Platelets bldon 07-05-2021 Platelets (Bld) [#/Vol] 191 10*3/uL 150-450 [facility] Work Phone: Serum or plasma albumin carol urement (mass/volume)on 07-05-2021 Albumin [Mass/Vol] 3.6 g/dL 3.2-5.0 [facility] Work Phone: Serum or plasma albumin/glob ulin mass ratioon 07-05-2021 Albumin/Globulin [Mass ratio] 1.2 {ratio} 0.9-2.4 [facility] Work Phone: Serum or plasma calcium carol urement (mass/volume)on 07-05-2021 Calcium [Mass/Vol] 9.1 mg/dL 8.5-10.1 [facility] Work Phone: Serum or plasma creatinine m easurement (mass/volume)on 07-05-2021 Creatinine [Mass/Vol] 0.99 mg/dL 0.55-1.02 [facility] Work Phone: Comment on above: The validity of the calculated GFR & GFRAA in patients over 70 years has not been determined. Clinical correlation is essential. Serum or plasma urea nitroge n measurement (mass/volume)on 07-05-2021 Urea nitrogen [Mass/Vol] 24 mg/dL 7-18 [facility] Work Phone: Thin prep Papanicolaou smear with manual screeningon 07-05-2021 Thin prep Papanicolaou smear with manual screening 17 U/L 15-37 [facility] Work Phone: Thin prep Papanicolaou smear with manual screening 5 5-15 [facility] Work Phone: Office Visit: OSAon 02-12-20 17 Fall risk assessment No [facility] Work Phone: Protein mass conc Done [facility] Work Phone: Tobacco smoking status NHIS Never [facility] Work Phone: Tobacco smoking status NHIS Never smoker [facility] Work Phone: Office Visiton 12-27-2016 Protein mass conc Done [facility] Work Phone: [phone] Office Visiton 12-12-2016 Cholesterol in HDL mass conc 39 mg/dL [facility] Work Phone: [phone] Cholesterol in LDL mass conc 19 mg/dL [facility] Work Phone: [phone] Cholesterol mass conc 100 mg/dL [facility] Work Phone: [phone] Triglyceride mass conc 226 mg/dL [facility] Work Phone: [phone] Office Visiton 06-18-2016 Protein mass conc Done [facility] Work Phone: [phone] Lab Report: T4 Total, Thyrox inon 06-13-2015 T4 mass conc 10.5 ug/dL 4.8-13.9 [facility] Work Phone: [phone] Lab Report: Thyroid Stim Hor ml (TSH)on 06-13-2015 Thyrotropin Qn 0.93 u[iU]/mL 0.358-3.74 [facility] Work Phone: [phone] Office Visiton 06-13-2015 General cardiovascular disease 10Y risk [#] Magee.D'Agostino 9 % [facility] Work Phone: [phone] Tobacco smoking status NHIS Never smoker [facility] Work Phone: [phone] Office Visiton 05-31-2014 cardiac risk group C [facility] Work Phone: [phone] Clinical Lists Update: Prelo card placer 04-26-2014 Anion gap molar conc 13 mmol/L [facility] Work Phone: [phone] Calcium mass conc 9.9 mg/dL [facility] Work Phone: [phone] Chloride molar conc 103 mmol/L [facility] Work Phone: [phone] Cholesterol in HDL mass conc 47 mg/dL [facility] Work Phone: [phone] Cholesterol in LDL mass conc 66 mg/dL [facility] Work Phone: [phone] Cholesterol mass conc 144 mg/dL [facility] Work Phone: [phone] CO2 ppres (BldV) 22 mmol/L [facility] Work Phone: [phone] Creatinine mass conc 0.63 mg/dL [facility] Work Phone: [phone] Glucose mass conc 165 mg/dL High [facility] Work Phone: [phone] Potassium molar conc 4.2 mmol/L [facility] Work Phone: [phone] Sodium molar conc 138 mmol/L [facility] Work Phone: [phone] Triglyceride mass conc 155 mg/dL [facility] Work Phone: [phone] Urea nitrogen mass conc 18 mg/dL [facility] Work Phone: [phone] Vital Signs Date Time Vital Sign Value Performing Clinician Faci lity 07-01-2023 09:45-0500 Body height 160.[address] Chintan Saucedo Work Phone: [facility] 07-01-2023 09:45-0500 Body mass index (BMI) [Ratio] 29.7 kg/m2 Dr. Chintan Saucedo Work Phone: [facility] 07-01-2023 09:45-0500 Body temperature 97.5 [degF] Dr. Chintan Saucedo Work Phone: [facility] 07-01-2023 09:45-0500 Body weight 76.[address] Chintan Saucedo Work Phone: [facility] 07-01-2023 09:45-0500 Diastolic blood pressure 77 mm[Hg] Dr. Chintan Saucedo Work Phone: [facility] 07-01-2023 09:45-0500 Heart rate 76 /min Dr. Chintan Saucedo Work Phone: [facility] 07-01-2023 09:45-0500 SaO2% (BldA) [Mass fraction] 98 % Dr. Chintan Saucedo Work Phone: [facility] 07-01-2023 09:45-0500 Systolic blood pressure 133 mm[Hg] Dr. Chintan Saucedo Work Phone: [facility] 12-12-2022 09:07-0400 Body height 160.[address] Nish Camacho Work Phone: [facility] 12-12-2022 09:07-0400 Body mass index (BMI) [Ratio] 30.3 kg/m2 Dr. Nish Camacho Work Phone: [facility] 12-12-2022 09:07-0400 Body temperature 98.2 [degF] Dr. Nish Camacho Work Phone: [facility] 12-12-2022 09:07-0400 Body weight 77.[address] Nish Camacho Work Phone: [facility] 12-12-2022 09:07-0400 Diastolic blood pressure 72 mm[Hg] Dr. Nish Camacho Work Phone: [facility] 12-12-2022 09:07-0400 Heart rate 72 /min Dr. Nish Camacho Work Phone: [facility] 12-12-2022 09:07-0400 Respiratory rate 16 /min Dr. Nish Camacho Work Phone: [facility] 12-12-2022 09:07-0400 SaO2% (BldA) [Mass fraction] 96 % Dr. Nish Camacho Work Phone: [facility] 12-12-2022 09:07-0400 Systolic blood pressure 116 mm[Hg] Dr. Nish Camacho Work Phone: [facility] 07-25-2022 13:02-0500 Body height 160.[address] Nish Camacho Work Phone: [facility] 07-25-2022 13:02-0500 Body mass index (BMI) [Ratio] 30.4 kg/m2 Dr. Nish Camacho Work Phone: [phone] [place] [address] 07-25-2022 13:02-0500 Body weight 78.[address] Nish Camacho Work Phone: [phone] [place] [address] 07-25-2022 13:02-0500 Diastolic blood pressure 60 mm[Hg] Dr. Nish Camacho Work Phone: [phone] [address] [place] [address] 07-25-2022 13:02-0500 Heart rate 84 /min Dr. Nish Camacho Work Phone: 0(346)[phone] [place] [address] 07-25-2022 13:02-0500 Respiratory rate 16 /min Dr. Nish Camacho Work Phone: 3(392)986-663174 [place] [address] 07-25-2022 13:02-0500 Systolic blood pressure 112 mm[Hg] Dr. Nish Camacho Work Phone: 9(886)294-533974 [place] [address] 07-09-2022 13:07-0500 Body height 160.[address] Nish Camacho Work Phone: 8(533)[phone] [place] [address] 07-09-2022 13:07-0500 Body mass index (BMI) [Ratio] 29.2 kg/m2 Dr. Nish Camacho Work Phone: 7(006)638-768774 [place] [address] 07-09-2022 13:07-0500 Body temperature 96.7 [degF] Dr. iNsh Camacho Work Phone: 8(757)983-572312 [place] [address] 07-09-2022 13:07-0500 Body weight 74.[address] Nish Camacho Work Phone: 7(886)619-005912 [place] [address] 07-09-2022 13:07-0500 Diastolic blood pressure 79 mm[Hg] Dr. Nish Camacho Work Phone: 2(330)349-687074 [place] [address] 07-09-2022 13:07-0500 Heart rate 88 /min Dr. Nish Camacho Work Phone: 9(251)244-340974 [place] [address] 07-09-2022 13:07-0500 Respiratory rate 18 /min Dr. Nish Camacho Work Phone: 0(890)086-993774 [place] [address] 07-09-2022 13:07-0500 SaO2% (BldA) [Mass fraction] 97 % Dr. Nish Camacho Work Phone: [facility] 07-09-2022 13:07-0500 Systolic blood pressure 130 mm[Hg] Dr. Nish Camacho Work Phone: [facility] 12-20-2021 01:00-0400 Body temperature 97.9 [degF] Winston [facility] 12-20-2021 01:00-0400 Body weight 76.2 kg [facility] 12-20-2021 01:00-0400 Heart rate 77 /min [facility] 12-20-2021 01:00-0400 SaO2% (BldA) [Mass fraction] 97 % [facility] 11-22-2021 15:26-0400 Body height 157.[address] Nish Camacho Work Phone: [facility] Work Phone: 11-22-2021 15:26-0400 Body mass index (BMI) [Ratio] 31.2 kg/m2 Dr. Nish Camacho Work Phone: [facility] Work Phone: 11-22-2021 15:26-0400 Body weight 77.[address] Nish Camacho Work Phone: [facility] Work Phone: 11-22-2021 15:26-0400 Diastolic blood pressure 78 mm[Hg] Dr. Nish Camacho Work Phone: [facility] Work Phone: 11-22-2021 15:26-0400 Heart rate 88 /min Dr. Nish Camacho Work Phone: [facility] Work Phone: 11-22-2021 15:26-0400 Respiratory rate 16 /min Dr. Nish Camacho Work Phone: [facility] Work Phone: 11-22-2021 15:26-0400 Systolic blood pressure 122 mm[Hg] Dr. Nish Camacho Work Phone: [facility] Work Phone: 02-11-2017 06:44-0400 BMI (Body Mass Index) 23.51 kg/m2 Lilli Jensen LPN [facility] Work Phone: 02-11-2017 06:44-0400 Body Temperature 96.7 [degF] Lillirikki Jensen OBSTETRICS AND GYNECOLOGY PROFESSOR [facility] Work Phone: 02-11-2017 06:44-0400 BP Diastolic 71 mm[Hg] Lilli Jensen OBSTETRICS AND GYNECOLOGY PROFESSOR [facility] Work Phone: 02-11-2017 06:44-0400 BP Systolic 117 mm[Hg] Lilli Mikey OBSTETRICS AND GYNECOLOGY PROFESSOR [facility] Work Phone: 02-11-2017 06:44-0400 Height 162.56 cm Lilli Jensen OBSTETRICS AND GYNECOLOGY PROFESSOR [facility] Work Phone: 02-11-2017 06:44-0400 Pulse (Heart Rate) 81 /min Lillilacie Jensen OBSTETRICS AND GYNECOLOGY PROFESSOR [facility] Work Phone: 02-11-2017 06:44-0400 Respiratory Rate 18 /min Lilli Jensen OBSTETRICS AND GYNECOLOGY PROFESSOR [facility] Work Phone: 02-11-2017 06:44-0400 Weight 62.14 kg Lillirikki Jensen OBSTETRICS AND GYNECOLOGY PROFESSOR [facility] Work Phone: 12-27-2016 13:33-0400 BMI (Body Mass Index) 33.12 kg/m2 Zamzam [facility] Work Phone: 12-27-2016 13:33-0400 Height 162.56 cm Zamzam Boyle [facility] Work Phone: 12-27-2016 13:33-0400 Pulse (Heart Rate) 84 /min Zamzam Boyle [facility] Work Phone: 12-27-2016 13:33-0400 Respiratory Rate 18 /min Zamzam [place] [facility] Work Phone: 12-27-2016 13:33-0400 Weight 87.54 kg Zamzam Boyle [facility] Work Phone: 06-18-2016 13:23-0500 BMI (Body Mass Index) 32.27 kg/m2 Isaias [facility] Work Phone: 06-18-2016 13:23-0500 BP Diastolic 70 mm[Hg] Harryumi DeFinis [facility] Work Phone: 06-18-2016 13:23-0500 BP Systolic 140 mm[Hg] Harryumi DeFingayathri [facility] Work Phone: 06-18-2016 13:23-0500 BSA (Body Surface Area) 1.91 m2 Harkarin DeFinis [facility] Work Phone: 06-18-2016 13:23-0500 Height 162.56 cm Isaias DeFinis [facility] Work Phone: 06-18-2016 13:23-0500 Pulse (Heart Rate) 82 /min Harumi DeFinis [facility] Work Phone: 06-18-2016 13:23-0500 Respiratory Rate 18 /min Harumi DeFinis [facility] Work Phone: 06-18-2016 13:23-0500 Weight 85.28 kg Harkarin DeFinis [facility] Work Phone: Encounters Encounter Date Encounter Type Care Provider Facility Start: 07-01-2024 End: 07-01-2024 ambulatory Chintan Saucedo Facility:[facility] Start: 06-17-2024 End: 06-17-2024 ambulatory Chintan Lewis Facility:[facility] Start: 04-24-2024 End: 04-24-2024 ambulatory Chintan Saucedo Facility:[facility] Start: 04-08-2024 End: 04-08-2024 ambulatory Chintan Saucedo Facility:[facility] Start: 03-30-2024 End: 03-30-2024 ambulatory Francesca Kirby Facility:[facility] Start: 03-10-2024 [facility] Start: 12-30-2023 End: 12-30-2023 ambulatory Francesca Kirby Facility:[facility] Start: 12-30-2023 End: 12-30-2023 ambulatory Francesca Kirby Facility:[facility] Start: 07-30-2023 End: 07-30-[address] Chintan Saucedo Work Phone: [facility] Work Phone: Start: 07-30-2023 End: 07-30-[address] Chintan Saucedo Work Phone: [facility] Start: 07-01-2023 End: 07-01-[address] Chintan Saucedo Work Phone: [facility] Work Phone: Start: 02-05-2023 End: 02-05-[address] Nish Camacho Work Phone: [facility] Work Phone: Start: 02-05-2023 End: 02-05-[address] Nish Camacho Work Phone: [facility] Start: 12-14-2022 End: 12-14-[address] Nish Camacho Work Phone: [facility] Work Phone: Start: 12-12-2022 End: 12-12-[address] Nish Camacho Work Phone: [facility] Work Phone: Start: 11-12-2022 Documentation procedure Mammog eliot Coordinator [facility] Start: 11-12-2022 Letter encounter Mammography Coordinator [facility] Department Start: 11-09-2022 End: 11-09-2022 ambulatory NISH CAMACHO Facility:[facility] Start: 11-09-2022 End: 11-09-2022 Subsequent hospital visit by physician Screen Mammo [facility] Start: 10-29-2022 End: 10-29-[address] Nish Camacho Work Phone: [facility] Work Phone: Start: 10-29-2022 End: 10-29-[address] Nish Camacho Work Phone: [facility]-Laboratory Start: 10-26-2022 End: 10-26-[address] Nish Camacho [facility] Start: 07-25-2022 End: 07-25-[address] Nish Camacho Work Phone: [facility] Start: 07-16-2022 End: 07-16-[address] Nish Camacho Work Phone: [facility] Work Phone: Start: 07-16-2022 End: 07-16-[address] Nish Camacho Work Phone: [facility]-Pulmonary Services/Neurology Start: 07-10-2022 Non-patient / Non-visit Dr. Pawel Camacho Work Phone: [facility] Start: 07-09-2022 End: 07-09-[address] Nish Camacho Work Phone: [facility] Start: 04-24-2022 End: 04-24-[address] Nish Camacho Work Phone: [facility] Work Phone: Start: 04-24-2022 End: 04-24-[address] Nish Camacho Work Phone: [facility]-Laboratory, Phy Office 3rd Flr Start: 12-27-2021 Non-patient / Non-visit Dr. Pawel Camacho Work Phone: [facility] Start: 12-27-2021 End: 12-27-[address] Nish Camacho Work Phone: [facility]-Cardiovascular Services Start: 12-20-2021 ambulatory WINSTON WOODS Facilit y:[facility] Start: 12-20-2021 End: 12-21-2021 ambulatory WINSTON WOODS Facility:[facility] Start: 12-20-2021 Opscpy extnd rta drawing & scl deprsn i&r uni/bi [place] [facility] Start: 11-27-2021 End: 11-27-[address] Nish Camacho Work Phone: [facility]-Outpatient Breast Imaging Start: 11-22-2021 End: 11-22-[address] Nish Camacho Work Phone: [facility] Start: 10-23-2021 End: 10-23-2021 Patient encounter procedure [facility]-Laboratory Start: 07-05-2021 End: 07-05-2021 Patient encounter procedure [facility] Fl[facility] Procedures Date Procedure Procedure Detail Performing Clinician Start: 11-09-2022 End: 11-09-2022 Mammography [facility] Provider Start: 12-27-2021 Radionuclide imaging of perfusion of myocardium under exercise stress Dr. Nish Camacho Work Phone: Start: 11-27-2021 Screening mammography D joseph Camacho Work Phone: Start: 05-01-2019 Colonoscopy Mammograph y Coordinator Start: 02-11-2017 End: 02-11-2017 Dietary management education, guidance, and counseling Lillirikki Jensen LPN Start: 12-27-2016 End: 12-27-2016 Dietary management education, guidance, and counseling Zamzam Boyle Start: 12-27-2016 End: 12-27-2016 JUVE Berman MD Work Phone: Start: 12-27-2016 End: 12-27-2016 Follow Up Appt 6 months Oseas Berman MD Work Phone: Start: 06-18-2016 End: 06-18-2016 JUVE Berman MD Work Phone: Start: 06-18-2016 End: 06-18-2016 Follow Up Appt 6 months Oseas Berman MD Work Phone: Start: 06-13-2015 End: 06-13-2015 Dietary management education, guidance, and counseling Isaias Whalen Start: 06-13-2015 End: 07-06-2015 Complete sleep workup (PSG,CPAP as indicated) & Follow up Oseas Berman MD Work Phone: Start: 06-13-2015 End: 06-13-2015 JUVE Berman MD Work Phone: Start: 06-13-2015 End: 06-13-2015 Follow Up Appt 1 year Mariela Huang Work Phone: Start: 06-13-2015 End: 06-14-2015 Thyrotropin [Units/volume] in Serum or Plasma Oseas Berman MD Work Phone: Start: 06-13-2015 End: 06-14-2015 Thyroxine (T4) [Mass/volume] in Serum or Plasma Oseas Berman MD Work Phone: Start: 05-31-2014 End: 05-31-2014 JUVE Berman MD Work Phone: Start: 05-31-2014 End: 05-31-2014 Follow Up Appt 1 year Mariela Huang Work Phone: Start: 05-31-2014 End: 06-17-2014 Stress Echocardiogram (treadmill) Oseas Berman MD Work Phone: Influenza Types A,B Direct FA (RYAN) Dr. Nish Camacho Work Phone: Respiratory syncytia l virus antigen assay Dr. Nish Camacho Work Phone: Plan of Treatment Date Care Activity Detail Author Start: 09-11-2025 Urine microalbumin profile DTaP,Tdap,Td Vaccine (2 - Td or Tdap) [facility] Start: 11-10-2023 Mammography [facility] Start: 01-18-2023 Covid-19 Vaccine ( season) Covid-19 Vaccine ( season) [facility] Start: 01-18-2023 Influenza vaccination [facility] Start: 05-20-2022 ADVANCE DIRECTIVE DISCUSSION ADVANCE DIRECTIVE DISCUSSION [facility] Start: 05-20-2022 DEPRESSION ASSESSMENT DEPRESSION ASSESSMENT [facility] Start: 05-01-2022 Colonoscopy COLONOSCOPY [facility] Start: 05-01-2022 COLORECTAL CANCER SCREENING COLORECTAL CANCER SCREENING [facility] Start: 12-20-2021 PROBLEM PROBLEM [facility] Start: 12-20-2021 [facility] Start: 09-28-2020 Pneumococcal Vaccine: 65+ (2 - PCV) Pneumococcal Vaccine: 65+ (2 - PCV) [facility] Start: 09-16-2019 BONE DENSITY BONE DENSITY [facility] Start: 09-16-2019 Bone Density Screening Bone Density Screening [facility] Start: 07-15-2017 End: 07-15-2017 Appointment Appointment [facility] Work Phone: Start: 05-08-2017 End: 05-08-2017 Appointment Appointment [facility] Work Phone: Start: 02-11-2017 End: 02-11-2017 Appointment Appointment [facility] Work Phone: Start: 02-11-2017 End: 02-11-2017 Follow Up Appt 3 months Follow Up Appt 3 months [facility] Work Phone: Start: 12-27-2016 End: 12-27-2016 Appointment Appointment [facility] Work Phone: Start: 12-27-2016 End: 12-27-2016 JUVE AN [facility] Work Phone: Start: 12-27-2016 End: 12-27-2016 Follow Up Appt 6 months Follow Up Appt 6 months [facility] Work Phone: Start: 12-27-2016 End: 12-28-2016 Pulmonary Referral [facility] Work Phone: Start: 08-12-2016 SIGMOIDOSCOPY SIGMOIDOSCOPY [facility] Start: 06-18-2016 End: 06-18-2016 JUVE AN [facility] Work Phone: Start: 06-18-2016 End: 06-18-2016 Follow Up Appt 6 months Follow Up Appt 6 months [facility] Work Phone: Start: 06-13-2015 End: 06-14-2015 Complete sleep workup (PSG,CPAP as indicated) & Follow up Complete sleep workup (PSG,CPAP as indicated) & Follow up [facility] Work Phone: Start: 06-13-2015 End: 06-13-2015 JUVE AN [facility] Work Phone: Start: 06-13-2015 End: 06-13-2015 Follow Up Appt 1 year Follow Up Appt 1 year [facility] Work Phone: Start: 06-13-2015 End: 06-14-2015 T4 mass conc *T4 (Total) [facility] Work Phone: Start: 06-13-2015 End: 06-14-2015 Thyrotropin Qn *TSH [facility] Work Phone: Start: 11-25-2014 3 comp foot exam completed DIABETIC FOOT EXAM [facility] Start: 11-25-2014 Hepatitis B screening URINE ALBUMIN:CREATININE RATIO [facility] Start: 11-25-2014 Hepatitis B surface antibody level LDL CHOLESTEROL [facility] Start: 11-25-2014 Hepatitis C antibody, confirmatory test DILATED RETINAL EXAM [facility] Start: 2014 Hepatitis B Vaccine (1 of 3 - Risk 3-dose series) Hepatitis B Vaccine (1 of 3 - Risk 3-dose series) [facility] Start: 2014 RSV Vaccine (1 - 1-dose 60+ series) RSV Vaccine (1 - 1-dose 60+ series) [facility] Start: 05-31-2014 End: 05-31-2014 DJN DJN [facility] Work Phone: Start: 05-31-2014 End: 05-31-2014 Follow Up Appt 1 year Follow Up Appt 1 year [facility] Work Phone: Start: 05-31-2014 End: 05-31-2014 Stress Echocardiogram (treadmill) Stress Echocardiogram (treadmill) [facility] Work Phone: Start: 09-16-1999 COLOGUARD (FIT-DNA) COLOGUARD (FIT-DNA) [facility] Start: 09-16-[address] COLONOGRAPHY [facility] Start: 09-16-1999 FECAL OCCULT BLOOD FECAL OCCULT BLOOD [facility] Start: 1973 Urine microalbumin profile DTAP,TDAP,TD (1 - Tdap) [facility] Start: 1972 ANNUAL PCP TEAM CHRONIC DISEASE VISIT ANNUAL PCP TEAM CHRONIC DISEASE VISIT [facility] Start: 1972 HEPATITIS C SCREENING HEPATITIS C SCREENING [facility] Start: 1960 PNEUMOCOCCAL: 65+ (1 - PCV) PNEUMOCOCCAL: 65+ (1 - PCV) [facility] Start: 09-16-1959 Hemoglobin A1c/Hemoglobin.total in Blood HBA1C [facility] Radionuclide imaging of perfusion of myocardium under exercise stress [facility] Work Phone: [facility] Work Phone: Immunizations Immunization Date Immunization Notes Care Provider Fa cility 01-04-2021 influenza virus vaccine, unspecified formulation Screen Wstr [facility] 12-20-2017 zoster vaccine recombinant Mammography Coordinator [facility] Work Phone: 09-18-2017 zoster vaccine recombinant Mammography Coordinator [facility] Work Phone: Payers Date Payer Category Payer Self-pay [id number] 2022 Medicare [id number] 2022 Unknown [id number] 2015 Unknown [id number] Medicaid MEDICAID [id number] Medicare [id number] Unknown [id number] Unknown [id number] 2.16.8 [id number] Unknown [id number] 2.16.8 [id number] Unknown [id number] 2.16.8 [id number] Unknown [id number] 2.16.8 [id number] Unknown [id number] 2.16.8 [id number] Unknown [id number] 2.16.8 [id number] Unknown [id number] 2.16.8 [id number] Unknown [id number] 2.16.8 [id number] Unknown [id number] 2.16.8 [id number] Social History Date Type Detail Facility Start: 12-08-2019 End: 07-01-2023 Tobacco smoking status NHIS Unknown if ever smoked [facility] Start: 04-29-2019 Non-smoker [facility] Start: 1955 Sex Assigned At Female W [facility] Tobacco smoking stat us NHIS Never smoked tobacco [facility] Start: 04-28-2019 Alcohol intake Current drinke r of alcohol (finding) [facility] Start: 1955 Sex Assigned At Not on file [facility] Start: 04-28-2019 End: 11-09-2022 History of Social function [facility] Start: 04-28-2019 End: 11-09-2022 Tobacco use panel [facility] National Score (1-10 0), lower number is lower risk 71 [facility] Medical Equipment Procedure Code Equipment Code Equipment Origin al Text Equipment Identifier Dates Procedure Implant ([id number]) Accu-Chek SmartV iew Test Strips Blood Sugar Diagnostic (Accu-Chek Smartview Test Strip) strip Start: 07-31-2023 Clinical Notes 12-05-2009 to 04-24-2024 Letter - Mammography Coordinator - 11/12/2022 7:54 AM Dayanna Munoz RT(R) - 11/09/2022 7:50 AM EDT Note Date & Type Note Facility 04-24-2024 Note [facility] Medical Records Department [address] [place] [address] History Physical Exam 04/24/24 0710 MR#: [id number] Acct: [id number] Name: ISABEL GLASS Rep #: [id number] : 1955 68 From: Michael Whaley MD PCP: Dr. Chintan Saucedo MD Status:[facility] Location: [place] [address] HPI - General HPI Narrative ISABEL GLASS, is a 68 F who presents for surveillance colonoscopy. Her last colonoscopy was in 2019. She had 2 polyps removed. She has a history of colon cancer and had a partial colectomy in 1998. Patient also has family history of colon cancer in her brother and FAP in her brother and sister. Patient also had countless polyps at one time requiring colectomy. Currently the patient denies any abdominal pain or blood in the stool. [facility] Medical History (Updated 04/23/24 @ 09:59 by Jabier Walker) Wears glasses History of echocardiogram History of stress test Cardiology follow-up encounter ZACHERY treated with BiPAP Family history of malignant neoplasm of colon in relative diagnosed when younger than 50 years of age Essential hypertension Diabetes mellitus type II, controlled Hematoma Mass of soft tissue of left lower extremity Diabetes mellitus, type II History of colon cancer Chest pain, unspecified Abnormal electrocardiogram Hyperlipidemia BMI 33.0-33.9,adult Daytime somnolence Obstructive sleep apnea Periodic limb movement disorder Home Medications ???Medication ???Instructions ???Recorded ???Last Taken ???Type benazepril 10 mg tablet 10 mg PO QDAY 05/03/17 05/01/19 History cinnamon bark 500 mg capsule 1,000 mg PO DAILY 05/03/17 Unknown History (Cinnamon) magnesium oxide 400 mg PO QDAY 05/03/17 Unknown History multivitamin,cg-rwpk-bbsqdfrg 1 tab PO QDAY 05/03/17 Unknown History (Complete Multivitamin tablet) doxycycline hyclate 100 mg capsule 100 mg PO QDAY PRN FACE BREAKOUT 07/15/17 Unknown History wrzrsrfl-pxf-NA 200 mcg-vit K 15 2 tab PO DAILY 11/22/21 Unknown History mcg-lycope 150 mmw-fcajqp-lzdj tablet (Ocuvite Eye Plus Multi) cholecalciferol (vitamin D3) 50 50 mcg PO DAILY #90 caps 07/09/22 Unknown Rx mcg (2,000 unit) capsule lactobacillus combination no.9 4 4,000 mmu cells PO DAILY 07/09/22 Unknown History billion cell capsule (Adult 50 Plus Probiotic) blood-glucose sensor (FreeStyle #2 ea 07/11/22 Unknown Rx Brennan 3 Sensor device) coenzyme Q10 100 mg capsule (Co 600 mg PO DAILY 07/25/22 Unknown History Q-10) elderberry fruit 350 mg capsule 350 mg PO DAILY 07/25/22 04/22/24 History methylphenidate HCl 20 mg biphasic 20 mg PO DAILY 07/01/23 Unknown History 50-50 capsule,extended release blood sugar diagnostic (Accu-Chek #100 ea 07/31/23 Unknown Rx SmartView Test Strips) lysine 500 mg tablet 1,000 mg PO DAILY 12/30/23 Unknown History metformin 1,000 mg tablet 1,000 mg PO BID #180 tabs 02/24/24 Unknown Rx ascorbic acid (vitamin C) 500 mg 1,000 mg PO DAILY 03/10/24 Unknown History tablet biotin 400 mcg tablet 400 mcg PO DAILY 03/10/24 Unknown History carboxymethylcellulose sodium 1 % 1 drp ophthalmic (eye) BID 03/10/24 Unknown History eye liquid gel drops (Refresh Liquigel) coffee extract 100 mg-phosphatidyl 1 cap PO DAILY 03/10/24 Unknown History serine 100 mg capsule (Neuriva Original) cyanocobalamin (vitamin B-12) 1,000 mcg PO QDAY 03/10/24 Unknown History 1,000 mcg tablet (Vitamin B-12) diclofenac potassium 50 mg tablet 50 mg PO BID PRN pain 03/10/24 Unknown History ferrous sulfate 325 mg (65 mg 325 mg PO QDAY 03/10/24 04/15/24 History iron) tablet (FeroSul) nystatin 100,000 unit/gram topical 1 applic topical BID PRN REDNESS 03/10/24 Unknown History ointment psyllium husk 0.4 gram capsule 0.8 g PO DAILY 03/10/24 04/22/24 History (Metamucil) atorvastatin 10 mg tablet 10 mg PO MOWEFR 03/30/24 Unknown History semaglutide 1 mg/dose (4 mg/3 mL) 1 mg (0.75 mL) subcut QWEEK #3 mL 03/30/24 04/13/24 Rx subcutaneous pen injector (Ozempic) ketotifen fumarate 0.025 % (0.035 1 drp EACH EYE BID 04/23/24 Unknown History %) eye drops (Allergy Eye (ketotifen)) Allergy/AdvReac Type Severity Reaction Status Date / Time amoxicillin Allergy Mild YEAST Verified 04/24/24 06:48 aspirin (From Ar Aspirin) Allergy Mild Bleeding Verified 04/24/24 06:48 Latex, Natural Rubber Allergy Mild RASH Verified 04/24/24 06:48 Family History Sister ZACHERY (obstructive sleep apnea) Brother , Age 62 from [place] CAD (coronary artery disease), Onset Age: 61 PCI and stents Myocardial infarction Father Pacemaker Cardiomyopathy Brother , of colon cancer Colon cancer, Onset Age: 33 at 36yrs Surgical History (Updated 04/23/24 @ 09:59 by Jabier Walker) Hx of a (more content not included)... [facility] 11-12-2022 Miscellaneous Notes November 12, 2022 PID: [id number] Isabel Galss [address] [facility] [place] [address] Dear Ms. Glass, We are pleased to inform you that the results of your recent breast imaging exam on 11/09/2022 are normal. Early detection of cancer is very important. We also understand recommendations regarding breast cancer screening are controversial. Please discuss with your primary care provider which strategy is best for you and whether a mammogram is right for you. Your imaging studies and report will be [facility] at [facility] Center as part of your permanent medical record and are available for your continuing care. Thank you for allowing us to help in meeting your health care needs. Sincerely, Dr. Hill Interpreting Radiologist [facility] (Normal over 40) documented in this encounter [facility] 11-09-2022 Note HNO ID: [id number] Author: RT Carlin(R) Service: ? Author Type: Technologist Type: Progress Notes Filed: 11/09/2022 8:14 AM Note Text: Radiology Service Progress Note PATIENT NAME: Isabel Glass DATE OF SERVICE: November 09, 2022 TIME: 8:14 AM PATIENT IDENTITY VERIFICATION COMPLETED USING TWO (2) IDENTIFIERS: Name and Date of confirmed by patient verbally. FALL SCREENING: Has the patient had 2 falls in the last year or 1 fall with injury or currently using an Ambulatory Assistive Device (Walker, Cane, Wheelchair, Crutches, etc.)? No PATIENT GENDER DATA: Female. status: : No status: NO. PATIENT RELEVANT IMPLANT DATA REVIEWED: Not Applicable RADIOLOGY DEPARTMENT: Mammography PERIPHERAL IV DATA: Not applicable SIGNED BY: RT Carlin(R) November 09, 2022 8:14 AM [facility] 11-09-2022 History of Presen t illness Narrative Radiology Service Progress Note PATIENT NAME: Isabel Glass DATE OF SERVICE: November 09, 2022 TIME: 8:14 AM PATIENT IDENTITY VERIFICATION COMPLETED USING TWO (2) IDENTIFIERS: Name and Date of confirmed by patient verbally. FALL SCREENING: Has the patient had 2 falls in the last year or 1 fall with injury or currently using an Ambulatory Assistive Device (Walker, Cane, Wheelchair, Crutches, etc.)? No PATIENT GENDER DATA: Female. status: : No status: NO. PATIENT RELEVANT IMPLANT DATA REVIEWED: Not Applicable RADIOLOGY DEPARTMENT: Mammography PERIPHERAL IV DATA: Not applicable SIGNED BY: RT Carlin(R) November 09, 2022 8:14 AM documented in this encounter [facility] 12-20-2021 Evaluation note Encounter Date 12/20/2021 12/20/2021 The patient's [facility] medical records (including ED and External records) were reviewed in determination of my treatment. Evaluation, diagnosis and management plan were discussed with Patient/Family. Follow up with Urgent Care/ER if not better in 2-3 days or anytime if there is any worsening. It is recommended that the patient follow-up with his/her PCP in one week. Patient was Discharged from Urgent Care in good/satisfactory condition. [facility] [email or web address] [facility] 08-03-2022 History general Narrative - ReportedNo medical history recorded. Gynecological HistoryNo gynecological history recorded. Obstetrics History [facility] 0 [facility]2010 History of Past illness Narrative* Problem Noted Date Resolved Date Urinary incontinence, stress 12/05/2009 Pain in limb 05/29/2007 05/11/2016 Closed fracture of one or more phalanges of foot 02/12/2007 05/11/2016 Abnormal mammogram, unspecified 11/13/2006 11/08/2011 Acute gastritis without mention of hemorrhage 11/08/2011 Nonspecific abnormal finding in stool contents 0 01/11/2006 05/11/2016 Other specified congenital anomaly of skin 11/1505/11/2016 documented as of this encounter (statuses as of 11/14/2022) [facility] History of Past illness Narrative* Problem Noted Date Diagnosed Date Resolved Date Urinary incontinence, stress 12/05/2009 05/11/2016 Pain in limb 05/29/2007 05/11/2016 Closed fracture of one or mo re phalanges of foot 02/12/2007 05/11/2016 Abnormal mammogram, unspecified 11/13/2006 11/08/2011 Acute gastritis without mention of hemorrhage 01/12/2011/08/2011 Nonspecific abnormal finding in stool contents 01/11/2006 05/11/2016 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 Work Phone: Evaluation note* Diagnosis Onset Date Resolution Status Fatigue acute Essential hypertension chron ic Hyperlipidemia [facility] Work Phone: Evaluation note* Diagnosis Onset Date Resolution Status Diabetes mellitus type II, controlled chronic Overweight (BMI 25.0-29.9) c hronic Vitamin D deficiency [facility] Work Phone: Evaluation note* Diagnosis Onset Date Resolution Status Diabetes mellitus type II, controlled chronic Overweight (BMI 25.0-29.9) c hronic Vitamin D deficiency chronic Mitral valve insufficiency a cute Essential hypertension chron ic Hyperlipidemia [facility] Work Phone: Evaluation note* Diagnosis Onset Date Resolution Status Obesity (BMI 30.0-34.9) acut e Diabetes mellitus type II, controlled [facility] Work Phone: Evaluation note* Diagnosis Onset Date Resolution Status Diabetes mellitus type II, controlled chronic Essential hypertension chron ic Hyperlipidemia chronic Overweight (BMI 25.0-29.9) c onic [facility] Work Phone: Family History No Family History Records Found Relationship Condition Age at Onset Recorded Date/T bev sister Obstructive sleep apnea syndrome Unknown brother Coronary artery disease 61 Myocardial infarction Unknown father Presence of cardiac pacemaker Unknown Cardiomyopathy Unknown brother Malignant neoplasm of colon Unknown Advance Directives No Advanced Directives Records Found Advance Directive Response Recorded Date/ Time Living Will Yes April 29 12:24pm Power of Childcare Teacher Yes April 29, 2019 12:24pm Advance Directive Response Recorded Date/ Time Living Will Yes April 29 11:24am Power of Childcare Teacher Yes April 29, 2019 11:24am Chief Complaint and Reason for Visit Chief Complaint F/U DJN PT SCREENING Reason for Visit Fatigue Essential hypertension Hyperlipidemia Chief Complaint F/U DJN PT SCREENING HYPERTENSION HYPERTENSION Reason for Visit Fatigue Essential hypertension Hyperlipidemia Chief Complaint HYPERTENSION HYPERTENSION Chief Complaint Diabetes Amb Documentation VIRAL SYMPTOMS Reason for Visit Diabetes mellitus ty pe II, controlled Overweight (BMI 25.0-29.9) Vitamin D deficiency Chief Complaint Diabetes Amb Documentation VIRAL SYMPTOMS 6 m fu Reason for Visit Diabetes mellitus ty pe II, controlled Overweight (BMI 25.0-29.9) Vitamin D deficiency Mitral valve insufficiency Essential hypertension Hyperlipidemia Chief Complaint 4 M FU, RS 10/08 E ORDER Reason for Visit Obesity (BMI 30.0-34 .9) Diabetes mellitus type II, controlled Chief Complaint 3.5 M FU Reason for Visit Diabetes mellitus ty pe II, controlled Essential hypertension Hyperlipidemia Overweight (BMI 25.0-29.9) Summary Purpose Additional Source Comments Goals (unrecognized section and content) Goal Description Status Start Date Updated by None Recorded INFORMATION SOURCE (unrecogn ized section and content) DATE CREATED AUTHOR 12/25/2021 [employer] DATE CREATED AUTHOR AUTHOR'S ORGANIZ ATION 11/14/2022 [facility] DATE CREATED AUTHOR AUTHOR'S ORGANIZ ATION 08/13/2024 [facility] Care Teams (unrecognized sec tion and content) Team Status: Active Member Role Status Dates Dr. Nish Camacho MD Family Provider Active Dr. Nish Camacho MD Primary Care Provider Active Team Status: Inactive Member Role Status Dates Dr. Nish Camacho MD Primary Care Provider, Referring Provider Active GERARD Bran Attending Provider Active Team Status: Active Member Role Status Dates Dr. Nish Camacho MD Primary Care Provider Active Edita Foster Attending Provider Active Team Status: Inactive Member Role Status Dates Dr. Nish Camacho MD Primary Care Provider, Attending Provider Active Team Status: Inactive Member Role Status Dates Dr. Nish Camacho MD Primary Care Provi tommy, Attending Provider, Referring Provider Active Team Status: Inactive Member Role Status Dates Dr. Nish Camacho MD Primary Care Provider, Referring Provider Active Dr. Blake Huggins MD Attending Provider Active Team Status: Inactive Member Role Status Dates Dr. Nish Camacho MD Primary Care Provider Active Dr. Edwar Lee MD Attending Provider Active [employer] Relationship Specialty Start Date End Date Nish Camacho Chi PCP - General Gerontology 01/04/16 Team Status: Active Member Role Status Dates Dr. Nish Camacho MD Family Provider Active Dr. Chintan Saucedo MD Primary Care Provider Active Team Status: Inactive Member Role Status Dates Dr. Chintan Saucedo MD Primary Care Provider Active GERARD Bran Attending Provider, Referring Pr rhonda Active Team Status: Inactive Member Role Status Dates Dr. Chintan Saucedo MD Primary Care Provider, Attending Kary craft Active Controlled [employer]razer Relationship Specialty Start Date End Date Nish Camacho Chi PCP - General Gerontology 01/04/16 Team Status: Inactive Member Role Status Dates Dr. Chintan Saucedo MD Primary Care Provider, Referring Kary craft Active GERARD Bran Attending Provider Active Source Comments (unrecognize d section and content) In the event this informatio n is protected by the Federal Confidentiality of Alcohol and Drug Abuse Patient Records regulations: The Federal rules restrict any use of the information to criminally investigate or prosecute any alcohol or drug abuse patient.[facility] the event this information is protected by the Federal Confidentiality of Alcohol and Drug Abuse Patient Records regulations: The Federal rules restrict any use of the information to criminally investigate or prosecute any alcohol or drug abuse patient.[facility] FOR RECORDS PERTAINING TO PATIENTS WHO ARE OR HAVE BEEN ENROLLED IN A CHEMICAL DEPENDENCY/SUBSTANCEABUSE PROGRAM, SOME INFORMATION MAY BE OMITTED. This clinical summary was aggregated from multiple sources. Caution should be exercised in using it in the provision of clinical care. This summary normalizes information from multiple sources, and as a consequence, information in this document may materially change the coding, format and clinical context of patient data. In addition, data may be omitted in some cases. CLINICAL DECISIONS SHOULD BE BASED ON THE PRIMARY CLINICAL RECORDS. [facility]. provides no warranty or guarantee of the accuracy or completeness of information in this document.
== END | disposition home or self-care (01) ==
LOC: MFPLAB 09:41
PROVIDERS: PCP Family Medicine; Referring Provider Family Medicine; Visit Provider Family Medicine
DX: G47.30 Sleep apnea, unspecified (principal); E08.22 Diabetes mellitus due to underlying condition with diabetic chronic kidney disease; N18.9 Chronic kidney disease, unspecified
CPT/HCPCS: 36415; 80053; 82043; 82465; 82570; 83718; 85025

== ENCOUNTER → 2025-04-09 | Outpatient (CLI) | payer MEDICARE, SELFPAY ==
[2019-05-07 15:40] VITALS: BMI 32.8
--- NOTE | 2025-04-09 07:51 | BI_ITS ---
EXAM: SCRN MAMM (CAD)W/NADEGE BILAT DATE: 04/09/2025 CLINICAL HISTORY: F, Age 69 y/o , NEED FOR BREAST CANCER SCREENING TECHNIQUE: Procedure Code: [id number] Modality: MG Procedure: SCRN MAMM (CAD)W/ANDEGE BILAT COMPARISON: Prior exam(s) dated 04/08/2024, 11/27/2021, 11/25/2020. FINDINGS: TISSUE DENSITY: The breasts are almost entirely fatty. Bilateral Breast Mammographic Findings: No significant masses, calcifications or other abnormalities are identified. BI/SCRN MAMM (CAD)W/NADEGE BILAT IMPRESSION: There is no mammographic evidence of malignancy. OVERALL FINAL ASSESSMENT BI-RADS 1: NEGATIVE. RECOMMENDATION: Routine annual follow-up in 1 Year Additional Recommendation none A letter with findings and recommendations will be mailed to the patient. Reading Location: [id number]
== END | disposition home or self-care (01) ==
LOC: OPBI 07:50
PROVIDERS: PCP Family Medicine
DX: Z12.31 Encounter for screening mammogram for malignant neoplasm of breast (principal)
CPT/HCPCS: 77063; 77067

== ENCOUNTER → 2025-04-16 | Outpatient (CLI) | payer MEDICARE, SELFPAY ==
[2019-05-07 15:40] VITALS: BMI 32.8
--- NOTE | 2025-04-16 10:48 | RAD_ITS ---
PROCEDURE: KNEE 4 OR MORE VIEWS 04/16/2025 REASON FOR EXAM: PAIN TECHNIQUE: Procedure Code: RADKN Modality: DX Procedure: KNEE 4 OR MORE VIEWS Laterality: Left COMPARISON: None FINDINGS: There is no evidence of fracture or dislocation. There is moderate arthritis of the patellofemoral joint. There is mild arthritis of the medial joint space compartment of the knee. There is mild arthritis of the lateral joint space compartment of the knee. There is chondrocalcinosis of the medial and lateral menisci. There is a moderate knee joint effusion. The periarticular soft tissues are normal. RAD/Knee 4 or More Views IMPRESSION: [id number] tricompartment arthritis with a moderate knee joint effusion. Chondrocalcinosis consistent with CPPD. Reading Location: [id number]
--- OUTSIDE RECORDS SUMMARY | 2025-04-16 11:07 | XMS RPT_ITS | CCD ---
Author Organization [facility] CliniSywa Care Team Providers Care Store Operations Manager Name Role Phone Isaias Whalen Y Unavailable Unavailable Boyle, Zamzam Unavailable Unavailable Valerio, Lilli Montoya Unavailable Unavailable Yensho DENTAL SERVICE CHIEF, Pastora A Unavailable Unavailab le Jensen DENTAL SERVICE CHIEF, Lilli Peggy Unavailable Unavaila ble Yensho DENTAL SERVICE CHIEF, Pastora A Unavailable Unavailab le Dr. Nish Camacho Chi Primary Care Provider Maco, Dr. Nish Edge Referring Provider Bhavna, Dr. Lozano Attending Provider 1([facility])[phone] Unavailable Unavailable Unavailable WINSTON WOODS Attending Unavailable WINSTON WOODS Admitting Unavailable Dr. Blake Huggins Referring Provider Dr. Blake Huggins Other Provider 1([facility])[phone] Nish Camacho Chi Primary Care Provider Dr. Blake Huggins Attending Provider Dr. Blake Huggins Referring Provider Dr. Blake Huggins Other Provider 1([facility])[phone] Nish Camacho Chi Primary Care Provider Maco, Dr. Nish Edge Referring Provider GERARD Orr Attending Provider Edita Foster Attending Provider Unavailable Dr. Nish Camacho Chi Primary Care Provider [phone] Maco, Dr. Nish Edge Referring Provider GERARD Orr Attending Provider Edita Foster Attending Provider Unavailable Dr. Blake Huggins Attending Provider Nish Camacho Chi Primary Care Provider MACO, NISH EDGE Primary Care Unavailable Dr. Nish Camacho Chi Primary Care Provider [phone] Maco, Dr. Nish Edge Referring Provider SALOMÓN Orr-C Francesca Attending Provider 1([facility])[phone] Dr. Chintan Saucedo Primary Care Provider Dr. Chintan Saucedo Referring Provider 1([facility])[phone] SALOMÓN Orr-C Francesca Attending Provider [phone] Lewis BOGGS, Dr. Woodson Primary Care Provider Lewis BOGGS, Dr. Woodson Attending Provider Lewis BOGGS, Dr. Woodson Referring Provider [phone] King FLAKITA, Dr. Amato Other Provider Saucedo, Chintan Referring Unavailable Saucedo, Chintan Primary Care Unavailable Saucedo, Chintan Attending Unavailable Saucedo, Chintan Primary Care Unavailable Saucedo, Chintan Attending Unavailable Saucedo, Chintan Referring Unavailable Saucedo, Chintan Referring Unavailable Saucedo, Chintan Primary Care Unavailable Saucedo, Chintan Attending Unavailable Lm Elaine Consulting Unavailable Saucedo, Chintan Primary Care Unavailable Francesca Orr Attending Unavailable Saucedo, Chintan Referring Unavailable Calabretta, Michael Attending Unavailable Saucedo, Chintan Primary Care Unavailable Saucedo, Chintan Referring Unavailable Saucedo, Chintan Referring Unavailable Calabretta, Michael Consulting Unavailable Calabretta, Michael Attending Unavailable Saucedo, Chintan Primary Care Unavailable Saucedo, Chintan Referring Unavailable Saucedo, Chintan Primary Care Unavailable KirbyFrancesca Attending Unavailable Saucedo, Chintan Referring Unavailable Saucedo, Chintan Primary Care Unavailable KirbyFrancesca Attending Unavailable McMorrow POLICY WRITER, Marvel Attending Unavailable McMorrow POLICY WRITER, Marvel Referring Unavailable Saucedo, Chintan Primary Care Unavailable Lewis BOGGS, Dr. Woodson Primary Care Physician Lewis BOGGS, Dr. Woodson Attending Physician King FLAKITA, Dr. Amato Nurse Practitioner Kirby POLICY WRITER-CFrancesca Attending Physician Allergies Allergy Classification Reported Allergen(s) Allergy Type Date of Onset Reaction(s) Facility (20 sources) Amoxicillin; Translations: [AMOXICILLIN] Drug Allergy 6 yeast infection, YEAST [facility] Work Phone: Comment on above: Yeast infection (2 sources) Aspirin Drug Allergy 5 bleeding ulcers [facility] Work Phone: (2 sources) Latex rubber gloves drug allergy 5 skin gets raw [facility] Work Phone: (13 sources) Aspirin; Translations: [ASPIRIN] Drug Allergy 5 Other: See Comments [facility] Comment on above: Bleeding ulcers (11 sources) natural latex rubber; Translations: [Latex, Natural Rubber] Allergy to substance 9 RASH [facility] (3 sources) Latex; Translations: [LATEX] Propensity to adverse reactions [address] [facility] Work Phone: (1 source) Aspirin Drug Allergy 5 [facility] Repository Medications Current Medications Medication Drug Class(es) Dates Sig (Normalized) Sig (Original) ascorbic acid 500 mg oral tablet (20 sources) Vitamin C Start: 03-10-2024 take 2 tablets by mouth once daily Start: 11-22-2021 End: 03-10-2024 take 1 tablet by mouth once daily Ascorbic Acid (Vitamin C) 500 mg tablet Discontinued 500 mg PO DAILY November 22, 2021 12:00am March 10, 2024 9:11am Start: 12-05-2009 End: 02-11-2017 take 500 mg by mouth once daily Ascorbic Acid (Vitamin C) Active 500 MG PO DAILY November 22, 2021 12:00am Comment on above: Take one(2) tablet d aily. benazepril hydrochloride 10 mg oral tablet (20 sources) Angiotensin Converting Enzyme Inhibitor Start: 12-27-2016 benazepril (LOTENSIN) 10 mg tablet q 24 HR. 0 12/27/2016 Active Start: 12-27-2016 take 1 tablet by mouth once da valerie Comment on above: q 24 HR. Biotin (2 sources) Start: 03-10-2024 take 1 tablet by mouth once da valerie Start: 03-10-2024 take 1 tablet by mouth once da valerie Biotin 400 mcg tablet Active 400 ug PO DAILY March 10, 2024 12:00am carboxymethylcellulose 0.01 mg/mg ophthalmic gel (3 sources) Start: 03-10-2024 End: 03-03-2025 apply 1 drop(s) into the eye(s) twice daily as needed cholecalciferol 0.05 mg oral capsule (20 sources) Vitamin D Start: 07-09-2022 take 1 capsule by mouth once daily Start: 07-09-2022 End: 07-25-2022 take 1 capsule by mouth every week Cholecalciferol (Vitamin D3) 1,250 mcg (50,000 unit) capsule Discontinued 1250 ug PO EVERY WEEK 12 0 July 09, 2022 1:00am July 25, 2022 2:04pm Vitamin d deficiency Vitamin D deficiency, unspecified Start: 02-13-2018 End: 02-17-2018 take 2 capsules by mouth twice daily Cholecalciferol (Vitamin D3) 1,000 unit capsule Discontinued 2000 U PO TWICE A DAY February 13, 2018 5:44pm February 17, 2018 4:00pm Start: 02-13-2018 End: 02-17-2018 take 2000 [IU] by mouth twice daily Cholecalciferol (Vitamin D3) Discontinued 2000 UNIT PO TWICE A DAY February 13, 2018 5:44pm February 17, 2018 4:00pm Start: 05-03-2017 End: 02-13-2018 take 1 capsule by mouth once Cholecalciferol (Vitamin D3) 1,000 unit capsule Discontinued 1000 U PO ONCE May 03, 2017 1:00am February 13, 2018 5:47pm Start: 02-11-2017 take 2 tablets by [facility] once daily VITAMIN D3 2000 UNIT CAPS Two tablets by mouth daily CHOLECALCIFEROL [id number] Augie Grimes take 1 capsule by [facility] once daily Cholecalciferol, Vitamin D3, (VITAMIN D) 1,000 unit ORAL Cap Take 1,000 Units by mouth once daily. 0 Active Cholecalciferol, Vitamin D3, 2,000 unit cap Take by mouth once daily. 0 Active Comment on above: Take 1,000 Units by mouth once daily. Take by mouth once d aily. Coffee Xt-Phosphatidyl Serine (Neuriva Original) 100-100 mg capsule (2 sources) Start: 03-10-2024 take 1 capsule by mouth once daily Start: 10-22-2024 take 1 capsule by [facility] once daily Coffee Xt-Phosphatidyl Serine (Neuriva Original) 100-100 mg capsule Active 1 NMA PO DAILY March 10, 2024 12:00am dexamethasone 1 mg/ml / neomycin 3.5 mg/ml / polymyxin b 50328 unt/ml ophthalmic suspension (1 source) Aminoglycoside Antibacterial, Polymyxin-class Antibacterial, Corticosteroid take 1 drop(s) into the eye(s) three times daily wbemmeeg-dyecivgyz-fbgzoubs 3.5 mg/mL-10,000 unit/mL-0.1% eye drops INSTILL 1 DROP INTO RIGHT EYE THREE TIMES DAILY FOR 10 DAYS active diclofenac potassium 50 mg oral tablet (20 sources) Nonsteroidal Anti-inflammatory Drug Start : 03-10 take 1 tablet by mouth twice daily as needed for pain Start: 02-13-2018 End: 11-22-2021 take 1 tablet by mouth twice daily Diclofenac Potassium 50 mg tablet Discontinued 50 mg PO TWICE A DAY February 13, 2018 12:00am November 22, 2021 3:30pm Start: 02-11-2017 End: 07-15-2017 take 1 tablet by mouth twice daily Diclofenac Sodium 50 mg tablet,delayed release (DR/EC) Discontinued 50 mg PO TWICE A DAY May 03, 2017 1:00am July 15, 2017 4:50pm doxycycline hyclate 100 mg oral capsule (20 sources) Tetracycline-class Drug Start: 07-15-2017 take 1 capsule b y mouth once daily as needed Start: 05-25-2014 [facility] DOXYCYCLINE HYCLATE 50 MG CAPS One tablet by mouth daily DOXYCYCLINE HYCLATE [id number] Yamilex Mendoza RN Start: 05-25-2014 DOXYCYCLINE HY CLATE 100 MG TABS One tablet by mouth twice DOXYCYCLINE HYCLATE [id number] Augie Grimes take 1 capsule by [facility] twice daily as needed doxycycline 50 mg capsule Take 50 mg by mouth twice daily. as needed 0 Active Comment on above: Take 50 mg by mouth twice daily. as needed ferrous sulfate 325 mg oral tablet (2 sources) Start: 03-10-20 24 take 1 tablet by mouth once daily hydrOXYzine hydrochloride 25 mg oral tablet (1 source) Antihistamine Start: 12-21-19 take 1 tablet by mouth four times daily as needed hydroxyzine HCl 25 mg tablet Take 1 tablet 4 times a day by oral route as needed. 12/20/2021 active ibandronic acid 150 mg oral tablet (2 sources) Bisphosphonate Start: 07-01-19 take 1 tablet by mouth every month ketotifen 0.25 mg/ml ophthalmic solution (2 sources) Histamine-1 Receptor Inhibitor Start: 04-23-20 Lactobacillus Combination No.9 (Adult 50 Plus Probiotic) 4 billion cell capsule (6 sources) Start: 07-09-19 take 4 capsules by mouth once daily Start: 07-09-2022 take 4 capsules by m outh once daily Lactobacillus Combination No.9 (Adult 50 Plus Probiotic) 4 billion cell capsule Active 4000 NMA PO DAILY July 09, 2022 1:00am administer [...] a meal lysine 500 mg oral tablet (17 sources) Start: 07-25-2022 End: 03-03-2025 take 2 tablets by mouth once daily as needed Start: 07-25-2022 take 1000 mg by mout h once daily Lysine Active 1000 MG PO DAILY July 25, 2022 2:06pm Start: 11-22-2021 End: 07-25-2022 take 1 tablet by mouth once daily Lysine 500 mg tablet Discontinued 500 mg PO DAILY November 22, 2021 12:00am July 25, 2022 2:07pm magnesium oxide 400 mg oral capsule (12 sources) Start: 05-03-2017 take 1 capsule by mouth once daily Comment on above: Magnesium Oxide magn esium oxide 400 mg capsule 400 MG PO daily May 03, 2017 Active 05-03-2017 Augie [facility] ([id number]) 50/50 release 24 hr methylphenidate hydrochloride 30 mg extended release oral capsule (4 sources) Central Nervous System Stimulant Start: 03-03-2025 Start: 07-01-2023 End: 10-15-2025 Methylphenidate Hcl 20 mg ca psule,ER biphasic 50-50 Discontinued 20 mg PO DAILY 0 July 01, 2023 1:00am March 03, 2025 11:54am methylPREDNISolone 125 mg injection (1 source) Corticosteroid Start: 12-20-2021 Solu-Medrol (P F) 125 mg/2 mL solution for injection Take 125 mg by injection route. 12/20/2021 active Multivitamin,Yo-Szib-Xfkfjfu s (Complete Multivitamin) tablet (2 sources) Start: 05-03-2017 Start: 05-03-2017 Multivitamin,T s-Wxlw-Sybmkgkl (Complete Multivitamin) tablet Active 1 {tbl} PO daily May 03, 2017 1:00am multivitamin,lz-przq-vskfgxd s tablet (8 sources) Start: 05-03-2017 take 1 tablet by mouth once daily multivitamin,yi-wzes-xljwhkqr tablet Active 1 TABLET PO daily May 03, 2017 10:44am Start: 05-03-2017 take 1 tablet by florencio once daily multivitamin,ud-cygr-wozmbtco tablet Act cynthia 1 TABLET PO daily May 03, 2017 12:00am Start: 05-03-2017 take 1 tablet by florencio once daily multivitamin,nz-oaea-ymehkdif tablet Act cynthia 1 TABLET PO daily May 03, 2017 1:00am Ft-Dr-Nn-Vit T-Ammrc-Vjpm-Ze ax (Ocuvite Eye Plus Multi) 200-15-150 mcg tablet (9 sources) Start: 11-22-2021 Start: 11-22-2021 Sg-Fe-Du-Vit K -Rfmfs-Whrv-Amlx (Ocuvite Eye Plus Multi) 200-15-150 mcg tablet Active 2 {tbl} PO DAILY November 22, 2021 12:00am administer with a meal and a large glass of water Start: 11-22-2021 take 2 tablets by mo [facility] once daily Eh-Yk-Tb-Vit G-Hvwjj-Fdwg-Zeax (Ocuvite Eye Plus Multi) 200-15-150 mcg tablet Active 2 TABLET PO DAILY November 21, 2021 11:00pm administer with a meal and a large glass of water Start: 11-22-2021 take 2 tablets by mo [facility] once daily Rx-Ny-Mr-Vit N-Ujqat-Usmi-Zeax (Ocuvite Eye Plus Multi) 200-15-150 mcg tablet Active 2 TABLET PO DAILY November 22, 2021 12:00am administer with a meal and a large glass of water nystatin 100 unt/mg topical ointment (2 sources) Polyene Antifungal Start: 03-10-2024 predniSONE 10 mg oral tablet (1 source) Start: 12-20-2021 take 6 tablets by mouth once daily, then take 4 tablets by mouth once daily, then take 2 tablets by mouth once daily prednisone 10 mg tablet 6 TABS PO QD X 7 DAYS, 4 TAB PO QD X 7 DAYS, 2 TAB PO QD X 7 DAYS 12/20/2021 active psyllium 400 mg oral capsule (2 sources) Start: 03-10-2024 rosuvastatin calcium 10 mg oral tablet (3 sources) HMG-CoA Reductase Inhibitor Start: 07-01-2024 End: 03-03-2025 take 1 tablet by mouth three times weekly Semaglutide (3 sources) Start: 03-03-2025 Start: 01-20-2025 End: 03-03-2025 Semaglutide (Ozempic) 2 mg/d ose (8 mg/3 mL) pen injector Discontinued 2 mg SC EVERY WEEK 3 January 20, 2025 1:17pm March 03, 2025 12:49pm Controlled type 2 diabetes mellitus Type 2 diabetes mellitus with hyperglycemia Start: 07-01-2024 End: 01-20-2025 Semaglutide (Ozempic) 2 mg/d ose (8 mg/3 mL) pen injector Discontinued 2 mg SC EVERY WEEK 3 July 01, 2024 1:00am January 20, 2025 1:18pm Controlled type 2 diabetes mellitus Type 2 diabetes mellitus with hyperglycemia Semaglutide (Ozempic) 2 mg/d ose (8 mg/3 mL) pen injector (1 source) Start: 07-01-2024 Semaglutide (O zempic) 2 mg/dose (8 mg/3 mL) pen injector Active 2 mg SC EVERY WEEK 3 July 01, 2024 1:00am Controlled type 2 diabetes mellitus Type 2 diabetes mellitus with hyperglycemia Turmeric-Turmeric Root Extra ct (10 sources) Start: 12-08-2019 Turmeric-Turme kylah Root Extract Active CAP PO December 08, 2019 3:56pm Start: 12-08-2019 End: 11-22-2021 Turmeric-Turmeric Root Extra ct 450-50 mg capsule Discontinued NMA PO December 08, 2019 12:00am November 22, 2021 3:30pm Start: 12-08-2019 End: 11-22-2021 Turmeric-Turmeric Root Extra ct Discontinued CAP PO December 07, 2019 11:00pm November 22, 2021 2:30pm Start: 12-08-2019 End: 11-22-2021 Turmeric-Turmeric Root Extra ct Discontinued CAP PO December 08, 2019 12:00am November 22, 2021 3:30pm ubidecarenone 100 mg oral ca psule (15 sources) Start: 07-25-2022 Start: 03-30-2019 End: 07-25-2022 Coenzyme Q10 (Co Q-10) 100 m g capsule Discontinued 100 mg PO DAILY March 30, 2019 1:00am July 25, 2022 2:07pm vitamin b12 1 mg oral tablet (12 sources) Vitamin B12 Start: 03-10-2024 take 1 tablet by fl[facility] once daily Start: 05-31-2014 take 3 tablets by mo [facility] once daily VITAMIN B-12 1000 MCG TABS Three tablets by mouth daily CYANOCOBALAMIN [id number] Augie Grimes Start: 12-05-2009 CYANOCOBALAMIN 1,000 MCG TAB Take one(1) tablet daily. 0 12/05/2009 Active Comment on above: Take one(1) tablet d aily. Completed/Discontinued Medications Medication Drug Class(es) Dates Sig (Normalized) Sig (Original) amLODIPine 5 mg / atorvastatin 10 mg oral tablet (2 sources) Dihydropyridine Calcium Channel Elayne, HMG-CoA Reductase Inhibitor take 1 tablet by mouth once daily amLODIPine-Atorva statin 5-10 mg per tablet Take 1 tablet by mouth once daily. 0 Active Comment on above: Take 1 tablet by florencio once daily. amLODIPine 5 mg / benazepril hydrochloride 10 mg oral capsule (13 sources) Dihydropyridine Calcium Channel Elayne, Angiotensin Converting Enzyme Inhibitor Start: 11-14-2005 End: 12-27-2016 LOTREL 5 MG-10 MG CAP Take one(1) tablet daily. 0 11/14/2005 Active Comment on above: Take one(1) tablet d aily. atorvastatin 10 mg oral tablet (20 sources) HMG-CoA Reductase Inhibitor Start: 12-30-2023 End: 07-01-2024 Atorvastatin 10 mg tablet Discontinued 10 mg PO MOWEFR 36 3 June 01, 2024 5:39pm July 01, 2024 11:13am Start: 08-09-2023 End: 12-30-2023 take 10 mg by mouth once daily Atorvastatin 20 mg tablet Discontinued 10 mg PO DAILY 90 September 24, 2023 11:33am December 30, 2023 11:58am Hyperlipidemia Controlled type 2 diabetes mellitus Hyperlipidemia, unspecified Type 2 diabetes mellitus without complications Start: 03-18-2023 End: 08-09-2023 take 1 tablet by mouth once daily Atorvastatin 20 mg tablet Discontinued 20 mg PO DAILY 90 March 18, 2023 12:00am August 09, 2023 9:26am Hyperlipidemia Controlled type 2 diabetes mellitus Hyperlipidemia, unspecified Type 2 diabetes mellitus without complications Start: 11-22-2021 End: 03-18-2023 take 1 tablet by mouth every other day Atorvastatin 40 mg tablet Discontinued 40 mg PO .qod March 18, 2023 9:36am March 18, 2023 9:49am Start: 05-25-2014 End: 10-26-2019 take 1 tablet by mouth once daily Atorvastatin 40 mg tablet Discontinued 40 mg PO daily May 03, 2017 1:00am October [...] m outh three times daily as needed. Blood-Glucose Sensor (Freestyle Brennan 3 Sensor) device (12 sources) Start: 07-11-2022 End: 03-03-2025 Blood-Glucose Sensor (Freestyle Brennan 3 Sensor) device Discontinued 0 .Route 2 5 July 11, 2022 1:00am March 03, 2025 11:55am Controlled type 2 diabetes mellitus Type 2 diabetes mellitus without complications 1 sensor q 14 days Start: 07-11-2022 Blood-Glucose Sensor (Freestyle Brennan 3 Sensor) device Active 0 .Route 2 5 July 11, 2022 1:00am Controlled type 2 diabetes mellitus Type 2 diabetes mellitus without complications 1 sensor q 14 days Start: 07-11-2022 [...] 09, 2022 1:00am July 09, 2022 4:32pm Controlled type 2 diabetes mellitus Type 2 diabetes mellitus without complications 1 sensor q 14 days Start: 07-09-2022 End: 07-09-2022 Blood-Glucose Sensor (Freest yle Brennan 3 Sensor) device Discontinued 0 .Route 2 July 09, 2022 1:00am July 09, 2022 4:32pm 1 sensor q 14 days Start: 07-09-2022 End: 07-09-2022 Blood-Glucose Sensor (Freest yle Brennan 3 Sensor) device Discontinued 0 .Route 2 July 09, 2022 12:00am July 09, 2022 3:32pm 1 sensor q 14 days C,E,Copper,Zinc 27-Eokzt0o-R ut (Ocuvite Adult 50 Plus) 250-5-1 mg capsule (2 sources) Start: 02-13-2018 End: 02-17-2018 C,E,Copper,Zinc 33-Qstrs4f-K ut (Ocuvite Adult 50 Plus) 250-5-1 mg capsule Discontinued 1 NMA PO DAILY February 13, 2018 12:00am February 17, 2018 4:01pm C,E,Zinc,Copper 19-Uqtih1d-Y ut (Ocuvite Adult 50 Plus) 250-5-1 mg capsule (8 sources) Start: 02-13-2018 End: 02-17-2018 C,E,Zinc,Copper 70-Ojcwy6o-P ut (Ocuvite Adult 50 Plus) 250-5-1 mg capsule Discontinued 1 CAP PO DAILY February 13, 2018 5:46pm February 17, 2018 4:01pm Start: 02-13-2018 End: 02-17-2018 C,E,Zinc,Copper 26-Rerhk1w-O ut (Ocuvite Adult 50 Plus) 250-5-1 mg capsule Discontinued 1 CAP PO DAILY February 12, 2018 11:00pm February 17, 2018 3:01pm Start: 02-13-2018 End: 02-17-2018 C,E,Zinc,Copper 30-Lvxoz0j-K ut (Ocuvite Adult 50 Plus) 250-5-1 mg capsule Discontinued 1 CAP PO DAILY February 13, 2018 12:00am February 17, 2018 4:01pm Calcium Carbonate (12 sources) Start: 05-31-2014 End: 06-13-2015 CALCIUM CARBONATE TABS 750mg daily CALCIUM CARBONATE TABS [id number] Oseas Berman MD Start: 05-31-2014 CALCIUM CARBON ATE TABS 750mg daily CALCIUM CARBONATE TABS [id number] Oseas Berman MD chondroitin sulfates 200 mg / glucosamine hydrochloride 250 mg oral tablet (16 sources) Start: 05-03-2017 End: 12-08-2019 Glucosamine-Chondroitin (Ost eo Bi-Flex) 250-200 mg tablet Discontinued 1 {tbl} PO EVERY MORNING May 03, 2017 1:00am December 08, 2019 3:56pm Start: 05-31-2014 take 1 tablet by florencio once daily OSTEO BI-FLEX REGULAR STRENGTH TABS One tablet by mouth daily GLUCOSAMINE-CHONDROITIN TABS [id number] Oseas Berman MD cinnamon bark 500 mg oral capsule (20 sources) Start: 05-03-2017 End: 07-25-2022 take 1 capsule by mouth once daily Cinnamon Bark (Cinnamon) 500 mg capsule Discontinued 500 mg PO DAILY July 09, 2022 1:00am July 25, 2022 2:05pm Start: 05-31-2014 take 1 tablet by florencio th once daily CINNAMON 500 MG CAPS One tablet by mouth daily CINNAMON [id number] Oseas Berman MD Start: 05-31-2014 take 4 capsules by m outh twice daily CINNAMON 500 MG CAPS 4 capsults PO twice daily CINNAMON [id number] Augie Grimes take 2000 mg by mout h twice daily CINNAMON BARK (CINNAMON ORAL) Take 2,000 mg by mouth twice daily. 0 Active Comment on above: Take 2,000 mg by florencio twice daily. Ylhvln-Bgnrxajb-Ue peroxide Dis (Neuriva De-Stress) 100-200-10 mg capsule (11 sources) Start: 07-25-2022 End: 12-30-2023 take 1 capsule by mouth once daily Xvwxxc-Umrihxga-Kempts xide Dis (Neuriva De-Stress) 100-200-10 mg capsule Discontinued 1 NMA PO DAILY July 25, 2022 2:05pm December 30, 2023 8:18am Start: 07-25-2022 take 1 capsule by mo ut once daily Mohcpx-Cstplnzz-Pnxkugwxeb Dis (Neuriva De-Stress) 100-200-10 mg capsule Active 1 CAP PO DAILY July 25, 2022 2:05pm Start: 07-09-2022 End: 07-25-2022 Dohdwv-Joujwurn-Kusaxpqyyh D is (Neuriva De-Stress) 100-200-10 mg capsule Discontinued NMA PO July 09, 2022 1:00am July 25, 2022 2:07pm Start: 07-09-2022 End: 07-25-2022 Srmhdl-Ehdslgyb-Arrwqbjqaq D is (Neuriva De-Stress) 100-200-10 mg capsule Discontinued CAP PO July 09, 2022 1:00am July 25, 2022 2:07pm Start: 07-09-2022 Coffee-Theanin e-Superoxide Dis (Neuriva De-Stress) 100-200-10 mg capsule Active CAP PO July 09, 2022 12:00am COMPOUNDED PRESCRIPTION (2 sources) Start: 08-11-2010 take 1 tablet by mouth once daily COMPOUNDED PRESCRIPTION Take 1 tablet by mouth once daily. Coq 10 600mg 0 08/11/2010 Active Comment on above: Take 1 tablet by florencio once daily. Coq 10 600mg Cranberry Fruit (17 sources) Non-Standardized Food Allergenic Extract, Non-Standardized Plant Allergenic Extract Start: 11-22-2021 End: 07-25-2022 take 1 capsule by mouth once daily Cranberry Fruit 400 mg capsule Discontinued 400 mg PO DAILY November 22, 2021 12:00am July 25, 2022 2:06pm administer with a meal Start: 11-22-2021 End: 07-25-2022 take 400 mg by mouth once daily [...] One tablet by mouth daily CRANBERRY CAPS [id number] Augie Grimes DEXCHLORPH/P-EPHED HC/METHSCOP (D-HIST D ORAL) (2 sources) take 1 capsule by mouth once daily DEXCHLORPH/P-EPHED HC/METHSCOP (D-HIST D ORAL) Take 1 capsule by mouth once daily. 0 Active Comment on above: Take 1 capsule by mo uth once daily. dicyclomine hydrochloride 10 mg oral capsule (2 sources) Anticholinergic Start : take 1 capsule by mouth at bedtime, then take 1 capsule by mouth at bedtime dicyclomine (BENTYL) 10 mg ORAL capsule Indications: Abdominal pain, left lower quadrant Take 1 capsule by mouth before meals and at bedtime. TAKE ONE (1) PO BEFORE MEALS AND AT BEDTIME 120 capsule 2 07/18/2011 Active Comment on above: Take 1 capsule by mo uth before meals and at bedtime. TAKE ONE (1) PO BEFORE MEALS AND AT BEDTIME DOCOSAHEXANOIC ACID/EPA (FISH OIL ORAL) (2 sources) take 1 capsule by mouth once daily DOCOSAHEXANOIC ACID/EPA (FISH OIL ORAL) Take 1 capsule by mouth once daily. omega red 0 Active Comment on above: Take 1 capsule by mo uth once daily. omega red ELDERBERRY FRUIT (11 sources) Start : 07-25 End: 03-03 take 1 capsule by mouth once daily Elderberry Fruit 350 mg capsule Discontinued 350 mg PO DAILY July 25, 2022 2:06pm March 03, 2025 11:53am Start: 07-25-2022 take 1 capsule by mo uth once daily Elderberry Fruit 350 mg capsule Active 350 mg PO DAILY July 25, 2022 2:06pm Start: 07-25-2022 take 350 mg by mouth once reymundo y Elderberry Fruit Active 350 MG PO DAILY July 25, 2022 2:06pm Start: 07-09-2022 End: 07-25-2022 Elderberry Fruit 350 mg caps ule Discontinued mg PO July 09, 2022 1:00am July 25, 2022 2:07pm Start: 07-09-2022 End: 07-25-2022 Elderberry Fruit Discontinue d MG PO July 09, 2022 1:00am July 25, 2022 2:07pm Start: 07-09-2022 Elderberry Fru it Active MG PO July 09, 2022 12:00am Fish Oils (8 sources) Start: 05-31-2014 End: 02-11-2017 take 1 tablet by mouth once daily FISH OIL CAPS One tablet by mouth daily OMEGA-3 FATTY ACIDS CAPS [id number] Augie Grimes Start: 05-31-2014 take 1 tablet by florencio th once daily FISH OIL CAPS One tablet by mouth daily OMEGA-3 FATTY ACIDS CAPS [id number] Oseas Berman MD Flash Glucose Sensor (Freestyle Brennan 2 Sensor) kit (6 sources) Start: 07-09-2022 End: 07-11-2022 Flash Glucose Sensor (Freest yle Brennan 2 Sensor) kit Discontinued 0 .Route 2 5 July 09, 2022 1:00am July 11, 2022 12:05pm Controlled type 2 diabetes mellitus Type 2 diabetes mellitus without complications 1 sensor q 14 days Start: 07-09-2022 [...] 2022 11:05am 1 sensor q 14 days fluconazole 150 mg oral tablet (2 sources) Azole Antifungal Start: 03-10-2024 End: 04-23-2024 take 1 tablet by mouth once as needed Fluconazole 150 mg tablet Discontinued 150 mg PO ONCE as needed March 10, 2024 12:00am April 23, 2024 10:48am as a single dose fluticasone propionate 0.05 mg/actuat metered dose nasal [...] TABS One tablet by mouth daily GARLIC-CALCIUM [id number] Oseas Berman MD gemfibrozil 600 mg oral tablet (10 sources) Peroxisome Proliferator Receptor alpha Agonist Start: 10-26-2019 End: 11-22-2021 take 1 tablet by mouth twice daily Gemfibrozil 600 mg tablet Discontinued 600 mg PO TWICE A DAY 60 October 26, 2019 12:00am November 22, 2021 3:30pm 12 hr guaiFENesin 600 mg extended release oral tablet (2 sources) Start: 05-25-2018 take 2 tablets by mouth twice daily guaiFENesin (MUCINEX) 600 mg 12 hr tablet Take 2 tablets by mouth twice daily. 24 tablet 0 05/25/2018 Active Comment on above: Take 2 tablets by [facility] twice daily. lactobacillus acidophilus 100 mg oral capsule (18 sources) Start: 05-03-2017 End: 11-22-2021 take 1 capsule by mouth once daily Lactobacillus Acidophilus capsule Discontinued 100 mg PO daily May 03, 2017 1:00am November 22, 2021 3:30pm Start: 05-31-2014 Lactobacillus acidophilus (ACIDOPHILUS ORAL) Lactobacillus acidophilus Lactobacillus Acidophilus 100 MG PO daily May 03, 2017 Active 05-03-2017 Formerly [facility] ([id number]) 0 05/31/2014 Active Start: 05-31-2014 take 1 tablet by florencio th once daily ACIDOPHILUS CAPS One tablet by mouth daily LACTOBACILLUS CAPS [id number] Oseas Berman MD Comment on above: Lactobacillus acidop hilus Lactobacillus Acidophilus 100 MG PO daily May 03, 2017 Active 05-03-2017 Formerly [facility] ([id number]) Magnesium (6 sources) Start: 5 take 1 tablet by mouth once daily MAGNESIUM CAPS with zinc One tablet by mouth daily MAGNESIUM CAPS [id number] Oseas Berman MD mecobalamin 1 mg sublingual tablet (10 sources) Start: 7 End: 9 Mecobalamin (Vitamin B12) 1,000 mcg tablet,disintegratin g Discontinued 1000 ug SL daily May 03, 2017 1:00am March 30, 2019 5:05pm meloxicam 7.5 mg oral tablet (20 sources) Nonsteroidal Anti-inflammatory Drug Start: 5 End: 7 take 1 tablet by mouth once daily MELOXICAM 7.5 MG TABS One tablet by mouth daily MELOXICAM [id number] Oseas Berman MD take 2 tablets by mouth once wilberto ly meloxicam 7.5 mg tablet TAKE 2 TABLETS BY MOUTH ONCE DAILY active metFORMIN hydrochloride 1000 mg oral tablet (20 sources) Biguanide Start: 03-03-2025 End: 03-03-2025 Metformin 1,000 mg tablet Discontinued 500 mg PO TWICE A DAY March 03, 2025 11:53am March 03, 2025 12:52pm Controlled type 2 diabetes mellitus Type 2 diabetes mellitus without complications Start: 06-13-2015 End: 03-03-2025 take 1 tablet by mouth twice daily Metformin 1,000 mg tablet Discontinued 1000 mg PO TWICE A DAY 180 1 February 24, 2024 2:51pm July 01, 2024 11:40am Controlled type 2 diabetes mellitus Type 2 diabetes mellitus without complications Start: 06-13-2015 take 2 tablets by [facility] once daily METFORMIN HCL 500 MG TABS Two tablets by mouth daily METFORMIN HCL [id number] Oseas Berman MD Comment on above: Take 1,000 mg by [facility] twice daily. MULTIPLE VITAMIN (8 sources) Start: 05-31-2014 take 1 tablet by mouth once daily MULTIVITAMINS TABS One tablet by mouth daily MULTIPLE VITAMIN Augie Nina Cornelio Start: 05-31-2014 [facility] MULTIVITAMINS TABS One tablet by mouth daily MULTIPLE VITAMIN Oseas Berman MD MULTIPLE VITAMINS-MINERALS (2 sources) Start: 02-11-2017 take 1 tablet by mouth once daily OCUVITE ADULT 50+ CAPS One tablet by mouth daily MULTIPLE VITAMINS-MINERALS [id number] Augie Nina Cornelio multivitamin ORAL tablet (2 sources) take 1 tablet by mouth once daily multivitamin ORAL tablet Take 1 tablet by mouth once daily. 0 Active Comment on above: [facility]. omeprazole 20 mg delayed release oral capsule (12 sources) Proton Pump Inhibitor Start: 05-25-2014 End: 06-18-2016 take 1 tablet by mouth once daily OMEPRAZOLE 20 MG CPDR One tablet by mouth daily OMEPRAZOLE [id number] Yamilex Mendoza RN potassium gluconate 2.5 meq oral tablet (10 sources) Start: 05-03-2017 End: 02-17-2018 take 10 mEq by mouth once daily Potassium 99 mg tablet Discontinued 10 meq PO daily May 03, 2017 1:00am February 17, 2018 4:00pm Start: 05-03-2017 End: 02-17-2018 take 10 mEq by mouth once daily Potassium Discontinued 10 MEQ PO daily May 03, 2017 1:00am February 17, 2018 4:00pm potassium,chelated 99 mg oral tablet (6 sources) Start: 05-31-2014 take 1 tablet by mouth once daily as needed POTASSIUM 99 MG TABS One tablet by mouth daily as needed POTASSIUM [id number] Oseas Berman MD pramipexole dihydrochloride 0.25 mg oral tablet (20 sources) Nonergot Dopamine Agonist Start: 05-03-2017 End: 12-08-2019 take 1 tablet by mouth three times daily Pramipexole (Mirapex) 0.25 mg tablet Discontinued 0.25 mg PO THREE TIMES A DAY 90 2 August 15, 2017 7:17am December 08, 2019 3:57pm Periodic limb movement disorder Start: 02-11-2017 MIRAPEX 0.25 M G TABS 1 tablet PO prior to sleep PRAMIPEXOLE DIHYDROCHLORIDE [id number] Augie Grimes Semaglutide (2 sources) Start: 12-30-2023 End: 03-30-2024 Semaglutide (Ozempic) 0.25 mg or 0.5 mg (2 mg/3 mL) pen injector Discontinued 0.5 mg SC EVERY WEEK 3 December 30, 2023 12:00am March 30, 2024 11:09am Controlled type 2 diabetes mellitus Type 2 diabetes mellitus with hyperglycemia Semaglutide (2 sources) Start: 03-30-2024 End: 07-01-2024 Semaglutide (Ozempic) 1 mg/dose (4 mg/3 mL) pen injector Discontinued 1 mg SC EVERY WEEK 3 March 30, 2024 1:00am July 01, 2024 11:34am Controlled type 2 diabetes mellitus Type 2 diabetes mellitus with hyperglycemia SITagliptin 100 mg oral tablet (2 sources) Dipeptidyl Peptidase 4 Inhibitor Start: 08-09-2023 End: 12-30-2023 take 1 tablet by mouth once daily Sitagliptin Phosphate (Januvia) 100 mg tablet Discontinued 100 mg PO daily August 09, 2023 12:00am December 30, 2023 8:41am TETRAHYDROZOLINE HCL/ZN SULF (EYE DROPS OPHTHALMIC) (2 sources) take 2 drop(s) into the eye(s) once daily TETRAHYDROZOLINE HCL/ZN SULF (EYE DROPS OPHTHALMIC) Use 2 Drops in eyes once daily. both eyes 0 Active Comment on above: Use 2 Drops in eyes once daily. both eyes traMADol hydrochloride 50 mg oral tablet (7 sources) Opioid Agonist Start: 12-27-2016 End: 02-11-2017 take 1 tablet by mouth once daily TRAMADOL HCL 50 MG TABS One tablet by mouth daily TRAMADOL HCL [id number] Zamzam Boyle vitamin e 90 mg oral capsule (16 sources) Start: 05-03-2017 End: 11-22-2021 take 1 capsule by mouth once daily Vitamin E 200 unit capsule Discontinued 200 U PO daily May 03, 2017 1:00am November 22, 2021 3:30pm Start: 05-31-2014 take 1 tablet by once daily VITAMIN E 400 UNIT CAPS One tablet by mouth daily VITAMIN E [id number] Oseas Berman MD Problems Active Problems Problem Classification Problem Date Documented Date Episodic/Chronic Allergic reactions (2 sources) Contact dermatitis due to poison qasim; Translations: [Unspecified contact dermatitis due to plants, except food] Onset: 12-20-2021 Resolved: 12-20-2021 Episodic Diabetes mellitus with complications (1 source) Type 2 diabetes mellitus with hyperglycemia; Translations: [Type 2 diabetes mellitus with hyperglycemia] Onset: 03-03-2025 Chronic Diabetes mellitus without complication (20 sources) Diabetes mellitus; Translations: [Type 2 diabetes mellitus] Onset: 11-11-2012 05-25-2014 Chronic Disorders of lipid metabolism (20 sources) Hyperlipidemia; Translations: [Hyperlipidemia, unspecified] Onset: 05-25-2014 05-25-2014 Chronic Essential hypertension (20 sources) Hypertensive disorder; Translations: [Essential hypertension] Onset: 05-25-2014 05-25-2014 Chronic Heart valve disorders (6 sources) Mitral valve regurgitation; Translations: [Nonrheumatic mitral (valve) insufficiency] 07-25-2022 Chronic Nonspecific chest pain (16 sources) Chest pain, unspecified; Translations: [Chest pain] Onset: 05-25-2014 05-25-2014 Episodic Nutritional deficiencies (9 sources) Vitamin D deficiency; Translations: [Vitamin D deficiency, unspecified] Onset: 03-03-2025 07-09-2022 Chronic Osteoarthritis (2 sources) Degenerative joint disease involving multiple joints; Translations: [Polyosteoarthritis, unspecified] Onset: 06-04-2007 06-04-2007 Chronic Other and unspecified benign neoplasm (10 sources) History of polyp of colon; Translations: [Personal history of colonic polyps] 05-01-2019 Episodic Other connective tissue disease (10 sources) Mass of soft tissue of left lower limb; Translations: [Other specified soft tissue disorders] 05-19-2019 Episodic Other injuries and conditions due to external causes (10 sources) Hematoma; Translations: [Other injury of unspecified [...] Chronic Other nutritional; endocrine; and metabolic disorders (10 sources) Body mass index 30+ - obesity; Translations: [Body mass index (BMI) 33.0-33.9, adult] 07-09-2022 Chronic Other nutritional; endocrine; and metabolic disorders (4 sources) Obese class I; Translations: [Obesity, unspecified] 12-12-2022 Chronic Other nutritional; endocrine; and metabolic disorders (1 source) Obesity, unspecified; Translations: [Obesity, unspecified] 12-12-2022 Chronic Other nutritional; endocrine; and metabolic disorders (7 sources) Body mass index 25-29 - overweight; Translations: [Overweight] 07-09-2022 Episodic Other screening for suspected conditions (not mental disorders or infectious disease) (20 sources) Electrocardiogram abnormal; Translations: [Abnormal electrocardiogram [ECG] [EKG]] Onset: 05-25-2014 05-25-2014 Episodic Residual codes; unclassified (2 sources) Periodic limb movement disorder; Translations: [Periodic limb movement disorder] Onset: 02-11-2017 02-11-2017 Chronic Residual codes; unclassified (2 sources) Obstructive sleep apnea of adult; Translations: [Obstructive sleep apnea (adult) (pediatric)] Onset: 02-11-2017 02-11-2017 Chronic Residual codes; unclassified (2 sources) Obstructive sleep apnea syndrome; Translations: [Obstructive sleep apnea (adult) (pediatric)] 08-09-2023 Chronic Comment on above: The patient reports she has been struggling with her BiPAP machine. This is extremely important given her hypertension and assist in further risk factor modifications with weight and prevention of atrial fibrillation. We did discuss her investigating the use and/or access to an inspire device. She is to call her insurance company to find out if there is coverage for this type of evaluation and treatment. Residual codes; unclassified (1 source) Sleep apnea, unspecified; Translations: [Sleep apnea, unspecified] Onset: 12-14-2024 Chronic Past or Other Problems Problem Classification Problem Date Documented Da te Episodic/Chronic Cancer of colon (2 sources) History of malignant neoplasm of colon; Translations: [Personal history of other malignant neoplasm of large intestine] Onset: 11-08-2011 11-08-2011 Episodic Coma; stupor; and brain damage (6 sources) Daytime somnolence; Translations: [Somnolence] Onset: 06-13-2015 06-13-2015 Episodic Genitourinary symptoms and ill-defined conditions (4 sources) Microalbuminuria; Translations: [Proteinuria, unspecified] Onset: 08-12-2024 07-01-2024 Episodic Malaise and fatigue (12 sources) Fatigue; Translations: [Other fatigue] Onset: 07-03-2024 Episodic Other bone disease and musculoskeletal deformities (2 sources) Osteopenia; Translations: [Other specified disorders of bone density and structure, unspecified site] Onset: 11-25-2013 11-25-2013 Episodic Other nutritional; endocrine; and metabolic disorders (4 sources) Overweight; Translations: [Overweight] Onset: 08-12-2024 07-09-2022 Episodic Results Test Name Value Interpretation Reference Range Facility Endocrinology Visit Reporton 03-03-2025 Endocrinology Visit Report [facility] [address] [place] [address] OFFICE VISIT Date of Service: 03/03/25 MR#: [id number] Acct: [id number] Name: ISABEL GLASS Rep #: [id number] : [id number] Provider: GERARD evans Age/Sex: 69/F [place] [facility] [place]: Signed Intake Vital Signs 07/01/24 10:06 03/03/25 11:45 Height 5 ft 4 in 5 ft 4 in Weight: 167 lb 157 lb BMI 28.6 26.9 BP 146/84 H 162/81 H Blood Pressure Location Lt brachial Lt brachial Position Sitting Sitting Pulse 94 86 Pulse Source Monitor Monitor Pulse Oximetry (%) 97 98 Oxygen Delivery Method room air room air Intake Visit Reasons: 8 M FU, RS 12/30 Chief Complaint: f/u diabetes Ve Teacher Required: No Accompanied by: Self Is patient in pain?: No Allergies amoxicillin Allergy (Mild, Verified 03/03/25 11:45) YEAST aspirin (From Ar Aspirin) Allergy (Mild, Verified 03/03/25 11:45) Bleeding Latex, Natural Rubber Allergy (Mild, Verified 03/03/25 11:45) RASH Medications ???Medication ???Instructions ???Recorded ???Confirmed ???Type benazepril 10 mg tablet 10 mg PO QDAY 05/03/17 03/03/25 Hi story cinnamon bark 500 mg capsule 1,000 mg PO DAILY 05/03/17 5 History (Cinnamon) magnesium oxide 400 mg PO QDAY 05/03/17 03/03/25 H istory multivitamin,tx-iron-min erals 1 tab PO QDAY 05/03/17 03/03/25 Hi story (Complete Multivitamin tablet) doxycycline hyclate 100 mg capsule 100 mg PO QDAY PRN FACE BREAKOUT 07/15/17 03/03/25 History [id number] 200 mcg-vit K 15 2 tab PO DAILY 11/22/21 03/03/25 H istory mcg-lycope 150 [id number]-[id number] tablet (Ocuvite Eye Plus Multi) cholecalciferol (vitamin D3) 50 50 mcg PO DAILY #90 caps 07/09/22 03/03/25 Rx mcg (2,000 unit) capsule lactobacillus combination no.9 4 4,000 mmu cells PO DAILY 07/09/22 03/03/25 History billion cell capsule (Adult 50 Plus Probiotic) coenzyme Q10 100 mg capsule (Co 600 mg PO DAILY 07/25/22 03/03/25 History Q-10) ascorbic acid (vitamin C) 500 mg 1,000 mg PO DAILY 03/10/24 5 History tablet biotin 400 mcg tablet 400 mcg PO DAILY 03/10/24 03/03/25 History coffee extract 100 mg-phosphatidyl 1 cap PO DAILY 03/10/24 03/03/25 History serine 100 mg capsule (Neuriva Original) cyanocobalamin (vitamin B-12) 1,000 mcg PO QDAY 03/10/24 5 History 1,000 mcg tablet (Vitamin B-12) diclofenac potassium 50 mg tablet 50 mg PO BID PRN pain 03/10/24 History ferrous sulfate 325 mg (65 mg 325 mg PO QDAY 03/10/24 03/03/25 H istory iron) tablet (FeroSul) nystatin 100,000 unit/gram topical 1 applic topical BID PRN REDNESS 03/10/24 03/03/25 History ointment psyllium husk 0.4 gram capsule 0.8 g PO DAILY 03/10/24 03/03/25 H istory (Metamucil) ketotifen fumarate 0.025 % (0.035 1 drp EACH EYE BID 04/23/2403/03 History %) eye drops (Allergy Eye (ketotifen)) ibandronate 150 mg tablet 150 mg PO QMONTH 07/01/24 03/03/25 History blood sugar diagnostic (Accu-Chek #100 ea 02/01/25 03/03/25 Rx SmartView Test Strips) carboxymethylcellulose sodium 1 % 1 drp ophthalmic (eye) BID PRN 03/03/25 History eye liquid gel drops (Refresh Liquigel) lysine 500 mg tablet 1,000 mg PO DAILY PRN 03/03/25 History methylphenidate HCl 30 mg biphasic 30 mg PO QDAY 03/03/25 03/03/25 History 50-50 capsule,extended release rosuvastatin 10 mg tablet 10 mg PO 3XW #36 tabs 03/03/25 Rx semaglutide 2 mg/dose (8 mg/3 mL) 2 mg (0.75 mL) subcut QWEEK #3 mL 03/03/25 03/03/25 Rx subcutaneous pen injector (Ozempic) Have you [...] Sister ZACHERY (obstructive sleep apnea) Brother , Ag (more content not included)... Normal [facility] - Hematology and Cell countsOrdered By: Francesca Orr on 03-03-2025 HbA1c (Bld) [Mass fraction] 5.9 % 4.2-6.3 [facility] Absolute lymphocyte countOrd ered By: Chintan Saucedo on 12-07-2024 Lymphocytes Auto (Unsp spec) [#/Vol] 2.12 10*3/uL 0.83-4.51 [facility] Absolute neutrophil countOrd ered By: Chintan Saucedo on 12-07-2024 Neutrophils (Bld) [#/Vol] 4.4 10*3/uL 2.0-7.7 [facility] Anion gap in Serum or Plasma Ordered By: Chintan Saucedo on 12-07-2024 Anion gap [Moles/Vol] 14 mmol/L - [facility] Automated lymphocyte count a s percentage of total leukocytesOrdered By: Chintan Saucedo on 12-07-2024 Lymphocytes/100 WBC Auto (Unsp spec) 29.2 % - [facility] BUN/creatinine ratioOrdered By: Chintan Saucedo on 12-07-2024 Urea nitrogen/Creatinine [Mass ratio] 28.8 mg/mg High 10- [facility] Basophil percentageOrdered B y: Chintan Saucedo on 12-07-2024 Basophils/100 WBC (Bld) 0.6 % 0-1 [facility] Bilirubin, totalOrdered By: Chintan Saucedo on 12-07-2024 Bilirubin [Mass/Vol] 0.77 mg/dL 0.00-1.30 [facility] CBC W/Diff, Automatedon 11-18 Absolute Lymph 2.12 X10 3/uL Normal 0.83-4.51 [facility] Comment on above: Order Comment: Order Date: 12/07/24 Order Info: 0184-1 - CBCD Performed By: #### L 100.0100, L500.4050, L501.4900, L501.6400 #### [facility] [address] [place], [address] Absolute Neut 4.4 X10 3/uL Normal 2.0-7.7 [facility] Comment on above: Order Comment: Order Date: 12/07/24 Order Info: 0184-1 - CBCD Performed By: #### L 100.0100, L500.4050, L501.4900, [id number] #### [facility] [address] [place], [address] Basophils/100 WBC (Bld) 0.6 % Normal 0-1 [facility] Comment on above: Order Comment: Order Date: 12/07/24 Order Info: 0184-1 - CBCD Performed By: #### L 100.0100, L500.4050, L501.4900, [id number] #### [facility] [address] [place], [address] Eosinophils/100 WBC (Bld) 2.5 % Normal 0-5 [facility] Comment on above: Order Comment: Order Date: 12/07/24 Order Info: 0184-1 - CBCD Performed By: #### L 100.0100, L500.4050, L501.4900, [id number] #### [facility] [address] [place], [address] Erythrocyte distribution width (RBC) [Ratio] 11.9 % Normal 11.6-14.6 [facility] Comment on above: Order Comment: Order Date: 12/07/24 Order Info: 0184-1 - CBCD Performed By: #### L 100.0100, L500.4050, L501.4900, [id number] #### [facility] [address] [place], [address] Hematocrit (Bld) [Volume fraction] 41.4 % Normal 37-47 [facility] Comment on above: Order Comment: Order Date: 12/07/24 Order Info: 0184-1 - CBCD Performed By: #### L 100.0100, L500.4050, L501.4900, [id number] #### [facility] [address] [place], [address] Hemoglobin (Bld) [Mass/Vol] 14.5 g/dL Normal 12.0-15.0 [facility] Comment on above: Order Comment: Order Date: 12/07/24 Order Info: 0184-1 - CBCD Performed By: #### L 100.0100, L500.4050, L501.4900, L501.6400 #### [facility] [address] [place], [address] IG% 0.300 Normal 0.0-0.9 [facility] Comment on above: Order Comment: Order Date: 12/07/24 Order Info: 0184-1 - CBCD Result Comment: IG% - Immature Granulocytes (promyelocytes, myelocytes and metamyelocytes) > 1% indicates that a LEFT SHIFT is Present. Performed By: #### L 100.0100, L500.4050, L501.4900, L501.6400 #### [facility] [address] [place], [address] Lymphocytes/100 WBC (Bld) 29.2 % Normal 19-41 [facility] Comment on above: Order Comment: Order Date: 12/07/24 Order Info: 0184-1 - CBCD Performed By: #### L 100.0100, L500.4050, L501.4900, [id number] #### [facility] [address] [place], [address] MCH (RBC) [Entitic mass] 33.6 pg High 27.0-32.0 [facility] Comment on above: Order Comment: Order Date: 12/07/24 Order Info: 0184-1 - CBCD Performed By: #### L 100.0100, L500.4050, L501.4900, L501.6400 #### [facility] [address] [place], [address] MCHC (RBC) [Mass/Vol] 35.0 g/dL Normal 32-36 [facility] Comment on above: Order Comment: Order Date: 12/07/24 Order Info: 0184-1 - CBCD Performed By: #### L 100.0100, L500.4050, L501.4900, L501.6400 #### [facility] [address] [place], [address] MCV (RBC) [Entitic vol] 96.1 fL Normal 81-99 [facility] Comment on above: Order Comment: Order Date: 12/07/24 Order Info: 0184-1 - CBCD Performed By: #### L 100.0100, L500.4050, L501.4900, L501.6400 #### [facility] [address] [place], [address] Monocytes/100 WBC (Bld) 7.6 % Normal 0-10 [facility] Comment on above: Order Comment: Order Date: 12/07/24 Order Info: 0184-1 - CBCD Performed By: #### L 100.0100, L500.4050, L501.4900, [id number] #### [facility] [address] [place], [address] Neutrophils/100 WBC (Bld) 59.8 % Normal 47-70 [facility] Comment on above: Order Comment: Order Date: 12/07/24 Order Info: 0184-1 - CBCD Performed By: #### L 100.0100, L500.4050, L501.4900, L501.6400 #### [facility] [address] [place], [address] Nucleated RBC (Bld) [#/Vol] 0 10*3/uL Normal 0-5 [facility] Comment on above: Order Comment: Order Date: 12/07/24 Order Info: 0184-1 - CBCD Performed By: #### L 100.0100, L500.4050, L501.4900, L501.6400 #### [facility] [address] [place], [address] Platelet mean volume (Bld) [Entitic vol] 9.4 fL Normal 6.2-12.0 [facility] Comment on above: Order Comment: Order Date: 12/07/24 Order Info: [id number]- - CBCD Performed By: #### L 100.0100, L500.4050, L501.4900, L501.6400 #### [facility] [address] [place], [address] Platelets (Bld) [#/Vol] 179 10*3/uL Normal 150-450 [facility] Comment on above: Order Comment: Order Date: 12/07/24 Order Info: 0184- - CBCD Performed By: #### L 100.0100, L500.4050, L501.4900, L501.6400 #### [facility] [address] [place], [address] RBC (Bld) [#/Vol] 4.31 10*6/uL Normal 4.2-5.4 [facility] Comment on above: Order Comment: Order Date: 12/07/24 Order Info: 0184-1 - CBCD Performed By: #### L 100.0100, L500.4050, L501.4900, L501.6400 #### [facility] [address] [place], [address] RDW SD 41.7 fl Normal 35.1-43.9 [facility] Comment on above: Order Comment: Order Date: 12/07/24 Order Info: 0184-1 - CBCD Performed By: #### L 100.0100, L500.4050, L501.4900, L501.6400 #### [facility] [address] [place], [place], [address] WBC (Bld) [#/Vol] 7.3 10*3/uL Normal 4.4-11.0 [facility] Comment on above: Order Comment: Order Date: 12/07/24 Order Info: 0184-1 - CBCD Performed By: #### L 100.0100, L500.4050, L501.4900, L501.6400 #### [facility] [address] [place], [place], [address] Carbon dioxide, total [Moles /volume] in Central venous bloodOrdered By: Chintan Saucedo on 12-07-2024 CO2 [Moles/Vol] 20.8 mmol/L Low 21.0-32.0 [facility] Chloride assayOrdered By: Joseph Saucedo on 12-07-2024 Chloride [Moles/Vol] 104 mmol/L 98-108 [facility] Cholesterolon 12-07-2024 Cholesterol [Mass/Vol] 141 mg/dL Normal <=200 [facility] Comment on above: Order Comment: Order Date: 12/07/24 Order Info: [id number] - CMP Order Info: 2093-3 - CHOL Order Info: 2084-9 - HDL Result Comment: Chol esterol level, Desirable <200 mg/dL Borderline high cholesterol 200-239 mg/dL High cholesterol >=240 mg/dL Recommendations of the NCEP Adult Treatment Panel for the following risk-cutoff thresholds for the [place] population. Performed By: #### L 100.0100, L500.4050, L501.4900, L501.6400 #### [facility] [facility] [address] [place], [place], [id number] Comprehensive Metabolic Prof ilon 12-07-2024 Albumin [Mass/Vol] 4.5 g/dL Normal 3.4-4.8 [facility] Comment on above: Order Comment: Order Date: 12/07/24 Order Info: 785-05 - CMP Order Info: 2092-07 - CHOL Order Info: 2085-01 - HDL Performed By: #### L 100.0100, L500.4050, L501.4900, L501.6400 #### [facility] [address] [place], [address] Albumin/Globulin [Mass ratio] 1.8 {ratio} Normal 0.9-2.4 [facility] Comment on above: Order Comment: Order Date: 12/07/24 Order Info: 785-05 - CMP Order Info: 2092-07 - CHOL Order Info: 2085-01 - HDL Performed By: #### L 100.0100, L500.4050, L501.4900, L501.6400 #### [facility] [address] [place], [address] ALK PHOS 62 U/L Normal 35-104 [facility] Comment on above: Order Comment: Order Date: 12/07/24 Order Info: 785-05 - CMP Order Info: 2092-07 - CHOL Order Info: 2085-01 - HDL Performed By: #### L 100.0100, L500.4050, L501.4900, L501.6400 #### [facility] [address] [place], [address] ALT [Catalytic activity/Vol] 21 U/L Normal <=34 [facility] Comment on above: Order Comment: Order Date: 12/07/24 Order Info: 785-05 - CMP Order Info: 2092-07 - CHOL Order Info: 2085-01 - HDL Performed By: #### L 100.0100, L500.4050, L501.4900, L501.6400 #### [facility] [address] [place], [address] AST [Catalytic activity/Vol] 20 U/L Normal <=31 [facility] Comment on above: Order Comment: Order Date: 12/07/24 Order Info: 785-1 - CMP Order Info: 2092-07 - CHOL Order Info: 2085-01 - HDL Performed By: #### L 100.0100, L500.4050, L501.4900, L501.6400 #### [facility] [address] [place], [address] Bilirubin [Mass/Vol] 0.77 mg/dL Normal 0.00-1.30 [facility] Comment on above: Order Comment: Order Date: 12/07/24 Order Info: 1 - CMP Order Info: 2092-07 - CHOL Order Info: 2085-01 - HDL Performed By: #### L 100.0100, L500.4050, L501.4900, L501.6400 #### [facility] [address] [place], [address] BUN/CRE 28.8 RATIO High 10-20 [facility] Comment on above: Order Comment: Order Date: 12/07/24 Order Info: 1 - CMP Order Info: 2092-07 - CHOL Order Info: 2085-01 - HDL Performed By: #### L 100.0100, L500.4050, L501.4900, L501.6400 #### [facility] [address] [place], [address] Calcium [Mass/Vol] 9.9 mg/dL Normal 7.6-11.0 [facility] Comment on above: Order Comment: Order Date: 12/07/24 Order Info: 07-1 - CMP Order Info: 2092-07 - CHOL Order Info: 2085-01 - HDL Performed By: #### L 100.0100, L500.4050, L501.4900, L501.6400 #### [facility] [address] [place], [address] Chloride [Moles/Vol] 104 mmol/L Normal 98-108 [facility] Comment on above: Order Comment: Order Date: 12/07/24 Order Info: 785-05 - CMP Order Info: 2092-07 - CHOL Order Info: 2085-01 - HDL Performed By: #### L 100.0100, L500.4050, L501.4900, L501.6400 #### [facility] [address] [place], [address] CO2 [Moles/Vol] 20.8 mmol/L Low 21.0-32.0 [facility] Comment on above: Order Comment: Order Date: 12/07/24 Order Info: 785-05 - CMP Order Info: 2092-07 - CHOL Order Info: 2085-01 - HDL Performed By: #### L 100.0100, L500.4050, L501.4900, L501.6400 #### [facility] [address] [place], [place], [id number] Creatinine [Mass/Vol] 0.88 mg/dL Normal 0.70-1.20 [facility] Comment on above: Order Comment: Order Date: 12/07/24 Order Info: 785-05 - CMP Order Info: 2092-07 - CHOL Order Info: 2085-01 - HDL Performed By: #### L 100.0100, L500.4050, L501.4900, L501.6400 #### [facility] [address] [place], [address] GAP 14 Normal 5-15 [facility] Comment on above: Order Comment: Order Date: 12/07/24 Order Info: 785-05 - CMP Order Info: 2092-07 - CHOL Order Info: 2085-01 - HDL Performed By: #### L 100.0100, L500.4050, L501.4900, L501.6400 #### [facility] [address] [place], [address] GFR/1.73 sq M.predicted among non-blacks MDRD (S/P/Bld) [Vol rate/Area] 71 mL/min/{1.73_m2} Normal >60 [facility] Comment on above: Order Comment: Order Date: 12/07/24 Order Info: 785-05 - CMP Order Info: 2092-07 - CHOL Order Info: 2085-01 - HDL Result Comment: mL/m in/1.73m2 CKD-EPI Creatinine Equation (2020) Performed By: #### L 100.0100, L500.4050, L501.4900, L501.6400 #### [facility] [address] [place], [address] Globulin (S) [Mass/Vol] 2.5 g/dL Normal 2.2-4.2 [facility] Comment on above: Order Comment: Order Date: 12/07/24 Order Info: 785-05 - CMP Order Info: 2092-07 - CHOL Order Info: 2085-01 - HDL Performed By: #### L 100.0100, L500.4050, L501.4900, L501.6400 #### [facility] [address] [place], [address] Glucose [Mass/Vol] 104 mg/dL High 70-99 [facility] Comment on above: Order Comment: Order Date: 12/07/24 Order Info: 785-05 - CMP Order Info: 2092-07 - CHOL Order Info: 2085-01 - HDL Performed By: #### L 100.0100, L500.4050, L501.4900, L501.6400 #### [facility] [address] [place], [address] Potassium [Moles/Vol] 4.4 mmol/L Normal 3.3-5.1 [facility] Comment on above: Order Comment: Order Date: 12/07/24 Order Info: 785-05 - CMP Order Info: 2092-07 CHOL Order Info: 2085-01 - HDL Performed By: #### L 100.0100, L500.4050, L501.4900, L501.6400 #### [facility] [address] [place], [place], [address] Sodium [Moles/Vol] 139 mmol/L Normal 133-145 [facility] Comment on above: Order Comment: Order Date: 12/07/24 Order Info: 785-05 - CMP Order Info: 2092-07 - CHOL Order Info: 2085-01 - HDL Performed By: #### L 100.0100, L500.4050, L501.4900, L501.6400 #### [facility] [address] [place], [place], [id number] T PROT 7.0 g/dL Normal 5.9-8.4 [facility] Comment on above: Order Comment: Order Date: 12/07/24 Order Info: 785-05 - CMP Order Info: 2092-07 - CHOL Order Info: 2085-01 - HDL Performed By: #### L 100.0100, L500.4050, L501.4900, L501.6400 #### [facility] [address] [place], [place], [id number] Urea nitrogen [Mass/Vol] 25 mg/dL High 4-19 [facility] Comment on above: Order Comment: Order Date: 12/07/24 Order Info: 0786- - CMP Order Info: 2092-07 - CHOL Order Info: 2085-01 - HDL Performed By: #### L 100.0100, L500.4050, L501.4900, L501.6400 #### [facility] [address] [place], [place], [address] Eosinophil percentageOrdered By: Chintan Saucedo on 12-07-2024 Eosinophils/100 WBC (Bld) 2.5 % 0-5 [facility] Erythrocyte distribution wid th ratioOrdered By: Chintan Saucedo on 12-07-2024 Erythrocyte distribution width (RBC) [Ratio] 11.9 % 11.6-14.6 [facility] Erythrocyte distribution wid th standard deviationOrdered By: Chintan Saucedo on 12-07-2024 Erythrocyte distribution width (RBC) [Ratio] 41.7 fl 35.1-43.9 [facility] Glomerular filtration rate ( GFR) estimation/1.73 sq m using serum, plasma, or whole bOrdered By: Chintan Saucedo on 12-07-2024 GFR/1.73 sq M.predicted among non-blacks MDRD (S/P/Bld) [Vol rate/Area] 71 mL/min/{1.73_m2} >60 [facility] Comment on above: mL/min/1.73m2 CKD-EP I Creatinine Equation (2020) Hematocrit Auto (Bld) [Volum e fraction]Ordered By: Chintan Saucedo on 12-07-2024 Hematocrit (Bld) [Volume fraction] 41.4 % 37-47 [facility] Hemoglobin measurementOrdere d By: Chintan Saucedo on 12-07-2024 Hemoglobin (Bld) [Mass/Vol] 14.5 g/dL 12.0-15.0 [facility] High Density Lipoproteinon 0 12-07-2024 Cholesterol in HDL [Mass/Vol] 39 mg/dL Low [facility] Comment on above: Order Comment: Order Date: 12/07/24 Order Info: 0786-1 - CMP Order Info: 2092- - CHOL Order Info: 2085-01 - HDL Result Comment: Rosalia onal Cholesterol Education Program (NCEP) guidelines: <40 mg/dL: Low HDL-cholesterol (major risk factor for CHD) >= 60 mg/dL: High HDL-cholesterol (negative risk factor for CHD) HDL-cholesterol is affected by a number of factors, e.g. smoking, exercise, hormones, sex and age. Performed By: #### L 100.0100, L500.4050, L501.4900, L501.6400 #### [facility] [address] [place], [address] Immature granulocytes/100 WB C Auto (Bld)Ordered By: Chintan Saucedo on 12-07-2024 Immature granulocytes/100 WBC (Bld) 0.300 % 0.0-0.9 [facility] Comment on above: IG% - Immature Granu locytes (promyelocytes, myelocytes and metamyelocytes) > 1% indicates that a LEFT SHIFT is Present. Laboratory - Chemistry and C hemistry - challengeOrdered By: Chintan Saucedo on 12-07-2024 AST [Catalytic activity/Vol] 20 U/L <32 [facility] MCV (mean corpuscular volume ) determinationOrdered By: Chintan Saucedo on 12-07-2024 MCV (RBC) [Entitic vol] 96.1 fL 81-99 [facility] Mean corpuscular hemoglobin (MCH) determinationOrdered By: Chintan Saucedo on 12-07-2024 MCH (RBC) [Entitic mass] 33.6 pg High 27.0-32.0 [facility] Mean corpuscular hemoglobin concentration (MCHC) determinationOrdered By: Chintan Saucedo on 12-07-2024 MCHC (RBC) [Mass/Vol] 35.0 g/dL 32-36 [facility] Mean platelet volume determi nationOrdered By: Chintan Saucedo on 12-07-2024 Platelet mean volume (Bld) [Entitic vol] 9.4 fL 6.2-12.0 [facility] Microalb:Creat Ratio,Random URon 12-07-2024 Creatinine [Mass/Vol] 153.00 mg/dL Normal 28.00-217.00 [facility] Comment on above: Order Comment: Order Date: 12/07/24 Order Info: 28136-4 - MIALB Performed By: #### L 502.0250 #### [facility] [address] [facility] [id number] MALB:CREAT 34.0 mg/g CRE High <30 mg/g CRE [facility] Comment on above: Order Comment: Order Date: 12/07/24 Order Info: 41723-5 - MIALB Performed By: #### L 502.0250 #### [facility] [address] [place], [place], [id number] MICROALBUMIN,UR 52.0 mg/L Normal <20 mg/L [facility] Comment on above: Order Comment: Order Date: 12/07/24 Order Info: 93219-8 - MIALB Performed By: #### L 502.0250 #### [facility] [address] [facility] [address] Monocyte percentageOrdered B y: Chintan Saucedo on 12-07-2024 Monocytes/100 WBC (Bld) 7.6 % 0-10 [facility] Neutrophil percentageOrdered By: Chintan Saucedo on 12-07-2024 Neutrophils/100 WBC (Bld) 59.8 % 47-70 [facility] Nucleated red blood cell per centageOrdered By: Chintan Saucedo on 12-07-2024 Nucleated RBC/100 WBC (Bld) [Ratio] 0 % 0-5 [facility] Platelet countOrdered By: Joseph Saucedo on 12-07-2024 Platelets (Bld) [#/Vol] 179 10*3/uL 150-450 [facility] Potassium measurement (mass/ volume)Ordered By: Chintan Saucedo on 12-07-2024 Potassium (Unsp spec) [Mass/Vol] 4.4 mmol/L 3.3-5.1 [facility] RBC Auto (Bld) [#/Vol]Ordere d By: Chintan Saucedo on 12-07-2024 RBC (Bld) [#/Vol] 4.31 10*6/uL 4.2-5.4 [facility] Random urine creatinine carol urement (mass/volume)Ordered By: Chintan Saucedo on 12-07-2024 Creatinine Unsp time (U) [Mass/Vol] 153.00 mg/dL 28.00-217.00 [facility] Serum creatinine measurement (mass/volume)Ordered By: Chintan Saucedo on 12-07-2024 Creatinine [Mass/Vol] 0.88 mg/dL 0.70-1.20 [facility] Serum globulin measurementOr dered By: Chintan Saucedo on 12-07-2024 Globulin (S) [Mass/Vol] 2.5 g/dL 2.2-4.2 [facility] Serum glucose measurement (m ass/volume)Ordered By: Chintan Saucedo on 12-07-2024 Glucose [Mass/Vol] 104 mg/dL High 70-99 [facility] Serum or plasma alanine patricia otransferase (ALT) measurementOrdered By: Chintan Saucedo on 12-07-2024 ALT [Catalytic activity/Vol] 21 U/L <35 [facility] Serum or plasma albumin carol urement (mass/volume)Ordered By: Chintan Saucedo on 12-07-2024 Albumin [Mass/Vol] 4.5 g/dL 3.4-4.8 [facility] Serum or plasma albumin/glob ulin mass ratioOrdered By: Chintan Saucedo on 12-07-2024 Albumin/Globulin [Mass ratio] 1.8 {ratio} 0.9-2.4 [facility] Serum or plasma alkaline michael sphatase measurementOrdered By: Chintan Saucedo on 12-07-2024 ALP [Catalytic activity/Vol] 62 U/L 35-104 [facility] Serum or plasma calcium carol urement (mass/volume)Ordered By: Chintan Saucedo on 12-07-2024 Calcium [Mass/Vol] 9.9 mg/dL 7.6-11.0 [facility] Serum or plasma cholesterol in HDL measurement (mass/volume)Ordered By: Chintan Saucedo on 12-07-2024 Cholesterol in HDL [Mass/Vol] 39 mg/dL Low >40 [facility] Comment on above: National Cholesterol Education Program (NCEP) guidelines:<40 mg/dL: Low HDL-cholesterol (major risk factor for CHD)>= 60 mg/dL: High HDL-cholesterol (negative risk factor for CHD)HDL-cholesterol is affected by a number of factors, e.g. smoking, exercise, hormones, sex and age. Serum or plasma cholesterol measurement (mass/volume)Ordered By: Chintan Saucedo on 12-07-2024 Cholesterol [Mass/Vol] 141 mg/dL <201 [facility] Comment on above: Cholesterol level, D esirable <200 mg/dLBorderline high cholesterol 200-239 mg/dLHigh cholesterol >=240 mg/dLRecommendations of the NCEP Adult Treatment Panel for the following risk-cutoff thresholds for the [place] population. Serum or plasma urea nitroge n measurement (mass/volume)Ordered By: Chintan Saucedo on 12-07-2024 Urea nitrogen [Mass/Vol] 25 mg/dL High 4-19 [facility] Sodium levelOrdered By: Chintan Saucedo on 12-07-2024 Sodium [Moles/Vol] 139 mmol/L 133-145 [facility] Total proteinOrdered By: Selena Saucedo on 12-07-2024 Protein [Mass/Vol] 7.0 g/dL 5.9-8.4 [facility] Urine albumin measurement [facility] detection limit of 20 mg/L or less (mass/volume)Ordered By: Chintan Saucedo on 12-07-2024 Albumin DL <= 20 mg/L (U) [Mass/Vol] 52.0 mg/L <20 mg/L [facility] White blood cell (WBC) count Ordered By: Chintan Saucedo on 12-07-2024 WBC (Bld) [#/Vol] 7.3 10*3/uL 4.4-11.0 [facility] Endocrinology Visit Reporton 07-01-2024 Endocrinology Visit Report [facility] 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 Normal [facility] CBC W/Diff, Automatedon 05-21 Absolute Lymph 2.97 X10 3/uL Normal 0.83-4.51 [facility] Comment on above: Order Comment: Order Date: 06/08/24 Order Info: 0184-1 - CBCD Performed By: #### L 100.0100, L503.0105, L500.4050, L506.0250, L502.0250 #### [facility] [address] [place], [address] Absolute Neut 5.3 X10 3/uL Normal 2.0-7.7 [facility] Comment on above: Order Comment: Order Date: 06/08/24 Order Info: 0184-1 - CBCD Performed By: #### L 100.0100, L503.0105, L500.4050, L506.0250, L502.0250 #### [facility] [address] [place], [address] Basophils/100 WBC (Bld) 0.5 % Normal 0-1 [facility] Comment on above: Order Comment: Order Date: 06/08/24 Order Info: 0184-1 - CBCD Performed By: #### L 100.0100, L503.0105, L500.4050, L506.0250, L502.0250 #### [facility] [address] [place], [address] Eosinophils/100 WBC (Bld) 1.8 % Normal 0-5 [facility] Comment on above: Order Comment: Order Date: 06/08/24 Order Info: 0184-1 - CBCD Performed By: #### L 100.0100, L503.0105, L500.4050, L506.0250, L502.0250 #### [facility] [address] [place], [address] Erythrocyte distribution width (RBC) [Ratio] 11.7 % Normal 11.6-14.6 [facility] Comment on above: Order Comment: Order Date: 06/08/24 Order Info: 0184-1 - CBCD Performed By: #### L 100.0100, L503.0105, L500.4050, L506.0250, L502.0250 #### [facility] [address] [place], [address] Hematocrit (Bld) [Volume fraction] 39.6 % Normal 37-47 [facility] Comment on above: Order Comment: Order Date: 06/08/24 Order Info: 0184-1 - CBCD Performed By: #### L 100.0100, L503.0105, L500.4050, L506.0250, L502.0250 #### [facility] [address] [place], [address] Hemoglobin (Bld) [Mass/Vol] 14.1 g/dL Normal 12.0-15.0 [facility] Comment on above: Order Comment: Order Date: 06/08/24 Order Info: 0184-1 - CBCD Performed By: #### L 100.0100, L503.0105, L500.4050, L506.0250, L502.0250 #### [facility] [address] [place], [address] IG% 0.600 Normal 0.0-0.9 [facility] Comment on above: Order Comment: Order Date: 06/08/24 Order Info: 0184-1 - CBCD Result Comment: IG% - Immature Granulocytes (promyelocytes, myelocytes and metamyelocytes) > 1% indicates that a LEFT SHIFT is Present. Performed By: #### L 100.0100, L503.0105, L500.4050, L506.0250, L502.0250 #### [facility] [address] [place], [address] Lymphocytes/100 WBC (Bld) 32.1 % Normal 19-41 [facility] Comment on above: Order Comment: Order Date: 06/08/24 Order Info: 0184-1 - CBCD Performed By: #### L 100.0100, L503.0105, L500.4050, L506.0250, L502.0250 #### [facility] [address] [place], [address] MCH (RBC) [Entitic mass] 33.0 pg High 27.0-32.0 [facility] Comment on above: Order Comment: Order Date: 06/08/24 Order Info: 0184-1 - CBCD Performed By: #### L 100.0100, L503.0105, L500.4050, L506.0250, L502.0250 #### [facility] [address] [place], [address] MCHC (RBC) [Mass/Vol] 35.6 g/dL Normal 32-36 [facility] Comment on above: Order Comment: Order Date: 06/08/24 Order Info: 0184- - CBCD Performed By: #### L 100.0100, L503.0105, L500.4050, L506.0250, L502.0250 #### [facility] [address] [place], [address] MCV (RBC) [Entitic vol] 92.7 fL Normal 81-99 [facility] Comment on above: Order Comment: Order Date: 06/08/24 Order Info: 0184- - CBCD Performed By: #### L 100.0100, L503.0105, L500.4050, L506.0250, L502.0250 #### [facility] [address] [place], [address] Monocytes/100 WBC (Bld) 8.0 % Normal 0-10 [facility] Comment on above: Order Comment: Order Date: 06/08/24 Order Info: 0184-1 - CBCD Performed By: #### L 100.0100, L503.0105, L500.4050, L506.0250, L502.0250 #### [facility] [address] [place], [address] Neutrophils/100 WBC (Bld) 57.0 % Normal 47-70 [facility] Comment on above: Order Comment: Order Date: 06/08/24 Order Info: 0184-1 - CBCD Performed By: #### L 100.0100, L503.0105, L500.4050, L506.0250, L502.0250 #### [facility] [address] [place], [address] Nucleated RBC (Bld) [#/Vol] 0 10*3/uL Normal 0-5 [facility] Comment on above: Order Comment: Order Date: 06/08/24 Order Info: 0184-1 - CBCD Performed By: #### L 100.0100, L503.0105, L500.4050, L506.0250, L502.0250 #### [facility] [address] [place], [address] Platelet mean volume (Bld) [Entitic vol] 9.1 fL Normal 6.2-12.0 [facility] Comment on above: Order Comment: Order Date: 06/08/24 Order Info: 0184-1 - CBCD Performed By: #### L 100.0100, L503.0105, L500.4050, L506.0250, L502.0250 #### [facility] [address] [place], [address] Platelets (Bld) [#/Vol] 213 10*3/uL Normal 150-450 [facility] Comment on above: Order Comment: Order Date: 06/08/24 Order Info: 0184-1 - CBCD Performed By: #### L 100.0100, L503.0105, L500.4050, L506.0250, L502.0250 #### [facility] [address] [place], [address] RBC (Bld) [#/Vol] 4.27 10*6/uL Normal 4.2-5.4 [facility] Comment on above: Order Comment: Order Date: 06/08/24 Order Info: 0184-1 - CBCD Performed By: #### L 100.0100, L503.0105, L500.4050, L506.0250, L502.0250 #### [facility] [address] [place], [address] RDW SD 39.3 fl Normal 35.1-43.9 [facility] Comment on above: Order Comment: Order Date: 06/08/24 Order Info: 0184-1 - CBCD Performed By: #### L 100.0100, L503.0105, L500.4050, L506.0250, L502.0250 #### [facility] [address] [place], [address] WBC (Bld) [#/Vol] 9.3 10*3/uL Normal 4.4-11.0 [facility] Comment on above: Order Comment: Order Date: 06/08/24 Order Info: 0184-1 - CBCD Performed By: #### L 100.0100, L503.0105, L500.4050, L506.0250, L502.0250 #### [facility] [address] [place], [address] Comprehensive Metabolic Prof ilon 06-17-2024 Albumin [Mass/Vol] 3.7 g/dL Normal 3.2-5.0 [facility] Comment on above: Order Comment: Order Date: 06/08/24Order Info: 0786-1 - CMPOrder Info: 2284-8 - FOLSN Performed By: #### L 100.0100, L503.0105, L500.4050, L506.0250, L502.0250 ####[facility] [address] [place], [address] Albumin/Globulin [Mass ratio] 1.1 {ratio} Normal 0.9-2.4 [facility] Comment on above: Order Comment: Order Date: 06/08/24Order Info: 0786-1 - CMPOrder Info: 2284-8 - FOLSN Performed By: #### L 100.0100, L503.0105, L500.4050, L506.0250, L502.0250 ####[facility] [address] [place], [address] ALK P 68 U/L Normal 45-117 [facility] Comment on above: Order Comment: Order Date: 06/08/24Order Info: 0786-1 - CMPOrder Info: 2284-8 - FOLSN Performed By: #### L 100.0100, L503.0105, L500.4050, L506.0250, L502.0250 ####[facility] [address] [place], [address] ALT [Catalytic activity/Vol] 29 U/L Normal 13-56 [facility] Comment on above: Order Comment: Order Date: 06/08/24Order Info: 0786-1 - CMPOrder Info: 228-8 - FOLSN Performed By: #### L 100.0100, L503.0105, L500.4050, L506.0250, L502.0250 ####[facility] [address] [place], [address] AST [Catalytic activity/Vol] 15 U/L Normal 15-37 [facility] Comment on above: Order Comment: Order Date: 06/08/24Order Info: 0786-1 - CMPOrder Info: 2284-8 - FOLSN Performed By: #### L 100.0100, L503.0105, L500.4050, L506.0250, L502.0250 ####[facility] [address] [place], [address] Bilirubin [Mass/Vol] 0.80 mg/dL Normal 0.20-1.00 [facility] Comment on above: Order Comment: Order Date: 06/08/24Order Info: 0786-1 - CMPOrder Info: 2284-8 - FOLSN Result Comment: For patients on eltrombopag therapy, use of Dimension Girard TBIL is not recommended. Performed By: #### L 100.0100, L503.0105, L500.4050, L506.0250, L502.0250 ####[facility] [address] [place], [address] BUN/CRE 27.3 RATIO High 10-20 [facility] Comment on above: Order Comment: Order Date: 06/08/24Order Info: [id number] - CMPOrder Info: [id number] - FOLSN Performed By: #### L 100.0100, L503.0105, L500.4050, L506.0250, L502.0250 ####[facility] [address] [place], [address] CA,Total 9.1 mg/dL Normal 8.5-10.1 [facility] Comment on above: Order Comment: Order Date: 06/08/24Order Info: [id number] - CMPOrder Info: [id number] - FOLSN Performed By: #### L 100.0100, L503.0105, L500.4050, L506.0250, L502.0250 ####[facility] [address] [place], [address] Chloride [Moles/Vol] 105 mmol/L Normal 98-107 [facility] Comment on above: Order Comment: Order Date: 06/08/24Order Info: [id number] - CMPOrder Info: [id number] - FOLSN Performed By: #### L 100.0100, L503.0105, L500.4050, L506.0250, L502.0250 ####[facility] [address] [place], [address] CO2 [Moles/Vol] 23.0 mmol/L Normal 21.0-32.0 [facility] Comment on above: Order Comment: Order Date: 06/08/24Order Info: [id number] - CMPOrder Info: 228-8 - FOLSN Performed By: #### L 100.0100, L503.0105, L500.4050, L506.0250, L502.0250 ####[facility] [address] [place], [address] Creatinine [Mass/Vol] 0.84 mg/dL Normal 0.55-1.02 [facility] Comment on above: Order Comment: Order Date: 06/08/24Order Info: [id number] - CMPOrder Info: 228-8 - FOLSN Result Comment: The validity of the calculated GFR GFRAA in patients over 70 years has not been determined. Clinical correlation is essential. Performed By: #### L 100.0100, L503.0105, L500.4050, L506.0250, L502.0250 ####[facility] [address] [place], [address] EST GFR - AA 86 mL/min Normal >60 [facility] Comment on above: Order Comment: Order Date: 06/08/24Order Info: [id number] - CMPOrder Info: 228-8 - FOLSN Result Comment: Afri can [place] GFR Calc Performed By: #### L 100.0100, L503.0105, L500.4050, L506.0250, L502.0250 ####[facility] [address] [place], [address] GAP 11 Normal 5-15 [facility] Comment on above: Order Comment: Order Date: 06/08/24Order Info: [id number] - CMPOrder Info: 228-8 - FOLSN Performed By: #### L 100.0100, L503.0105, L500.4050, L506.0250, L502.0250 ####[facility] [address] [place], [address] GFR/1.73 sq M.predicted among non-blacks MDRD (S/P/Bld) [Vol rate/Area] 71 mL/min/{1.73_m2} Normal >60 [facility] Comment on above: Order Comment: Order Date: 06/08/24Order Info: [id number] - CMPOrder Info: [id number] - FOLSN Result Comment: Non- GFR Calc Performed By: #### L 100.0100, L503.0105, L500.4050, L506.0250, L502.0250 ####[facility] [address] [place], [address] Globulin (S) [Mass/Vol] 3.3 g/dL Normal 2.2-4.2 [facility] Comment on above: Order Comment: Order Date: 06/08/24Order Info: 0786-1 - CMPOrder Info: 2283-12 - FOLSN Performed By: #### L 100.0100, L503.0105, L500.4050, L506.0250, L502.0250 ####[facility] [address] [place], [place], [address] Glucose [Mass/Vol] 135 mg/dL High 74-106 [facility] Comment on above: Order Comment: Order Date: 06/08/24Order Info: 0786-1 - CMPOrder Info: [id number] - FOLSN Result Comment: Fast ing Glucose result greater than or equal to 126 mg/dL suggests DIABETES MELLITUS per A.D.A. criteria. Performed By: #### L 100.0100, L503.0105, L500.4050, L506.0250, L502.0250 ####[facility] [address] [place], [address] Potassium [Moles/Vol] 4.7 mmol/L Normal 3.5-5.1 [facility] Comment on above: Order Comment: Order Date: 06/08/24Order Info: 0786-1 - CMPOrder Info: [id number] - FOLSN Performed By: #### L 100.0100, L503.0105, L500.4050, L506.0250, L502.0250 ####[facility] [address] [place], [address] Sodium [Moles/Vol] 138 mmol/L Normal 136-145 [facility] Comment on above: Order Comment: Order Date: 06/08/24Order Info: 0786-1 - CMPOrder Info: 2284-8 - FOLSN Performed By: #### L 100.0100, L503.0105, L500.4050, L506.0250, L502.0250 ####[facility] [address] [place], [address] T PROT 7.0 g/dL Normal 6.4-8.2 [facility] Comment on above: Order Comment: Order Date: 06/08/24Order Info: 0786-1 - CMPOrder Info: [id number] - FOLSN Performed By: #### L 100.0100, L503.0105, L500.4050, L506.0250, L502.0250 ####[facility] [address] [place], [address] Urea nitrogen [Mass/Vol] 23 mg/dL High 7-18 [facility] Comment on above: Order Comment: Order Date: 06/08/24Order Info: 0786-1 - CMPOrder Info: [id number] - FOLSN Performed By: #### L 100.0100, L503.0105, L500.4050, L506.0250, L502.0250 ####[facility] [address] [place], [address] Folates, (Folic Acid)on 05-21 FOLATES 37.10 ng/mL Normal 3.1-55.4 [facility] Comment on above: Order Comment: Order Date: 06/08/24Order Info: 0786-1 - CMPOrder Info: 2284-8 - FOLSN Performed By: #### L 100.0100, L503.0105, L500.4050, L506.0250, L502.0250 ####[facility] [address] [place], [address] Microalb:Creat Ratio,Random URon 06-17-2024 Creatinine [Mass/Vol] 105.00 mg/dL Normal NO RAN GE EST. [facility] Comment on above: Order Comment: Order Date: 06/08/24Order Info: [id number] - CREATUOrder Info: 0779-1 - MIACREOrder Info: [id number] - ALBU Performed By: #### L 100.0100, L503.0105, L500.4050, L506.0250, L502.0250 ####[facility] [address] [place], [address] MALB:CRE 85.7 mg/g CRE High <30 mg/g CRE [facility] Comment on above: Order Comment: Order Date: 06/08/24Order Info: [id number] - CREATUOrder Info: 0779-1 - MIACREOrder Info: [id number] - ALBU Performed By: #### L 100.0100, L503.0105, L500.4050, L506.0250, L502.0250 ####[facility] [address] [place], [address] MICROALBUMIN,UR 90.0 mg/L Normal NO RANGE EST. [facility] Comment on above: Order Comment: Order Date: 06/08/24Order Info: 2160-12 - CREATUOrder Info: 0779-1 - MIACREOrder Info: 05113-7 - ALBU Performed By: #### L 100.0100, L503.0105, L500.4050, L506.0250, L502.0250 ####[facility] [address] [place], [address] Vitamin B12on 06-17-2024 Cobalamin (Vitamin B12) [Mass/Vol] 1485 pg/mL High 211-911 [facility] Comment on above: Order Comment: Order Date: 06/08/24 Order Info: 2132-9 - B12 Performed By: #### L 100.0100, L503.0105, L500.4050, L506.0250, L502.0250 #### [facility] [address] [place], [address] Bedside Glucoseon 04-24-2024 FINGERSTICK GLU 198 mg/dL High 74-106 [facility] Comment on above: Result Comment: AMIRAH DIAZBEV OF PATIENT CARE PER NURSING PROTOCOL Performed By: #### L 501.080 #### [facility] [address] [place], [address] Colonoscopy Reporton 024 Colonoscopy Report [facility] Medical Records Department [address] [place] [address] Colonoscopy Report MR#: [id number] Acct: [id number] Name: ISABEL GLASS Rep #: [id number] : 1955 68 From: Michael Whaley MD PCP: Dr. Chintan Saucedo MD Status:[facility] Patient Name: Isabel Glass Procedure Date: 04/24/2024 7:11 AM Date of : 1955 Age: 68 Procedure: Colonoscopy Indications: High risk colon cancer surveillance: Personal history of familial adenomatous polyposis Providers: Michael Whaley MD Referring MD: Chintan Sauecdo Medicines: Propofol per Anesthesia Patient Profile: Last [...] for surveillance. Procedure Code(s): --- Professional --- 49118, Colonoscopy, flexible; with removal of tumor(s), polyp(s), or other lesion(s) by snare technique Diagnosis Code(s): --- Professional --- Z86.010, Personal history of colonic polyps Z15.09, Genetic susceptibility to other malignant neoplasm D12.8, Benign neoplasm of rectum D12.3, Benign neoplasm of transverse colon (hepatic flexure or splenic flexure) CPT copyright 2021 [employer] [place] [employer]. All rights reserved. The codes documented in this report are preliminary and upon automotive light mechanic review may be revised to meet current compliance requirements. Michael Whaley MD 04/24/2024 7:50:22 AM This report has been signed electronically. Number of Addenda: 0 Note Initiated On: 04/24/2024 7:11 AM 04/24/24 0751 Date Michael Whaley MD Cosigner Signature: Date (if indicated) CC: Dr. Michael Whaley MD; Dr. Chintan Saucedo MD Date Dictated: 04/24/24710 Date Transcribed: Plant Accountant: Signed [facility] MR/POSTOP.ANEon 04-24-2024 MR/POSTOP.[facility] Medical Records Department [address] [place] [address] Anesthesia Postop Eval I 04/24/24 0759 MR#: [id number] Acct: [id number] Name: ISABEL GLASSHLEEN Rep #: [id number] : 1955 68 From: Manoj Leone PCP: Dr. Chintan Saucedo MD Status:REG [facility] Race: C Location: [facility]03-20 Anesthesia: Postop Eval I Current Vital Signs [...] Date Manoj Kraft Signature: Date CC: Signed [facility] MR/YDSAGEZU9ql 04-24-2024 MR/POSTOPAN2 [facility] Medical Records Department [address] [place] [address] Anesthesia Postop Eval II 04/24/24 0809 MR#: [id number] Acct: [id number] Name: QUANISABEL LI Rep #: [id number] : 1955 68 From: Alok Noonan MD PCP: Dr. Chintan Saucedo MD Status:REG [facility] Y Race: C Location: [place] [address]- Anesthesia Postop Eval I Sum Postop Eval [...] Pain Level: 0 nausea: No Vomiting: No 04/24/24808 Date Alok Noonan MD Cosigner Signature: Date CC: Signed Normal [facility] Surgery Specimen Level Calderon 04-24-2024 Surgery Specimen Level IV Patient Age/Sex Location Account Attending Physician ISABEL GLASS 68/F EN [id number] Dr. Michael Whaley MD Specimen: [id number] Received: 04/24/24 Status: SEBASTIÁN Brantley Num: [id number] Spec Type: COLON BX Subm Dr: Dr. Michael Whaley MD HEADER OPERATION: Colonoscopy PRE-OP DIAGNOSIS: Personal history of colonic polyps TISSUE SUBMITTED: A- Transverse colon polyp, B- Rectal polyp MICROSCOPIC DIAGNOSIS A. Transverse colon polyp, biopsy: Fragments of inflammatory polyp. B. Rectal polyp, biopsy: Inflammatory polyp. AM. 04/27/2024 MICROSCOPIC DESCRIPTION Slides are reviewed. GROSS [...] specimen is totally submitted in one cassette. RICK 04/24/2024 TC:5 CPT:86411e6 Patient Age/Sex Location Account Attending Physician ISABEL GLASS 68/F EN [id number] Dr. Michael Whaley MD Signed (signature on file) Dr. Lonnie Meyers DO 04/27/24 1207 [facility] Comment on above: Performed By: #### P SUIV ####[facility] [address] [place], [place], [address] Dexa Bone Density Studyon Dexa Bone Density Study [facility] Imaging Services [address] [place] [address] Dexa Bone Density Study MR#: [id number] Acct: [id number] Name: ISABEL GLASS Rep #: [id number] : 1955 F 68 From: Isael crain MD PCP: Dr. Chintan Saucedo MD Status: [facility] Study: Dexa Bone Density Study Date of Exam: 04/08/24 Exam# [id number] Ordering Dr: Chintan Saucedo MD [id number] STUDY: DUAL ENERGY X-RAY ABSORPTIOMETRY / DXA [...] EST , CC: Dr. Chintan Saucedo MD Plant Accountant: Signed Normal [facility] SCRN MAMM (CAD)W/NADEGERoger Orellana n 04-08-2024 SCRN MAMM (CAD)W/NADEGE BILAT [facility] Imaging Services [address] [place], [place] [address] SCRN MAMM (CAD)W/NADEGE BILAT MR#: [id number] Acct: [id number] Name: ISABEL GLASS Rep #: [id number] : 1955 F 68 From: Isael crain MD PCP: Dr. Chintan Saucedo MD Status: [facility] Study: SCRN MAMM (CAD)W/NADEGE BILAT Date of Exam: 03/21 Exam# [id number] Ordering Dr: Chintan Saucedo MD [id number] MAMMOGRAPHY - BILATERAL SCREENING REASON FOR EXAM: [...] delay biopsy of a clinically suspicious abnormality. [id number] Electronically Signed: Isael Rizzo MD at 11:37 EST , CC: Dr. Chintan Saucedo MD Plant Accountant: Signed Normal [facility] Endocrinology Visit Reporton 03-30-2024 Endocrinology Visit Report [facility] [address] [place] [address] OFFICE VISIT Date of Service: 03/30/24 MR#: [id number] Acct: [id number] Name: ISABEL GLASS Rep #: [id number] : 1955 Provider: GERARD evans Age/Sex: 68/F [place] [facility] [place]: Signed Intake Vital [...] QDAY PRN FACE BREAKOUT 07/15/17 03/30/24 History plogfvzg-ovk-PO 200 mcg-vit K 15 2 tab PO DAILY 11/22/21 03/30/24 History mcg-lycope 150 okf-cudpae-mgxa tablet (Ocuvite Eye Plus Multi) cholecalciferol (vitamin [...] sleep apnea) Brother , Age 62 from [place] CAD (coronary artery disease), Onset Age: 61 PCI and stents Myocardial infarction Father Pacemaker Cardiomyopathy (more content not included)... Normal [facility] Basophil percentageOrdered B y: Chintan Saucedo on 07-30-2023 Bilirubin [Mass/Vol] 0.70 mg/dL 0.20-1.00 [facility] Comment on above: For patients on eltr ombopag therapy, use of Dimension Girard TBIL is not recommended. Chloride [Moles/Vol] 111 mmol/L 98-107 [facility] Glucose [Mass/Vol] 149 mg/dL 74-106 [facility] Comment on above: Fasting Glucose resu lt greater than or equal to 126 mg/dL suggests DIABETES MELLITUS per A.D.A. criteria. Potassium [Moles/Vol] 4.4 mmol/L 3.5-5.1 [facility] Protein [Mass/Vol] 6.8 g/dL 6.4-8.2 [facility] Sodium [Moles/Vol] 139 mmol/L 136-145 [facility] Laboratory - Chemistry and C hemistry - challengeOrdered By: Chintan Saucedo on 07-30-2023 Albumin/Globulin [Mass ratio] 1.1 {ratio} 0.9-2.4 [facility] ALP [Catalytic activity/Vol] 69 U/L 45-117 [facility] ALT [Catalytic activity/Vol] 30 U/L 13-56 [facility] CO2 [Moles/Vol] 21.0 mmol/L 21.0-32.0 [facility] Ferritin [Mass/Vol] 49 ng/mL 8-252 [facility] Globulin (S) [Mass/Vol] 3.2 g/dL 2.2-4.2 [facility] Urea nitrogen/Creatinine [Mass ratio] 21.5 mg/mg 10-20 [facility] No Panel InformationOrdered By: Chintan Saucedo on 07-30-2023 Estimated GFR (MDRD) Amer 77 mL/min >60 [facility] Comment on above: GFR Calc Estimated GFR (MDRD) Non-Af Amer 64 mL/min >60 [facility] Comment on above: Non- GFR Calc Serum or plasma calcium carol urement (mass/volume)Ordered By: Chintan Saucedo on 07-30-2023 Calcium [Mass/Vol] 9.0 mg/dL 8.5-10.1 [facility] Serum or plasma creatinine m easurement (mass/volume)Ordered By: Chintan Saucedo on 07-30-2023 Creatinine [Mass/Vol] 0.93 mg/dL 0.55-1.02 [facility] Comment on above: The validity of the calculated GFR & GFRAA in patients over 70 years has not been determined. Clinical correlation is essential. Serum or plasma urea nitroge n measurement (mass/volume)Ordered By: Chintan Saucedo on 07-30-2023 Urea nitrogen [Mass/Vol] 20 mg/dL 7-18 [facility] Thin prep Papanicolaou smear with manual screeningOrdered By: Chintan Saucedo on 07-30-2023 Thin prep Papanicolaou smear with manual screening 3.6 g/dL 3.2-5.0 [facility] Thin prep Papanicolaou smear with manual screening 17 U/L 15-37 [facility] Thin prep Papanicolaou smear with manual screening 7 5-15 [facility] Whole blood hemoglobin A1c/t otal hemoglobin ratio (mass fraction)Ordered By: Chintan Saucedo on 07-30-2023 HbA1c (Bld) [Mass fraction] 6.8 % 3.8-5.6 [facility] Comment on above: Normal < 5.7 % Predi abetic 5.7 - 6.4 % Diabetic >or= 6.5 % Please note range changes. Laboratory - Hematology and Cell countson 07-01-2023 HbA1c (Bld) [Mass fraction] 7.0 % 4.2-6.3 [facility] Absolute lymphocyte countOrd ered By: Chintan Saucedo on 02-05-2023 Lymphocytes Auto (Unsp spec) [#/Vol] 1.93 10*3/uL 0.83-4.51 [facility] Basophil percentageOrdered B y: Chintan Saucedo on 02-05-2023 Basophils/100 WBC (Bld) 0.4 % 0-1 [facility] Bilirubin [Mass/Vol] 0.80 mg/dL 0.20-1.00 [facility] Comment on above: For patients on eltr ombopag therapy, use of Dimension Girard TBIL is not recommended. Chloride [Moles/Vol] 108 mmol/L 98-107 [facility] Eosinophils/100 WBC (Bld) 2.6 % 0-5 [facility] Glucose [Mass/Vol] 143 mg/dL 74-106 [facility] Comment on above: Fasting Glucose resu lt greater than or equal to 126 mg/dL suggests DIABETES MELLITUS per A.D.A. criteria. Neutrophils (Bld) [#/Vol] 5.0 10*3/uL 2.0-7.7 [facility] Neutrophils/100 WBC (Bld) 64.2 % 47-70 [facility] Potassium [Moles/Vol] 4.5 mmol/L 3.5-5.1 [facility] Protein [Mass/Vol] 7.0 g/dL 6.4-8.2 [facility] Sodium [Moles/Vol] 138 mmol/L 136-145 [facility] WBC (Bld) [#/Vol] 7.8 10*3/uL 4.4-11.0 [facility] Blood erythrocytes count (nu mber/volume)Ordered By: Chintan Saucedo on 02-05-2023 RBC (Bld) [#/Vol] 4.16 10*6/uL 4.2-5.4 [facility] Blood hemoglobin measurement (mass/volume)Ordered By: Chintan Saucedo on 02-05-2023 Hemoglobin (Bld) [Mass/Vol] 13.7 g/dL 12.0-15.0 [facility] Blood lymphocytes/100 leukoc ytesOrdered By: Chintan Saucedo on 02-05-2023 Lymphocytes/100 WBC (Bld) 24.9 % 19-41 [facility] Blood monocytes/100 leukocyt esOrdered By: Chintan Saucedo on 02-05-2023 Monocytes/100 WBC (Bld) 7.5 % 0-10 [facility] Blood platelet mean volumeOr dered By: Chintan Saucedo on 02-05-2023 Platelet mean volume (Bld) [Entitic vol] 10.2 fL 6.2-12.0 [facility] Determination of erythrocyte mean corpuscular volume (MCV)Ordered By: Chintan Saucedo on 02-05-2023 MCV (RBC) [Entitic vol] 96.9 fL 81-99 [facility] Erythrocyte sedimentation ra teOrdered By: Chintan Saucedo on 02-05-2023 ESR (Bld) [Velocity] 4 mm/h 0-30 [facility] Hematocrit Auto (Bld) [Volum e fraction]Ordered By: Chintan Saucedo on 02-05-2023 Hematocrit (Bld) [Volume fraction] 40.3 % 37-47 [facility] Laboratory - Chemistry and C hemistry - challengeOrdered By: Chintan Saucedo on 02-05-2023 ALP [Catalytic activity/Vol] 112 U/L 45-117 [facility] ALT [Catalytic activity/Vol] 55 U/L 13-56 [facility] CO2 [Moles/Vol] 21.0 mmol/L 21.0-32.0 [facility] Cobalamin (Vitamin B12) [Mass/Vol] 1555 pg/mL 211-911 [facility] Globulin (S) [Mass/Vol] 3.2 g/dL 2.2-4.2 [facility] Urea nitrogen/Creatinine [Mass ratio] 23.4 mg/mg 10-20 [facility] Laboratory - Hematology and Cell countsOrdered By: Chintan Saucedo on 02-05-2023 Erythrocyte distribution width (RBC) [Entitic vol] 41.1 fL 35.1-43.9 [facility] Erythrocyte distribution width (RBC) [Ratio] 11.6 % 11.6-14.6 [facility] Immature granulocytes/100 WBC (Bld) 0.400 % 0.0-0.9 [facility] Comment on above: IG% - Immature Granu locytes (promyelocytes, myelocytes and metamyelocytes) > 1% indicates that a LEFT SHIFT is Present. MCH (RBC) [Entitic mass] 32.9 pg 27.0-32.0 [facility] Nucleated RBC/100 WBC (Bld) [Ratio] 0 % 0-5 [facility] MCHC Auto (RBC) [Mass/Vol]Or dered By: Chintan Saucedo on 02-05-2023 MCHC (RBC) [Mass/Vol] 34.0 g/dL 32-36 [facility] No Panel InformationOrdered By: Chintan Saucedo on 02-05-2023 Anti-Nuclear Antibody Screen Negative Negative [facility] Comment on above: Performed at: [employer] [facility] [employer] [address] [id number] Director: Darin Clarke PhD, Phone: [phone] Estimated GFR (MDRD) Amer 80 mL/min >60 [facility] Comment on above: GFR Calc Estimated GFR (MDRD) Non-Af Amer 66 mL/min >60 [facility] Comment on above: Non- GFR Calc Thyroid Stimulating Hormone (TSH) 0.67 uIU/mL 0.358-3.74 [facility] Platelets bldOrdered By: Selena Saucedo on 02-05-2023 Platelets (Bld) [#/Vol] 197 10*3/uL 150-450 [facility] Serum or plasma C reactive p rotein measurement (mass/volume)Ordered By: Chintan Saucedo on 02-05-2023 CRP [Mass/Vol] mg/L 0.0-3.0 [facility] Comment on above: C-Reactive Protein ( CRP) provides useful information for thediagnosis, therapy and monitoring of inflammatory processesand associated diseases. For the evaluation of Relative Riskfor Cardiovascular Disease, a High Sensitivity CRP (HSCRP)should be ordered. Serum or plasma albumin carol urement (mass/volume)Ordered By: Chintan Saucedo on 02-05-2023 Albumin [Mass/Vol] 3.8 g/dL 3.2-5.0 [facility] Serum or plasma albumin/glob ulin mass ratioOrdered By: Chintan Saucedo on 02-05-2023 Albumin/Globulin [Mass ratio] 1.2 {ratio} 0.9-2.4 [facility] Serum or plasma calcium carol urement (mass/volume)Ordered By: Chintan Saucedo on 02-05-2023 Calcium [Mass/Vol] 9.0 mg/dL 8.5-10.1 [facility] Serum or plasma creatinine m easurement (mass/volume)Ordered By: Chintan Saucedo on 02-05-2023 Creatinine [Mass/Vol] 0.90 mg/dL 0.55-1.02 [facility] Comment on above: The validity of the calculated GFR & GFRAA in patients over 70 years has not been determined. Clinical correlation is essential. Serum or plasma ferritin rosa surement (mass/volume)Ordered By: Chintan Saucedo on 02-05-2023 Ferritin [Mass/Vol] 71 ng/mL 8-252 [facility] Serum or plasma folate measu rement (mass/volume)Ordered By: Chintan Saucedo on 02-05-2023 Folate [Mass/Vol] 32.10 ng/mL 3.1-55.4 [facility] Comment on above: Slight Hemolysis, Re sult may be falsely increased. Serum or plasma urea nitroge n measurement (mass/volume)Ordered By: Chintan Saucedo on 02-05-2023 Urea nitrogen [Mass/Vol] 21 mg/dL 7-18 [facility] Thin prep Papanicolaou smear with manual screeningOrdered By: Chintan Saucedo on 02-05-2023 Thin prep Papanicolaou smear with manual screening 28 U/L 15-37 [facility] Thin prep Papanicolaou smear with manual screening 9 5-15 [facility] Basophil percentageOrdered B y: Francesca Orr on 12-14-2022 Cholesterol [Mass/Vol] 131 mg/dL <[address] [facility] Comment on above: <200 mg/dL Desirable 200-240 mg/dL Borderline >240 mg/dL High Risk Triglyceride [Mass/Vol] 378 mg/dL <199 [facility] Comment on above: The drugs N-Acetylcy steine and Metamizole may falsely depress this assay.Serum Triglycerides Reference Interval Normal <150 mg/dL Borderline high 150 - 199 mg/dL High 200 - 499 mg/dL Very High > or = 500 mg/dL No Panel InformationOrdered By: Francesca Orr on 12-14-2022 Urine Microalbumin/Creatinine Ratio 12.9 mg/g CRE <30 [facility] Serum or plasma cholesterol in HDL measurement (mass/volume)Ordered By: Francesca Orr on 12-14-2022 Cholesterol in HDL [Mass/Vol] 35 mg/dL >40 [facility] Comment on above: The drugs N-Acetylcy steine and Metamizole may falsely depress this assay. Reference Range HDL <40 mg/dL Low HDL Cholesterol HDL >or= 60 mg/dL High HDL Cholesterol Serum or plasma cholesterol in VLDL measurement (mass/volume)Ordered By: Francesca Orr on 12-14-2022 Cholesterol in VLDL [Mass/Vol] 76 mg/dL 5-40 [facility] Serum or plasma low density lipoprotein (LDL) cholesterol measurement (mass/volume)Ordered By: Francesca Orr on 12-14-2022 Cholesterol in LDL [Mass/Vol] 20 mg/dL 0-130 [facility] Thin prep Papanicolaou smear with manual screeningOrdered By: Francesca Orr on 12-14-2022 Thin prep Papanicolaou smear with manual screening 6.9 mg/L NO RANGE EST. [facility] Urine creatinine measurement (mass/volume)Ordered By: Francesca Orr on 12-14-2022 Creatinine (U) [Mass/Vol] 53.90 mg/dL NO RANGE EST. [facility] Laboratory - Hematology and Cell countson 12-12-2022 HbA1c (Bld) [Mass fraction] 7.5 % 4.2-6.3 [facility] 11-12-2022 [facility] HNO ID: [id number] Author: Mammography Coordinator Service: ? Author Type: Physician Type: Letter Filed: 11/13/2022 11:31 PM Note Text: November 12, 2022 PID: [id number] Isabel Glass [address] [place] [address] Dear Ms. Glass, We are pleased to [...] report will be kept on file at [facility] as part of your permanent medical record and are available for your continuing care. Thank you for allowing us to help in meeting your health care needs. Sincerely, Dr. Hill Interpreting Radiologist [facility] (Normal over 40) Normal [facility] SCREENING W TOMOon 11-09 ALICE SCREENING W NADEGE * * *Final Report* * * DATE OF EXAM: Nov 09 2022 8:27AM WRW [id number] - ALICE SCREENING W NADEGE / PROCEDURE REASON: z12.39 * * * * Physician Interpretation * * * * RESULT: #[id number] - ALICE SCREENING W NADEGE BILATERAL DIGITAL [...] dated: 11/28/2018 mammogram and 06/14/2017 mammogram - [facility]. The tissue of both breasts is predominantly fatty. No significant masses, calcifications, or other findings are seen in either breast. There has been no significant interval change. IMPRESSION: NEGATIVE There is no mammographic evidence of malignancy. A 1 year screening mammogram is recommended. Kimmy molina/christoph:11/12/2022 07:54:21 Tube Winder(s): Dayanna Max, [facility] letter sent: Normal over 40 Mammogram [...] Health, Family Medicine, and Medical/Surgical Oncology, the [facility] has carefully reviewed the data [...] their providers when to stop screening mammograms. Plant Accountant: Christoph Transcribe Date/Time: Nov 09 2022 2:11P Dictated by: KIMMY HILL MD This examination was interpreted and the report reviewed and electronically signed by: KIMMY HILL MD on Nov 12 2022 7:54AM EST [id number] Normal [facility] Absolute lymphocyte countOrd ered By: Dr. Camacho on 10-29-2022 Lymphocytes Auto (Unsp spec) [#/Vol] 1.79 10*3/uL 0.83-4.51 [facility] Basophil percentageOrdered B y: Dr. Camacho on 10-29-2022 Basophil percentage 25-50 SEEN /hpf 0-5 [facility] Basophils/100 WBC (Bld) 0.6 % 0-1 [facility] Bilirubin [Mass/Vol] 0.90 mg/dL 0.20-1.00 [facility] Comment on above: For patients on eltr ombopag therapy, use of Dimension Girard TBIL is not recommended. Chloride [Moles/Vol] 112 mmol/L 98-107 [facility] Eosinophils/100 WBC (Bld) 5.1 % 0-5 [facility] Glucose [Mass/Vol] 215 mg/dL 74-106 [facility] Comment on above: Glucose result great er than or equal to 200 mg/dLsuggests DIABETES MELLITUS per A.D.A. criteria. Neutrophils (Bld) [#/Vol] 3.7 10*3/uL 2.0-7.7 [facility] Neutrophils/100 WBC (Bld) 57.4 % 47-70 [facility] Potassium [Moles/Vol] 4.8 mmol/L 3.5-5.1 [facility] Protein [Mass/Vol] 6.7 g/dL 6.4-8.2 [facility] Sodium [Moles/Vol] 140 mmol/L 136-145 [facility] WBC (Bld) [#/Vol] 6.5 10*3/uL 4.4-11.0 [facility] Bilirubin Test strip Ql (U)O rdered By: Dr. Camacho on 10-29-2022 Bilirubin Ql (U) Negative Negative [facility] Blood erythrocytes count (nu mber/volume)Ordered By: Dr. Camacho on 10-29-2022 RBC (Bld) [#/Vol] 4.07 10*6/uL 4.2-5.4 [facility] Blood hemoglobin measurement (mass/volume)Ordered By: Dr. Camacho on 10-29-2022 Hemoglobin (Bld) [Mass/Vol] 13.4 g/dL 12.0-15.0 [facility] Blood lymphocytes/100 leukoc ytesOrdered By: Dr. Camacho on 10-29-2022 Lymphocytes/100 WBC (Bld) 27.8 % 19-41 [facility] Blood monocytes/100 leukocyt esOrdered By: Dr. Camacho on 10-29-2022 Monocytes/100 WBC (Bld) 8.8 % 0-10 [facility] Blood platelet mean volumeOr dered By: Dr. Camacho on 10-29-2022 Platelet mean volume (Bld) [Entitic vol] 9.6 fL 6.2-12.0 [facility] Determination of erythrocyte mean corpuscular volume (MCV)Ordered By: Dr. Camacho on 10-29-2022 MCV (RBC) [Entitic vol] 99.5 fL 81-99 [facility] Hematocrit Auto (Bld) [Volum e fraction]Ordered By: Dr. Camacho on 10-29-2022 Hematocrit (Bld) [Volume fraction] 40.5 % 37-47 [facility] Ketones Test strip Ql (U)Ord ered By: Dr. Camacho on 10-29-2022 Ketones Ql (U) Negative Negative [facility] Laboratory - Chemistry and C hemistry - challengeOrdered By: Dr. Camacho on 10-29-2022 ALP [Catalytic activity/Vol] 91 U/L 45-117 [facility] ALT [Catalytic activity/Vol] 45 U/L 13-56 [facility] CO2 [Moles/Vol] 23.0 mmol/L 21.0-32.0 [facility] Globulin (S) [Mass/Vol] 2.9 g/dL 2.2-4.2 [facility] Urea nitrogen/Creatinine [Mass ratio] 29.9 mg/mg 10-20 [facility] Laboratory - Hematology and Cell countsOrdered By: Dr. Camacho on 10-29-2022 Erythrocyte distribution width (RBC) [Entitic vol] 45.8 fL 35.1-43.9 [facility] Erythrocyte distribution width (RBC) [Ratio] 12.5 % 11.6-14.6 [facility] Immature granulocytes/100 WBC (Bld) 0.300 % 0.0-0.9 [facility] Comment on above: IG% - Immature Granu locytes (promyelocytes, myelocytes and metamyelocytes) > 1% indicates that a LEFT SHIFT is Present. MCH (RBC) [Entitic mass] 32.9 pg 27.0-32.0 [facility] Nucleated RBC/100 WBC (Bld) [Ratio] 0 % 0-5 [facility] MCHC Auto (RBC) [Mass/Vol]Or dered By: Dr. Camacho on 10-29-2022 MCHC (RBC) [Mass/Vol] 33.1 g/dL 32-36 [facility] Mucus LM Ql (Urine sed)Order ed By: Dr. Camacho on 10-29-2022 Mucus Ql (Urine sed) 0 SEEN /hpf [facility] Nitrite Test strip Ql (U)Ord ered By: Dr. Camacho on 10-29-2022 Nitrite Ql (U) Negative Negative [facility] No Panel InformationOrdered By: Dr. Camacho on 10-29-2022 Estimated GFR (MDRD) Amer 73 mL/min >60 [facility] Comment on above: GFR Calc Estimated GFR (MDRD) Non-Af Amer 61 mL/min >60 [facility] Comment on above: Non- GFR Calc Thyroid Stimulating Hormone (TSH) 0.70 uIU/mL 0.358-3.74 [facility] Vitamin D 25-Hydroxy 43.6 ng/mL [facility] Comment on above: Vitamin D 25(OH) Sta tus Range Deficiency <20 ng/mL (50nmol/L) Insufficiency 20 - 30 ng/mL (50 - 75 nmol/L) Sufficiency 30 - 100 ng/mL (75 - 250 nmol/L) Toxicity >100 ng/mL (>250 nmol/L) Platelets bldOrdered By: Dr. Camacho on 10-29-2022 Platelets (Bld) [#/Vol] 160 10*3/uL 150-450 [facility] Protein Test strip Ql (U)Ord ered By: Dr. Camacho on 10-29-2022 Protein Ql (U) 15 mg/dl Negative [facility] Serum or plasma albumin carol urement (mass/volume)Ordered By: Dr. Camacho on 10-29-2022 Albumin [Mass/Vol] 3.8 g/dL 3.2-5.0 [facility] Serum or plasma albumin/glob ulin mass ratioOrdered By: Dr. Camacho on 10-29-2022 Albumin/Globulin [Mass ratio] 1.3 {ratio} 0.9-2.4 [facility] Serum or plasma calcium carol urement (mass/volume)Ordered By: Dr. Camacho on 10-29-2022 Calcium [Mass/Vol] 9.3 mg/dL 8.5-10.1 [facility] Serum or plasma creatinine m easurement (mass/volume)Ordered By: Dr. Camacho on 10-29-2022 Creatinine [Mass/Vol] 0.97 mg/dL 0.55-1.02 [facility] Comment on above: The validity of the calculated GFR & GFRAA in patients over 70 years has not been determined. Clinical correlation is essential. Serum or plasma urea nitroge n measurement (mass/volume)Ordered By: Dr. Camacho on 10-29-2022 Urea nitrogen [Mass/Vol] 29 mg/dL 7-18 [facility] Squamous epithelial cells de tection in urine sediment by light microscopyOrdered By: Dr. Camacho on 10-29-2022 Epithelial cells.squamous LM Ql (Urine sed) 0-5 SEEN /hpf 5-10 [facility] Thin prep Papanicolaou smear with manual screeningOrdered By: Dr. Camacho on 10-29-2022 Thin prep Papanicolaou smear with manual screening 21 U/L 15-37 [facility] Thin prep Papanicolaou smear with manual screening 5 5-15 [facility] Urine blood detectionOrdered By: Dr. Camacho on 10-29-2022 RBC Ql (U) Negative Negative [facility] RBC Ql (U) 0 SEEN /hpf 0-5 [facility] Urine clarityOrdered By: Dr. Camacho on 10-29-2022 Clarity (U) Sl. Cloudy Clear [facility] Urine color determinationOrd ered By: Dr. Camacho on 10-29-2022 Color (U) Yellow Yellow [facility] Urine glucose detectionOrder ed By: Dr. Camacho on 10-29-2022 Glucose Ql (U) Normal mg/dl Normal [facility] Urine leukocyte esterase det ection by dipstickOrdered By: Dr. Camacho on 10-29-2022 Leukocyte esterase Test strip Ql (U) 500 /ul Negative [facility] Urine pHOrdered By: Dr. Camacho on 10-29-2022 pH (U) 5.0 [pH] 5.0 - 8.0 [facility] Urine sediment bacteria coun t by microscopy (number/high power field)Ordered By: Dr. Camacho on 10-29-2022 Bacteria LM.HPF (Urine sed) [#/Area] 0 /[HPF] None Seen [facility] Urine specific gravity measu rementOrdered By: Dr. Camacho on 10-29-2022 Specific gravity (U) [Rel density] 1.025 1.002-1.030 [facility] Urobilinogen Auto test strip Ql (U)Ordered By: Dr. Camacho on 10-29-2022 Urobilinogen Ql (U) Normal mg/dl Normal [facility] Laboratory - Drug toxicology Ordered By: Dr. Lee on 10-26-2022 Amphetamines Ql (U) Negative <1000 ng/mL [facility] Benzodiazepines Ql (U) Negative < 200 ng/mL [facility] Cannabinoids Screen Ql (U) Negative < 50 ng/mL [facility] Cocaine Ql (U) Negative < 300 ng/mL [facility] Opiates Ql (U) Negative < 300 ng/mL [facility] No Panel InformationOrdered By: Dr. Lee on 10-26-2022 MDMA (Ecstasy) Screen Negative < 500 ng/mL [facility] Urine Barbiturates Screen Negative < 200 ng/mL [facility] Urine Drug Screen Comment [facility] Comment on above: CONFIRMATORY TESTING FOR ALL [...] Urine Methadone Screen Negative < 300 ng/mL [facility] Urine phencyclidine (PCP) de tectionOrdered By: Dr. Lee on 10-26-2022 Phencyclidine Ql (U) Negative < 25 ng/mL [facility] COVID-19 virus antigen assay Ordered By: Dr. Camacho on 07-16-2022 SARS-CoV-2 (COVID-19) Ag IA.rapid Ql (Resp) Not detected Not Detect [facility] Comment on above: Normal Reference Ran ge: [...] 07-16-2022 Influenza Types A,B Direct FA (RYAN) [facility] RSV Ag EIAOrdered By: Dr. Alyssa forrester on 07-16-2022 RSV Ag Immune stain Ql (Tiss) [facility] Laboratory - Hematology and Cell countson 07-09-2022 HbA1c (Bld) [Mass fraction] 7.1 % [facility] Absolute lymphocyte countOrd ered By: Dr. Camacho on 04-24-2022 Lymphocytes Auto (Unsp spec) [#/Vol] 2.37 10*3/uL 0.83-4.51 [facility] Basophil percentageOrdered B y: Dr. Camacho on 04-24-2022 Basophils/100 WBC (Bld) 0.4 % 0-1 [facility] Bilirubin [Mass/Vol] 0.80 mg/dL 0.20-1.00 [facility] Comment on above: For patients on eltr ombopag therapy, use of Dimension Girard TBIL is not recommended. Chloride [Moles/Vol] 104 mmol/L 98-107 [facility] Eosinophils/100 WBC (Bld) 2.9 % 0-5 [facility] Glucose [Mass/Vol] 199 mg/dL 74-106 [facility] Comment on above: Fasting Glucose resu lt greater than or equal to 126 mg/dL suggests DIABETES MELLITUS per A.D.A. criteria. Neutrophils (Bld) [#/Vol] 4.3 10*3/uL 2.0-7.7 [facility] Neutrophils/100 WBC (Bld) 57.3 % 47-70 [facility] Potassium [Moles/Vol] 4.1 mmol/L 3.5-5.1 [facility] Protein [Mass/Vol] 6.9 g/dL 6.4-8.2 [facility] Sodium [Moles/Vol] 137 mmol/L 136-145 [facility] WBC (Bld) [#/Vol] 7.5 10*3/uL 4.4-11.0 [facility] Blood erythrocytes count (nu mber/volume)Ordered By: Dr. Camacho on 04-24-2022 RBC (Bld) [#/Vol] 4.69 10*6/uL 4.2-5.4 [facility] Blood hemoglobin measurement (mass/volume)Ordered By: Dr. Camacho on 04-24-2022 Hemoglobin (Bld) [Mass/Vol] 14.7 g/dL 12.0-15.0 [facility] Blood lymphocytes/100 leukoc ytesOrdered By: Dr. Camacho on 04-24-2022 Lymphocytes/100 WBC (Bld) 31.4 % 19-41 [facility] Blood monocytes/100 leukocyt esOrdered By: Dr. Camacho on 04-24-2022 Monocytes/100 WBC (Bld) 7.7 % 0-10 [facility] Blood platelet mean volumeOr dered By: Dr. Camacho on 04-24-2022 Platelet mean volume (Bld) [Entitic vol] 10.0 fL 6.2-12.0 [facility] Determination of erythrocyte mean corpuscular volume (MCV)Ordered By: Dr. Camacho on 04-24-2022 MCV (RBC) [Entitic vol] 93.8 fL 81-99 [facility] Hematocrit Auto (Bld) [Volum e fraction]Ordered By: Dr. Camacho on 04-24-2022 Hematocrit (Bld) [Volume fraction] 44.0 % 37-47 [facility] Laboratory - Chemistry and C hemistry - challengeOrdered By: Dr. Camacho on 04-24-2022 ALP [Catalytic activity/Vol] 88 U/L 45-117 [facility] ALT [Catalytic activity/Vol] 36 U/L 13-56 [facility] CO2 [Moles/Vol] 28.0 mmol/L 21.0-32.0 [facility] Globulin (S) [Mass/Vol] 3.0 g/dL 2.2-4.2 [facility] Urea nitrogen/Creatinine [Mass ratio] 37.7 mg/mg 10-20 [facility] Laboratory - Hematology and Cell countsOrdered By: Dr. Camacho on 04-24-2022 Erythrocyte distribution width (RBC) [Entitic vol] 40.2 fL 35.1-43.9 [facility] Erythrocyte distribution width (RBC) [Ratio] 11.8 % 11.6-14.6 [facility] Immature granulocytes/100 WBC (Bld) 0.300 % 0.0-0.9 [facility] Comment on above: IG% - Immature Granu locytes (promyelocytes, myelocytes and metamyelocytes) > 1% indicates that a LEFT SHIFT is Present. MCH (RBC) [Entitic mass] 31.3 pg 27.0-32.0 [facility] Nucleated RBC/100 WBC (Bld) [Ratio] 0 % 0-5 [facility] MCHC Auto (RBC) [Mass/Vol]Or dered By: Dr. Camacho on 04-24-2022 MCHC (RBC) [Mass/Vol] 33.4 g/dL 32-36 [facility] No Panel InformationOrdered By: Dr. Camacho on 04-24-2022 Estimated GFR (MDRD) Amer 93 mL/min >60 [facility] Comment on above: GFR Calc Estimated GFR (MDRD) Non-Af Amer 77 mL/min >60 [facility] Comment on above: Non- GFR Calc Thyroid Stimulating Hormone (TSH) 2.07 uIU/mL 0.358-3.74 [facility] Vitamin D 25-Hydroxy 20.7 ng/mL [facility] Comment on above: Vitamin D 25(OH) Sta tus Range Deficiency <20 ng/mL (50nmol/L) Insufficiency 20 - 30 ng/mL (50 - 75 nmol/L) Sufficiency 30 - 100 ng/mL (75 - 250 nmol/L) Toxicity >100 ng/mL (>250 nmol/L) Platelets bldOrdered By: Dr. Camacho on 04-24-2022 Platelets (Bld) [#/Vol] 194 10*3/uL 150-450 [facility] Serum or plasma albumin carol urement (mass/volume)Ordered By: Dr. Camacho on 04-24-2022 Albumin [Mass/Vol] 3.9 g/dL 3.2-5.0 [facility] Serum or plasma albumin/glob ulin mass ratioOrdered By: Dr. Camacho on 04-24-2022 Albumin/Globulin [Mass ratio] 1.3 {ratio} 0.9-2.4 [facility] Serum or plasma calcium carol urement (mass/volume)Ordered By: Dr. Camacho on 04-24-2022 Calcium [Mass/Vol] 10.2 mg/dL 8.5-10.1 [facility] Serum or plasma creatinine m easurement (mass/volume)Ordered By: Dr. Camacho on 04-24-2022 Creatinine [Mass/Vol] 0.80 mg/dL 0.55-1.02 [facility] Comment on above: The validity of the calculated GFR & GFRAA in patients over 70 years has not been determined. Clinical correlation is essential. Serum or plasma urea nitroge n measurement (mass/volume)Ordered By: Dr. Camacho on 04-24-2022 Urea nitrogen [Mass/Vol] 30 mg/dL 7-18 [facility] Thin prep Papanicolaou smear with manual screeningOrdered By: Dr. Camacho on 04-24-2022 Thin prep Papanicolaou smear with manual screening 16 U/L 15-37 [facility] Thin prep Papanicolaou smear with manual screening 5 5-15 [facility] Absolute lymphocyte counton 10-23-2021 Lymphocytes Auto (Unsp spec) [#/Vol] 2.08 10*3/uL 0.83-4.51 [facility] Work Phone: Basophil percentageon 2021 Basophils/100 WBC (Bld) 0.6 % 0-1 [facility] Work Phone: Bilirubin [Mass/Vol] 0.80 mg/dL 0.20-1.00 [facility] Work Phone: Comment on above: For patients on eltr ombopag therapy, use of Dimension Girard TBIL is not recommended. Chloride [Moles/Vol] 106 mmol/L 98-107 [facility] Work Phone: Eosinophils/100 WBC (Bld) 3.7 % 0-5 [facility] Work Phone: Glucose [Mass/Vol] 163 mg/dL 74-106 [facility] Work Phone: [phone] Comment on above: Fasting Glucose resu lt greater than or equal to 126 mg/dL suggests DIABETES MELLITUS per A.D.A. criteria. Neutrophils (Bld) [#/Vol] 3.5 10*3/uL 2.0-7.7 [facility] Work Phone: [phone] Neutrophils/100 WBC (Bld) 54.2 % 47-70 [facility] Work Phone: Potassium [Moles/Vol] 4.5 mmol/L 3.5-5.1 [facility] Work Phone: Protein [Mass/Vol] 7.1 g/dL 6.4-8.2 [facility] Work Phone: Sodium [Moles/Vol] 137 mmol/L 136-145 [facility] Work Phone: WBC (Bld) [#/Vol] 6.5 10*3/uL 4.4-11.0 [facility] Work Phone: [phone] Blood erythrocytes count (nu mber/volume)on 10-23-2021 RBC (Bld) [#/Vol] 4.36 10*6/uL 4.2-5.4 [facility] Work Phone: Blood hemoglobin measurement (mass/volume)on 10-23-2021 Hemoglobin (Bld) [Mass/Vol] 13.4 g/dL 12.0-15.0 [facility] Work Phone: [phone] Blood lymphocytes/100 leukoc yteson 10-23-2021 Lymphocytes/100 WBC (Bld) 32.2 % 19-41 [facility] Work Phone: Blood monocytes/100 leukocyt eson 10-23-2021 Monocytes/100 WBC (Bld) 9.0 % 0-10 [facility] Work Phone: Blood platelet mean volumeon 10-23-2021 Platelet mean volume (Bld) [Entitic vol] 10.1 fL 6.2-12.0 [facility] Work Phone: Determination of erythrocyte mean corpuscular volume (MCV)on 10-23-2021 MCV (RBC) [Entitic vol] 94.0 fL 81-99 [facility] Work Phone: Hematocrit Auto (Bld) [Volum e fraction]on 10-23-2021 Hematocrit (Bld) [Volume fraction] 41.0 % 37-47 [facility] Work Phone: Laboratory - Chemistry and C hemistry - challengeon 10-23-2021 ALP [Catalytic activity/Vol] 92 U/L 45-117 [facility] Work Phone: ALT [Catalytic activity/Vol] 37 U/L 13-56 [facility] Work Phone: CO2 [Moles/Vol] 27.0 mmol/L 21.0-32.0 [facility] Work Phone: Globulin (S) [Mass/Vol] 3.1 g/dL 2.2-4.2 [facility] Work Phone: Urea nitrogen/Creatinine [Mass ratio] 27.9 mg/mg 10-20 [facility] Work Phone: Laboratory - Hematology and Cell countson 10-23-2021 Erythrocyte distribution width (RBC) [Entitic vol] 42.2 fL 35.1-43.9 [facility] Work Phone: Erythrocyte distribution width (RBC) [Ratio] 12.2 % 11.6-14.6 [facility] Work Phone: Immature granulocytes/100 WBC (Bld) 0.300 % 0.0-0.9 [facility] Work Phone: Comment on above: IG% - Immature Granu locytes (promyelocytes, myelocytes and metamyelocytes) > 1% indicates that a LEFT SHIFT is Present. MCH (RBC) [Entitic mass] 30.7 pg 27.0-32.0 [facility] Work Phone: Nucleated RBC/100 WBC (Bld) [Ratio] 0 % 0-5 [facility] Work Phone: MCHC Auto (RBC) [Mass/Vol]on 10-23-2021 MCHC (RBC) [Mass/Vol] 32.7 g/dL 32-36 [facility] Work Phone: No Panel Informationon 10-23 Estimated GFR (MDRD) Amer 85 mL/min >60 [facility] Work Phone: Comment on above: GFR Calc Estimated GFR (MDRD) Non-Af Amer 70 mL/min >60 [facility] Work Phone: Comment on above: Non- GFR Calc Thyroid Stimulating Hormone (TSH) 0.71 uIU/mL 0.358-3.74 [facility] Work Phone: Vitamin D 25-Hydroxy 21.0 ng/mL [facility] Work Phone: Comment on above: Vitamin D 25(OH) Sta tus Range Deficiency <20 ng/mL (50nmol/L) Insufficiency 20 - 30 ng/mL (50 - 75 nmol/L) Sufficiency 30 - 100 ng/mL (75 - 250 nmol/L) Toxicity >100 ng/mL (>250 nmol/L) Platelets bldon 10-23-2021 Platelets (Bld) [#/Vol] 189 10*3/uL 150-450 [facility] Work Phone: Serum or plasma albumin carol urement (mass/volume)on 10-23-2021 Albumin [Mass/Vol] 4.0 g/dL 3.2-5.0 [facility] Work Phone: Serum or plasma albumin/glob ulin mass ratioon 10-23-2021 Albumin/Globulin [Mass ratio] 1.3 {ratio} 0.9-2.4 [facility] Work Phone: Serum or plasma calcium carol urement (mass/volume)on 10-23-2021 Calcium [Mass/Vol] 9.3 mg/dL 8.5-10.1 [facility] Work Phone: Serum or plasma creatinine m easurement (mass/volume)on 10-23-2021 Creatinine [Mass/Vol] 0.86 mg/dL 0.55-1.02 [facility] Work Phone: Comment on above: The validity of the calculated GFR & GFRAA in patients over 70 years has not been determined. Clinical correlation is essential. Serum or plasma urea nitroge n measurement (mass/volume)on 10-23-2021 Urea nitrogen [Mass/Vol] 24 mg/dL 7-18 [facility] Work Phone: Thin prep Papanicolaou smear with manual screeningon 10-23-2021 Thin prep Papanicolaou smear with manual screening 24 U/L 15-37 [facility] Work Phone: Thin prep Papanicolaou smear with manual screening 4 5-15 [facility] Work Phone: Absolute lymphocyte counton 07-05-2021 Lymphocytes Auto (Unsp spec) [#/Vol] 1.73 10*3/uL 0.83-4.51 [facility] Work Phone: Basophil percentageon 2021 Basophils/100 WBC (Bld) 0.5 % 0-1 [facility] Work Phone: Bilirubin [Mass/Vol] 0.60 mg/dL 0.20-1.00 [facility] Work Phone: Comment on above: For patients on eltr ombopag therapy, use of Dimension Girard TBIL is not recommended. Chloride [Moles/Vol] 112 mmol/L 98-107 [facility] Work Phone: Eosinophils/100 WBC (Bld) 3.3 % 0-5 [facility] Work Phone: Glucose [Mass/Vol] 169 mg/dL 74-106 [facility] Work Phone: Comment on above: Fasting Glucose resu lt greater than or equal to 126 mg/dL suggests DIABETES MELLITUS per A.D.A. criteria. Neutrophils (Bld) [#/Vol] 3.8 10*3/uL 2.0-7.7 [facility] Work Phone: Neutrophils/100 WBC (Bld) 60.7 % 47-70 [facility] Work Phone: Potassium [Moles/Vol] 4.4 mmol/L 3.5-5.1 [facility] Work Phone: Protein [Mass/Vol] 6.7 g/dL 6.4-8.2 [facility] Work Phone: Sodium [Moles/Vol] 142 mmol/L 136-145 [facility] Work Phone: WBC (Bld) [#/Vol] 6.3 10*3/uL 4.4-11.0 [facility] Work Phone: Blood erythrocytes count (nu mber/volume)on 07-05-2021 RBC (Bld) [#/Vol] 4.47 10*6/uL 4.2-5.4 [facility] Work Phone: Blood hemoglobin measurement (mass/volume)on 07-05-2021 Hemoglobin (Bld) [Mass/Vol] 14.1 g/dL 12.0-15.0 [facility] Work Phone: Blood lymphocytes/100 leukoc yteson 07-05-2021 Lymphocytes/100 WBC (Bld) 27.5 % 19-41 [facility] Work Phone: Blood monocytes/100 leukocyt eson 07-05-2021 Monocytes/100 WBC (Bld) 7.5 % 0-10 [facility] Work Phone: Blood platelet mean volumeon 07-05-2021 Platelet mean volume (Bld) [Entitic vol] 10.0 fL 6.2-12.0 [facility] Work Phone: Determination of erythrocyte mean corpuscular volume (MCV)on 07-05-2021 MCV (RBC) [Entitic vol] 92.8 fL 81-99 [facility] Work Phone: Hematocrit Auto (Bld) [Volum e fraction]on 07-05-2021 Hematocrit (Bld) [Volume fraction] 41.5 % 37-47 [facility] Work Phone: Laboratory - Chemistry and C hemistry - challengeon 07-05-2021 ALP [Catalytic activity/Vol] 87 U/L 45-117 [facility] Work Phone: ALT [Catalytic activity/Vol] 33 U/L 13-56 [facility] Work Phone: CO2 [Moles/Vol] 25.0 mmol/L 21.0-32.0 [facility] Work Phone: Globulin (S) [Mass/Vol] 3.1 g/dL 2.2-4.2 [facility] Work Phone: Urea nitrogen/Creatinine [Mass ratio] 24.1 mg/mg 10-20 [facility] Work Phone: Laboratory - Hematology and Cell countson 07-05-2021 Erythrocyte distribution width (RBC) [Entitic vol] 42.5 fL 35.1-43.9 [facility] Work Phone: Erythrocyte distribution width (RBC) [Ratio] 12.5 % 11.6-14.6 [facility] Work Phone: Immature granulocytes/100 WBC (Bld) 0.500 % 0.0-0.9 [facility] Work Phone: Comment on above: IG% - Immature Granu locytes (promyelocytes, myelocytes and metamyelocytes) > 1% indicates that a LEFT SHIFT is Present. MCH (RBC) [Entitic mass] 31.5 pg 27.0-32.0 [facility] Work Phone: Nucleated RBC/100 WBC (Bld) [Ratio] 0 % 0-5 [facility] Work Phone: MCHC Auto (RBC) [Mass/Vol]on 07-05-2021 MCHC (RBC) [Mass/Vol] 34.0 g/dL 32-36 [facility] Work Phone: No Panel Informationon 07-05 Estimated GFR (MDRD) Amer 72 mL/min >60 [facility] Work Phone: Comment on above: GFR Calc Estimated GFR (MDRD) Non-Af Amer 59 mL/min >60 [facility] Work Phone: Comment on above: Non- GFR Calc Thyroid Stimulating Hormone (TSH) 0.75 uIU/mL 0.358-3.74 [facility] Work Phone: Vitamin D 25-Hydroxy 18.9 ng/mL [facility] Work Phone: Comment on above: Vitamin D 25(OH) Sta tus Range Deficiency <20 ng/mL (50nmol/L) Insufficiency 20 - 30 ng/mL (50 - 75 nmol/L) Sufficiency 30 - 100 ng/mL (75 - 250 nmol/L) Toxicity >100 ng/mL (>250 nmol/L) Platelets bldon 07-05-2021 Platelets (Bld) [#/Vol] 191 10*3/uL 150-450 [facility] Work Phone: Serum or plasma albumin carol urement (mass/volume)on 07-05-2021 Albumin [Mass/Vol] 3.6 g/dL 3.2-5.0 [facility] Work Phone: Serum or plasma albumin/glob ulin mass ratioon 07-05-2021 Albumin/Globulin [Mass ratio] 1.2 {ratio} 0.9-2.4 [facility] Work Phone: Serum or plasma calcium carol urement (mass/volume)on 07-05-2021 Calcium [Mass/Vol] 9.1 mg/dL 8.5-10.1 [facility] Work Phone: Serum or plasma creatinine m easurement (mass/volume)on 07-05-2021 Creatinine [Mass/Vol] 0.99 mg/dL 0.55-1.02 [facility] Work Phone: Comment on above: The validity of the calculated GFR & GFRAA in patients over 70 years has not been determined. Clinical correlation is essential. Serum or plasma urea nitroge n measurement (mass/volume)on 07-05-2021 Urea nitrogen [Mass/Vol] 24 mg/dL 7-18 [facility] Work Phone: Thin prep Papanicolaou smear with manual screeningon 07-05-2021 Thin prep Papanicolaou smear with manual screening 17 U/L 15-37 [facility] Work Phone: Thin prep Papanicolaou smear with manual screening 5 5-15 [facility] Work Phone: Office Visit: OSAon 02-12-20 17 Fall risk assessment No [facility] Work Phone: Protein mass conc Done [facility] Work Phone: Tobacco smoking status [facility] Never [facility] Work Phone: Tobacco smoking status [facility] Never smoker [facility] Phone: Office Visiton 12-27-2016 Protein mass conc Done [facility] Work Phone: Office Visiton 12-12-2016 Cholesterol in HDL mass conc 39 mg/dL [facility] Work Phone: [phone] Cholesterol in LDL mass conc 19 mg/dL [facility] Work Phone: [phone] Cholesterol mass conc 100 mg/dL [facility] [employer] Work Phone: [phone] Triglyceride mass conc 226 mg/dL [facility] Work Phone: Office Visiton 06-18-2016 Protein mass conc Done [facility] Work Phone: Lab Report: T4 Total, Thyrox inon 06-13-2015 T4 mass conc 10.5 ug/dL 4.8-13.9 [facility] Work Phone: [phone] Lab Report: Thyroid Stim Hor ml (TSH)on 06-13-2015 Thyrotropin Qn 0.93 u[iU]/mL 0.358-3.74 [facility] Work Phone: [phone] Office Visiton 06-13-2015 General cardiovascular disease 10Y risk [#] [place].D'Agost[place] 9 % [facility] Work Phone: [phone] Tobacco smoking status NHIS Never smoker [facility] Work Phone: [phone] Office Visiton 05-31-2014 cardiac risk group [facility] Work Phone: [phone] 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 Anion gap molar conc 13 mmol/L [facility] Work Phone: [phone] Calcium mass conc 9.9 mg/dL [facility] Work Phone: [phone] Chloride molar conc 103 mmol/L [facility] Work Phone: [phone] Cholesterol in HDL mass conc 47 mg/dL [facility] Work Phone: [phone] Cholesterol in LDL mass conc 66 mg/dL [facility] Work Phone: [phone] Cholesterol mass conc 144 mg/dL [facility] Work Phone: [phone] CO2 ppres (BldV) 22 mmol/L [facility] Work Phone: [phone] Creatinine mass conc 0.63 mg/dL [facility] Work Phone: [phone] Glucose mass conc 165 mg/dL High [facility] Work Phone: [phone] Potassium molar conc 4.2 mmol/L [facility] Work Phone: [phone] Sodium molar conc 138 mmol/L [facility] Work Phone: [phone] Triglyceride mass conc 155 mg/dL [facility] Work Phone: [phone] Urea nitrogen mass conc 18 mg/dL [facility] Work Phone: [phone] Vital Signs Date Time Vital Sign Value Performing Clinician Faci lity 03-03-2025 11:45-0400 Body height 162.[address] Chintan Saucedo MD Work Phone: [phone])290-348624 [place] [address] 03-03-2025 11:45-0400 Body mass index (BMI) [Ratio] 26.9 kg/m2 Dr. Chintan Saucedo MD Work Phone: 9(291)958-161624 [place] [address] 03-03-2025 11:45-0400 Body weight 71.[address] Chintan Saucedo MD Work Phone: 7(241)507-860424 [place] [address] 03-03-2025 11:45-0400 Diastolic blood pressure 81 mm[Hg] Dr. Chintan Saucedo MD Work Phone: 6(100)028-993503 [place] [address] 03-03-2025 11:45-0400 Heart rate 86 /min Dr. Chintan Suacedo MD Work Phone: 0(105)419-328603 [place] [address] 03-03-2025 11:45-0400 SaO2% (BldA) [Mass fraction] 98 % Dr. Chintan Saucedo MD Work Phone: 6(236)203-398824 [place] [address] 03-03-2025 11:45-0400 Systolic blood pressure 162 mm[Hg] Dr. Chintan Saucedo MD Work Phone: 0(621)766-293989 [address] 07-01-2023 09:45-0500 Body height 160.[address] Chintan Saucedo Work Phone: 2(100)511-945489 [address] 07-01-2023 09:45-0500 Body mass index (BMI) [Ratio] 29.7 kg/m2 Dr. Chintan Saucedo Work Phone: [facility] 07-01-2023 09:45-0500 Body temperature 97.5 [degF] Dr. Chintan Saucedo Work Phone: 7(118)002-486089 [address] 07-01-2023 09:45-0500 Body weight 76.[address] Chintan Saucedo Work Phone: 1(983)123-189224 [place] [address] 07-01-2023 09:45-0500 Diastolic blood pressure 77 mm[Hg] Dr. Chintan Saucedo Work Phone: 0(972)803-778424 [place] [address] 07-01-2023 09:45-0500 Heart rate 76 /min Dr. Chintan Saucedo Work Phone: [facility] 07-01-2023 09:45-0500 SaO2% (BldA) [Mass fraction] 98 % Dr. Chintan Saucedo Work Phone: [facility] 07-01-2023 09:45-0500 Systolic blood pressure 133 mm[Hg] Dr. Chintan Saucedo Work Phone: [facility] 12-12-2022 09:07-0400 Body height 160.[address] Nish Camacho Work Phone: [facility] 12-12-2022 09:07-0400 Body mass index (BMI) [Ratio] 30.3 kg/m2 Dr. Nish Camacho Work Phone: [facility] 12-12-2022 09:07-0400 Body temperature 98.2 [degF] Dr. Nish Camacho Work Phone: [facility] 12-12-2022 09:07-0400 Body weight 77.[address] Nish Camacho Work Phone: [facility] 12-12-2022 09:07-0400 Diastolic blood pressure 72 mm[Hg] Dr. Nish Camacho Work Phone: [facility] 12-12-2022 09:07-0400 Heart rate 72 /min Dr. Nish Camacho Work Phone: [facility] 12-12-2022 09:07-0400 Respiratory rate 16 /min Dr. Nish Camacho Work Phone: [facility] 12-12-2022 09:07-0400 SaO2% (BldA) [Mass fraction] 96 % Dr. Nish Camacho Work Phone: [facility] 12-12-2022 09:07-0400 Systolic blood pressure 116 mm[Hg] Dr. Nish Camacho Work Phone: [facility] 07-25-2022 13:02-0500 Body height 160.[address] Nish Camacho Work Phone: [facility] 07-25-2022 13:02-0500 Body mass index (BMI) [Ratio] 30.4 kg/m2 Dr. Nish Camacho Work Phone: [facility] 07-25-2022 13:02-0500 Body weight 78.[address] Nish Camacho Work Phone: 2(796)986-960980 [place] [address] 07-25-2022 13:02-0500 Diastolic blood pressure 60 mm[Hg] Dr. Nish Camacho Work Phone: 2(209)947-417709 [place] [address] 07-25-2022 13:02-0500 Heart rate 84 /min Dr. Nish Camacho Work Phone: 2(816)752-140709 [place] [address] 07-25-2022 13:02-0500 Respiratory rate 16 /min Dr. Nish Camacho Work Phone: 4(700)100-848980 [place] [address] 07-25-2022 13:02-0500 Systolic blood pressure 112 mm[Hg] Dr. Nish Camacho Work Phone: 6(561)560-690409 [place] [address] 07-09-2022 13:07-0500 Body height 160.[address] Nish Camacho Work Phone: 1(222)360-718909 [place] [address] 07-09-2022 13:07-0500 Body mass index (BMI) [Ratio] 29.2 kg/m2 Dr. Nish Camacho Work Phone: 9(149)366-576909 [place] [address] 07-09-2022 13:07-0500 Body temperature 96.7 [degF] Dr. Nish Camacho Work Phone: 6(687)224-205809 [place] [address] 07-09-2022 13:07-0500 Body weight 74.[address] Nish Camacho Work Phone: 1(076)508-222180 [place] [address] 07-09-2022 13:07-0500 Diastolic blood pressure 79 mm[Hg] Dr. Nish Camacho Work Phone: 3(796)645-686009 [place] [address] 07-09-2022 13:07-0500 Heart rate 88 /min Dr. Nish Camacho Work Phone: [facility] 07-09-2022 13:07-0500 Respiratory rate 18 /min Dr. Nish Camacho Work Phone: [facility] 07-09-2022 13:07-0500 SaO2% (BldA) [Mass fraction] 97 % Dr. Nish Camacho Work Phone: [facility] 07-09-2022 13:07-0500 Systolic blood pressure 130 mm[Hg] Dr. Nish Camacho Work Phone: [facility] 12-20-2021 01:00-0400 Body temperature 97.9 [degF] [facility] 12-20-2021 01:00-0400 Body weight 76.2 kg [facility] 12-20-2021 01:00-0400 Heart rate 77 /min [facility] 12-20-2021 01:00-0400 SaO2% (BldA) [Mass fraction] 97 % [facility] 11-22-2021 15:26-0400 Body height 157.[address] Nish Camacho Work Phone: [facility] Work Phone: 11-22-2021 15:26-0400 Body mass index (BMI) [Ratio] 31.2 kg/m2 Dr. Nish Camacho Work Phone: [facility] Work Phone: 11-22-2021 15:26-0400 Body weight 77.[address] Nish Camacho Work Phone: [facility] Work Phone: 11-22-2021 15:26-0400 Diastolic blood pressure 78 mm[Hg] Dr. Nish Camacho Work Phone: [facility] Work Phone: 11-22-2021 15:26-0400 Heart rate 88 /min Dr. Nish Camacho Work Phone: [facility] Work Phone: 11-22-2021 15:26-0400 Respiratory rate 16 /min Dr. Nish Camacho Work Phone: [facility] Work Phone: 11-22-2021 15:26-0400 Systolic blood pressure 122 mm[Hg] Dr. Nish Camacho Work Phone: [facility] Work Phone: 02-11-2017 06:44-0400 BMI (Body Mass Index) 23.51 kg/m2 Lilli Jensen LPN [facility] Work Phone: 02-11-2017 06:44-0400 Body Temperature 96.7 [degF] Lillirikki Jensen DENTAL SERVICE CHIEF [facility] Work Phone: 02-11-2017 06:44-0400 BP Diastolic 71 mm[Hg] Lilli Jensen DENTAL SERVICE CHIEF [facility] Work Phone: 02-11-2017 06:44-0400 BP Systolic 117 mm[Hg] Lilli Jensen DENTAL SERVICE CHIEF [facility] Work Phone: 02-11-2017 06:44-0400 Height 162.56 cm Lilli Mikey DENTAL SERVICE CHIEF [facility] Work Phone: 02-11-2017 06:44-0400 Pulse (Heart Rate) 81 /min Lilli Jensen DENTAL SERVICE CHIEF [facility] Work Phone: 02-11-2017 06:44-0400 Respiratory Rate 18 /min Lilli Mikey DENTAL SERVICE CHIEF [facility] Work Phone: 02-11-2017 06:44-0400 Weight 62.14 kg Lilli Jensen LPN [facility] Work Phone: 12-27-2016 13:33-0400 BMI (Body Mass Index) 33.12 kg/m2 [facility] Work Phone: 12-27-2016 13:33-0400 Height 162.56 cm [facility] Work Phone: 12-27-2016 13:33-0400 Pulse (Heart Rate) 84 /min [facility] Work Phone: 12-27-2016 13:33-0400 Respiratory Rate 18 /min [facility] Work Phone: 12-27-2016 13:33-0400 Weight 87.54 kg [facility] Work Phone: 06-18-2016 13:23-0500 BMI (Body Mass Index) 32.27 kg/m2 [facility] Work Phone: 06-18-2016 13:23-0500 BP Diastolic 70 mm[Hg] Harryumi DeFinis [facility] Work Phone: 06-18-2016 13:23-0500 BP Systolic 140 mm[Hg] [facility] Work Phone: 06-18-2016 13:23-0500 BSA (Body Surface Area) 1.91 m2 Isaias DeFinis [facility] Work Phone: 06-18-2016 13:23-0500 Height 162.56 cm Isaias DeFinis [facility] Work Phone: 06-18-2016 13:23-0500 Pulse (Heart Rate) 82 /min Isaias DeFinis [facility] Work Phone: 06-18-2016 13:23-0500 Respiratory Rate 18 /min Harumi DeFinis [facility] Work Phone: 06-18-2016 13:23-0500 Weight 85.28 kg Isaias Whalen [facility] Work Phone: Encounters Encounter Date Encounter Type Care Provider Facility Start: 04-09-2025 ambulatory Marvel Ariadnaow POLICY WRITER Facil ity:[facility] Start: 03-03-2025 End: 03-03-2025 Patient encounter procedure Francesca Orr POLICY WRITER-C -[facility] Work Phone: Start: 03-03-2025 End: 03-03-2025 ambulatory Chintan Saucedo Facility:[facility] Start: 12-07-2024 End: 12-07-[address] Chintan Saucedo MD Work Phone: -[facility] Start: 12-07-2024 End: 12-07-[address] Chintan Saucedo MD -[facility] Start: 12-07-2024 End: 12-07-2024 ambulatory Chintan Saucedo Facility:[facility] Start: 07-01-2024 End: 07-01-2024 ambulatory Chintan Saucedo Facility:[facility] Start: 06-17-2024 End: 06-17-2024 ambulatory Chintan Saucedo Facility:[facility] Start: 04-24-2024 End: 04-24-2024 ambulatory Michael Whaley Facility:[facility] Start: 04-08-2024 End: 04-08-2024 ambulatory Chintan Saucedo Facility:[facility] Start: 03-30-2024 End: 03-30-2024 ambulatory Chintan Saucedo Facility:[facility] Start: 07-30-2023 End: 07-30-[address] Chintan Saucedo Work Phone: [facility] Work Phone: Start: 07-30-2023 End: 07-30-[address] Chintan Saucedo Work Phone: [facility] Start: 07-01-2023 End: 07-01-[address] Chintan Saucedo Work Phone: [facility] Work Phone: Start: 02-05-2023 End: 02-05-[address] Nish Camacho Work Phone: [facility] Work Phone: Start: 02-05-2023 End: 02-05-[address] [facility] Start: 12-14-2022 End: 12-14-[address] Nish Camacho Work Phone: [facility] Work Phone: Start: 12-12-2022 End: 12-12-[address] Nish Camacho Work Phone: [facility] Work Phone: Start: 11-12-2022 Documentation procedure Mammog eliot Coordinator [facility] Start: 11-12-2022 Letter encounter Mammography Coordinator [facility] Department Start: 11-09-2022 End: 11-09-2022 ambulatory NISH CAMACHO Facility:[facility] Start: 11-09-2022 End: 11-09-2022 Subsequent hospital visit by physician Screen Mammo [facility] Start: 10-29-2022 End: 10-29-[address] Nish Camacho Work Phone: [facility] Work Phone: Start: 10-29-2022 End: 10-29-[address] [facility] Start: 10-26-2022 End: 10-26-[address] Nish Camacho Work Phone: [facility] Start: 07-25-2022 End: 07-25-[address] Nish Camacho Work Phone: [facility] Start: 07-16-2022 End: 07-16-[address] Nish Camacho Work Phone: [facility] Work Phone: Start: 07-16-2022 End: 07-16-[address] Nish Camacho Work Phone: [facility]-Pulmonary Services/Neurology Start: 07-10-2022 Non-patient / Non-visit Dr. Pawel Camacho Work Phone: [facility] Start: 07-09-2022 End: 07-09-[address] Nish Camacho Work Phone: [facility] Start: 04-24-2022 End: 04-24-[address] Nish Camacho Work Phone: [facility] Work Phone: Start: 04-24-2022 End: 04-24-[address] Nish Camacho Work Phone: [facility]-Laboratory, Phy Office 3rd Flr Start: 12-27-2021 Non-patient / Non-visit Dr. Pawel Camacho Work Phone: [facility] Start: 12-27-2021 End: 12-27-[address] Nish Camacho Work Phone: [facility]-Cardiovascular Services Start: 12-20-2021 ambulatory WINSTON WOODS Facilit y:[facility] Start: 12-20-2021 End: 12-21-2021 ambulatory WINSTON WOODS [place] Start: 12-20-2021 Opscpy extnd rta drawing & scl deprsn i&r uni/bi [place] [facility] Start: 11-27-2021 End: 11-27-[address] Nish Camacho Work Phone: [facility]-Outpatient Breast Imaging Start: 11-22-2021 End: 11-22-[address] Nish Camacho Work Phone: [facility] Start: 10-23-2021 End: 10-23-2021 Patient encounter procedure [facility]-Laboratory Start: 07-05-2021 End: 07-05-2021 Patient encounter procedure [facility]-Laboratory, Phy Office 3rd Flr Procedures Date Procedure Procedure Detail Performing Clinician Start: 12-07-2024 Urine microalbumin/creatinine ratio measurement Dr. Chintan Saucedo MD Work Phone: Start: 11-09-2022 End: 11-09-2022 Mammography [facility] Provider Start: 12-27-2021 Radionuclide imaging of perfusion of myocardium under exercise stress Dr. Nish Camacho Work Phone: Start: 11-27-2021 Screening mammography Arminda Camacho Work Phone: Start: 05-01-2019 Colonoscopy Mammograph y Coordinator Start: 02-11-2017 End: 02-11-2017 Dietary management education, guidance, and counseling Lilli Jensen LPN Start: 12-27-2016 End: 12-27-2016 Dietary [...] DTaP,Tdap,Td Vaccine (2 - Td or Tdap) [facility] Start: 11-10-[address] [facility] Start: 01-18-2023 Covid-19 Vaccine ( season) Covid-19 Vaccine () [facility] Start: 01-18-2023 Influenza vaccination [facility] Start: 05-20-2022 ADVANCE DIRECTIVE DISCUSSION ADVANCE DIRECTIVE DISCUSSION [facility] Start: 05-20-2022 DEPRESSION ASSESSMENT DEPRESSION ASSESSMENT [facility] Start: 05-01-2022 Colonoscopy COLONOSCOPY [facility] Start: 05-01-2022 COLORECTAL CANCER SCREENING COLORECTAL CANCER SCREENING [facility] Start: 12-20-2021 PROBLEM PROBLEM [facility] Start: 12-20-2021 [facility] Start: 09-28-2020 Pneumococcal Vaccine: 65+ (2 - PCV) Pneumococcal Vaccine: 65+ (2 - PCV) [facility] Start: 09-16-2019 BONE DENSITY BONE DENSITY [facility] Start: 09-16-2019 Bone Density Screening Bone Density Screening [facility] Start: 07-15-2017 End: 07-15-2017 Appointment Appointment [facility] Work Phone: Start: 05-08-2017 End: 05-08-2017 Appointment Appointment [facility] Work Phone: Start: 02-11-2017 End: 02-11-2017 Appointment Appointment [facility] Work Phone: Start: 02-11-2017 End: 02-11-2017 Follow Up Appt 3 months Follow Up Appt 3 months [facility] Work Phone: Start: 12-27-2016 End: 12-27-2016 Appointment Appointment [facility] Work Phone: Start: 12-27-2016 End: 12-27-2016 JUVE AN [facility] Work Phone: Start: 12-27-2016 End: 12-27-2016 Follow Up Appt 6 months Follow Up Appt 6 months [facility] Work Phone: Start: 12-27-2016 End: 12-28-2016 Pulmonary Referral [facility] Work Phone: Start: 08-12-2016 SIGMOIDOSCOPY SIGMOIDOSCOPY [facility] Start: 06-18-2016 End: 06-18-2016 JUVE AN [facility] Work Phone: Start: 06-18-2016 End: 06-18-2016 Follow Up Appt 6 months Follow Up Appt 6 months [facility] Work Phone: Start: 06-13-2015 End: 06-14-2015 Complete sleep workup (PSG,CPAP as indicated) & Follow up Complete sleep workup (PSG,CPAP as indicated) & Follow up [facility] Work Phone: Start: 06-13-2015 End: 06-13-2015 JUVE AN [facility] Work Phone: Start: 06-13-2015 End: 06-13-2015 Follow Up Appt 1 year Follow Up Appt 1 year [employer] [facility] Work Phone: Start: 06-13-2015 End: 06-14-2015 T4 mass conc *T4 (Total) [facility] Work Phone: Start: 06-13-2015 End: 06-14-2015 Thyrotropin Qn *TSH [facility] Work Phone: Start: 11-25-2014 3 comp foot exam completed DIABETIC FOOT EXAM [facility] Start: 11-25-2014 Hepatitis B screening URINE ALBUMIN:CREATININE RATIO [facility] Start: 11-25-2014 Hepatitis B surface antibody level LDL CHOLESTEROL [facility] Start: 11-25-2014 Hepatitis C antibody, confirmatory test DILATED RETINAL EXAM [facility] Start: 2014 Hepatitis B Vaccine (1 of 3 - Risk 3-dose series) Hepatitis B Vaccine (1 of 3 - Risk 3-dose series) [facility] Start: 2014 RSV Vaccine (1 - 1-dose 60+ series) RSV Vaccine (1 - 1-dose 60+ series) [facility] Start: 05-31-2014 End: 05-31-2014 JUVE AMYСветлана [facility] Work Phone: Start: 05-31-2014 End: 05-31-2014 Follow Up Appt 1 year Follow Up Appt 1 year [employer] [facility] Work Phone: Start: 05-31-2014 End: 05-31-2014 Stress Echocardiogram (treadmill) Stress Echocardiogram (treadmill) [facility] Work Phone: Start: 09-16-1999 COLOGUARD (FIT-DNA) COLOGUARD (FIT-DNA) [facility] Start: 09-16-[address] COLONOGRAPHY [facility] Start: 09-16-1999 FECAL OCCULT BLOOD FECAL OCCULT BLOOD [facility] Start: 1973 Urine microalbumin profile DTAP,TDAP,TD (1 - Tdap) [facility] Start: 1972 ANNUAL PCP TEAM CHRONIC DISEASE VISIT ANNUAL PCP TEAM CHRONIC DISEASE VISIT [facility] [facility] Start: 1972 HEPATITIS C SCREENING HEPATITIS C SCREENING [facility] Start: 1960 PNEUMOCOCCAL: 65+ (1 - PCV) PNEUMOCOCCAL: 65+ (1 - PCV) [facility] Start: 09-16-1959 Hemoglobin A1c/Hemoglobin.total in Blood HBA1C [facility] Radionuclide imaging of perfusion of myocardium under exercise stress [facility] Work Phone: [facility] Work Phone: Immunizations Immunization Date Immunization Notes Care Provider Fa omarty 01-04-2021 influenza virus vaccine, unspecified formulation Screen Wstr [facility] 12-20-2017 zoster vaccine recombinant Mammography Coordinator [facility] Work Phone: 09-18-2017 zoster vaccine recombinant Mammography Coordinator [facility] Work Phone: Payers Date Payer Category Payer Self-pay [id number] 2022 Medicare [id number] 2022 Unknown [id number] 2015 Unknown [id number] Medicaid [id number] Medicare [id number] Unknown [id number] Unknown [id number] 2.16.8 [id number] Unknown [id number] 2.16.8 [id number] Unknown [id number] 2.16.8 [id number] Unknown [id number] 2.16.8 [id number] Unknown [id number] 2.16.8 [id number] Unknown [id number] 2.16.8 [id number] Unknown [id number] 2.16.8 [id number] Unknown [id number] 2.16.8 [id number] Unknown [id number] 2.16.8 [id number] Social History Date Type Detail Facility Start: 12-08-2019 End: 07-01-2023 Tobacco smoking status RIIS Unknown if ever smoked [facility] Start: 04-29-2019 Non-smoker [facility] Start: 1955 Sex Assigned At Female [facility] Start: 04-24-2024 Tobacco smoking stat us RIIS Never smoked tobacco [facility] Start: 04-28-2019 Alcohol intake Current drinke r of alcohol (finding) [facility] Start: 1955 Sex Assigned At Not on file [facility] Start: 04-28-2019 End: 11-09-2022 History of Social function [facility] Start: 04-28-2019 End: 11-09-2022 Tobacco use panel [facility] National Score (1-10 0), lower number is lower risk [address] [facility] Medical Equipment Procedure Code Equipment Code Equipment Origin al Text Equipment Identifier Dates Procedure Implant ([id number]) Accu-Chek SmartV iew Test Strips Blood Sugar Diagnostic (Accu-Chek Smartview Test Strip) strip Start: 07-31-2023 Blood Sugar Diagnostic (Accu-Chek Smartview Test Strip) strip Start: 07-31-2023 Blood Sugar Diagnostic (Accu-Chek Smartview Test Strip) strip Start: 02-01-2025 Blood Sugar Diagnostic (Accu-Chek Smartview Test Strip) strip Start: 07-31-2023 End: 02-01-2025 Clinical Notes 12-05-2009 to 03-03-2025 Letter - Mammography Coordinator - 11/12/2022 7:54 AM Dayanna Munoz RT(R) - 11/09/2022 7:50 AM EDT Note Date & Type Note Facility 03-03-2025 Progress note [facility] 04-24-2024 Note [facility] Medical Records Department [address] [place] [address] History Physical Exam 04/24/24 0710 MR#: [id number] Acct: [id number] Name: ISABEL LGASS Rep #: [id number] : 1955 68 From: Michael Whaley MD PCP: Dr. Chintan Saucedo MD Status:[facility] Location: [place] [address] HPI - General HPI Narrative ISABEL GLASS, [...] abdominal pain or blood in the stool. [facility] Medical History (Updated 04/23/24 @ 09:59 [...] 400 mg PO QDAY 05/03/17 Unknown History multivitamin,ch-nkkc-qvkwrchm 1 tab PO QDAY 05/03/17 Unknown History (Complete Multivitamin tablet) doxycycline hyclate 100 mg capsule 100 mg PO QDAY PRN FACE BREAKOUT 07/15/17 Unknown History yahxznck-afc-WG 200 mcg-vit K 15 2 tab PO DAILY 11/22/21 Unknown History mcg-lycope 150 ork-wccpbv-bisf tablet (Ocuvite Eye Plus Multi) cholecalciferol (vitamin [...] sleep apnea) Brother , Age 62 from [place] CAD (coronary artery disease), Onset Age: 61 PCI and stents Myocardial infarction Father Pacemaker Cardiomyopathy Brother , of colon cancer Colon cancer, Onset Age: 33 at 36yrs Surgical History (Updated 04/23/24 @ 09:59 by Jabier Walker) Hx of a (more content not included)... [facility] 11-12-2022 Miscellaneous Notes Formatting of this note might be differe nt from the original. November 12, 2022 PID: [id number] Isabel Glass [address] [place] [address] Dear Ms. Glass, We are pleased to [...] report will be kept on file at [facility] as part of your permanent medical record and are available for your continuing care. Thank you for allowing us to help in meeting your health care needs. Sincerely, Dr. Hill Interpreting Radiologist [facility] (Normal over 40) documented in this encounter [facility] 11-09-2022 Note HNO ID: [id number] Author: RT Carlin(Jostin) Service: ? Author Type: Technologist Type: Progress [...] RT Carlin(R) November 09, 2022 8:14 AM [facility] 11-09-2022 History of Present illness Narrative Formatting of this note might be differe nt from the original. Radiology Service Progress Note PATIENT NAME: Isabel [...] IV DATA: Not applicable SIGNED BY: RT Carlin(Jostin) November 09, 2022 8:14 AM documented in this encounter [facility] 12-20-2021 Evaluation note Encounter Date 12/20/2021 12/20/2021 The patient's bossman newby medical records (including ED and External records) were reviewed in determination of my treatment. Evaluation, diagnosis and management plan were discussed with Patient/Family. Follow up with Urgent Care/ER if not better in 2-3 days or anytime if there is any worsening. It is recommended that the patient follow-up with his/her PCP in one week. Patient was Discharged from Urgent Care in good/satisfactory condition. [facility] 08-03-2022 History general Narrative - ReportedNo medical history recorded. Gynecological HistoryNo gynecological history recorded. Obstetrics History GPAL:G 0 P 0 0 0 0 [facility] 07-19-2010 History of Past illness Narrative* Problem [...] of this encounter (statuses as of 11/14/2022) 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 information [facility] Work Phone: Evaluation note* Diagnosis Onset Date Resolution Status Fatigue acute Essential hypertension chron ic Hyperlipidemia chronic [facility] Work Phone: evaluation note* Diagnosis Onset Date Resolution Status Diabetes mellitus type II, controlled chronic Overweight (BMI 25.0-29.9) c hronic Vitamin D deficiency chronic [facility] Work Phone: evaluation note* Diagnosis Onset Date Resolution Status Diabetes mellitus type II, controlled chronic Overweight (BMI 25.0-29.9) c hronic Vitamin D deficiency chronic Mitral valve insufficiency a cute Essential hypertension chron ic Hyperlipidemia chronic [facility] Work Phone: evaluation note* Diagnosis Onset Date Resolution Status Obesity (BMI 30.0-34.9) acut e Diabetes mellitus type II, controlled chronic [facility] Work Phone: evaluation note* Diagnosis Onset Date Resolution Status Diabetes mellitus type II, controlled chronic Essential hypertension chron ic Hyperlipidemia chronic Overweight (BMI 25.0-29.9) c onic [facility] Work Phone: evaluation note* Diagnosis Onset Date Resolution Status Admit Date Diabetes mellitus type II, controlled chronic March 03 11:42am Essential hypertension chronic Oc tob2024 11:42am Hyperlipidemia chronic March 032024 11:42am Microalbuminuria chronic March 03, 2025 11:42am Overweight (BMI 25.0-29.9) chronic March 03, 2025 11:42am [facility] Work Phone: Progress note Author Francesca Orr [facility] Note Date/Time March 03, 2025 1 :09pm [facility] [address] [place] [address] OFFICE VISIT Date of Service: 03/03/25 MR#: [id number] Acct: [id number] Name: ISABEL GLASS Rep #: [id number] : 1955 Provider: GERARD Orr Age/Sex: 69/F [place] [facility] [place]: Signed Intake Vital Signs 07/01/24 10:06 03/03/25 11:45 Height 5 ft 4 in 5 ft 4 in Weight: 167 lb 157 lb BMI 28.6 26.9 BP 146/84 H 162/81 H Blood Pressure Location Lt brachial Lt brachial Position Sitting Sitting Pulse 94 86 Pulse Source Monitor Monitor Pulse Oximetry (%) 97 98 Oxygen Delivery Method room air room air Intake Visit Reasons: 8 M FU, RS 12/30 Chief Complaint: f/u diabetes Ve Teacher Required: No Accompanied by: Self Is patient in pain?: No Allergies amoxicillin Allergy (Mild, Verified 03/03/25 11:45) YEAST aspirin (From Thounds Aspirin) Allergy (Mild, Verified 03/03/25 11:45) Bleeding Latex, Natural Rubber Allergy (Mild, Verified 03/03/25 11:45) RASH Medications ?Medication ?Instructions ?Recorded ?Confirmed ?Type benazepril 10 mg tablet 10 mg PO QDAY 05/03/1703/03 History cinnamon bark 500 mg capsule 1,000 mg PO DAILY 7 03/03/25 History (Cinnamon) magnesium oxide 400 mg PO QDAY 05/03/1702/17 History multivitamin,oi-yosx-zhxernst 1 tab PO QDAY 05/03/17 1 History (Complete Multivitamin tablet) doxycycline hyclate 100 mg capsule 100 mg PO QDAY PRN FACE BREAKOUT 07/15/17 03/03/25 History cluiwokd-rii-TK 200 mcg-vit K 15 2 tab PO DAILY 03/03/25 History mcg-lycope 150 mkt-zoiuzt-hhjg tablet (Ocuvite Eye Plus Multi) cholecalciferol (vitamin D3) 50 50 mcg PO DAILY #90 ca ps 07/09/22 03/03/25 Rx mcg (2,000 unit) capsule lactobacillus combination no.9 4 4,000 mmu cells PO DA VALERIE 07/09/22 03/03/25 History billion cell capsule (Adult 50 Plus Probiotic) coenzyme Q10 100 mg capsule (Co 600 mg PO DAILY 03/03/25 History Q-10) ascorbic acid (vitamin C) 500 mg 1,000 mg PO DAILY 03/03/25 History tablet biotin 400 mcg tablet 400 mcg PO DAILY 03/10/24 History coffee extract 100 mg-phosphatidyl 1 cap PO DAILY 02/1803/03/25 History serine 100 mg capsule (Neuriva Original) cyanocobalamin (vitamin B-12) 1,000 mcg PO QDAY 03/03/25 History 1,000 mcg tablet (Vitamin B-12) diclofenac potassium 50 mg tablet 50 mg PO BID PRN harriett n 03/10/24 03/03/25 History ferrous sulfate 325 mg (65 mg 325 mg PO QDAY 03/10/24 03/03/25 History iron) tablet (FeroSul) nystatin 100,000 unit/gram topical 1 applic topical BI D PRN REDNESS 03/10/24 03/03/25 History ointment psyllium husk 0.4 gram capsule 0.8 g PO DAILY 03/10/24 03/03/25 History (Metamucil) ketotifen fumarate 0.025 % (0.035 1 drp EACH EYE BID 1 06/24/23 03/03/25 History %) eye drops (Allergy Eye (ketotifen)) ibandronate 150 mg tablet 150 mg PO QMONTH 07/01/24 History blood sugar diagnostic (Accu-Chek #100 ea 02/01/25 Rx SmartView Test Strips) carboxymethylcellulose sodium 1 % 1 drp ophthalmic (ey e) BID PRN 03/03/25 03/03/25 History eye liquid gel drops (Refresh Liquigel) lysine 500 mg tablet 1,000 mg PO DAILY PRN 03/03/25 History methylphenidate HCl 30 mg biphasic 30 mg PO QDAY 03/0303/03/25 History 50-50 capsule,extended release rosuvastatin 10 mg tablet 10 mg PO 3XW #36 tabs 03/03/25 Rx semaglutide 2 mg/dose (8 mg/3 mL) 2 mg (0.75 mL) subcu t QWEEK #3 mL 03/03/25 03/03/25 Rx subcutaneous pen injector (Ozempic) Have you fallen in the past year?: No PFSH Medical History Wears glasses History of echocardiogram History of stress test Cardiology follow-up encounter ZACHERY treated with BiPAP Family history of malignant neoplasm of colon in relative diagnosed when youngerthan 50 years of age Essential hypertension Diabetes [...] sleep apnea) Brother , Age 62 from [place] CAD (coronary artery disease), Onset Age: 61 PCI and stents Myocardial infarction Father Pacemaker Cardiomyopathy Brother , of colon cancer Colon cancer, Onset Age: 33 at 36yrs Social History household members: none current occupational status: retired Smoking Status: Never smoker second hand exposure: No alcohol intake: current alcohol intake frequency: holidays/special occasions only Alcohol type: other substance use type: does not use caffeine: Yes (2/day) what type of physical activity do you participate in: none HPI HPI Chief Complaint: f/u diabetes Details: ISABEL GLASS, is a 69 F who presents to the office today for evaluation and management of diabetes. A1C today is 5.9%, improved from 07/01/24 at 6.1%. She has lost an additional 10 lbs since that time. Currently taking Ozempic 2 mg qweek- tolerating well, and metformin 500 mg BID with food. Metformin dose was recently decreased by PCP as A1C was noted to be <6.0%. She admits that she is off track with her diet. Initial BP elevated at 162/81. Repeat manual BP 142/82. Currently taking benazepril 10 mg once daily. Reports compliance with medication. She is taking a daily statin. Labs are up to date. Denies any acute concerns. ROS Const Constitutional: Positive for weight change (intentional loss); No fatigue, weakness or change in appetite Eyes Eyes: No change in vision ENT ENT: No hearing loss, nasal congestion or difficulty swallowing Cardio Cardiology: No chest pain at rest, chest pain with exertion or shortness of breath [facility]: No numbness Neuro Neurology: No weakness, memory loss or numbness Psych Psychiatric: No change in appetite, No memory loss and No Thoughts of harming yourself/Others Resp Respiratory: No cough or chest congestion Gastro GI: No difficulty swallowing Genitourinary-Female: No burning urination Skin Skin: No itchy eyes or wounds Endo Endocrine: Positive for weight change (intentional loss); No fatigue Aller/Imm Allergy/Immunologic: No itchy eyes Exam Const General: cooperative, healthy appearing, comfortable and no acute distress Nutritional Appearance: overweight Orientation: alert, awake and oriented x3 HENMT Head: normal to inspection Ears: hearing grossly normal bilaterally Nose: external nose normal Face and sinus: normal facial exam Eyes General: appearance normal, both eyes and all related structures Alignment and Position: alignment normal Sclera: sclerae normal Neck Neck: normal visual inspection Chest Chest palpation & inspection: normal inspection of the chest Resp Effort & Inspection: normal respiratory effort, able to speak in complete sentences, symmetric chest movement, normal respiratory pattern, no audible wheezes and no cough Auscultation: Bilateral: Clear to Auscultation Cardio Rate: regular rate Rhythm: regular rhythm Heart Sounds: S1 normal and S2 normal GI Inspection: normal to inspection [facility] Cervical Spine: normal cervical lordosis Thoracic/Lumbar Spine: thoracic and lumbar spine normal to inspection Skin General: no rashes or lesions noted Lesions: no lesions Rashes: no rashes Trauma: no lacerations or abrasions Wounds: no wounds Neuro General: patient alert, patient awake and patient oriented x3 Cognition: normal cognition Speech: speech normal Gait: normal gait Extrem General: normal to inspection and no pedal edema Psych Appearance: grossly normal Mental Status: mental status grossly normal Mood: congruent mood Affect: normal affect Speech and Movement: speech and movement normal Attitude: cooperative Thought Process: normal Thought Content: normal Judgment: judgment good Results POC A1C POC A1C 5.9 % Last Edit by Madelyn Jean-Baptiste on 03/03/25 11:57 Clinical Quality Measures Falls Risk Screening/Assistive Devices Have you fallen in the past year?: No Assessment and Plan Assessment and Plan (1) Diabetes mellitus type II, controlled: Status: Chronic Plan: Chronic- well controlled. Longitudinal care provided. G2211. I reviewed with the patient the risk of developing and worsening of diabetes complications including retinopathy, neuropathy, nephropathy, heart attack, stroke, amputation, and sudden . Diabetes education provided. A1C at goal: <7.0%. Continue Ozempic 2 mg qweek. Discontinue metformin. Avoid processed carbohydrates. Reviewed most recent labs. The patient was counseled regarding the importance of foot care including daily visual and tactile inspection. The patient was instructed not to go barefoot andto always wear socks with their shoes. Follow up in 6 months. (2) Essential hypertension: Status: Chronic Plan: Chronic- borderline control. Continue benazepril 10 mg once daily. GLP1 likely aiding in control. Avoid dietary sodium. Will continue to monitor. (3) Microalbuminuria: Status: Chronic Plan: Chronic- improving. Maintain glycemic control. Achieve and maintain BP control. Continue ACEI. Continue GLP1. Assure adequate hydration. Avoid NSAIDs. Will continue to monitor in routine labs. (4) Hyperlipidemia: Status: Chronic Qualifiers: Hyperlipidemia type: unspecified Qualified Code(s): E78.5 - Hyperlipidemia, unspecified Plan: Chronic- controlled. Continue rosuvastatin 10 mg 3x/week. Increase vegetable intake, choose lean cuts of meat, avoid processed carbohydrates. Will continue to monitor in routine labs. (5) Overweight (BMI 25.0-29.9): Status: Chronic Plan: Chronic- improving. Encouraged a diet that contains high quality carbohydrates rich in fiber. I have spent [28] minutes today reviewing labs, records and history. Time includes coordinating care, interpretation of tests, discussion with patient's other health care providers via telephone. This also includes time I spent with the patient for exam, treatment plan and education as well as documenting clinical information. Orders: Orders POC A1C Today E11.65 - Type 2 diabetes mellitus with hyperglycemia Medications: New rosuvastatin 10 mg PO 3XW 36 tabs 3RF E78.5 - Hyperlipidemia, unspecified Refilled semaglutide (Ozempic) 2 mg (0.75 mL) subcut QWEEK 3 mL 11RF E11.65 - Type 2 diabetes mellitus with hyperglycemia Discontinued metformin Discontinued Reason: Order Completed 500 mg PO BID E11.9 - Type 2 diabetes mellitus without complications Plan Details Follow Up: 6 Months Coding Level of Care Code Off vis,est,level 3 Extra Time Spent Extra Time Spent Extra Time Spent: G2211 Diagnoses Diabetes mellitus type II, controlled E11.9 Essential hypertension I10 Microalbuminuria R80.9 Hyperlipidemia, unspecified hyperlipidemia type E78.5 Hyperlipidemia type: unspecified Overweight (BMI 25.0-29.9) E66.3 Additional Codes Extra Time Spent - Extra Time Spent: G2211 (G2211) 03/03/25 6470 <Electronically signed by Francesca yanes NP-C> Date _ Francesca Orr NP-C Cosigner Signature: Date (if applicable) CC: Dr. Chintan Saucedo MD ~ [facility] [employer] Work Phone: Reason for referral (narrative)No reason for referral information availableWKindred Healthcare Work Phone: Family History Relationship Condition Age at Onset Recorded Date/T bev sister Obstructive sleep apnea syndrome Unknown brother Coronary artery disease 61 Myocardial infarction Unknown father Presence of cardiac pacemaker Unknown Cardiomyopathy Unknown brother Malignant neoplasm of colon Unknown Relationship Condition Age at Onset Recorded Date/T bev sister Obstructive sleep apnea syndrome Unknown brother Coronary artery disease 61 Myocardial infarction Unknown father Presence of cardiac pacemaker Unknown Cardiomyopathy Unknown brother Malignant neoplasm of colon 33 Advance Directives Advance Directive Response Recorded Date/ Time Living Will Yes April 29 12:24pm Power of Seo Professional Yes April 29, 2019 12:24pm Advance Directive Response Recorded Date/ Time Living Will Yes April 29 019 11:24am Power of Seo Professional Yes April 29, 2019 11:24am Chief Complaint [...] controlled Essential hypertension Hyperlipidemia Overweight (BMI 25.0-29.9) Chief Complaint Admit Date 7 M FU, RS 08/13 March 03, 2025 1 1:42am Reason for Visit Admit Date Diabetes mellitus type II, controlled Oc tober 2024 11:42am Essential hypertension March 03 11:42am Hyperlipidemia March 03, 2025 1 1:42am Microalbuminuria March 03, 2025 1 1:42am Overweight (BMI 25.0-29.9) March 03, 2025 11:42am Summary Purpose Additional Source Comments Goals (unrecognized section and content) Goals may be documented in a n alternate section Goal Description Status Start Date Updated by None Recorded INFORMATION SOURCE (unrecogn ized section and content) DATE CREATED AUTHOR 12/25/2021 Dionne Kareo stem DATE CREATED AUTHOR AUTHOR'S ORGANIZ ATION 11/14/2022 [facility] DATE CREATED AUTHOR AUTHOR'S ORGANIZ ATION 03/12/2025 [facility] Care Teams (unrecognized sec tion and content) [...] Dr. Edwar Lee MD Attending Provider Active Store Operations Manager Relationship Specialty Start Date End Date Nish Camacho Chi PCP - General Gerontology 01/04/16 Team Status: Active Member Role Status Dates Dr. Nish Camacho MD Family Provider Active Dr. Chintan Saucedo MD Primary Care Provider Active Team Status: Inactive Member Role Status Dates Dr. Chintan Saucedo MD Primary Care Provider Active GERARD Bran Attending Provider, Referring Pr ovider Active Team Status: Inactive Member Role Status Dates Dr. Chintan Saucedo MD Primary Care Provider, Attending P rovider Active Store Operations Manager Relationship Specialty Start Date End Date Nish Camacho Chi PCP - General Gerontology 01/04/16 Team Status: Inactive Member Role Status Dates Dr. Chintan Saucedo MD Primary Care Provider, Referring P rovider Active Francesca Orr NP-C Attending Provider Active Team Status: Active Member Role/Relationship Status Dates Dr. Chintan Saucedo MD Primary Care Provider Active Team Status: Inactive Member Role/Relationship Status Dates Dr. Chintan Saucedo MD Primary Care Provider Active Start: December 07, 2024 End: December 07, 2024 Dr. Chintan Saucedo MD Attending Provider Active St art: December 07, 2024 End: December 07, 2024 Dr. Chintan Saucedo MD Referring Provider Active St art: December 07, 2024 End: December 07, 2024 Dr. Lm Elaine MD Other Provider Active Start: December 07, 2024 End: December 07, 2024 Team Status: Active Member Role/Relationship Status Dates Dr. Chintan Saucedo MD Primary care physician Active Team Status: Inactive Member Role/Relationship Status Dates Dr. Chintan Saucedo MD Primary care physician Active Start: December 07, 2024 End: December 07, 2024 Dr. Chintan Saucedo MD Attending physician Active S tart: December 07, 2024 End: December 07, 2024 Dr. Chintan Saucedo MD Referring Provider Active St art: December 07, 2024 End: December 07, 2024 Dr. Lm Elaine MD Nurse Practitioner Active Sta rt: December 07, 2024 End: December 07, 2024 Team Status: Inactive Member Role/Relationship Status Dates Dr. Chintan Saucedo MD Primary care physician Active Start: March 03, 2025 End: March 03, 2025 Dr. Chintan Saucedo MD Referring Provider Active St art: March 03, 2025 End: March 03, 2025 GERARD Bran Attending physician Active Start: March 03, 2025 End: March 03, 2025 Source Comments (unrecognize d section and content) In the event this informatio n is protected by the [facility] Confidentiality of Alcohol and Drug Abuse Patient Records regulations: The Federal rules restrict any use of the information to criminally investigate or prosecute any alcohol or drug abuse patient.[facility] Center[facility] the event this information is protected by the Federal Confidentiality of Alcohol and Drug Abuse Patient Records regulations: The Federal rules restrict any use of the information to criminally investigate or prosecute any alcohol or drug abuse patient.[facility] FOR RECORDS PERTAINING TO PATIENTS [...] BE BASED ON THE PRIMARY CLINICAL RECORDS. [facility]. provides no warranty or guarantee of the accuracy or completeness of information in this document.
== END | disposition home or self-care (01) ==
LOC: MTRAD 10:47
PROVIDERS: PCP Family Medicine; Referring Provider Nurse Practitioner Family; Visit Provider Nurse Practitioner Family
DX: M25.562 Pain in left knee (principal)
CPT/HCPCS: 73564